=== PATIENT | male | born 1945 | race Caucasian/White ===

== ENCOUNTER 2021-10-24 11:21 | Inpatient (IN) ==
[2021-10-24] MEDS ORDERED: PROPOFOL IV EMULSION 10 MG/ML 100 ML VIAL IV ONE (11:26)
[2021-10-24] MEDS ORDERED: STAT IV Infusion **Titration per Protocol STA ×2 (11:28→12:55)
[2021-10-24] MEDS ORDERED: 0.2 MICRON FILTER SET 1 EA IV ONE ×2 (11:29→16:43)
[2021-10-24] MEDS ORDERED: AMIODARONE / D5W 360 MG/200 ML BAG IV ONE (11:29)
[2021-10-24] MEDS ORDERED: AMIODARONE 360MG / 200ML D5W IV ONE (11:29)
[2021-10-24] MEDS ORDERED: propofoL 1,000 MG/100 ML VIAL IV SCH (11:30)
[2021-10-24] MEDS: PROPOFOL BOLUS FROM BAG IV PRN ×4 (11:31→13:48)
--- NOTE | 2021-10-24 11:32 | Emergency Department Note ---
Impression & Plan Cardiac arrest ADMIT ED Provider Note HPI: The patient is a 76-year-old male who presents the emergency department status post ventricular fibrillation arrest in the field. Patient reportedly was at a local gas station and collapsed. Bystander started CPR. Per EMS report he was noted to be in ventricular fibrillation as his initial rhythm, he was defibrillated in the field, CPR was ongoing, patient ultimately was defibrillated 3 times, received 3 rounds of epinephrine, also received an amiodarone bolus. Return of spontaneous circulation was achieved, patient was intubated in the field. Arrival here to the ED the patient is intubated, he is displaying some movement of the extremities as he is currently not sedated. He has a large laceration to the mid aspect of his frontal scalp with minimal active bleeding. Blood pressures currently stable. ROS: -Cardio: Cardiac arrest *10 point review systems was conducted and is otherwise negative unless stated above *Outpatient medications and allergy history reviewed PE: General: Patient is intubated, does display some purposeful movements of the extremities at times HEENT: Normocephalic, laceration to the frontal scalp with minimal active bleeding, approximately 3 cm in length Eyes: Extraocular eye movement is intact, no scleral erythema Pulmonary: Clear to auscultation bilaterally, no wheezing Cardio: Regular rate and rhythm GI: Abdomen is soft, nontender : No suprapubic tenderness MSK: No evidence of trauma or malformation of the extremities, no edema Skin: No evidence of rash, laceration to the mid front scalp as noted above Neuro: Alert, no focal deficits Psychiatric: Cooperative monitor car operator: - An order was placed for continuous cardiac monitoring - Patient was noted to be in sinus rhythm with rate of 110 EKG: Rate: 96 Rhythm: Normal sinus rhythm Intervals: NE Within normal limits, QRS 164 ms, QTC [address] changes: No ST elevation Time: 1128 Laceration repair: Location: Frontal scalp Length: 3 cm Closure technique: 4 separate nhi were placed with good approximation of the wound edges and good hemostasis achieved Medical Decision Making: Patient presented to the emergency department status post ventricular fibri llation arrest in the field. ROSC was achieved by EMS prior to arrival, patient was given epinephrine x3 as well as 3 defibrillation shocks and a bolus of amiodarone in the field prior to arrival. Patient was intubated in the field. On arrival patient has stable blood pressure, he is noted to be in sinus tachycardia on arrival in the low 100s, he does exhibit some motion of the extremities at times and therefore was sedated with propofol shortly after arrival, patient was also started on amiodarone drip following bolus that was given in the field given his reported ventricular fibrillation. CT imaging of the head was obtained as the patient does have a laceration to the mid forehead after his fall, this does not show any evidence of intracranial bleeding. EKG was obtained here in the ED that does not show any evidence of ST elevation. Lab work shows evidence of leukocytosis greater than 19,000 which I suspect is reactive at this time, lactic acid is elevated 2.9, high-sensitivity troponin level is elevated at 110. Venous blood gas obtained initially on arrival shows acidotic pH of 7.22 with some hypercarbic retention likely associated with the patient's apnea prior to intubation. Patient was initiated on peripheral vasopressor with Levophed as he did have an episode of hypotension following sedation with propofol later during his stay into the 80s systolic. I discussed the patient's arrival with the on-call produce inspector, Dr. Molina, who is in agreement for consultation. Recommended initiation of cooling protocols following negative CT imaging of the head. This was ordered. Patient was also discussed with on-call interventional cardiology, Dr. Elmore, and morena nt was taken to the cardiac catheterization lab for further diagnostic assessment. Patient was noted to have a medical bracelet on in the field that was informative of a history of coronary artery disease status post multiple stents and CABG. Suspect his episode today may be secondary to CAD. This was discussed with the on-call midlevel provider for the [facility] service and the patient was admitted primarily to their service for further care with plan for admission to the ICU following cardiac catheterization. I did discuss all the above findings with the patient's , Louise, on the phone, she states that she will be arriving to the hospital shortly after her son comes to her home to pick her up and give her a ride to the hospital. She is aware of the critical condition of her at this time. She was able to supplement additional information about the patient's cardiac history including history of CHF, ischemic cardiomyopathy, history of CABG. States he has received care at [facility] as well as [facility]. * CRITICAL CARE TIME: 60 min -Time spent at the bedside for patient status postcardiac arrest requiring se dation following intubation, initiation of amiodarone drip for ventricular fibrillation in the field, initiation of vasopressor support for hypotension, interpretation of diagnostic studies including EKG, discussion with other healthcare providers including on-call produce inspector and on-call interventional cardiology, arrangement of admission and arrangement of transfer to the cardiac catheterization lab Diagnosis: 1. Cardiac arrest status post ROSC 2. Ventricular fibrillation 3. History of coronary artery disease status post CABG 4. Elevated high-sensitivity troponin 5. Lactic acidosis 6. Leukocytosis 7. Closed head injury 8. Forehead laceration Disposition: Admission to ICU Darius Cardenas DO Emergency Medicine Past Med/Surg History Medical History (Updated 10/24/21 @ 14:18 by Armin Juarez MD) CKD (chronic kidney disease) Coronary artery disease Ventricular fibrillation Social History Smoking Status: Unknown if ever smoked Allergies Allergies Allergy/AdvReac Type Severity Reaction Status Date / Time erythromycin base Allergy Unknown STOMACH Verified 04/12/15 07:57 PAIN LATEX 1 Allergy Unknown HIVES Uncoded 04/07/15 13:44 Home Meds Home Medications Medication Instructions Recorded Confirmed ATORVASTATIN (LIPITOR) 40 mg PO QPM #0 tab 04/07/15 CALCIUM CARBONATE-VITAMIN D 1 tab PO QAM #0 04/07/15 (CALCIUM) CHOLECALCIFEROL (Vitamin D) 1,000 inter.unit PO QAM #0 tab 04/07/15 CLOPIDOGREL BISULFATE (PLAVIX) 75 mg PO QPM #0 tab 04/07/15 Lisinopril (Prinivil) 20 mg PO BID #0 tab 04/07/15 MONTELUKAST SODIUM (SINGULAIR) 10 mg PO QAM #0 tab 04/07/15 Multivitamin 1 tab PO QAM #0 tab 04/07/15 OMEGA-3 FATTY ACIDS (OMEGA 3) 1 cap PO QAM #0 04/07/15 Ocuvite Preservision 2 tab PO BID #0 tab 04/07/15 Results & Data (ED) Vital Signs Vital Signs - 24 hr 10/24/21 11:23 10/24/21 11:28 10/24/21 11:30 Temperature Temperature Source Pulse Rate 104 H 112 H Pulse Rate [Apical] Pulse Rate from SpO2 Sensor Respiratory Rate 23 24 Respiratory Effort / Characteristics Respiratory Depth Normal Blood Pressure 201/128 H Blood Pressure [Left Arm] Blood Pressure Mean 152 Blood Pressure Mean [Left Arm] Pulse Oximetry 99 98 99 Oxygen Delivery Method Mechanical Vent Mechanical Vent Fraction of Inspired Oxygen 60 Sepsis Recent Fever Within 48 Hours No Sepsis New/Unexplained Change in Mental Status No Sepsis Action Taken by Nursing Physician Notified End-Tidal CO2 37 End Tidal CO2 (18-54mmHg) 10/24/21 11:35 10/24/21 11:45 10/24/21 12:00 Temperature 35.6 C L Temperature Source [place] Cath ( Temp Sensing) Pulse Rate Pulse Rate [Apical] 107 H 99 H 90 Pulse Rate from SpO2 Sensor Respiratory Rate 32 H 20 22 Respiratory Effort / Characteristics Mechanically Ventilated Mechanically Ventilated Mechanically Ventilated Respiratory Depth Blood Pressure Blood Pressure [Left Arm] 103/68 170/105 H 113/72 Blood Pressure Mean Blood Pressure Mean [Left Arm] 79 126 85 Pulse Oximetry 99 99 99 Oxygen Delivery Method Mechanical Vent Mechanical Vent Mechanical Vent Fraction of Inspired Oxygen Sepsis Recent Fever Within 48 Hours Sepsis New/Unexplained Change in Mental Status Sepsis Action Taken by Nursing End-Tidal CO2 End Tidal CO2 (18-54mmHg) 41 45 10/24/21 12:15 10/24/21 12:30 10/24/21 12:45 Temperature 36.8 C Temperature Source [place] Cath ( Temp Sensing) Pulse Rate Pulse Rate [Apical] 81 78 78 Pulse Rate from SpO2 Sensor Respiratory Rate 22 26 H 20 Respiratory Effort / Characteristics Mechanically Ventilated Mechanically Ventilated Mechanically Ventilated Respiratory Depth Blood Pressure Blood Pressure [Left Arm] 105/74 98/52 L 121/73 Blood Pressure Mean Blood Pressure Mean [Left Arm] 84 67 89 Pulse Oximetry 99 100 100 Oxygen Delivery Method Mechanical Vent Mechanical Vent Mechanical Vent Fraction of Inspired Oxygen Sepsis Recent Fever Within 48 Hours Sepsis New/Unexplained Change in Mental Status Sepsis Action Taken by Nursing End-Tidal CO2 End Tidal CO2 (18-54mmHg) 40 45 45 10/24/21 13:00 10/24/21 13:07 10/24/21 13:10 Temperature Temperature Source Pulse Rate 71 73 76 Pulse Rate [Apical] Pulse Rate from SpO2 Sensor 71 74 Respiratory Rate 16 16 17 Respiratory Effort / Characteristics Respiratory Depth Blood Pressure 67/43 L 107/64 Blood Pressure [Left Arm] Blood Pressure Mean 51 78 Blood Pressure Mean [Left Arm] Pulse Oximetry 100 99 Oxygen Delivery Method Mechanical Vent Mechanical Vent Mechanical Vent Fraction of Inspired Oxygen Sepsis Recent Fever Within 48 Hours Sepsis New/Unexplained Change in Mental Status Sepsis Action Taken by Nursing End-Tidal CO2 39 42 42 End Tidal CO2 (18-54mmHg) 10/24/21 13:20 10/24/21 13:24 10/24/21 13:26 Temperature Temperature Source Pulse Rate 73 79 70 Pulse Rate [Apical] Pulse Rate from SpO2 Sensor 79 78 Respiratory Rate 21 20 18 Respiratory Effort / Characteristics Respiratory Depth Blood Pressure 114/88 130/90 83/68 L Blood Pressure [Left Arm] Blood Pressure Mean 96 103 73 Blood Pressure Mean [Left Arm] Pulse Oximetry 92 100 Oxygen Delivery Method Mechanical Vent Mechanical Vent Fraction of Inspired Oxygen Sepsis Recent Fever Within 48 Hours Sepsis New/Unexplained Change in Mental Status Sepsis Action Taken by Nursing End-Tidal CO2 45 45 42 End Tidal CO2 (18-54mmHg) 10/24/21 13:30 10/24/21 13:31 10/24/21 13:38 Temperature Temperature Source Pulse Rate 66 71 75 Pulse Rate [Apical] Pulse Rate from SpO2 Sensor 66 74 75 Respiratory Rate 18 12 17 Respiratory Effort / Characteristics Respiratory Depth Blood Pressure 110/64 Blood Pressure [Left Arm] Blood Pressure Mean 43 79 Blood Pressure Mean [Left Arm] Pulse Oximetry 93 100 Oxygen Delivery Method Mechanical Vent Mechanical Vent Fraction of Inspired Oxygen Sepsis Recent Fever Within 48 Hours Sepsis New/Unexplained Change in Mental Status Sepsis Action Taken by Nursing End-Tidal CO2 39 42 53 End Tidal CO2 (18-54mmHg) 10/24/21 13:40 10/24/21 13:41 10/24/21 13:47 Temperature Temperature Source Pulse Rate 66 65 72 Pulse Rate [Apical] Pulse Rate from SpO2 Sensor 66 63 72 Respiratory Rate 21 19 23 Respiratory Effort / Characteristics Respiratory Depth Blood Pressure 101/59 L 145/56 H Blood Pressure [Left Arm] Blood Pressure Mean 73 85 Blood Pressure Mean [Left Arm] Pulse Oximetry 98 94 100 Oxygen Delivery Method Mechanical Vent Mechanical Vent Fraction of Inspired Oxygen Sepsis Recent Fever Within 48 Hours Sepsis New/Unexplained Change in Mental Status Sepsis Action Taken by Nursing End-Tidal CO2 41 41 45 End Tidal CO2 (18-54mmHg) 10/24/21 13:56 Temperature Temperature Source Pulse Rate 78 Pulse Rate [Apical] Pulse Rate from SpO2 Sensor Respiratory Rate 22 Respiratory Effort / Characteristics Respiratory Depth Blood Pressure 145/56 H Blood Pressure [Left Arm] Blood Pressure Mean Blood Pressure Mean [Left Arm] Pulse Oximetry 99 Oxygen Delivery Method Mechanical Vent Fraction of Inspired Oxygen Sepsis Recent Fever Within 48 Hours Sepsis New/Unexplained Change in Mental Status Sepsis Action Taken by Nursing End-Tidal CO2 End Tidal CO2 (18-54mmHg) Laboratory Data Result diagrams: 10/24/21 11:31 10/24/21 12:49 Lab Results 10/24/21 10/24/21 10/24/21 Range/Units 11:31 11:31 11:31 WBC 19.59 H (4.8-10.8) K/uL RBC 5.21 (4.7-6.1) M/uL Hgb 14.9 (14.0-18.0) g/dL Hct 44.7 (42-52) % MCV 85.8 (80-100) fL MCH 28.6 (25-34) pg MCHC 33.3 (32-36) g/dL RDW Std Deviation 45.5 (36.4-46.3) fL RDW Coeff of Ed 14.5 (11.5-14.5) % Plt Count 383 (130-400) K/uL MPV 10.3 (7.4-10.4) fL Immature Gran % (Auto) 2.5 % Neut % (Auto) 70.0 % Lymph % (Auto) 19.8 % [place] % (Auto) 5.9 % Eos % (Auto) 1.7 % Baso % (Auto) 0.1 % Neut # (Auto) 13.72 H (1.4-6.5) K/uL Lymph # (Auto) 3.88 H (1.2-3.4) K/uL [place] # (Auto) 1.15 H (0.11-0.59) K/uL Eos # (Auto) 0.34 (0-0.5) K/uL Baso # (Auto) 0.02 (0-0.2) K/uL Immature Gran # (Auto) 0.48 H (0.00-0.02) K/uL PT 11.2 (9.0-12.0) Seconds INR 1.1 (0.9-1.1) APTT 25.9 (21.0-31.0) Seconds PTT Ratio 0.9 VBG pH (7.36-7.41) VBG pCO2 (38-50) mmHg VBG pO2 mmHg VBG HCO3 mmol/L VBG O2 Saturation % VBG Base Excess mEq/L Sodium 136 (136-145) mmol/L Potassium TNP Chloride 100 (98-107) mmol/L Carbon Dioxide 22 (21-32) mmol/L Anion Gap 14 H (3-11) BUN 19 (6-23) mg/dl Creatinine 1.43 H (0.6-1.4) mg/dl Est Cr Clr Drug Dosing Not Reportable Est GFR ( Amer) 55.5 ml/min Est GFR (Non-Af Amer) 47.9 ml/min BUN/Creatinine Ratio 13.3 (10-20) Glucose 172 H (70-99(Fasting)) mg/dl Lactate Calcium 9.3 (8.5-10.1) mg/dl Total Bilirubin 0.8 (0.2-1.0) mg/dl AST TNP ALT 412 H (7-52) U/L Alkaline Phosphatase 206 H (34-104) U/L Troponin I High Sens 110.6 H* (0-20) pg/ml Total Protein 6.7 (6.0-8.3) gm/dl Albumin 3.7 (3.4-5.0) gm/dl Globulin 3.0 (2.5-4.0) gm/dl Albumin/Globulin Ratio 1.2 (0.9-2) Lipase 81 (11-82) U/L SARS-CoV-2, RNA, NAAT (NEGATIVE) 10/24/21 10/24/21 10/24/21 Range/Units 11:42 11:52 11:53 WBC (4.8-10.8) K/uL RBC (4.7-6.1) M/uL Hgb (14.0-18.0) g/dL Hct (42-52) % MCV (80-100) fL MCH (25-34) pg MCHC (32-36) g/dL RDW Std Deviation (36.4-46.3) fL RDW Coeff of Ed (11.5-14.5) % Plt Count (130-400) K/uL MPV (7.4-10.4) fL Immature Gran % (Auto) % Neut % (Auto) % Lymph % (Auto) % [place] % (Auto) % Eos % (Auto) % Baso % (Auto) % Neut # (Auto) (1.4-6.5) K/uL Lymph # (Auto) (1.2-3.4) K/uL [place] # (Auto) (0.11-0.59) K/uL Eos # (Auto) (0-0.5) K/uL Baso # (Auto) (0-0.2) K/uL Immature Gran # (Auto) (0.00-0.02) K/uL PT (9.0-12.0) Seconds INR (0.9-1.1) APTT (21.0-31.0) Seconds PTT Ratio VBG pH 7.22 L (7.36-7.41) VBG pCO2 62 H (38-50) mmHg VBG pO2 34 mmHg VBG HCO3 25 mmol/L VBG O2 Saturation < 60.0 % VBG Base Excess -3.5 mEq/L Sodium (136-145) mmol/L Potassium Chloride (98-107) mmol/L Carbon Dioxide (21-32) mmol/L Anion Gap (3-11) BUN (6-23) mg/dl Creatinine (0.6-1.4) mg/dl Est Cr Clr Drug Dosing Est GFR ( Amer) ml/min Est GFR (Non-Af Amer) ml/min BUN/Creatinine Ratio (10-20) Glucose (70-99(Fasting)) mg/dl Lactate Cancelled Calcium (8.5-10.1) mg/dl Total Bilirubin (0.2-1.0) mg/dl AST ALT (7-52) U/L Alkaline Phosphatase (34-104) U/L Troponin I High Sens (0-20) pg/ml Total Protein (6.0-8.3) gm/dl Albumin (3.4-5.0) gm/dl Globulin (2.5-4.0) gm/dl Albumin/Globulin Ratio (0.9-2) Lipase (11-82) U/L SARS-CoV-2, RNA, NAAT NEGATIVE (NEGATIVE) 10/24/21 10/24/21 Range/Units 12:49 12:49 WBC (4.8-10.8) K/uL RBC (4.7-6.1) M/uL Hgb (14.0-18.0) g/dL Hct (42-52) % MCV (80-100) fL MCH (25-34) pg MCHC (32-36) g/dL RDW Std Deviation (36.4-46.3) fL RDW Coeff of Ed (11.5-14.5) % Plt Count (130-400) K/uL MPV (7.4-10.4) fL Immature Gran % (Auto) % Neut % (Auto) % Lymph % (Auto) % [place] % (Auto) % Eos % (Auto) % Baso % (Auto) % Neut # (Auto) (1.4-6.5) K/uL Lymph # (Auto) (1.2-3.4) K/uL [place] # (Auto) (0.11-0.59) K/uL Eos # (Auto) (0-0.5) K/uL Baso # (Auto) (0-0.2) K/uL Immature Gran # (Auto) (0.00-0.02) K/uL PT (9.0-12.0) Seconds INR (0.9-1.1) APTT (21.0-31.0) Seconds PTT Ratio VBG pH (7.36-7.41) VBG pCO2 (38-50) mmHg VBG pO2 mmHg VBG HCO3 mmol/L VBG O2 Saturation % VBG Base Excess mEq/L Sodium (136-145) mmol/L Potassium 4.0 Chloride (98-107) mmol/L Carbon Dioxide (21-32) mmol/L Anion Gap (3-11) BUN (6-23) mg/dl Creatinine (0.6-1.4) mg/dl Est Cr Clr Drug Dosing Est GFR ( Amer) ml/min Est GFR (Non-Af Amer) ml/min BUN/Creatinine Ratio (10-20) Glucose (70-99(Fasting)) mg/dl Lactate 2.9 H* Calcium (8.5-10.1) mg/dl Total Bilirubin (0.2-1.0) mg/dl AST 384 H ALT (7-52) U/L Alkaline Phosphatase (34-104) U/L Troponin I High Sens (0-20) pg/ml Total Protein (6.0-8.3) gm/dl Albumin (3.4-5.0) gm/dl Globulin (2.5-4.0) gm/dl Albumin/Globulin Ratio (0.9-2) Lipase (11-82) U/L SARS-CoV-2, RNA, NAAT (NEGATIVE) Administered Medications Propofol (Diprivan) 1,000 mg in 100 mls @ 2.55 mls/hr IV .Q24H [facility]; Protocol Stop: 10/27/21 11:29 Last Titration: 10/24/21 13:48 Dose: 15 mcg/kg/min, 7.7 mls/hr Documented by: [id number] Titration: 10/24/21 11:52 Dose: 10 mcg/kg/min, 5.1 mls/hr Documented by: [id number] Admin: 10/24/21 11:27 Dose: 5 mcg/kg/min, 2.6 mls/hr Documented by: [id number] Cosigned by: [id number] Amiodarone HCl/Dextrose (Nexterone / D5w) 360 mg in 200 mls @ 33.333 mls/hr IV ONE ONE; Protocol Stop: 10/24/21 17:28 Last Admin: 10/24/21 11:44 Dose: 1 mg/min, 33.3 mls/hr Documented by: [id number] Cosigned by: [id number] Norepinephrine Bitartrate (Levophed/D5w) 4 mg in 250 mls @ 15.938 mls/hr IV .[id number] [facility]; Protocol Stop: 11/23/21 12:59 Last Titration: 10/24/21 13:32 Dose: 0.07 mcg/kg/min, 22.3 mls/hr Documented by: [id number] Admin: 10/24/21 13:06 Dose: 0.05 mcg/kg/min, 15.9 mls/hr Documented by: [id number] Cosigned by: [id number] Propofol (Propofol Bolus From Bag) 20 mg IV Q5M PRN PRN Reason: Sedation Stop: 10/27/21 11:27 Last Admin: 10/24/21 13:48 Dose: 20 mg Documented by: [id number] Cosigned by: [id number] Admin: 10/24/21 13:24 Dose: 20 mg Documented by: [id number] Cosigned by: [id number] Admin: 10/24/21 11:48 Dose: 20 mg Documented by: [id number] Cosigned by: [id number] Admin: 10/24/21 11:31 Dose: 20 mg Documented by: [id number] Cosigned by: [id number] Discontinued Medications Fentanyl Citrate (Fentanyl Citrate 100 Mcg/2 Ml Vial) 50 mcg IV NOW STA Stop: 10/24/21 12:41 Last Admin: 10/24/21 12:45 Dose: 50 mcg Documented by: [id number] Imaging Data Radiologist's Impression: Chest X-Ray 10/24/21 11:28 XR chest 1V portable supine CLINICAL HISTORY: Chest Pain COMPARISON STUDY: No previous studies for comparison. FINDINGS: Tip of the endotracheal tube is at or just above the bela. No pneumothorax is identified on supine exam. Median sternotomy wires are noted. There are mediastinal surgical clips. Multiple left-sided rib fractures are age- indeterminate but probably old. There is left-sided pleural thickening versus pleural effusion. Cardiomegaly is noted without evidence for pulmonary edema. IMPRESSION: 1. Tip of endotracheal tube at or just above the bela. The tube could be withdrawn 2 cm. 2. Multiple left-sided rib fractures. Although age indeterminate, these are likely old. Left pleural thickening versus pleural effusion. 3. Cardiomegaly without evidence for pulmonary edema. ACT 112: Negative or not required by law. Electronically signed by: Indio Naik M.D. 10/24/2021 12:[address] 10/24/21 11:30 CT OF THE CERVICAL SPINE WITHOUT CONTRAST CLINICAL HISTORY: fall COMPARISON STUDY: MRI of the cervical spine September 07, 2006. TECHNIQUE: Helical axial images of the cervical spine were obtained without IV contrast. Sagittal and coronal reconstructions were viewed. Automated exposure control was utilized for the study. A dose lowering technique was utilized adhering to the principles of ALARA. FINDINGS: Alignment of the cervical spine is anatomic. Vertebral body heights are maintained. No acute cervical spine fracture or subluxation is present. There is no prevertebral edema. Facet joints are intact. There is severe disc space narrowing with osteophytosis. There is moderate multilevel facet arthrosis within the cervical spine. Endotracheal tube is partially imaged. Right mastoid air cells are partially opacified. Venous gas is incidentally noted. IMPRESSION: No acute cervical spine fracture or subluxation. ACT 112: Negative or not required by law. Electronically signed by: Indio Naik M.D. 10/24/2021 12:[address] 10/24/21 11:30 CT OF THE HEAD WITHOUT CONTRAST CLINICAL HISTORY: head injury COMPARISON STUDY: No previous studies for comparison. CT DOSE: 788.63 mGycm TECHNIQUE: Helical axial images of the head were obtained without IV contrast. Automated exposure control was utilized for the study. A dose lowering technique was utilized adhering to the principles of ALARA. FINDINGS: No acute intracranial hemorrhage, midline shift or mass effect is present. The ventricular system is unremarkable. The basal cisterns are patent. No extra-axial collections are present. There are no findings to suggest acute dural sinus thrombosis or acute territorial infarct. No significant calvarial abnormalities are present. Right mastoid air cells are partially opacified. Gas within the left infratemporal fossa may be venous.Left forehead contusion and laceration with skin nhi is noted. There is no calvarial fracture. IMPRESSION: 1. No acute intracranial findings. 2. Left forehead contusion and laceration. No calvarial fracture. 3. Partially opacified right mastoid air cells. ACT 112: Negative or not required by law. Electronically signed by: Indio Naik M.D. 10/24/2021 12:22 PM Chest X-Ray 10/24/21 12:56 XR chest 1V portable CLINICAL HISTORY: eval ET tube withdrawn 2 cm TECHNIQUE: Single frontal radiograph of the chest was obtained. Comparison: Comparison is made to chest radiograph 10/24/2021 at 1146 hours FINDINGS: Median sternotomy wires are unchanged. The endotracheal tube tip is approximately 37 mm from the bela, it has been withdrawn from the prior exam. An enteric tube has been placed, the tip and side-port are not definitely visualized. Calcified aortic knob is seen. Stable cardiomegaly. The lungs are clear. There is blunting of the left costophrenic angle. IMPRESSION: 1. Satisfactory position of the endotracheal tube status post repositioning. Enteric tube side-port and tip are not well visualized, likely in satisfactory position below the diaphragm. 2. Redemonstration of cardiomegaly. 3. Redemonstration of left costophrenic angle blunting which may represent scarring or small effusion. ACT 112: Negative or not required by law. Electronically signed by: Sylvester Nicole M.D. 10/24/2021 1:12 PM Discharge Plan Visit Data Chief Complaint: Cardiac Arrest/CPR ED Provider: Bialas,Darius A. Discharge Problem: Cardiac arrest Discharge Instructions Interventions: ED Discharge Assessment Last Done: 10/24/21 13:56 Forms Stand Alone Forms: My [facility] Prescriptions Prescriptions: No Action ATORVASTATIN (LIPITOR) 40 MG tablet 40 mg PO QPM Qty: 0 RF: 0 CALCIUM CARBONATE-VITAMIN D (CALCIUM) 1 TAB tablet 1 tab PO QAM Qty: 0 RF: 0 CHOLECALCIFEROL (Vitamin D) 1,000 INTER.UNIT tablet 1,000 inter.unit PO QAM Qty: 0 RF: 0 CLOPIDOGREL BISULFATE (PLAVIX) 75 MG tablet 75 mg PO QPM Qty: 0 RF: 0 Lisinopril (Prinivil) 20 MG tablet 20 mg PO BID Qty: 0 RF: 0 MONTELUKAST SODIUM (SINGULAIR) 10 MG tablet 10 mg PO QAM Qty: 0 RF: 0 Multivitamin tablet 1 tab PO QAM Qty: 0 RF: 0 OMEGA-3 FATTY ACIDS (OMEGA 3) 1 CAP capsule 1 cap PO QAM Qty: 0 RF: 0 Ocuvite Preservision 1 TAB tablet 2 tab PO BID Qty: 0 RF: 0 Referrals Referrals: PCP,NO [Primary Care Provider] -
[2021-10-24 12:10] LABS: Basophils # (auto) 0.02 K/uL (0-0.2); Basophils % (auto) 0.1 %; Eosinophils # (auto) 0.34 K/uL (0-0.5); Eosinophils % (auto) 1.7 %; Hematocrit (blood only) 44.7 % (42-52); Hemoglobin 14.9 g/dL (14.0-18.0); Immature Granulocytes # (auto) 0.48 K/uL (0.00-0.02); Immature Granulocytes % (auto) 2.5 %; Lymphocytes # (auto) 3.88 K/uL (1.2-3.4); Lymphocytes % (auto) 19.8 %; Mean Corpuscular Hemoglobin 28.6 pg (25-34); Mean Corpuscular Hgb Conc 33.3 g/dL (32-36); Mean Corpuscular Volume 85.8 fL (80-100); Mean Platelet Volume 10.3 fL (7.4-10.4); Monocytes # (auto) 1.15 K/uL (0.11-0.59); Monocytes % (auto) 5.9 %; Neutrophils # (auto) 13.72 K/uL (1.4-6.5); Platelet Count 383 K/uL (130-400); RDW Coefficient of Variation 14.5 % (11.5-14.5); RDW Standard Deviation 45.5 fL (36.4-46.3); Red Blood Count 5.21 M/uL (4.7-6.1); White Blood Count 19.59 K/uL (4.8-10.8)
[2021-10-24 12:12] LABS: Base Excess VBG -3.5 mEq/L; HCO3 VBG 25 mmol/L; PCO2 VBG 62 mmHg (38-50); PO2 VBG 34 mmHg; pH VBG 7.22 (7.36-7.41)
[2021-10-24 12:15] LABS: Oxygen Saturation VBG < 60.0 %
[2021-10-24 12:18] LABS: INR 1.1 (0.9-1.1); Partial Thromboplastin Ratio 0.9; Partial Thromboplastin Time 25.9 Seconds (21.0-31.0); Prothrombin Time 11.2 Seconds (9.0-12.0)
--- NOTE | 2021-10-24 12:18 | XRay Report ---
XR chest 1V portable supine CLINICAL HISTORY: Chest Pain COMPARISON STUDY: No previous studies for comparison. FINDINGS: Tip of the endotracheal tube is at or just above the bela. No pneumothorax is identified on supine exam. Median sternotomy wires are noted. There are mediastinal surgical clips. Multiple lef t-sided rib fractures are age-indeterminate but probably old. There is left-sided pleural thickening versus pleural effusion. Cardiomegaly is noted without evidence for pulmonary edema. IMPRESSION: 1. Tip of endotracheal tube at or just above the bela. The tube could be withdrawn 2 cm. 2. Multiple left-sided rib fractures. Although age indeterminate, these are likely old. Left pleural thickening versus pleural effusion. 3. Cardiomegaly without evidence for pulmonary edema. ACT 112: Negative or not required by law. Electronically signed by: Indio Naik M.D. 10/24/2021 12:17 PM
--- NOTE | 2021-10-24 12:24 | CT Scan Report ---
CT OF THE HEAD WITHOUT CONTRAST CLINICAL HISTORY: head injury COMPARISON STUDY: No previous studies for comparison. CT DOSE: 788.63 mGycm TECHNIQUE: Helical axial images of the head were obtained without IV contrast. Automated exposure con trol was utilized for the study. A dose lowering technique was utilized adhering to the principles o f ALARA. FINDINGS: No acute intracranial hemorrhage, midline shift or mass effect is present. The ventricular system is unremarkable. The basal cisterns are patent. No extra-axial collections are present. There are no findings to suggest acute dural sinus thrombosis or acute territorial infarct. No significant calvarial abnormalities are present. Right mastoid air cells are partially opacified. Gas within the left infratemporal fossa may be venous.Left forehead contusion and laceration with skin nhi is no kvng. There is no calvarial fracture. IMPRESSION: 1. No acute intracranial findings. 2. Left forehead contusion and laceration. No calvarial fracture. 3. Partially opacified right mastoid air cells. ACT 112: Negative or not required by law. Electronically signed by: Indio Naik M.D. 10/24/2021 12:22 PM
--- NOTE | 2021-10-24 12:27 | CT Scan Report ---
CT OF THE CERVICAL SPINE WITHOUT CONTRAST CLINICAL HISTORY: fall COMPARISON STUDY: MRI of the cervical spine September 07, 2006. TECHNIQUE: Helical axial images of the cervical spine were obtained without IV contrast. Sagittal a nd coronal reconstructions were viewed. Automated exposure control was utilized for the study. A do se lowering technique was utilized adhering to the principles of ALARA. FINDINGS: Alignment of the cervical spine is anatomic. Vertebral body heights are maintained. No acut e cervical spine fracture or subluxation is present. There is no prevertebral edema. Facet joints are intact. There is severe disc space narrowing with osteophytosis. There is moderate multilevel facet arthrosis within the cervical spine. Endotracheal tube is partially imaged. Right mastoid air cells a re partially opacified. Venous gas is incidentally noted. IMPRESSION: No acute cervical spine fracture or subluxation. ACT 112: Negative or not required by law. Electronically signed by: Indio Naik M.D. 10/24/2021 12:26 PM
[2021-10-24 12:39] LABS: Alanine Aminotransferase 412 U/L (7-52); Albumin Globulin Ratio 1.2 (0.9-2); Albumin Level 3.7 gm/dl (3.4-5.0); Alkaline Phosphatase 206 U/L (34-104); Anion Gap 14 (3-11); BUN Creatinine Ratio 13.3 (10-20); Bilirubin,Total 0.8 mg/dl (0.2-1.0); Blood Urea Nitrogen 19 mg/dl (6-23); Calcium 9.3 mg/dl (8.5-10.1); Carbon Dioxide 22 mmol/L (21-32); Chloride 100 mmol/L (98-107); Est GFR (African American) 55.5 ml/min; Est GFR (Non-African American) 47.9 ml/min; Glucose 172 mg/dl (70-99(Fasting)); Lipase 81 U/L (11-82); Sodium 136 mmol/L (136-145); Total Protein 6.7 gm/dl (6.0-8.3); Troponin I High Sensitivity 110.6 pg/ml (0-20)
[2021-10-24] MEDS ORDERED: fentaNYL citrate 100 MCG/2 ML VIAL IV STA (12:40)
[2021-10-24] MEDS: NOREPINEPHRINE/D5W 4 MG/250 ML PLCT IV SCH (13:06)
--- NOTE | 2021-10-24 13:13 | XRay Report ---
XR chest 1V portable CLINICAL HISTORY: eval ET tube withdrawn 2 cm TECHNIQUE: Single frontal radiograph of the chest was obtained. Comparison: Comparison is made to chest radiograph 10/24/2021 at 1146 hours FINDINGS: Median sternotomy wires are unchanged. The endotracheal tube tip is approximately 37 mm from the angelito na, it has been withdrawn from the prior exam. An enteric tube has been placed, the tip and side-port are not definitely visualized. Calcified aortic knob is seen. Stable cardiomegaly. The lungs are chidi ar. There is blunting of the left costophrenic angle. IMPRESSION: 1. Satisfactory position of the endotracheal tube status post repositioning. Enteric tube side-port and tip are not well visualized, likely in satisfactory position below the diaphragm. 2. Redemonstration of cardiomegaly. 3. Redemonstration of left costophrenic angle blunting which may represent scarring or small effusio n. ACT 112: Negative or not required by law. Electronically signed by: Sylvester Nicole M.D. 10/24/2021 1:12 PM
[2021-10-24] MEDS ORDERED: niCARdipine HCL INJ 2.5 MG/ML 10 ML AMP ONE (13:41)
[2021-10-24] MEDS ORDERED: MIDAZOLAM HCL 1 MG/ML 2ML VIAL ONE (13:41)
[2021-10-24] MEDS ORDERED: HEPARIN (PORCINE) 1000 UNIT/ML 10 ML (CATH LAB USE ONLY) ONE (13:41)
[2021-10-24] MEDS ORDERED: fentaNYL citrate 100 MCG/2 ML VIAL ONE (13:41)
[2021-10-24] MEDS ORDERED: NITROGLYCERIN/D5W 100MCG/ML 20ML SYR ONE (13:42)
--- NOTE | 2021-10-24 14:21 | History & Physical Report ---
Date of Service October 24, 2021 Assessment & Plan (1) Cardiac arrest: Plan: ROSC achieved post-arrest with 3 rounds of epinephrine and 3 defibrillations per report - Admit to ICU after cardiac cath - ICU protocol orders placed. Hypothermic protocol was initiated in the ED. - Consult critical care for assistance with management in the ICU - Interventional cardiology has seen pt and will be taking to cath this afternoon - Follow labs (2) Ventricular fibrillation: (3) Coronary artery disease: (4) PVD (peripheral vascular disease): (5) Mild intermittent asthma: (6) Dyslipidemia: (7) HTN (hypertension): (8) CKD (chronic kidney disease): Plan: Appreciate critical care assistance with management while pt is in the ICU. Pt discussed with attending physician, Dr. Zuñiga. Please see her note for additional information on the plan of care. Yuriy Reynolds PA-C History of Present Illness Chief Complaint: Cardiac Arrest Primary Care Provider: Dr. Doreen Casillas This is a 76 y/o male with a PMH of CAD s/p CABG x3, cardiac stent x 4 (cardiac cath x 6), AAA s/p endovascular repair, PVD, CKD3, HTN, dyslipidemia, asthma, and macular degeneration who was brought to the ED today via EMS after a cardiac arrest in the field. History from the pt is unobtainable as he is currently intubated and sedated. His prior records from [facility], and [facility] were reviewed and additional history was obtained from his daughter, Rafia. Pt has an extensive cardiac history including inferior WA in 1993, CABG x 3 in 2007 ([place]) and subsequent caths/stents with most recent in 2014 when a ARTURO was placed to the proximal LAD. Pt follows with Dr. Kayode Pickens at [facility] in [place] for cardiology and was apparently seen for routine follow-up within the last two weeks when potential placement of a Watchman device was discussed. Pt's daughter denies any prior PPM or ICD placements. Of note, pt was admitted to [facility] in mid-September due to a TIA. ECHO done during that admission revealed an LVEF of 45%. Pt was also seen in the ED late on 10/20 and into 10/21 with shortness of breath that was diagnosed as an asthma exacerbation, and pt was prescribed a Z-pack and Tessalon Perles. Per his daughter, his breathing has been rough over the weekend. Pt was also admitted to [facility] in Dec 2020 with GIB. Today, he was apparently at the [facility] this morning when he collapsed, hitting his head on the floor. A bystander imm ediately started CPR and EMS was called. Pt was given Epi x 3 doses in the field and shocked 3 times before return of ROSC. It is unclear how long between when pt collapsed and when ROSC occurred. Pt was intubated in the field. In the ED, he has been sedated with propofol. BP did drop after a BM so levophed was started. Pt started to become more agitated and awake (?) so propofol was titrated up with associated initial drop in BP so levophed also titrated with improvement of BP. Allergies Allergy/AdvReac Type Severity Reaction Status Date / Time erythromycin base Allergy Unknown STOMACH Verified 04/12/15 07:57 PAIN LATEX 1 Allergy Unknown HIVES Uncoded 04/07/15 13:44 Home Medications Medication Instructions Recorded Confirmed Type ATORVASTATIN (LIPITOR) 40 mg PO QPM #0 tab 04/07/15 History CALCIUM CARBONATE-VITAMIN D 1 tab PO QAM #0 04/07/15 History (CALCIUM) CHOLECALCIFEROL (Vitamin D) 1,000 inter.unit PO QAM #0 tab 04/07/15 History CLOPIDOGREL BISULFATE (PLAVIX) 75 mg PO QPM #0 tab 04/07/15 History Lisinopril (Prinivil) 20 mg PO BID #0 tab 04/07/15 History MONTELUKAST SODIUM (SINGULAIR) 10 mg PO QAM #0 tab 04/07/15 History Multivitamin 1 tab PO QAM #0 tab 04/07/15 History OMEGA-3 FATTY ACIDS (OMEGA 3) 1 cap PO QAM #0 04/07/15 History Ocuvite Preservision 2 tab PO BID #0 tab 04/07/15 History Past Med/Surg History Medical History CKD (chronic kidney disease) Coronary artery disease Dyslipidemia History of inferior wall myocardial infarction 1993 History of pleural empyema HTN (hypertension) Macular degeneration Mild intermittent asthma PVD (peripheral vascular disease) Ventricular fibrillation Surgical History History of arthroscopy of shoulder History of cardiac catheterization x6 History of cataract surgery History of coronary artery bypass graft x 3 2008 - [place] History of heart artery stent x 4 S/P AAA (abdominal aortic aneurysm) repair Family History (Updated 10/24/21 @ 14:37 by Emma Reynolds PA-C) Father Heart disease AAA (abdominal aortic aneurysm) Mother Breast cancer Other Hypertension Social History (Updated 10/24/21 @ 14:38 by Emma Reynolds PA-C) Smoking Status: Never smoker Hx Alcohol Use: No Hx Substance Use: No Preferred Language: Kinyarwanda Communication Ability: Effective [employer] Required: No Beliefs That Will Affect Care: Tenriism Tenriism Beliefs: Yazdanism. Current Living Situation: Spouse Current Living Situation Comment: Only with . Feels Safe at Home: Yes Assistive Devices: Glasses and Hearing Aid - Left Review of Systems Review of Systems: Unobtainable due to endotracheal tube Physical Exam Constitutional: + mechanically ventilated Eyes: + anicteric sclerae ENMT: ETT in place, dried blood in oral area, +lip laceration Neck: trachea midline Respiratory: no respiratory distress Auscultation: lungs clear to auscultation bilaterally and + diminished lung sounds Cardiovascular: Rate/Rhythm: regular rate and regular rhythm Extremities: no pedal edema Gastrointestinal (Abdomen): Inspection/Auscultation: normal bowel sounds; a bdomen not distended Percussion/Palpation: abdomen soft Skin: frontal scalp laceration with dressing clean and intact Neurologic: currently sedated Results & Data Results & Data ([facility]) Vital Signs (Past 12 Hours) Vital Signs Temp Pulse Pulse Resp BP BP Pulse Ox 10/24/21 13:56 78 22 145/56 H 99 10/24/21 13:47 72 23 145/56 H 100 10/24/21 13:41 65 19 101/59 L 94 10/24/21 13:40 66 21 98 10/24/21 13:38 75 17 110/64 100 10/24/21 13:31 71 12 10/24/21 13:30 66 18 93 10/24/21 13:26 70 18 83/68 L 10/24/21 13:24 79 20 130/90 100 10/24/21 13:20 73 21 114/88 92 10/24/21 13:10 76 17 99 10/24/21 13:07 73 16 107/64 10/24/21 13:00 71 16 67/43 L 100 10/24/21 12:45 36.8 C 78 20 121/73 100 10/24/21 12:30 78 26 H 98/52 L 100 10/24/21 12:15 81 22 105/74 99 10/24/21 12:00 90 22 113/72 99 10/24/21 11:45 35.6 C L 99 H 20 170/105 H 99 10/24/21 11:35 107 H 32 H 103/68 99 10/24/21 11:30 112 H 24 99 10/24/21 11:28 98 10/24/21 11:23 104 H 23 201/128 H 99 Laboratory Results Laboratory Results - last 24 hr 10/24/21 10/24/21 10/24/21 11:31 11:31 11:31 WBC 19.59 H RBC 5.21 Hgb 14.9 POC Hgb Hct 44.7 POC Hct MCV 85.8 MCH 28.6 MCHC 33.3 RDW Std Deviation 45.5 RDW Coeff of Ed 14.5 Plt Count 383 MPV 10.3 Immature Gran % (Auto) 2.5 Neut % (Auto) 70.0 Lymph % (Auto) 19.8 Pope % (Auto) 5.9 Eos % (Auto) 1.7 Baso % (Auto) 0.1 Neut # (Auto) 13.72 H Lymph # (Auto) 3.88 H Pope # (Auto) 1.15 H Eos # (Auto) 0.34 Baso # (Auto) 0.02 Immature Gran # (Auto) 0.48 H PT 11.2 INR 1.1 APTT 25.9 PTT Ratio 0.9 POC pH POC pCO2 POC pO2 POC HCO3 POC Total CO2 POC Base Excess POC ABG O2 Sat VBG pH VBG pCO2 VBG pO2 VBG HCO3 VBG O2 Saturation VBG Base Excess POC Sodium Sodium 136 POC Potassium Potassium TNP Chloride 100 Carbon Dioxide 22 Anion Gap 14 H BUN 19 Creatinine 1.43 H Est Cr Clr Drug Dosing Not Reportable Est GFR ( Amer) 55.5 Est GFR (Non-Af Amer) 47.9 BUN/Creatinine Ratio 13.3 Glucose 172 H Lactate Calcium 9.3 Total Bilirubin 0.8 AST TNP ALT 412 H Alkaline Phosphatase 206 H Troponin I High Sens 110.6 H* Total Protein 6.7 Albumin 3.7 Globulin 3.0 Albumin/Globulin Ratio 1.2 Lipase 81 TSH Free T4 Nasal Screen MRSA (PCR) SARS-CoV-2, RNA, NAAT 10/24/21 10/24/21 10/24/21 11:42 11:52 11:53 WBC RBC Hgb POC Hgb Hct POC Hct MCV MCH MCHC RDW Std Deviation RDW Coeff of Ed Plt Count MPV Immature Gran % (Auto) Neut % (Auto) Lymph % (Auto) Pope % (Auto) Eos % (Auto) Baso % (Auto) Neut # (Auto) Lymph # (Auto) Pope # (Auto) Eos # (Auto) Baso # (Auto) Immature Gran # (Auto) PT INR APTT PTT Ratio POC pH POC pCO2 POC pO2 POC HCO3 POC Total CO2 POC Base Excess POC ABG O2 Sat VBG pH 7.22 L VBG pCO2 62 H VBG pO2 34 VBG HCO3 25 VBG O2 Saturation < 60.0 VBG Base Excess -3.5 POC Sodium Sodium POC Potassium Potassium Chloride Carbon Dioxide Anion Gap BUN Creatinine Est Cr Clr Drug Dosing Est GFR ( Amer) Est GFR (Non-Af Amer) BUN/Creatinine Ratio Glucose Lactate Cancelled Calcium Total Bilirubin AST ALT Alkaline Phosphatase Troponin I High Sens Total Protein Albumin Globulin Albumin/Globulin Ratio Lipase TSH Free T4 Nasal Screen MRSA (PCR) SARS-CoV-2, RNA, NAAT NEGATIVE 10/24/21 10/24/21 10/24/21 12:49 12:49 14:28 WBC RBC Hgb POC Hgb 13.6 L Hct POC Hct 40 L MCV MCH MCHC RDW Std Deviation RDW Coeff of Ed Plt Count MPV Immature Gran % (Auto) Neut % (Auto) Lymph % (Auto) Pope % (Auto) Eos % (Auto) Baso % (Auto) Neut # (Auto) Lymph # (Auto) Pope # (Auto) Eos # (Auto) Baso # (Auto) Immature Gran # (Auto) PT INR APTT PTT Ratio POC pH 7.34 L POC pCO2 50 H POC pO2 > 420 H POC HCO3 27 H POC Total CO2 28 POC Base Excess 1.0 POC ABG O2 Sat 100.0 H VBG pH VBG pCO2 VBG pO2 VBG HCO3 VBG O2 Saturation VBG Base Excess POC Sodium 135 Sodium POC Potassium 4.1 Potassium 4.0 Chloride Carbon Dioxide Anion Gap BUN Creatinine Est Cr Clr Drug Dosing Est GFR ( Amer) Est GFR (Non-Af Amer) BUN/Creatinine Ratio Glucose Lactate 2.9 H* Calcium Total Bilirubin AST 384 H ALT Alkaline Phosphatase Troponin I High Sens Total Protein Albumin Globulin Albumin/Globulin Ratio Lipase TSH Free T4 Nasal Screen MRSA (PCR) SARS-CoV-2, RNA, NAAT 10/24/21 10/24/21 16:30 Unknown WBC RBC Hgb POC Hgb Hct POC Hct MCV MCH MCHC RDW Std Deviation RDW Coeff of Ed Plt Count MPV Immature Gran % (Auto) Neut % (Auto) Lymph % (Auto) Pope % (Auto) Eos % (Auto) Baso % (Auto) Neut # (Auto) Lymph # (Auto) Pope # (Auto) Eos # (Auto) Baso # (Auto) Immature Gran # (Auto) PT INR APTT PTT Ratio POC pH POC pCO2 POC pO2 POC HCO3 POC Total CO2 POC Base Excess POC ABG O2 Sat VBG pH VBG pCO2 VBG pO2 VBG HCO3 VBG O2 Saturation VBG Base Excess POC Sodium Sodium POC Potassium Potassium Chloride Carbon Dioxide Anion Gap BUN Creatinine Est Cr Clr Drug Dosing Est GFR ( Amer) Est GFR (Non-Af Amer) BUN/Creatinine Ratio Glucose Lactate Calcium Total Bilirubin AST ALT Alkaline Phosphatase Troponin I High Sens Total Protein Albumin Globulin Albumin/Globulin Ratio Lipase TSH 6.681 H Free T4 1.09 Nasal Screen MRSA (PCR) Pending SARS-CoV-2, RNA, NAAT Diagnostic Findings Chest X-ray 10/24/21 - IMPRESSION:1. Tip of endotracheal tube at or just above the bela. The tube could be withdrawn 2 cm. 2. Multiple left-sided rib fractures. Although age indeterminate, these are likely old. Left pleural thickening versus pleural effusion. 3. Cardiomegaly without evidence for pulmonary edema. Cervical Spine CT 10/24/21 - IMPRESSION: No acute cervical spine fracture or subluxation. Head CT 10/24/21 - IMPRESSION: 1. No acute intracranial findings. 2. Left forehead contusion and laceration. No calvarial fracture. 3. Partially opacified right mastoid air cells. Chest X-ray 10/24/21 - IMPRESSION: 1. Satisfactory position of the endotracheal tube status post repositioning. Enteric tube side-port and tip are not well visualized, likely in satisfactory position below the diaphragm. 2. Redemonstration of cardiomegaly. 3. Redemonstration of left costophrenic angle blunting which may represent scarring or small effusion. Code Status & VTE Plan VTE Prophylaxis Plan VTE Prophylaxis will be ordered: Yes Supervising Physician Co-Signing Physician Notes I have seen and examined the patient and have discussed the case with the provider above. I agree with the assessment and plan as stated with the following exceptions. 76-year-old man with known history of CAD status post CABG in the past presented intubated and sedation resuscitated in the field after V. fib arrest at a gas station. He was placed on pressors and taken to the [facility]. Prior to [facility] arrival he was started on hypothermic protocol which was aborted because he defecated on the cooling blanket. Cardiac catheterization revealed diffuse disease with widely patent grafts and elevated intracardiac filling pressures. There was no acute CAD to explain patient's out of hospital cardiac arrest and medical management was recommended to be continued. Gentle diuresis as blood pressure allows was recommended. He was transferred back to the ICU and was able to be extubated shortly after arrival. He remains in critical condition. My physical exam was performed precatheterization with the patient was intubated and sedated and agree with physical exam as noted above. Troponin was elevated with no evidence for ST elevation n EKG (1) Cardiac arrest (2) Ventribular fibrillation (3) NSTEMI in setting of diffuse CAD s/p CABG in the past. (4) Asthma-chronic (5) Left forehead contusion and laceration Cont ICU care, wean off pressors. As patient woke up and was oriented, hypothermic protocol was aborted. Avoid IVF and start oral hydration as tolerated with elevated intracardiac pressures. Cont broad spectrum abx. Cont telemetry monitoring. Karen Zuñiga DO [facility] Hospitalist
--- NOTE | 2021-10-24 14:24 | Critical Care Consultation ---
Date of Consultation October 24, 2021 Assessment & Plan (1) Cardiac arrest: (2) CKD (chronic kidney disease): (3) Coronary artery disease: (4) Ventricular fibrillation: (5) Mild intermittent asthma: 76-year-old male with a past medical history of extensive coronary artery disease who collapsed in the field and was found to be in ventricular fibrillation. ROSC was ultimately obtained after 3 rounds of epinephrine and 3 defibrillations. Patient is currently in the ER intubated, sedated and on a low-dose infusion of Levophed. Neurologic: Patient following all commands and was successfully extubated. Minimize sedatives. CT head negative. Maintain euglycemia. Keep head of the bed e levated 30 degrees. Pulmonary: Patient extubated. He relates a history of asthma and uses an Advair inhaler. Will prescribe an ICS/LABA while an inpatient. Cardiovascular: Patient with extensive coronary artery disease. He was taken to the [facility]. No stenting required. We will obtain an echo. Monitor QTC. Maintain K above 4 and magnesium above 2. Continue amiodarone. Gastrointestinal: NPO. Renal: Monitor urine output closely. De Leon in place. Patient with a history of CKD. Unclear whether his current creatinine represents an ANIBAL. Elevated LVEDP on left heart cath. We will avoid fluids at this time. Infectious disease: We will start empiric ceftriaxone. Hematologic: No signs of acute bleeding or coagulopathy. Endocrine: Check TSH. Maintain euglycemia. Lines and tubes: Upper extremity peripheral IVs in place. De Leon catheter in place. VTE prophylaxis: SCDs CODE STATUS: Full Family at bedside: updated at bedside Disposition: ICU I have personally spent 36 minutes of critical care time in the direct management of this patient. This is a life/limb threatening event. This includes time spent evaluating patient, direct bedside care, chart review, placing or ders, interpretation of diagnostic studies, discussion with consultants, patient, and family members, as well as other required patient management activities. This time is exclusive of all separately billable procedures, and teaching time and separate from and in addition to any other critical care service time. Thank you for allowing us to participate in the care of this patient. History of Present Illness Reason for Consultation: Status post cardiac arrest now intubated and on vasopressors Requesting Physician: ER physician History of Present Illness 76-year-old male who presented to the ER status post ventricular cardiac arrest in the field at a gas station. Bystanders initiated CPR. He was defibrillated 3 times and underwent 3 rounds of epinephrine. He also received an amiodarone bolus. ROSC was obtained after 8 to 10 minutes. Patient has an apparent history of coronary artery disease. He has a history of CABG repair x3, AAA repair and previous cardiac stenting. Patient is unable to give any history given that he is currently intubated and sedated. Collateral history is obtained from the chart review, nurse and hospitalist service. Laboratory data suggestive of a leukocytosis. No coagulopathy seen. VBG suggests an acute hypercapnic respiratory failure with a pH of 7.22 and a PCO2 of 62. Chemistries are notable for mild anion gap acidosis of 14. Creatinine mildly elevated at 1.43. Glucose 172. Lactate 2.9. AST elevated 384, ALT 412 alkaline phosphatase 206. Troponin I 110.6. Lipase 81. CT spine negative for acute cervical fracture. CT head negative for acute intracranial findings. Left forehead contusion and laceration. Partially opacified right mastoid air cells. Chest x-ray revealed multiple left-sided rib fractures which are likely old. Left pleural thickening. Cardiomegaly. Patient reportedly had an echo at an outside hospital last month with an EF of 45%. He was reportedly going to a follow-up primary care visit today in regards to follow-up to an ER visit at an outside hospital last week for "asthma". Admitting EKG noted right bundle branch block. Normal sinus rhythm. Patient was requiring low-dose Levophed infusion and was on continuous propofol. ER physician notes that patient had some nonpurposeful movements in his upper extremities. Upon reevaluation in the ICU postcardiac catheterization, the patient was following all commands and requiring minimal Levophed support. I placed the patient on a spontaneous breathing trial and the patient was able to be successfully extubated to an oxy mask. His is present at bedside and he is able to recognize her. He does note a mild headache. He denies any chest pain. He denies any shortness of breath at present. He has some mild cough that is mostly nonproductive. He does not recall the events from earlier today related to CPR. Allergies Allergy/AdvReac Type Severity Reaction Status Date / Time erythromycin base Allergy Unknown STOMACH Verified 04/12/15 07:57 PAIN LATEX 1 Allergy Unknown HIVES Uncoded 04/07/15 13:44 Home Medications Medication Instructions Recorded Confirmed Type ATORVASTATIN (LIPITOR) 40 mg PO QPM #0 tab 04/07/15 History CALCIUM CARBONATE-VITAMIN D 1 tab PO QAM #0 04/07/15 History (CALCIUM) CHOLECALCIFEROL (Vitamin D) 1,000 inter.unit PO QAM #0 tab 04/07/15 History CLOPIDOGREL BISULFATE (PLAVIX) 75 mg PO QPM #0 tab 04/07/15 History Lisinopril (Prinivil) 20 mg PO BID #0 tab 04/07/15 History MONTELUKAST SODIUM (SINGULAIR) 10 mg PO QAM #0 tab 04/07/15 History Multivitamin 1 tab PO QAM #0 tab 04/07/15 History OMEGA-3 FATTY ACIDS (OMEGA 3) 1 cap PO QAM #0 04/07/15 History Ocuvite Preservision 2 tab PO BID #0 tab 04/07/15 History Patient History Medical History CKD (chronic kidney disease) Coronary artery disease Dyslipidemia History of inferior wall myocardial infarction 1994 History of pleural empyema HTN (hypertension) Macular degeneration Mild intermittent asthma PVD (peripheral vascular disease) Ventricular fibrillation Surgical History History of arthroscopy of shoulder History of cardiac catheterization x6 History of cataract surgery History of coronary artery bypass graft x 3 2008 - [place] History of heart artery stent x 4 S/P AAA (abdominal aortic aneurysm) repair Family History (Updated 10/24/21 @ 14:37 by Emma Reynolds PA-C) Father Heart disease AAA (abdominal aortic aneurysm) Mother Breast cancer Other Hypertension Social History (Updated 10/24/21 @ 14:38 by Emma Reynolds PA-C) Smoking Status: Never smoker Do You Dip or Chew Tobacco: No (but former use (snuff) - quit in 2016); Hx Alcohol Use: Yes (occassional ) Review of Systems Review of Systems: All systems reviewed & are unremarkable except as noted in HPI & below Physical Exam Physical Exam: Constitutional: Patient is following commands and in minimal distress. Eyes: Pupils are equal round and reactive to light. Conjunctivae are normal. Anicteric sclera. Ears nose, mouth and throat: Small laceration noted on the lip due to endotracheal intubation. Small laceration noted on the anterior portion of the scalp. Neck: Trachea is midline. Visual inspection is normal. Respiratory: Coarse lung sounds bilaterally. Cardiovascular: Regular rate and rhythm. No murmurs. Trace edema in the lower extremities bilaterally. Gastrointestinal: Normal bowel sounds, soft, nontender and nondistended. No hepatosplenomegaly noted. Musculoskeletal: No cyanosis. Patient is able to move all extremities. Skin: No rashes, warm dry and intact. Neurologic: Nonfocal. Psychiatric: Alert and oriented x3. Results & Data Results & Data ([facility]) Vital Signs (Past 12 Hours) Vital Signs Temp Pulse Pulse Resp BP BP Pulse Ox 10/24/21 13:56 78 22 145/56 H 99 10/24/21 13:47 72 23 145/56 H 100 10/24/21 13:41 65 19 101/59 L 94 10/24/21 13:40 66 21 98 10/24/21 13:38 75 17 110/64 100 10/24/21 13:31 71 12 10/24/21 13:30 66 18 93 10/24/21 13:26 70 18 83/68 L 10/24/21 13:24 79 20 130/90 100 10/24/21 13:20 73 21 114/88 92 10/24/21 13:10 76 17 99 10/24/21 13:07 73 16 107/64 10/24/21 13:00 71 16 67/43 L 100 10/24/21 12:45 36.8 C 78 20 121/73 100 10/24/21 12:30 78 26 H 98/52 L 100 10/24/21 12:15 81 22 105/74 99 10/24/21 12:00 90 22 113/72 99 10/24/21 11:45 35.6 C L 99 H 20 170/105 H 99 10/24/21 11:35 107 H 32 H 103/68 99 10/24/21 11:30 112 H 24 99 10/24/21 11:28 98 10/24/21 11:23 104 H 23 201/128 H 99 Coding Level of Care Code Critical Care 1st 30-74 mins Diagnoses Cardiac arrest I46.9 CKD (chronic kidney disease) N18.9 Coronary artery disease I25.10 Ventricular fibrillation I49.01 Mild intermittent asthma J45.20 Time Spent (min) 36
--- NOTE | 2021-10-24 14:26 | Electrocardiogram Report ---
Test Reason : Blood Pressure : / mmHG Vent. Rate : 096 BPM Atrial Rate : 096 BPM P-R Int : 156 ms QRS Dur : 164 ms QT Int : 426 ms P-R-T Axes : 054 -86 033 degrees QTc Int : 538 ms Normal sinus rhythm Left axis deviation Right bundle branch block Abnormal ECG No previous ECGs available Confirmed by Paulino Gonzalez ([id number]) on 10/24/2021 2:25:41 PM Referred By: REFERRED SELF Confirmed By:Paulino Gonzalez
[2021-10-24 14:55] LABS: iSTAT Arterial Blood Gas HCO3 27 meg/L (19-24); iSTAT Arterial Blood Gas pCO2 50 mmHg (35-46); iSTAT Arterial Blood Gas pH 7.34 (7.35-7.45); iSTAT Arterial Blood Gas pO2 > 420 mmHg (80-95); iSTAT Carbon Dioxide 28 mmol/L (24-31); iSTAT Hematocrit 40 % (42-52); iSTAT Hemoglobin 13.6 g/dl (14.0-18.0); iSTAT Potassium 4.1 mmol/L (3.3-5.0); iSTAT Sodium 135 mmol/L (135-144)
[2021-10-24 15:12] LABS: Thyroid Stimulating Hormone 6.681 uIu/ml (0.300-4.500)
[2021-10-24] MEDS ORDERED: ICU PROTOCOL FOR HYPERGLYCEMIA PRN (15:13)
--- NOTE | 2021-10-24 15:23 | Cardiology Consultation ---
Date of Consultation October 24, 2021 Assessment & Plan (1) Cardiac arrest: Patient with extensive CAD history. Plan to proceed with cardiac catheterization to rule out acute ischemic etiology for patient's cardiac arrest. Procedure discussed with patient's family and in agreement with proceeding. ICU plans for hypothermic protocol and will place cooling catheter. Further recommendations pending findings of coronary angiography. History of Present Illness Attending Physician: Jorge Alberto Elmore MD History of Present Illness 76-year-old man here after out of hospital cardiac arrest. Seen in the ED after ROSC, and intubated/sedated. Past history obtained from ED, daughter Rafia. Patient with a history of complex coronary artery disease post remote three-vessel CABG in 2007 and multiple PCI. Last cardiac catheterization at [facility] 10/2014 showed patent SVG to LAD, ramus and distal circumflex. Had ARTURO (2.5 x 15 resolute) placed from distal left main into proximal LAD. Other medical history includes PAD with [facility] in 2017, asthma, hypertension, CKD and prior GI bleed 12/2020. also ports questionable atrial fibrillation and watchman with Dr. Pickens being considered. Per family patient has been more short of breath for weeks. Seen at [facility] and treated for asthma exacerbation. Also admitted last month with questionable TIA, LVEF at that time reportedly 45%. Daughter states patient winded yesterday carry on conversation. Today reportedly was at [employer] when he collapsed, Striking his head and received immediate bystander CPR. Received 3 doses of epi, 3 shocks for VF in the field before ROSC. In ED requiring low-dose norepinephrine while on propofol. ECG showed right bundle branch block with subtle lateral ST depression. Lactate 2.9, hstrop 110. Chest x-ray without significant edema. Head CT negative for bleed. Allergies Allergy/AdvReac Type Severity Reaction Status Date / Time erythromycin base Allergy Unknown STOMACH Verified 04/12/15 07:57 PAIN LATEX 1 Allergy Unknown HIVES Uncoded 04/07/15 13:44 Home Medications Medication Instructions Recorded Confirmed Type ATORVASTATIN (LIPITOR) 40 mg PO QPM #0 tab 04/07/15 History CALCIUM CARBONATE-VITAMIN D 1 tab PO QAM #0 04/07/15 History (CALCIUM) CHOLECALCIFEROL (Vitamin D) 1,000 inter.unit PO QAM #0 tab 04/07/15 History CLOPIDOGREL BISULFATE (PLAVIX) 75 mg PO QPM #0 tab 04/07/15 History Lisinopril (Prinivil) 20 mg PO BID #0 tab 04/07/15 History MONTELUKAST SODIUM (SINGULAIR) 10 mg PO QAM #0 tab 04/07/15 History Multivitamin 1 tab PO QAM #0 tab 04/07/15 History OMEGA-3 FATTY ACIDS (OMEGA 3) 1 cap PO QAM #0 04/07/15 History Ocuvite Preservision 2 tab PO BID #0 tab 04/07/15 History Patient History Medical History CKD (chronic kidney disease) Coronary artery disease Dyslipidemia History of inferior wall myocardial infarction 1993 History of pleural empyema HTN (hypertension) Macular degeneration Mild intermittent asthma PVD (peripheral vascular disease) Ventricular fibrillation Surgical History History of arthroscopy of shoulder History of cardiac catheterization x6 History of cataract surgery History of coronary artery bypass graft x 3 2008 - [place] History of heart artery stent x 4 S/P AAA (abdominal aortic aneurysm) repair Family History (Updated 10/24/21 @ 14:37 by Emma Reynolds PA-C) Father Heart disease AAA (abdominal aortic aneurysm) Mother Breast cancer Other Hypertension Social History (Updated 10/24/21 @ 14:38 by Emma Reynolds PA-C) Smoking Status: Never smoker Do You Dip or Chew Tobacco: No (but former use (snuff) - quit in 2016); Hx Alcohol Use: Yes (occassional ) Review of Systems Review of Systems: Unobtainable due to endotracheal tube Physical Exam Physical Exam: General: Intubated, sedated HEENT: Sclerae anicteric Lungs: Clear anteriorly Cardiac: Regular rate and rhythm Vascular: Nonpalpable radial pulses. 1+ femoral pulses Abdomen: Soft Extremities: Well perfused, no peripheral edema Results & Data ([facility]) Vital Signs (Past 12 Hours) Vital Signs Temp Pulse Pulse Resp BP BP Pulse Ox 10/24/21 13:56 78 22 145/56 H 99 10/24/21 13:47 72 23 145/56 H 100 10/24/21 13:41 65 19 101/59 L 94 10/24/21 13:40 66 21 98 10/24/21 13:38 75 17 110/64 100 10/24/21 13:31 71 12 10/24/21 13:30 66 18 93 10/24/21 13:26 70 18 83/68 L 10/24/21 13:24 79 20 130/90 100 10/24/21 13:20 73 21 114/88 92 10/24/21 13:10 76 17 99 10/24/21 13:07 73 16 107/64 10/24/21 13:00 71 16 67/43 L 100 10/24/21 12:45 98.2 F 78 20 121/73 100 10/24/21 12:30 78 26 H 98/52 L 100 10/24/21 12:15 81 22 105/74 99 10/24/21 12:00 90 22 113/72 99 10/24/21 11:45 96.1 F L 99 H 20 170/105 H 99 10/24/21 11:35 107 H 32 H 103/68 99 10/24/21 11:30 112 H 24 99 10/24/21 11:28 98 10/24/21 11:23 104 H 23 201/128 H 99 PG Care Time/CCT Total # of Minutes Spent Total Time Spent with Patient: Total time spent is greater than 50% in coordination of care (as documented) at patient's floor/unit and/or counseling patient: Coding Level of Care Code 88075 Initial Inpt Care Lvl 3 Diagnoses Cardiac arrest I46.9
[2021-10-24 15:44] LABS: T4 Free Thyroxine 1.09 ng/dl (0.61-1.60)
--- NOTE | 2021-10-24 15:45 | Cardiac Catheterization ---
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 Cardiac Status Clinical evaluation leading to the procedure CAD Presenation: Non STEMI Diagnostic Physicians Name: Jorge Alberto Elmore MD Closure Device Recommendations: Medical Therapy and/or Counseling Cardiac Cath Procedure Full Procedure Date October 24, 2021 Pre-Procedure Diagnosis Pre-Procedure Diagnosis: Non STEMI AUC Score AUC Score: 8 Post-Procedure Diagnosis Post-Procedure Diagnosis: Severe CAD and Elevated Intracardiac Pressures Procedure(s) Performed Procedure(s) Performed: Coronary Angiography, Left Heart Cath, Ultrasound Guided Vascular Access, Bypass Graft Angiography, Femoral Artery Angiography and Procedure (Cooling catheter placement) Telecommunications Engineer Jorge Alberto Elmore MD [place] Code Enforcement Officer(s) [place] Estimated Blood Loss Estimated Blood Loss: 10 Medication(s) Medication(s): Lidocaine 1% Summary of Findings Indication: Out of hospital cardiac arrest. 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 Medium D1 without significant disease. Ramusmedium caliber, diffuse disease in proximal mid stents. 100% chronic occlusion at distal aspect of stents. Circumflex -large caliber, diffuse 30% proximal to mid disease. Gives off 2 small OM's. Left PLB without significant. RCA -medium caliber, diffusely diseased prior to 100% mid segment chronic total occlusion SVG to distal circumflexwidely patent, competitive flow in distal circumflex SVG Y graft to LAD, ramuswidely patent, distal LAD after anastomosis with 40% stenosis as wraps around apex. LVEDP -23 Cooling catheter placed via left CFV to IVC under ultrasound/fluoroscopic guidance. Sutured in place. Arterial Closure: TR band Summary: 1. Severe chronic multivessel [place] coronary artery disease -30 to 40% ostial left main prior to widely patent left main to LAD stent 100% mid LAD chronic total occlusion Ramus with diffuse in-stent restenosis and 100% chronic mid occlusion 100% mid RCA chronic total occlusion 2. Widely patent SVG Y graft to LAD, ramus and SVG to distal circumflex. 3. Elevated intracardiac filling pressure (LVEDP 23). Recommendations: No acute CAD disease to explain patient's out of hospital cardiac arrest. Medically manage chronic CAD Repeat echocardiogram. Gentle diuresis as BP allows. Hemodynamics Rest Ao:: 115/41/60 Final Ao: 128/46/73 LV: 129/23 Recommendations Recommendations: Medical Therapy and/or Counseling Specimens Specimens: None Radiation Exposure (mGy) 920 Contrast (mls) 30 Procedural Complication(s) None Disposition ICU I attest to the content of the Intraoperative Record and any orders documented therein. Any exceptions are noted below. [facility] Card Cath Procedure Codes Cardiac Catheterization Procedure 1: Cardiovascular Cath Procedures: 54102 Coronaries & LHC (+/-LV) & Grafts/IM (arterial & venous) Therapeutic Services & Ancillary Proc Procedure 1: Cardiovascular Tx and Anc Procedures: 48792 Ultrasonic Guidance Vascular Access Procedure 2: Cardiovascular Tx and Anc Procedures: 63209 Ultrasonic Guidance Vascular Access Procedure 3: Cardiovascular Tx and Anc Procedures: 13701 Insertion Central Venous Catheter PG Care Time/CCT Total # of Minutes Spent Total Time Spent with Patient: Total time spent is greater than 50% in coordination of care (as documented) at patient's floor/unit and/or counseling patient:
[2021-10-24] MEDS ORDERED: HYDROmorphone INJ 0.5 MG/0.5 ML SYR IV PRN (16:20)
[2021-10-24] MEDS ORDERED: HYDROmorphone INJ 0.5 MG/0.5 ML SYR IV STA ×2 (16:20→17:47)
[2021-10-24] MEDS ORDERED: Nursing to Pharmacy Communication SCH (16:30)
[2021-10-24] MEDS: AMIODARONE / D5W 360 MG/200 ML BAG IV SCH (17:05)
[2021-10-24] MEDS: cefTRIAXone SODIUM 2,000 MG in DEXTROSE 5% 50 ML IV SCH (17:35)
[2021-10-24] MEDS: HYDROmorphone INJ 0.5 MG/0.5 ML SYR IV PRN (21:05)
[2021-10-25] MEDS: HYDROmorphone INJ 0.5 MG/0.5 ML SYR IV PRN ×4 (00:06→20:42)
[2021-10-25] MEDS: AMIODARONE / D5W 360 MG/200 ML BAG IV SCH ×2 (05:27→16:30)
[2021-10-25 06:36] LABS: Basophils # (auto) 0.01 K/uL (0-0.2); Basophils % (auto) 0.1 %; Eosinophils # (auto) 0.04 K/uL (0-0.5); Eosinophils % (auto) 0.3 %; Hematocrit (blood only) 36.5 % (42-52); Hemoglobin 12.4 g/dL (14.0-18.0); Immature Granulocytes # (auto) 0.06 K/uL (0.00-0.02); Immature Granulocytes % (auto) 0.4 %; Lymphocytes # (auto) 1.74 K/uL (1.2-3.4); Lymphocytes % (auto) 12.6 %; Mean Corpuscular Hemoglobin 28.5 pg (25-34); Mean Corpuscular Volume 83.9 fL (80-100); Mean Platelet Volume 9.9 fL (7.4-10.4); Monocytes # (auto) 1.48 K/uL (0.11-0.59); Monocytes % (auto) 10.7 %; Neutrophils # (auto) 10.45 K/uL (1.4-6.5); Neutrophils % (auto) 75.9 %; Nucleated RBC # (auto) 0.02 K/uL (0-0); Nucleated RBC % (auto) 0.1 %; Platelet Count 315 K/uL (130-400); RDW Coefficient of Variation 14.7 % (11.5-14.5); RDW Standard Deviation 45.5 fL (36.4-46.3); Red Blood Count 4.35 M/uL (4.7-6.1); White Blood Count 13.78 K/uL (4.8-10.8)
[2021-10-25 06:47] LABS: Albumin Globulin Ratio 1.3 (0.9-2); Albumin Level 3.1 gm/dl (3.4-5.0); BUN Creatinine Ratio 20.4 (10-20); Bilirubin,Total 0.5 mg/dl (0.2-1.0); Calcium 8.4 mg/dl (8.5-10.1); Creatinine Clr Calc Pharmacy 45.2 ml/min; Est GFR (African American) 53.7 ml/min; Est GFR (Non-African American) 46.3 ml/min; Globulin 2.4 gm/dl (2.5-4.0); Potassium 4.3 mmol/L (3.5-5.1); Total Protein 5.5 gm/dl (6.0-8.3)
[2021-10-25 07:01] LABS: Troponin I High Sensitivity 331.5 pg/ml (0-20)
[2021-10-25 07:18] LABS: Magnesium 1.8 mg/dl (1.7-2.4); Phosphorus 5.4 mg/dl (2.5-4.9)
[2021-10-25] MEDS ORDERED: MAGNESIUM SULFATE / D5W 1 GM/100 ML BAG IV ONE (08:01)
--- NOTE | 2021-10-25 08:06 | Critical Care Progress Note ---
Date of Service October 25, 2021 Assessment & Plan (1) Cardiac arrest: (2) CKD (chronic kidney disease): (3) Coronary artery disease: (4) Ventricular fibrillation: (5) Mild intermittent asthma: Plan: 76-year-old male with a past medical history of extensive coronary artery disease who collapsed in the field and was found to be in ventricular fibrillation. ROSC was ultimately obtained after 3 rounds of epinephrine and 3 defibrillations. Patient is currently in the ER intubated, sedated and on a low-dose infusion of Levophed. Neurologic: Patient following all commands. Occasional short-term memory issues. Minimize sedatives. CT head negative. Maintain euglycemia. Keep head of the bed elevated 30 degrees. Pain control per primary team. Currently on as needed Dilaudid. Pulmonary: Patient extubated. He relates a history of asthma and uses an Advair inhaler. Will prescribe an ICS/LABA while an inpatient. Cardiovascular: Patient with extensive coronary artery disease. He was taken to the [facility]. No stenting required. Echo pending. Monitor QTC. Maintain K above 4 and magnesium above 2. Continue amiodarone. Troponin peaked at 548 and now trending down. Cardiology to continue following the patient. Hold lisinopril given ANIBAL. We will start the patient's Plavix. Gastrointestinal: Okay to start cardiac diet. Mild transaminitis improving. We will hold on statin at this time until LFTs continue to show downward trend. Suspect kraus saminitis likely due to shock liver. Renal: Monitor urine output closely. De Leon in place. Patient with a history of CKD. Unclear whether his current creatinine represents an ANIBAL. Elevated LVEDP on left heart cath. We will avoid fluids at this time. Infectious disease: We will obtain procalcitonin, if negative, will discontinue ceftriaxone. Hematologic: Mild anemia likely due to hemodilution. Endocrine: TSH slightly elevated. Probable euthyroid sick syndrome. Recheck in 6 weeks. Lines and tubes: Upper extremity peripheral IVs in place. De Leon catheter in place. VTE prophylaxis: SCDs, heparin 5000 units 3 times daily CODE STATUS: Full Family at bedside: Not available at bedside today. Disposition: Patient stable for downgrade out of the ICU. ICU team will sign off. Thank you for allowing us to participate in the care of this patient. Admission and Anticipated Discharge Date Admission Date: October 24, 2021 Subjective Patient continues to have intermittent chest pain. Today he is hemodynamically stable and not on any vasopressors. Remains on amiodarone infusion. His urine output has been adequate. He denies any shortness of breath. He is currently on room air saturating 96%. Review of Systems Review of Systems: All systems reviewed & are unremarkable except as noted in HPI & below Physical Exam Physical Exam: Constitutional: Patient is following commands and in minimal distress. Eyes: Pupils are equal round and reactive to light. Conjunctivae are normal. Anicteric sclera. Ears nose, mouth and throat: Small laceration noted on the lip due to endotracheal intubation. Small laceration noted on the anterior portion of the scalp. Neck: Trachea is midline. Visual inspection is normal. Respiratory: Coarse lung sounds bilaterally. Cardiovascular: Regular rate and rhythm. No murmurs. Trace edema in the lower extremities bilaterally. Gastrointestinal: Normal bowel sounds, soft, nontender and nondistended. No hepatosplenomegaly noted. Musculoskeletal: No cyanosis. Patient is able to move all extremities. Skin: No rashes, warm dry and intact. Neurologic: Nonfocal. Psychiatric: Alert and oriented x3. Results & Data Results & Data ([facility]) Vital Signs (Past 12 Hours) Vital Signs Temp Pulse Resp BP Pulse Ox 10/25/21 06:15 37.0 C 70 15 129/63 96 10/25/21 06:00 37.1 C 66 19 124/63 94 10/25/21 05:45 37.1 C 68 15 116/64 93 10/25/21 05:30 37.2 C 64 15 115/55 L 94 10/25/21 05:15 37.2 C 66 15 115/53 L 95 10/25/21 05:00 37.3 C 68 15 122/53 L 92 10/25/21 04:45 37.3 C 70 17 109/54 L 92 10/25/21 04:30 37.3 C 68 14 117/57 L 94 10/25/21 04:15 37.4 C 72 15 121/61 95 10/25/21 04:00 37.5 C 67 16 107/55 L 93 10/25/21 03:45 37.5 C 71 20 118/59 L 97 10/25/21 03:30 37.5 C 71 18 105/57 L 96 10/25/21 03:15 37.5 C 65 12 105/46 L 96 10/25/21 03:00 37.5 C 66 12 105/50 L 94 10/25/21 02:45 37.5 C 69 12 103/53 L 97 10/25/21 02:30 37.5 C 68 18 111/53 L 95 10/25/21 02:15 37.5 C 69 16 106/56 L 94 10/25/21 02:00 37.5 C 66 13 99/47 L 96 10/25/21 01:45 37.4 C 68 14 105/52 L 94 10/25/21 01:30 37.4 C 70 16 107/55 L 96 10/25/21 01:15 37.5 C 66 15 108/49 L 93 10/25/21 01:00 37.5 C 67 11 L 103/50 L 97 10/25/21 00:45 37.6 C H 70 15 101/48 L 90 10/25/21 00:30 37.6 C H 68 14 105/52 L 90 10/25/21 00:15 37.6 C H 71 15 95/48 L 92 10/25/21 00:00 37.6 C H 70 13 100/53 L 96 10/24/21 23:45 37.6 C H 69 22 104/53 L 96 10/24/21 23:30 37.5 C 68 15 108/57 L 97 10/24/21 23:15 37.6 C H 71 16 106/61 98 10/24/21 23:00 37.6 C H 70 14 106/55 L 95 10/24/21 22:45 37.7 C H 72 21 115/52 L 95 10/24/21 22:30 37.7 C H 68 7 L 116/56 L 93 10/24/21 22:15 37.8 C H 72 17 105/53 L 96 10/24/21 22:00 37.8 C H 68 17 104/49 L 96 10/24/21 21:45 37.7 C H 70 22 103/55 L 96 10/24/21 21:30 37.6 C H 65 16 113/58 L 99 10/24/21 21:00 37.6 C H 69 21 112/49 L 99 10/24/21 20:45 37.6 C H 70 20 119/55 L 97 10/24/21 20:30 37.6 C H 71 18 100/55 L 96 10/24/21 20:15 37.5 C 69 14 100/50 L 98 10/24/21 20:00 37.5 C 72 25 H 100/52 L 97 Coding Level of Care Code 19812 Subseq Hosp Care Lvl 3 Diagnoses Cardiac arrest I46.9 CKD (chronic kidney disease) N18.9 Coronary artery disease I25.10 Ventricular fibrillation I49.01 Mild intermittent asthma J45.20
[2021-10-25] MEDS: NOREPINEPHRINE/D5W 4 MG/250 ML PLCT IV SCH (08:39)
[2021-10-25] MEDS: CLOPIDOGREL BISULFATE 75 MG TAB PO SCH (09:18)
[2021-10-25] MEDS: FLUTICASONE/VILANTEROL 100/25MCG 14 PUFFS/INHALER INH SCH (09:18)
--- NOTE | 2021-10-25 13:18 | Electrocardiogram Report ---
Test Reason : Blood Pressure : / mmHG Vent. Rate : 065 BPM Atrial Rate : 065 BPM P-R Int : 112 ms QRS Dur : 160 ms QT Int : 516 ms P-R-T Axes : 039 -74 046 degrees QTc Int : 536 ms Sinus rhythm with occasional Premature ventricular complexes Left axis deviation Right bundle branch block Abnormal ECG When compared with ECG of 24-OCT-2021 11:28, Premature ventricular complexes are now Present Confirmed by Paulino Gonzalez ([id number]) on 10/25/2021 1:18:43 PM Referred By: REFERRED SELF Confirmed By:Paulino Gonzalez
--- NOTE | 2021-10-25 13:57 | Hospitalist Progress Note ---
Date of Service October 25, 2021 Assessment & Plan (1) Cardiac arrest: Plan: ROSC achieved post-arrest with 3 rounds of epinephrine and 3 defibrillations per report Hypothermic protocol was started but aborted because of logistics Patient was sent to critical care after cardiac catheterization revealing diffuse disease, no intervention, patent grafts. Shortly after arrival in the ICU patient was extubated Currently hemodynamically stable with expected sequela I of events yesterday Consulting general cardiology for additional recommendations. Continue telemetry Troponin peaked in mid 500s and now trending down. Plavix restarted, uncertain why patient is not on aspirin. Empiric antibiotics started and procalcitonin elevated, continue Rocephin pending culture results and clinical improvement. (2) Ventricular fibrillation: Plan: Started on amiodarone. Continue per cardiology. (3) Coronary artery disease: Plan: Severe disease status post CABG with patent grafts. Continue medical management. (4) PVD (peripheral vascular disease): Plan: Status post AAA repair, chronic, stable, continue medical management. (5) Transaminitis: Plan: Mild, improving. Holding on statin until LFTs continue to show downward trend. Transaminitis suspected due to shock liver. (6) Mild intermittent asthma: Plan: Wheezing on exam today with coughing and nebulizers were started. No indication for systemic steroids at this time. Continue Breo Ellipta. Will attempt to acquire recent notes from [facility] system. Continue singular daily per home regimen. (7) HTN (hypertension): Plan: Controlled, home lisinopril was held in setting of initial hypotension on pressors. Now off pressors. Will consider restarting tomorrow. (8) CKD (chronic kidney disease), stage III: Plan: Creatinine currently 1.4, will request records to obtain baseline creatinine. (9) DVT prophylaxis: Plan: Heparin Full code Disposition-to home when cleared by cardiology and medically stable [facility] and Anticipated Discharge Date Admission Date: October 24, 2021 Subjective 76-year-old man presented with V. fib arrest intubated resuscitated with return of spontaneous circulation, placed on pressor support and taken to [facility] Operator on 10/24. No intervention but diffuse disease noted, patent grafts. Patient woke up and was extubated approximately 10 minutes after arriving to ICU. Hypothermi a protocol was aborted and he continues to do well overnight. Today he is hemodynamically stable and reports some chest pain with coughing. He feels like he is wheezing and was having issues with asthma exacerbation prior to this event. He had been seen recently in an outside ER. 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 Records of this recording are not available. Patient sees Dr. Mayfield at [facility] cardiology. He is tolerating p.o. and otherwise doing well. He has not gotten out of bed yet as cooling catheter is still in his left femoral site. Family is at bedside and all questions answered. He is mentating normally and oxygenating well on room air no other issues. Review of Systems Review of Systems: All systems reviewed negative except as indicated above. Physical Exam Physical Exam: CONSTITUTIONAL: WNWD, vitals as above, generally well- appearing, NAD EYES: normal conjunctivae, no scleral icterus ENT: external ear and nose normal, MMM NECK: trachea midline, RESPIRATORY: clear to auscultation bilaterally, no crackles, rales or wheezes, normal respiratory effort CARDIOVASCULAR: regular rate and rhythm, S1 and 2 heard without murmurs, gallops or rubs, no JVD, no peripheral edema, CHEST: inspection of chest was normal GASTROINTESTINAL: soft, nontender, ND, no guarding MUSCULOSKELETAL: strength 5/5 throughout, head is normocephalic and atraumatic SKIN: warm and dry NEUROLOGIC: CN 2-12 grossly intact, no sensory deficit, normal cognition, normal speech, no tremor PSYCHIATRIC: alert cooperative and oriented to person, place and time. Euthymic mood, makes good eye contact, language grossly intact, recent and remote memory grossly intact. Results & Data Results & Data ([facility]) Vital Signs (Past 12 Hours) Vital Signs Temp Pulse Resp BP Pulse Ox 10/25/21 09:30 37.3 C 71 15 139/70 93 10/25/21 09:15 37.3 C 75 17 143/59 H 95 10/25/21 09:00 37.3 C 72 18 143/65 H 93 10/25/21 08:30 37.2 C 74 17 151/80 H 86 L 10/25/21 08:15 37.1 C 72 18 133/73 92 10/25/21 08:00 36.8 C 73 20 150/88 H 93 10/25/21 07:45 37.0 C 69 15 128/63 92 10/25/21 07:30 37.0 C 69 10 L 130/59 L 96 10/25/21 07:15 36.9 C 72 17 120/66 97 10/25/21 07:00 37.0 C 71 14 116/62 96 10/25/21 06:45 37.0 C 68 114/58 L 94 10/25/21 06:30 37.0 C 67 13 128/65 92 10/25/21 06:15 37.0 C 70 15 129/63 96 10/25/21 06:00 37.1 C 66 19 124/63 94 10/25/21 05:45 37.1 C 68 15 116/64 93 10/25/21 05:30 37.2 C 64 15 115/55 L 94 10/25/21 05:15 37.2 C 66 15 115/53 L 95 10/25/21 05:00 37.3 C 68 15 122/53 L 92 10/25/21 04:45 37.3 C 70 17 109/54 L 92 10/25/21 04:30 37.3 C 68 14 117/57 L 94 10/25/21 04:15 37.4 C 72 15 121/61 95 10/25/21 04:00 37.5 C 67 16 107/55 L 93 10/25/21 03:45 37.5 C 71 20 118/59 L 97 10/25/21 03:30 37.5 C 71 18 105/57 L 96 10/25/21 03:15 37.5 C 65 12 105/46 L 96 10/25/21 03:00 37.5 C 66 12 105/50 L 94 10/25/21 02:45 37.5 C 69 12 103/53 L 97 10/25/21 02:30 37.5 C 68 18 111/53 L 95 10/25/21 02:15 37.5 C 69 16 106/56 L 94 10/25/21 02:00 37.5 C 66 13 99/47 L 96 Laboratory Results Short CBC 10/25/21 Range/Units 05:42 WBC 13.78 H (4.8-10.8) K/uL Hgb 12.4 L (14.0-18.0) g/dL Hct 36.5 L (42-52) % Plt Count 315 (130-400) K/uL BMP 10/25/21 05:42 Sodium 133 L Potassium 4.3 Chloride 100 Carbon Dioxide 26 BUN 30 H Creatinine 1.47 H Glucose 99 Calcium 8.4 L Liver Function 10/25/21 Range/Units 05:42 Total Bilirubin 0.5 (0.2-1.0) mg/dl AST 134 H (13-39) U/L ALT 252 H (7-52) U/L Alkaline Phosphatase 126 H (34-104) U/L Albumin 3.1 L (3.4-5.0) gm/dl Medications Administered Current Inpatient Medications Albuterol (Albut/Ipratrop 3mg/0.5mg Neb 3 Ml Vial) 3 ml NEB Q6H PRN; Protocol PRN Reason: Shortness Of Breath Or Wheezing Stop: 11/24/21 13:38 Clopidogrel Bisulfate (Clopidogrel Bisulfate 75 Mg Tab) 75 mg PO QAM CELESTE Stop: 11/24/21 08:59 Last Admin: 10/25/21 09:18 Dose: 75 mg Documented by: Fluticasone/Vilanterol (Fluticasone/Vilanterol 100/25mcg 14 Puffs/Inhaler) 1 puffs INH DAILY CELESTE Stop: 11/24/21 08:59 Last Admin: 10/25/21 09:18 Dose: 1 puffs Documented by: Heparin Sodium (Porcine) (Heparin Sod 5,000 Unit/0.5 Ml Vial) 5,000 units SQ Q8 CELESTE Stop: 11/24/21 13:59 Hydromorphone HCl (Hydromorphone Inj 0.5 Mg/0.5 Ml Syr) 0.5 mg IV Q3H PRN PRN Reason: Pain Stop: 11/07/21 20:31 Last Admin: 10/25/21 03:07 Dose: 0.5 mg Documented by: Ceftriaxone Sodium 2,000 mg/ (Dextrose) 70 mls @ 100 mls/hr IV Q24H CELESTE; Protocol Stop: 10/26/21 14:59 Last Infusion: 10/24/21 18:13 Dose: Infused Documented by: Amiodarone HCl/Dextrose (Nexterone / D5w) 360 mg in 200 mls @ 16.667 mls/hr IV .Q12H CELESTE Stop: 11/23/21 16:44 Last Admin: 10/25/21 05:27 Dose: 0.5 mg/min, 16.7 mls/hr Documented by: Miscellaneous (Icu Protocol For Hyperglycemia) 1 ea N/A PRN PRN; Protocol PRN Reason: Hyperglycemia Protocol Stop: 10/26/21 15:12
[2021-10-25] MEDS: ALBUT/IPRATROP 3MG/0.5MG NEB 3 ML VIAL NEB PRN ×2 (14:23→18:57)
[2021-10-25] MEDS: cefTRIAXone SODIUM 2,000 MG in DEXTROSE 5% 50 ML IV SCH (14:29)
[2021-10-25] MEDS: HEPARIN SOD 5,000 UNIT/0.5 ML VIAL SQ SCH ×2 (14:30→20:40)
[2021-10-25 17:25] LABS: Appearance Urine Clear (Clear); Bacteria Urine Automated Negative (Negative); Bilirubin Urine Negative (Negative); Blood Urine 3+ (Negative); Color Urine Yellow; Epithelial Cell Urine Auto >30 /lpf (0-5); Glucose Urine UA Negative (Negative); Ketones Urine Negative (Negative); Leukocyte Esterase Urine 1+ (Negative); Nitrite Urine Negative (Negative); Protein Urine Trace (Negative); Specific Gravity Urine 1.026 (1.000-1.030); Urobilinogen Urine Negative (Negative)
[2021-10-25 17:42] LABS: Mucus Urine Present (None Prsent)
[2021-10-25] MEDS: METOPROLOL TARTRATE 25 MG TAB PO SCH (20:40)
--- NOTE | 2021-10-25 22:02 | Cardiology Progress Note ---
Date of Service October 25, 2021 Assessment & Plan (1) Cardiac arrest: Plan: 2. CAD post 3vCABG, LM-LAD stent 3. Ischemic cardiomyopathy-EF 35-40% 4. CKD 5. Hypertension 6. PAD post EVAR 7. Palpitation Looks remarkably well this afternoon. No apparent residual cognitive deficits. Troponin peaked. No significant ectopy on telemetry No signs of heart failure on exam. No access site complications. Reports prior symptomatic palpitations with recent event monitor showing reported ectopy and per patient EP referral and "pacemaker" discussed. LV function reduced from prior report. Suspect secondary to stunned myocardium post arrest. Overall suspect arrest most likely secondary to scar-mediated ventricular arrhythmia. Recommend secondary SCD prevention. -- Agree with starting metoprolol and titrate up as BP allows. -- Can stop amiodarone tomorrow -- Resume home lisinopril tomorrow. Will consider adding MRA -- Continue current clopidogrel -- Will discuss with EP ICD placement while admitted -- likely . Admission and Anticipated Discharge Date Admission Date: October 24, 2021 Subjective Seen this afternoon. Patient looks well, conversant. Reports some chest wall pain, worse with coughing. Mild intermittent shortness of breath which he states is his baseline. Tele - no significant ectopy. Review of Systems Review of Systems: All systems reviewed & are unremarkable except as noted in HPI & below Physical Exam Physical Exam: General: awake, alert HEENT: Sclerae anicteric Lungs: few scattered wheezes, prolonged expiratory Cardiac: Regular rate and rhythm Vascular: Nonpalpable radial pulses. 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) Vital Signs (Past 12 Hours) Vital Signs Temp Pulse Pulse Resp BP BP Pulse Ox 10/25/21 18:57 76 18 93 10/25/21 17:34 76 20 143/79 H 10/25/21 16:11 100.0 F H 78 25 H 137/63 92 10/25/21 16:00 100.0 F H 76 18 137/63 92 10/25/21 15:00 99.5 F 76 12 146/69 H 94 10/25/21 14:24 84 19 98 10/25/21 14:00 79 18 154/70 H 97 10/25/21 13:00 99 H 15 158/98 H 91 10/25/21 12:00 98.6 F 75 26 H 187/85 H 94 10/25/21 11:00 99.1 F 80 16 158/74 H 95 10/25/21 10:45 99.1 F 76 20 149/76 H 86 L 10/25/21 10:30 99.1 F 74 14 96 10/25/21 10:01 99.1 F 129/72 93 PG Care Time/CCT Total # of Minutes Spent Total Time Spent with Patient: Total time spent is greater than 50% in coordination of care (as documented) at patient's floor/unit and/or counseling patient: Coding Level of Care Code 23405 Subseq Hosp Care Lvl 3 Diagnoses Cardiac arrest I46.9
--- NOTE | 2021-10-25 22:21 | XCELERA ---
[id number]
[2021-10-26] MEDS: HYDROmorphone INJ 0.5 MG/0.5 ML SYR IV PRN ×2 (03:14→11:37)
[2021-10-26] MEDS: HEPARIN SOD 5,000 UNIT/0.5 ML VIAL SQ SCH (06:24)
[2021-10-26] MEDS: ALBUT/IPRATROP 3MG/0.5MG NEB 3 ML VIAL NEB PRN ×2 (07:08→18:46)
[2021-10-26] MEDS: FLUTICASONE/VILANTEROL 100/25MCG 14 PUFFS/INHALER INH SCH (08:27)
[2021-10-26] MEDS: CLOPIDOGREL BISULFATE 75 MG TAB PO SCH (08:28)
[2021-10-26] MEDS: METOPROLOL TARTRATE 25 MG TAB PO SCH ×2 (08:29→19:29)
[2021-10-26 09:27] LABS: Hematocrit (blood only) 37.2 % (42-52); Hemoglobin 12.7 g/dL (14.0-18.0); Mean Corpuscular Hemoglobin 29.1 pg (25-34); Mean Corpuscular Hgb Conc 34.1 g/dL (32-36); Mean Corpuscular Volume 85.1 fL (80-100); Mean Platelet Volume 9.9 fL (7.4-10.4); Platelet Count 320 K/uL (130-400); RDW Coefficient of Variation 14.4 % (11.5-14.5); Red Blood Count 4.37 M/uL (4.7-6.1); White Blood Count 12.46 K/uL (4.8-10.8)
--- NOTE | 2021-10-26 09:40 | Cardiology Consultation ---
Date of Consultation October 26, 2021 Assessment & Plan (1) Ischemic cardiomyopathy: (2) Coronary artery disease: (3) Cardiac arrest: 1. Ischemic cardiomyopathy: He has a moderate ischemic cardiomyopathy based on his echocardiogram here, several months ago his left ventricular ejection fraction was decreased but only mildly so. Some of this may be stunning as he does not seem to have had a significant ischemic event on presentation here. He tells me that he just recently started a beta-bernice and may have been on an NICOLE inhibitor although it is not reflected in his medication list. This should be started/continued. 2. Coronary disease: He does have coronary artery disease however there is no culprit vessel to suggest that he presented with an acute myocardial infarction. Ongoing risk factor modification and platelet inhibitors would be in order as well as statin therapy. 3. Cardiac arrest: He had a documented out of hospital cardiac arrest for which she required defibrillation. He fortunately recovered neurologically from it and it appears that it was a primary arrhythmia. This is presumably due to his prior myocardial infarction's and left ventricular dysfunction. In the past his ejection fraction was not well enough to meet criteria for primary prevention, h owever now he meets criteria for secondary prevention of sudden cardiac and will need an ICD. Although a single-chamber ICD would protect him from ventricular fibrillation, there may be more utility to a dual-chamber device, especially if he has a history of atrial fibrillation. My recommendation would be to use a dual- chamber device. I discussed the indications, procedure, risks and alternatives of ICD implantation with him and he understands and agrees to proceed. His daughter was present during the conversation. Consent obtained. I also discussed sedation with him, he agrees and consent was signed. History of Present Illness Reason for Consultation: Resuscitated sudden cardiac Requesting Physician: Dr. Elmore Attending Physician: Karen Zuñiga, History of Present Illness This is a 76-year-old male who has a history of coronary artery disease including bypass in 2007 and multiple interventions. He is typically followed in [place], however he suffered an out of hospital cardiac arrest on October 24, 2021 but was successfully resuscitated receiving bystander CPR and ICD shocks. He was intubated, sedated and was on pressors for a short time. He was neurologically intact and he was quickly extubated. Cardiac catheterization was done urgently on October 24, 2021 and severe chronic multivessel coronary artery disease was identified however no acute culprit vessel was seen. No intervention was performed. He does have a possible history of atrial fibrillation and a watchman device had been considered. He is not maintained on anticoagulation. An echocardiogram done on presentation showed normal left ventricular size with concentric left ventricular hypertrophy with wall motion abnormalities. The ejection fraction was 35 to 40%. His presenting electrocardiogram shows sinus rhythm with a right bundle branch block pattern. Electrocardiogram done 6 hours after presentation was similar other than rate. His troponin measurements were elevated however not terribly high with a peak of 548 shortly after presentation and decreasing subsequently suggesting that this was demand ischemia and not an occluded vessel. Allergies Allergy/AdvReac Type Severity Reaction Status Date / Time erythromycin base Allergy Unknown STOMACH Verified 04/12/15 07:57 PAIN LATEX 1 Allergy Unknown HIVES Uncoded 04/07/15 13:44 Home Medications Medication Instructions Recorded Confirmed Type ATORVASTATIN (LIPITOR) 40 mg PO QPM #0 tab 04/07/15 History CALCIUM CARBONATE-VITAMIN D 1 tab PO QAM #0 04/07/15 History (CALCIUM) CHOLECALCIFEROL (Vitamin D) 1,000 inter.unit PO QAM #0 tab 04/07/15 History CLOPIDOGREL BISULFATE (PLAVIX) 75 mg PO QPM #0 tab 04/07/15 History Lisinopril (Prinivil) 20 mg PO BID #0 tab 04/07/15 History MONTELUKAST SODIUM (SINGULAIR) 10 mg PO QAM #0 tab 04/07/15 History Multivitamin 1 tab PO QAM #0 tab 04/07/15 History OMEGA-3 FATTY ACIDS (OMEGA 3) 1 cap PO QAM #0 04/07/15 History Ocuvite Preservision 2 tab PO BID #0 tab 04/07/15 History Patient History Medical History (Updated 10/26/21 @ 14:59 by Micheal Ring MD) Acute kidney injury CKD (chronic kidney disease) Coronary artery disease Dyslipidemia History of inferior wall myocardial infarction 1993 History of pleural empyema HTN (hypertension) Macular degeneration Mild intermittent asthma PVD (peripheral vascular disease) Ventricular fibrillation Surgical History History of arthroscopy of shoulder History of cardiac catheterization x6 History of cataract surgery History of coronary artery bypass graft x 3 2007 - [place] History of heart artery stent x 4 S/P AAA (abdominal aortic aneurysm) repair Family History (Updated 10/24/21 @ 14:37 by Emma Reynolds PA-C) Father Heart disease AAA (abdominal aortic aneurysm) Mother Breast cancer Other Hypertension Social History (Updated 10/24/21 @ 14:38 by Emma Reynolds PA-C) Smoking Status: Never smoker Hx Alcohol Use: No Hx Substance Use: No Preferred Language: [place]i Communication Ability: Effective Acid Patroller Required: No Beliefs That Will Affect Care: Jehovah'S Witness Jehovah'S Witness Beliefs: Jew. Current Living Situation: Spouse Current Living Situation Comment: Only with . Feels Safe at Home: Yes Assistive Devices: None Review of Systems Review of Systems: All systems reviewed & are unremarkable except as noted in HPI & below He has significant chest wall discomfort due to CPR Physical Exam Physical Exam: Constitutional: Alert, cooperative and in no distress. HEENT: Unremarkable Neck: No jugular venous distention, carotid pulses are normal and equal bilaterally without bruits. Pulmonary: Clear to auscultation bilaterally. Cardiac: Regular rhythm with no murmur, gallop or rub. Abdomen: Soft, nontender with normal bowel sounds. Extremities: No edema. Distal pulses intact. Neurologic: No focal findings. Gait is steady. Skin: No rash, ecchymoses or petechiae. Results & Data ([facility]) Vital Signs (Past 12 Hours) Vital Signs Temp Pulse Pulse Resp BP Pulse Ox 10/26/21 08:35 36.7 C 92 10/26/21 08:00 66 14 151/73 H 10/26/21 07:08 63 18 96 10/26/21 07:00 63 19 168/74 H 10/26/21 05:00 64 17 130/59 L 90 10/26/21 04:01 81 16 127/60 91 10/26/21 04:00 81 15 93 10/26/21 03:00 70 13 118/65 95 10/26/21 02:00 62 16 116/60 92 10/26/21 01:00 62 17 128/63 93 10/26/21 00:00 64 16 118/62 92 10/25/21 23:00 63 21 114/71 91 10/25/21 22:00 81 20 132/73 94 Laboratory Results Cardiac Enzymes 10/26/21 Range/Units 08:32 AST 71 H (13-39) U/L CBC 10/26/21 Range/Units 08:32 WBC 12.46 H (4.8-10.8) K/uL RBC 4.37 L (4.7-6.1) M/uL Hgb 12.7 L (14.0-18.0) g/dL Hct 37.2 L (42-52) % Plt Count 320 (130-400) K/uL Comprehensive Metabolic Panel 10/26/21 Range/Units 08:32 Sodium 135 L (136-145) mmol/L Potassium 3.8 (3.5-5.1) mmol/L Chloride 99 (98-107) mmol/L Carbon Dioxide 29 (21-32) mmol/L BUN 24 H (6-23) mg/dl Creatinine 1.26 (0.6-1.4) mg/dl Glucose 110 H (70-99(Fasting)) mg/dl Calcium 8.8 (8.5-10.1) mg/dl AST 71 H (13-39) U/L ALT 188 H (7-52) U/L Alkaline Phosphatase 126 H (34-104) U/L Total Protein 6.2 (6.0-8.3) gm/dl Albumin 3.4 (3.4-5.0) gm/dl Intake and Output 10/25/21 10/26/21 10/26/21 22:59 06:59 14:59 Intake Total 731.202 / 1211.202 380 / 1211.202 0 / 0 Output Total 200 / 775 300 / 775 225 / 225 Balance 531.202 / 436.202 80 / 436.202 -225 / -225 Intake: IV 241.202 / 541.202 200 / 541.202 0 / 0 Amiodarone / D5w 360 mg In 200 184.535 / 384.535 200 / 384.535 0 / 0 ml @ 0.5 MG/MIN 16.667 mls/hr IV .Q12H CELESTE Rx#:[id number] cefTRIAXone SODIUM 2,000 mg In 56.667 / 56.667 Dextrose 5% 50 ml @ 100 mls/hr IV Q24H CELESTE Rx#:[id number] Oral 490 / 670 180 / 670 0 / 0 Output: Urine 150 / 450 300 / 450 225 / 225 Urine Amount (Catheter) 50 / 325 [place]/Indwelling 50 / 325 Diagnostic Findings Telemetry: Sinus rhythm, IVCD, no significant arrhythmia PG Care Time/CCT Total # of Minutes Spent Total Time Spent with Patient: Total time spent is greater than 50% in coordination of care (as documented) at patient's floor/unit and/or counseling patient: Coding Level of Care Code 11082 Initial Inpt Care Lvl 3 Diagnoses Ischemic cardiomyopathy I25.5 Coronary artery disease I25.810 Associated angina: without angina Coronary Disease-Associated Artery/Lesion type: bypass graft [place] vs. transplanted heart: tel[place] heart Cardiac arrest I46.9 (1) Coronary artery disease Associated angina: without angina Coronary Disease-Associated Artery/Lesion type: bypass graft [place] vs. transplanted heart: [place] heart Qualified Code(s): I25.810 - Atherosclerosis of coronary artery bypass graft(s) without angina pectoris
[2021-10-26 09:57] LABS: Albumin Globulin Ratio 1.2 (0.9-2); Albumin Level 3.4 gm/dl (3.4-5.0); Bilirubin,Total 0.6 mg/dl (0.2-1.0); Calcium 8.8 mg/dl (8.5-10.1); Creatinine Clr Calc Pharmacy 52.7 ml/min; Est GFR (African American) 64.7 ml/min; Est GFR (Non-African American) 55.8 ml/min; Globulin 2.8 gm/dl (2.5-4.0); Potassium 3.8 mmol/L (3.5-5.1); Total Protein 6.2 gm/dl (6.0-8.3)
[2021-10-26] MEDS ORDERED: ASPIRIN 81 MG ECTAB PO SCH (12:15)
--- NOTE | 2021-10-26 12:20 | Hospitalist Progress Note ---
Date of Service October 26, 2021 Assessment & Plan (1) Cardiac arrest: Plan: ROSC achieved post-arrest with 3 rounds of epinephrine and 3 defibrillations per report Hypothermic protocol was started but aborted because of logistics Patient was sent to critical care after cardiac catheterization revealing diffuse disease, no intervention, patent grafts. Shortly after arrival in the ICU patient was extubated Currently hemodynamically stable with expected sequela I of events yesterday Consulting general cardiology for additional recommendations. Continue telemetry Troponin peaked in mid 500s and now trending down. Plavix restarted, OK for monotherapy given time away from last stent. Empiric antibiotics started and procalcitonin elevated, continue Rocephin pending culture results and clinical improvement. 10/26-worsening coughing and sternal pain, post CPR. h/o asthma. Neb treatments are helping, but also trying some cough syrup now. Concerned for rib fracture/poss sternal fracture causing pain and would like better view of lungs to rule out pneumonia. CT chest without contrast now. (minimizing contrast with recent cath and upcoming pacemaker procedure.) Start venessa tylenol with tramadol for breakthrough pain as dilaudid too potent per patient. EP doc to discuss ICD placement this admission (2) Ventricular fibrillation: Plan: Started on amiodarone which has been dc'd. Plan for ICD prior to discharge. (3) Ischemic cardiomyopathy: Plan: restarting lisinopril now and cardiology considering addition of spironolactone prior to discharge. (4) Coronary artery disease: Plan: Severe disease status post CABG with patent grafts. Continue current medical management. (5) PVD (peripheral vascular disease): Plan: Status post AAA repair, chronic, stable, continue medical management. (6) Transaminitis: Plan: Mild, improving. Holding on statin until LFTs continue to show downward trend. Transaminitis suspected due to shock liver. (7) Mild intermittent asthma: Plan: No wheezing but now with rhonchi at left base and more significant coughing. No indication for systemic steroids at this time. Continue Breo Ellipta and singular daily per home regimen. Robitussin. (8) ANIBAL (acute kidney injury): Plan: Creat 1.5 to 1.26 today. Uncertain baseline. Cont to trend. (9) HTN (hypertension): Plan: Controlled, home lisinopril was held in setting of initial hypotension on pressors. Now off pressors. Will consider restarting tomorrow. (10) DVT prophylaxis: Plan: Heparin Full code Disposition-to home when cleared by cardiology and medically stable, will likely need ICD first prior to discharge. Karen Zuñiga DO [facility] hospitalist Admission and Anticipated Discharge Date Admission Date: October 24, 2021 Subjective 76-year-old man presented with V. fib arrest How are you? "Im not doing so well today"--significant chest pain with coughing. Amio stopped Patient having more significant chest wall pain especially in the midsternal region, worse with coughing which has also increased in frequency. Nonproductive Coughing is noisy and there is rhonchi at left base of the lung Borderline hypoxia present with patient oxygenating 92% on room air Refusing Dilaudid as this makes him too drowsy, discussed pain regimen including scheduled Tylenol and as needed tramadol. May also consider Robitussin with codeine but for now we will use Robitussin without. Review of Systems Review of Systems: All systems reviewed negative except as indicated above. Physical Exam Physical Exam: CONSTITUTIONAL: WNWD, vitals as above, generally well- appearing, NAD EYES: normal conjunctivae, no scleral icterus ENT: external ear and nose normal, left lip laceration with swelling and bruising, MMM NECK: trachea midline, RESPIRATORY: clear to auscultation bilaterally, no crackles, rales or wheezes, normal respiratory effort CARDIOVASCULAR: regular rate and rhythm, S1 and 2 heard without murmurs, gallops or rubs, no JVD, no peripheral edema, CHEST: inspection of chest was normal GASTROINTESTINAL: soft, nontender, ND, no guarding MUSCULOSKELETAL: strength 5/5 throughout SKIN: warm and dry, left forehead scalp laceration NEUROLOGIC: CN 2-12 grossly intact, no sensory deficit, normal cognition, normal speech, no tremor PSYCHIATRIC: alert cooperative and oriented to person, place and time. Euthymic mood, makes good eye contact, language grossly intact, recent and remote memory grossly intact. Results & Data Results & Data ([facility]) Vital Signs (Past 12 Hours) Vital Signs Temp Pulse Pulse Resp BP Pulse Ox 10/26/21 08:35 36.7 C 92 10/26/21 08:00 66 14 151/73 H 10/26/21 07:08 63 18 96 10/26/21 07:00 63 19 168/74 H 10/26/21 05:00 64 17 130/59 L 90 10/26/21 04:01 81 16 127/60 91 10/26/21 04:00 81 15 93 10/26/21 03:00 70 13 118/65 95 10/26/21 02:00 62 16 116/60 92 10/26/21 01:00 62 17 128/63 93 Laboratory Results Short CBC 10/26/21 Range/Units 08:32 WBC 12.46 H (4.8-10.8) K/uL Hgb 12.7 L (14.0-18.0) g/dL Hct 37.2 L (42-52) % Plt Count 320 (130-400) K/uL BMP 10/26/21 08:32 Sodium 135 L Potassium 3.8 Chloride 99 Carbon Dioxide 29 BUN 24 H Creatinine 1.26 Glucose 110 H Calcium 8.8 Liver Function 10/26/21 Range/Units 08:32 Total Bilirubin 0.6 (0.2-1.0) mg/dl AST 71 H (13-39) U/L ALT 188 H (7-52) U/L Alkaline Phosphatase 126 H (34-104) U/L Albumin 3.4 (3.4-5.0) gm/dl Urine 10/25/21 Range/Units 17:13 Urine Color Yellow Urine Appearance Clear (Clear) Urine pH 5.0 (4.5-7.5) Ur Specific [place] 1.026 (1.000-1.030) Urine Protein Trace H (Negative) Urine Glucose (UA) Negative (Negative) Medications Administered Current Inpatient Medications Acetaminophen (Acetaminophen 500 Mg Tab) 1,000 mg PO Q8H ON LICENSE OF [facility] Stop: 11/25/21 12:29 Albuterol (Albut/Ipratrop 3mg/0.5mg Neb 3 Ml Vial) 3 ml NEB Q6H PRN; Protocol PRN Reason: Shortness Of Breath Or Wheezing Stop: 11/24/21 13:38 Last Admin: 10/26/21 07:08 Dose: 3 ml Documented by: Clopidogrel Bisulfate (Clopidogrel Bisulfate 75 Mg Tab) 75 mg PO QAM VENESSA Stop: 11/24/21 08:59 Last Admin: 10/26/21 08:28 Dose: 75 mg Documented by: Enoxaparin Sodium (Enoxaparin Inj 40 Mg/0.4 Ml Syr) 40 mg SQ QAM VENESSA Stop: 11/26/21 08:59 Fluticasone/Vilanterol (Fluticasone/Vilanterol 100/25mcg 14 Puffs/Inhaler) 1 puffs INH DAILY VENESSA Stop: 11/24/21 08:59 Last Admin: 10/26/21 08:27 Dose: 1 puffs Documented by: Guaifenesin/Dextromethorphan (Guaifenesin/Dextrom Syrup 200mg/20mg 10ml Udc) 10 ml PO Q6H VENESSA Stop: 11/25/21 12:29 Ceftriaxone Sodium 2,000 mg/ (Dextrose) 70 mls @ 100 mls/hr IV Q24H ON LICENSE OF [facility]; Protocol Stop: 10/26/21 14:59 Last Infusion: 10/25/21 15:03 Dose: Infused Documented by: Metoprolol Tartrate (Metoprolol Tartrate 25 Mg Tab) 12.5 mg PO BID VENESSA Stop: 11/24/21 20:59 Last Admin: 10/26/21 08:29 Dose: 12.5 mg Documented by: Miscellaneous (Icu Protocol For Hyperglycemia) 1 ea N/A PRN PRN; Protocol PRN Reason: Hyperglycemia Protocol Stop: 10/26/21 15:12 Tramadol HCl (Tramadol Hcl 50 Mg Tablet) 50 mg PO Q4H PRN PRN Reason: Pain Stop: 11/25/21 12:14
[2021-10-26] MEDS ORDERED: lisinopril 40 MG TAB PO ONE (12:49)
[2021-10-26] MEDS: ACETAMINOPHEN 500 MG TAB PO SCH ×2 (13:11→19:31)
[2021-10-26] MEDS: guaiFENesin/DEXTROM SYRUP 200MG/20MG 10ML UDC PO SCH ×3 (13:11→23:41)
--- NOTE | 2021-10-26 13:22 | CT Scan Report ---
CT chest diagnostic wo con CLINICAL HISTORY: increased coughing post CPR, rhonchi, sternal pain COMPARISON STUDY: Portable chest from 10/24/2021 CT DOSE: 825.71 mGycm TECHNIQUE: Standard CT of the Chest was performed without IV contrast. A dose lowering technique was utilized adhering to the principles of ALARA. FINDINGS: Airway: The airway is clear. No endobronchial lesion is identified. Patient's endotracheal tube has b een removed. Lungs: There is atelectasis present involving the right lung base posteriorly, involving the lateral lingular segment and at the left lung base posteriorly. The lungs are otherwise clear of acute alveol ar opacities, air bronchograms or pulmonary nodules. Pleura: There is no evidence for pleural effusion. There is no evidence for pneumothorax. Mediastinum: There is no evidence for pathologic adenopathy on these limited noncontrast images. Hear t size is mildly enlarged status post previous cardiothoracic surgery. Postsurgical changes with elev ation of left hemidiaphragm are again seen with blunting of left costophrenic angle. Extensive blake ry artery calcification is present. There is no definite anterior mediastinal hematoma. The thoracic aorta is within normal limits. Atherosclerotic calcification is present. There is no evidence for per icardial effusion. Upper abdomen: The adrenal glands are normal bilaterally. Osseous structures: There are bilateral rib fractures involving the third through seventh ribs eric laterally on the right and the third through eighth ribs anterolaterally on the left. Minimal cortica l offset is seen at the fracture sites. No acute sternal fractures identified. IMPRESSION: 1. Minimally displaced bilateral rib fractures with no evidence for pneumothorax. 2. There is atelectasis involving the right lower lobe, lateral lingular segment and left lower lobe. 3. Mild cardiomegaly status post previous cardiothoracic surgery with postsurgical changes of the lef t lung base and elevation of the left hemidiaphragm. Extensive coronary artery calcifications present . 4. No evidence for acute sternal fracture. ACT 112: Negative or not required by law. Electronically signed by: Tony Ramon M.D. 10/26/2021 1:19 PM
[2021-10-26] MEDS ORDERED: LACTATED RINGER'S 1,000 ML IV SCH (15:15)
[2021-10-26] MEDS: traMADol HCL 50 MG TABLET PO PRN ×3 (15:31→23:41)
[2021-10-26] MEDS ORDERED: COUGH DROP (SUGAR FREE) LOZ 24 LOZ/1 BOX BUCCAL ONE (17:13)
[2021-10-26] MEDS: LACTATED RINGER'S 1,000 ML IV SCH (17:16)
[2021-10-27] MEDS: ACETAMINOPHEN 500 MG TAB PO SCH ×3 (04:09→20:33)
[2021-10-27] MEDS: traMADol HCL 50 MG TABLET PO PRN ×3 (04:09→22:51)
[2021-10-27] MEDS: guaiFENesin/DEXTROM SYRUP 200MG/20MG 10ML UDC PO SCH ×4 (05:36→22:52)
[2021-10-27 05:47] LABS: Hematocrit (blood only) 34.3 % (42-52); Hemoglobin 11.8 g/dL (14.0-18.0); Mean Corpuscular Hemoglobin 28.2 pg (25-34); Mean Corpuscular Hgb Conc 34.4 g/dL (32-36); Mean Corpuscular Volume 82.1 fL (80-100); Mean Platelet Volume 9.1 fL (7.4-10.4); Platelet Count 263 K/uL (130-400); RDW Coefficient of Variation 14.2 % (11.5-14.5); RDW Standard Deviation 42.7 fL (36.4-46.3); Red Blood Count 4.18 M/uL (4.7-6.1); White Blood Count 10.19 K/uL (4.8-10.8)
[2021-10-27] MEDS ORDERED: ceFAZolin 2000MG 2,000 MG/15 ML SYR IV SCH (06:00)
[2021-10-27] MEDS ORDERED: ceFAZolin 330 MG/ML 1 GM VIAL IV SCH (06:00)
[2021-10-27 06:09] LABS: BUN Creatinine Ratio 20.8 (10-20); Calcium 8.4 mg/dl (8.5-10.1); Creatinine Clr Calc Pharmacy 62.6 ml/min; Est GFR (African American) 79.7 ml/min; Est GFR (Non-African American) 68.8 ml/min; Potassium 3.9 mmol/L (3.5-5.1)
[2021-10-27] MEDS: AMIODARONE / D5W 360 MG/200 ML BAG IV SCH (07:23)
[2021-10-27] MEDS: FLUTICASONE/VILANTEROL 100/25MCG 14 PUFFS/INHALER INH SCH (08:02)
[2021-10-27] MEDS: METOPROLOL TARTRATE 25 MG TAB PO SCH ×2 (08:03→20:34)
--- NOTE | 2021-10-27 08:24 | Pre Anesthesia Assessment ---
Date of Service October 27, 2021 Pre Sedation Assessment Vital Signs Temp Pulse Pulse Resp BP BP Pulse Ox 10/27/21 04:00 36.7 C 70 18 171/83 H 96 10/27/21 00:00 36.9 C 69 17 159/79 H 97 10/26/21 20:00 37.1 C 82 19 159/75 H 97 10/26/21 18:46 75 18 96 10/26/21 17:24 37 C 10/26/21 17:01 83 21 186/81 H 92 10/26/21 17:00 90 19 10/26/21 16:00 65 21 10/26/21 15:00 75 10/26/21 14:01 72 105/60 10/26/21 14:00 68 10/26/21 13:27 36.7 C 10/26/21 13:12 69 133/61 92 10/26/21 12:00 67 10/26/21 10:00 59 L 18 134/67 10/26/21 09:00 67 23 145/65 H 10/26/21 08:35 36.7 C 92 Cardiovascular RRR, no murmur, no edema Respiratory normal respiratory effort, lungs clear to auscultation Pre-Sedation Airway Assessment Smoking Status: Never smoker Mallampati Class: II ASA: ASA3 NPO Status Date of Last Intake of Fluids: 10/26/21 Date of Last Intake of Solid Food: 10/26/21 Procedure Planning Contraindications for Sedation: none Current Medications Reviewed: Yes Notes The planned sedation has been discussed with the patient. Informed Consent was obtained. I have identified the patient, determined the appropriateness of sedation and have assessed the patient immediately prior to the procedure. All medicine(s) and interventions are by my order.
[2021-10-27] MEDS ORDERED: LIDOCAINE 1% LOCAL 20 ML VIAL ONE ×2 (08:35→09:20)
[2021-10-27] MEDS ORDERED: fentaNYL citrate 100 MCG/2 ML VIAL ONE ×2 (08:36→09:23)
[2021-10-27] MEDS ORDERED: ceFAZolin 330 MG/ML 1 GM VIAL ONE ×2 (08:36→10:15)
[2021-10-27] MEDS ORDERED: MIDAZOLAM HCL 5 MG/ML 1 ML VIAL ONE (08:36)
[2021-10-27] MEDS ORDERED: MIDAZOLAM HCL 1 MG/ML 2ML VIAL ONE (09:23)
[2021-10-27] MEDS ORDERED: BACITRACIN OINT 0.9 GM PKT ONE (10:20)
--- NOTE | 2021-10-27 10:53 | Electrophysiology Report ---
Date of Service October 27, 2021 Electrophysiology Procedure Electrophysiology Procedure Report Preoperative diagnosis: Resuscitated sudden cardiac Postoperative diagnosis: Same Procedure: Left and right subclavian venography Right sided dual-chamber ICD implantation Surgeon: Micheal Ring MD Estimated blood loss: 20 cc Complications: None Disposition: Cardiology recovery Procedure details: After obtaining informed consent for the procedure, the patient was brought to the laboratory and prepped and draped in the standard sterile manner. Left subclavian venography was performed using dye injected via the left IV site, the vessel was patent up to the region of the left sternum and then abruptly terminated with large collateral network around it. There is no past to the right atrium. Right subclavian venography was then performed and the right subclavian vein was patent to the right atrium and free of obstruction. The right prepectoral region was anesthetized with 1% lidocaine local anesthetic and right venipuncture was performed by percutaneous technique and a guidewire placed through the right subclavian vein into the superior vena cava. The area was further infiltrated with 1% lidocaine local anesthetic and a 7 cm incision was made parallel to the right clavicle and 2 cm below it and carried down to the anterior pectoralis fascia. An ICD pocket was formed by blunt dissection anterior to the pectoralis fascia and a vancomycin soaked sponge was placed in the pocket. A 10.5 Swazi Medtronic lead introducer was placed over the guidewire into the right subclavian vein, the dilator and guidewire were removed and a bipolar dual coil active fixation steroid tipped ventricular ICD lead was advanced through the introducer into the superior vena cava. A guidewire was placed through the introducer and the introducer was stripped from the lead and guidewire. An 7 Swazi Medtronic lead introducer was placed over the guidewire into the right subclavian vein, the dilator and guidewire were removed and a bipolar active fixation steroid tipped atrial lead was advanced through the introducer into the superior vena cava. The introducer was stripped from the lead and guidewire. Using a curved stylette the ventricular lead was advanced through the right ventricular outflow tract into the pulmonary artery and then using a straight stylette was positioned in the right ventricular apex. The screw was extended fixing the lead in position. Pacing and sensing thresholds were evaluated in bipolar configuration and are recorded on the implant data sheet. Using a curved stylette the atrial lead was positioned in the region of the atrial appendage an d the screw extended fixing the lead in position. Pacing and sensing thresholds were evaluated in bipolar configuration and are recorded on the implant data sheet. Once the leads were in position they were attached to the anterior pectoralis fascia using 2 sutures of 2-0 silk around each lead collar. The vancomycin soaked sponge was removed from the pocket, hemostasis was obtained, the ICD was attached to the leads and placed in the pocket with the leads coiled beneath it. The incision was closed with a running double subcutaneous closure of 3-0 Vicryl absorbable suture, followed by running subcuticular skin closure of 4-0 Vicryl absorbable suture. Bacitracin ointment was placed on the incision and a dressing applied. [facility] [place] codes Indication for Procedure (1) Ventricular fibrillation: ICD Procedure 1: ICD: 28654 Insert single or dual ICD system Miscellaneous Procedures Procedure 1: EP Miscellaneous: 59940 Contrast injection for venography Procedure 2: EP Miscellaneous: 63477-81 Vengraphy, extremity (Left side) Procedure 3: EP Miscellaneous: 61834-64 Vengraphy, extremity (Right side) PG Moderate Sedation Codes Moderate Sedation Codes Procedure 1: Sedation/Anesthesia: 77384 Mod Sedation by the same physician;Init15 Min Child Age 5 & Up Procedure 2: Sedation/Anesthesia: 11461 Mod Sedation by the same physician; Ea [id number] Minutes
[2021-10-27] MEDS ORDERED: ACETAMINOPHEN W/CODEINE #3 1 TAB PO PRN (11:04)
[2021-10-27] MEDS ORDERED: ACETAMINOPHEN 325 MG TAB PO PRN (11:04)
--- NOTE | 2021-10-27 11:09 | Post Anesthesia Assessment ---
Date of Service October 27, 2021 Post Sedation Assessment Vital Signs Temp Pulse Pulse Resp BP BP Pulse Ox 10/27/21 10:35 67 16 136/68 96 10/27/21 07:30 36.9 C 65 18 166/69 H 99 10/27/21 04:00 36.7 C 70 18 171/83 H 96 10/27/21 00:00 36.9 C 69 17 159/79 H 97 10/26/21 20:00 37.1 C 82 19 159/75 H 97 10/26/21 18:46 75 18 96 10/26/21 17:24 37 C 10/26/21 17:01 83 21 186/81 H 92 10/26/21 17:00 90 19 10/26/21 16:00 65 21 10/26/21 15:00 75 10/26/21 14:01 72 105/60 10/26/21 14:00 68 10/26/21 13:27 36.7 C 10/26/21 13:12 69 133/61 92 10/26/21 12:00 67 Recovery Score Activity: Moves 4 extremities Respiration: Deep Breath/Cough Circulation: +/-20% PreAnes Value Consciousness: Fully Awake Oxygen Saturation: > 92% On Room Air Post Anesthesia Score: 10 Discharge Sedation Level of Care: Fast Track Phase II Post Sedation Plan On clinical assessment, the patient appears to have tolerated the sedation without complications. Patient is recovering as anticipated. Patient will continue to be monitored by nursing and may be discharged when sedation discharge criteria are met per below protocol. Upon Completions of procedure up to 15 minutes continue every 5 minute vital signs and the P.A.R. score; then discharge to a Phase I or Fast Track to Phase II per the following guidelines: * Discharge Patient to appropriate Phase II area if PAR is 8 or greater or return to pre- procedure baseline. The post - procedure orders will be as directed. * If PAR score is less than 8 or not return to pre-procedure baseline then patient will follow Phase I monitoring till PAR is reached for Phase II. The Phase I may be done in procedure room or may call to secure a Phase I area. * If naloxone or flumazenil are used for reversal, hold in Phase I for continued monitoring from when last reversal dose was given for a minimum of 60 minutes or longer pending the nurse and/or physician discretion of patient condition before discharge to Phase II. Please call the Sedation Physician to re-evaluate and complete post-note for discharge to Phase II area. Do NOT discharge from procedure sedation or Phase 1 until post- sedation evaluation note is complete by procedure /sedation MD Sedation Discharge Instructions to be given to the patient at discharge to home.
[2021-10-27] MEDS: lisinopril 20 MG TAB PO SCH ×2 (11:35→20:34)
[2021-10-27] MEDS: CLOPIDOGREL BISULFATE 75 MG TAB PO SCH (11:35)
[2021-10-27] MEDS: ENOXAPARIN INJ 40 MG/0.4 ML SYR SQ SCH (11:36)
[2021-10-27] MEDS: ALBUT/IPRATROP 3MG/0.5MG NEB 3 ML VIAL NEB PRN ×2 (16:33→22:17)
[2021-10-27] MEDS: LACTATED RINGER'S 1,000 ML IV SCH (17:01)
--- NOTE | 2021-10-27 18:01 | Hospitalist Progress Note ---
Date of Service October 27, 2021 Assessment & Plan (1) Cardiac arrest: Plan: ROSC achieved post-arrest with 3 rounds of epinephrine and 3 defibrillations per report Hypothermic protocol was started but aborted because of logistics Patient was sent to critical care after cardiac catheterization revealing diffuse disease, no intervention, patent grafts. Shortly after arrival in the ICU patient was extubated Currently hemodynamically stable with expected sequela I of events yesterday Consulting general cardiology for additional recommendations. Continue telemetry Troponin peaked in mid 500s and now trending down. Plavix restarted, OK for monotherapy given time away from last stent. Empiric antibiotics started and procalcitonin elevated, continue Rocephin pending culture results and clinical improvement. 10/26-worsening coughing and sternal pain, post CPR. h/o asthma. Neb treatments are helping, but also trying some cough syrup now. Concerned for rib fracture/poss sternal fracture causing pain and would like better view of lungs to rule out pneumonia. CT chest without contrast now. (minimizing contrast with recent cath and upcoming pacemaker procedure.) Start venessa tylenol with tramadol for breakthrough pain as dilaudid too potent per patient. ICD placement this am Pain is controlled wtih tramadol PT/OT to assess for safety to home. (2) Ventricular fibrillation: Plan: Started on amiodarone which has been dc'd. Plan for ICD prior to discharge. (3) Ischemic cardiomyopathy: Plan: restarting lisinopril now and cardiology considering addition of spironolactone prior to discharge. (4) Coronary artery disease: Plan: Severe disease status post CABG with patent grafts. Continue current medical management. (5) PVD (peripheral vascular disease): Plan: Status post AAA repair, chronic, stable, continue medical management. (6) Transaminitis: Plan: Mild, improving. Holding on statin until LFTs continue to show downward trend. Transaminitis suspected due to shock liver. (7) Mild intermittent asthma: Plan: No wheezing but now with rhonchi at left base and more significant coughing. No indication for systemic steroids at this time. Continue Breo Ellipta and singular daily per home regimen. Robitussin cough syrup for support with coughing. (8) AINBAL (acute kidney injury): Plan: Creat 1.5 to 1.26 today. Uncertain baseline. Cont to trend. (9) HTN (hypertension): Plan: Controlled, home lisinopril was held in setting of initial hypotension on pressors. Now off pressors. Will consider restarting tomorrow. (10) DVT prophylaxis: Plan: Heparin Full code Disposition-to home pending therapy evaluations and cardiology clearance post- ICD Karen Zuñiga DO [facility]ist Admission and Anticipated Discharge Date Admission Date: October 24, 2021 Subjective 76-year-old man presented with V. fib arrest chest pain still present multiple broken ribs confirmed on chest CT no evidence of pneumonia s/p ICD placement today and doing well post op tolerating PO walking to and from bathroom slowly PT/OT ordered is at bedside. Review of Systems Review of Systems: All systems reviewed negative except as indicated above. Physical Exam Physical Exam: CONSTITUTIONAL: WNWD, vitals as above, generally well- appearing, NAD EYES: normal conjunctivae, no scleral icterus ENT: external ear and nose normal, left lip laceration with swelling and bruising, MMM NECK: trachea midline, RESPIRATORY: clear to auscultation bilaterally, no crackles, rales or wheezes, normal respiratory effort CARDIOVASCULAR: regular rate and rhythm, S1 and 2 heard without murmurs, gallops or rubs, no JVD, no peripheral edema, CHEST: inspection of chest revealed ICD in right upper anterior chest. wound closed and healing well GASTROINTESTINAL: soft, nontender, ND, no guarding MUSCULOSKELETAL: strength 5/5 throughout, SKIN: warm and dry, left forehead scalp laceration-nhi in place NEUROLOGIC: CN 2-12 grossly intact, no sensory deficit, normal cognition, normal speech, no tremor PSYCHIATRIC: alert cooperative and oriented to person, place and time. Euthymic mood, makes good eye contact, language grossly intact, recent and remote memory grossly intact. Results & Data Results & Data ([facility]) Vital Signs (Past 12 Hours) Vital Signs Temp Pulse Resp BP Pulse Ox 10/27/21 16:33 69 18 96 10/27/21 13:30 67 15 137/68 97 10/27/21 13:00 67 21 124/71 94 10/27/21 12:30 70 21 133/72 96 10/27/21 12:20 70 24 120/74 94 10/27/21 11:50 70 18 142/75 H 95 10/27/21 11:35 75 18 137/84 98 10/27/21 11:20 71 20 148/67 H 100 10/27/21 11:05 36.7 C 70 19 129/95 94 10/27/21 10:35 67 16 136/68 96 10/27/21 07:30 36.9 C 65 18 166/69 H 99 Laboratory Results Short CBC 10/27/21 Range/Units 05:37 WBC 10.19 (4.8-10.8) K/uL Hgb 11.8 L (14.0-18.0) g/dL Hct 34.3 L (42-52) % Plt Count 263 (130-400) K/uL BMP 10/27/21 05:37 Sodium 134 L Potassium 3.9 Chloride 101 Carbon Dioxide 26 BUN 22 Creatinine 1.06 Glucose 93 Calcium 8.4 L Medications Administered Current Inpatient Medications Acetaminophen (Acetaminophen 500 Mg Tab) 1,000 mg PO Q8H [facility] Stop: 11/25/21 12:29 Last Admin: 10/27/21 11:36 Dose: 1,000 mg Documented by: Acetaminophen (Acetaminophen 325 Mg Tab) 650 mg PO Q4H PRN PRN Reason: Mild pain (rating 1,2,3) Stop: 11/26/21 11:03 Acetaminophen/Codeine Phosphate (Acetaminophen W/Codeine #3 1 Tab) 1 - 2 tab PO Q4H PRN PRN Reason: Moderate-Severe Pain Stop: 11/26/21 11:03 Last Admin: 10/27/21 16:29 Dose: 2 tab Documented by: Albuterol (Albut/Ipratrop 3mg/0.5mg Neb 3 Ml Vial) 3 ml NEB Q6H PRN; Protocol PRN Reason: Shortness Of Breath Or Wheezing Stop: 11/24/21 13:38 Last Admin: 10/27/21 16:33 Dose: 3 ml Documented by: Clopidogrel Bisulfate (Clopidogrel Bisulfate 75 Mg Tab) 75 mg PO QAM [facility] Stop: 11/24/21 08:59 Last Admin: 10/27/21 11:35 Dose: 75 mg Documented by: Enoxaparin Sodium (Enoxaparin Inj 40 Mg/0.4 Ml Syr) 40 mg SQ QAM [facility] Stop: 11/26/21 08:59 Last Admin: 10/27/21 11:36 Dose: Not Given Documented by: Fluticasone/Vilanterol (Fluticasone/Vilanterol 100/25mcg 14 Puffs/Inhaler) 1 puffs INH DAILY [facility] Stop: 11/24/21 08:59 Last Admin: 10/27/21 08:02 Dose: 1 puffs Documented by: Guaifenesin/Dextromethorphan (Guaifenesin/Dextrom Syrup 200mg/20mg 10ml Udc) 10 ml PO Q6H [facility] Stop: 11/25/21 12:29 Last Admin: 10/27/21 17:32 Dose: 10 ml Documented by: Lactated Ringer's (Lr) 1,000 mls @ 15 mls/hr IV .Q24H [facility] Stop: 10/29/21 10:09 Last Admin: 10/27/21 17:01 Dose: Not Given Documented by: Cefazolin Sodium (Ancef 2000mg) 2,000 mg in 15 mls @ 3.75 mls/min IV PREOP [facility] Stop: 10/28/21 05:59 Last Admin: 10/27/21 10:12 Dose: Not Given Documented by: Lisinopril (Lisinopril 20 Mg Tab) 20 mg PO BID [facility] Stop: 11/26/21 08:59 Last Admin: 10/27/21 11:35 Dose: 20 mg Documented by: Metoprolol Tartrate (Metoprolol Tartrate 25 Mg Tab) 12.5 mg PO BID [facility] Stop: 11/24/21 20:59 Last Admin: 10/27/21 08:03 Dose: 12.5 mg Documented by: Tramadol HCl (Tramadol Hcl 50 Mg Tablet) 50 mg PO Q4H PRN PRN Reason: Pain Stop: 11/25/21 12:14 Last Admin: 10/27/21 16:02 Dose: 50 mg Documented by: (1) Coronary artery disease Coronary Disease-Associated Artery/Lesion type: bypass graft [place] vs. transplanted heart: [place] heart Associated angina: without angina Qualified Code(s): I25.810 - Atherosclerosis of coronary artery bypass graft(s) without angina pectoris
[2021-10-27] MEDS ORDERED: KETOROLAC TROMETHAMINE 15 MG/ML VIAL IV ONE (18:19)
[2021-10-27] MEDS ORDERED: ALBUT/IPRATROP 3MG/0.5MG NEB 3 ML VIAL NEB PRN (22:35)
--- NOTE | 2021-10-27 22:58 | Electrocardiogram Report ---
Test Reason : Blood Pressure : / mmHG Vent. Rate : 077 BPM Atrial Rate : 077 BPM P-R Int : 160 ms QRS Dur : 160 ms QT Int : 488 ms P-R-T Axes : 014 -76 002 degrees QTc Int : 552 ms Sinus rhythm with occasional , and consecutive Premature ventricular complexes Left axis deviation Right bundle branch block Cannot rule out Inferior infarct , age undetermined Abnormal ECG Confirmed by Gumaro Linton ([id number]) on 10/27/2021 10:57:51 PM Referred By: REFERRED SELF Confirmed By:Gumaro Linton
[2021-10-28] MEDS: ACETAMINOPHEN 500 MG TAB PO SCH ×2 (04:14→14:34)
[2021-10-28] MEDS: guaiFENesin/DEXTROM SYRUP 200MG/20MG 10ML UDC PO SCH ×2 (06:09→14:35)
--- NOTE | 2021-10-28 08:04 | XRay Report ---
XR chest 2V PA/lateral CLINICAL HISTORY: Pacemaker insertion. COMPARISON STUDY: Chest radiograph October 24, 2021. Chest CT October 26, 2021. FINDINGS: There is no pneumothorax following placement of a right subclavian pacer/AICD. No evidence for pulmonary edema. Median sternotomy wires are noted. Elevation of the left hemidiaphragm with left lung volume loss is unchanged. Numerous old left-sided rib fractures are noted with pleural thickeni ng, likely chronic. Cardiomegaly is noted. Left lung interstitial thickening is again noted. IMPRESSION: No pneumothorax placement of a right subclavian pacer/AICD. ACT 112: Negative or not required by law. Electronically signed by: Indio Naik M.D. 10/28/2021 8:02 AM
--- NOTE | 2021-10-28 09:28 | Cardiology Progress Note ---
Date of Service October 28, 2021 Assessment & Plan (1) Status post implantation of automatic cardioverter/defibrillator (AICD): Plan: 1. Postop day #1: He is doing well post ICD implantation, the device is working well, the x-ray looks good. The site looks good. He is stable for discharge. I am going to schedule him for an incision follow-up on Sunday, he is going to think about subsequent follow-up and we can make those arrangements Sunday. Admission and Anticipated Discharge Date Admission Date: October 24, 2021 Subjective He is feeling well today, no significant incisional discomfort. No chest pain or shortness of breath. Physical Exam Physical Exam: The incision is clean and dry, minimal dried blood on the dressing. No active bleeding. No swelling or tenderness. Cardiac rhythm is regular with no rub Lungs are clear Results & Data ([facility]) Vital Signs (Past 12 Hours) Vital Signs Temp Pulse Resp BP Pulse Ox 10/28/21 04:00 36.8 C 68 14 152/76 H 95 10/28/21 00:00 36.7 C 62 15 135/62 96 10/27/21 22:19 63 18 95 Laboratory Results Intake and Output 10/27/21 10/28/21 10/28/21 22:59 06:59 14:59 Intake Total 240 / 830 240 / 830 Output Total 200 / 450 0 / 450 Balance 40 / 380 240 / 380 Intake: Oral 240 / 830 240 / 830 Output: Urine 200 / 450 # Bowel Movements 0 / 0 0 / 0 Other: # Unmeasured Voids 1 Weight 82.7 kg Weight Measurement Method Built in [facility] Diagnostic Findings Postop ECG: Sinus rhythm with intact AV conduction, appropriate ICD inhibition Chest x-ray: Good lead position, no pneumothorax Telemetry: Sinus rhythm, no significant arrhythmia ICD evaluation: Excellent pacing and sensing characteristics. PG Care Time/CCT Total # of Minutes Spent Total Time Spent with Patient: Total time spent is greater than 50% in coordination of care (as documented) at patient's floor/unit and/or counseling patient: Coding Level of Care Code 95423 Post Operative Follow-Up Diagnoses Status post implantation of automatic cardioverter/defibrillator (AICD) Z95.810 CPT Codes Implantable Defib dual lead programming - [id number] ([id number])
[2021-10-28] MEDS: FLUTICASONE/VILANTEROL 100/25MCG 14 PUFFS/INHALER INH SCH (09:30)
[2021-10-28] MEDS: lisinopril 20 MG TAB PO SCH (09:30)
[2021-10-28] MEDS: CLOPIDOGREL BISULFATE 75 MG TAB PO SCH (09:30)
[2021-10-28] MEDS: METOPROLOL TARTRATE 25 MG TAB PO SCH (09:30)
[2021-10-28] MEDS: ENOXAPARIN INJ 40 MG/0.4 ML SYR SQ SCH (09:31)
--- NOTE | 2021-10-28 10:39 | Discharge Summary ---
Date of Service October 28, 2021 Admission HPI Per Admitting Provider This is a 76 y/o male with a PMH of CAD s/p CABG x3, cardiac stent x 4 (cardiac cath x 6), AAA s/p endovascular repair, PVD, CKD3, HTN, dyslipidemia, asthma, and macular degeneration who was brought to the ED today via EMS after a cardiac arrest in the field. History from the pt is unobtainable as he is currently intubated and sedated. His prior records from [facility], [facility], and [facility] were reviewed and additional history was obtained from his daughter, Rafia. Pt has an extensive cardiac history including inferior OK in 1993, CABG x 3 in 2007 ([place]) and subsequent caths/stents with most recent in 2014 when a ARTURO was placed to the proximal LAD. Pt follows with Dr. Kayode Pickens at [facility] in [place] for cardiology and was apparently seen for routine follow-up within the last two weeks when potential placement of a Watchman device was discussed. Pt's daughter denies any prior PPM or ICD placements. Of note, pt was admitted to [facility] in mid-September due to a TIA. ECHO done livia that admission revealed an LVEF of 45%. Pt was also seen in the ED late on 10/20 and into 10/21 with shortness of breath that was diagnosed as an asthma exacerbation, and pt was prescribed a Z-pack and Tessalon Perles. Per his daughter, his breathing has been rough over the weekend. Pt was also admitted to [facility] in Dec 2020 with GIB. Today, he was apparently at the [facility] this morning when he collapsed, hitting his head on the floor. A bystander immediately started CPR and EMS was called. Pt was given Epi x 3 doses in the field and shocked 3 times before return of ROSC. It is unclear how long between when pt collapsed and when ROSC occurred. Pt was intubated in the field. In the ED, he has been sedated with propofol. BP did drop after a BM so levophed was started. Pt started to become more agitated and awake (?) so propofol was titrated up with associated initial drop in BP so levophed also titrated with improvement of BP. Principal Diagnosis cardiac arrest ventricular fibrillation ischemic cardiomyopathy transaminitis ANIBAL multiple rib fractures forehead laceration s/p closure Discharge Data Allergies Allergy/AdvReac Type Severity Reaction Status Date / Time erythromycin base Allergy Unknown STOMACH Verified 04/12/15 07:57 PAIN LATEX 1 Allergy Unknown HIVES Uncoded 04/07/15 13:44 Consultations 10/24/21 13:02 ED Decision to Admit Stat 10/24/21 13:03 Consult Police Guard Stat 10/24/21 13:04 Consult Cardiology Stat 10/24/21 15:13 Consult Police Guard Routine Procedures Performed Operation Date: 10/24/21 14:00 Actual Procedures s Cineradiography w/Routine Exam - Fab Elmore MD p Cath, Left w/Cors Vent Grafts - Fab Elmore MD s Ultrasound Vascular Access - Fab Elmore MD Operation Date: 10/27/21 08:30 Actual Procedures p ICD Insertion Single or Dual - Micheal Ring MD s Venogram, Unilateral - Micheal Ring MD Ordered Studies 10/24/21 11:30 CT cervical spine wo con Stat CT head/brain wo con Stat 10/24/21 13:31 CL Cath Imgs for PACS use only Stat 10/26/21 12:12 CT chest diagnostic wo con Urgent 10/27/21 08:30 EP Lab Images for PACS ONCE Hospital Course (1) Cardiac arrest: ROSC achieved post-arrest with 3 rounds of epinephrine and 3 defibrillations per report Hypothermic protocol was started but aborted because of logistics Patient was sent to critical care after cardiac catheterization revealing diffuse disease, no intervention, patent grafts. Shortly after arrival in the ICU patient was extubated Currently hemodynamically stable with expected sequela I of events yesterday Consulting general cardiology for additional recommendations. Continue telemetry Troponin peaked in mid 500s and now trending down. Plavix restarted, OK for monotherapy given time away from last stent. Empiric antibiotics started and procalcitonin elevated, continue Rocephin pending culture results and clinical improvement. 10/26-worsening coughing and sternal pain, post CPR. h/o asthma. Neb treatments are helping, but also trying some cough syrup now. Concerned for rib fracture/poss sternal fracture causing pain and would like better view of lungs to rule out pneumonia. CT chest without contrast now. (minimizing contrast with recent cath and upcoming pacemaker procedure.) Start venessa tylenol with tramadol for breakthrough pain as dilaudid too potent per patient. ICD placement this am Pain is controlled wtih tramadol PT/OT to assess for safety to home. (2) Ventricular fibrillation: Started on amiodarone which has been dc'd. Plan for ICD prior to discharge. (3) Ischemic cardiomyopathy: restarting lisinopril now and cardiology considering addition of spironolactone prior to discharge. (4) Coronary artery disease: Severe disease status post CABG with patent grafts. Continue current [facility] management. (5) PVD (peripheral vascular disease): Status post AAA repair, chronic, stable, continue medical management. (6) Transaminitis: Mild, improving. Holding on statin until LFTs continue to show downward trend. Transaminitis suspected due to shock liver. (7) Mild intermittent asthma: No wheezing but now with rhonchi at left base and more significant coughing. No indication for systemic steroids at this time. Continue Breo Ellipta and singular daily per home regimen. Robitussin cough syrup for support with coughing. (8) ANIBAL (acute kidney injury): Creat 1.5 to 1.26 today. Uncertain baseline. Cont to trend. (9) HTN (hypertension): Controlled, home lisinopril was held in setting of initial hypotension on pressors. Now off pressors. Will consider restarting tomorrow. (10) DVT prophylaxis: Heparin Full code Disposition-to home pending therapy evaluations and cardiology clearance post- ICD DO Parminder Gutiér[facility]chan [facility] (11) Laceration of head: (12) Multiple rib fractures: Total Time Total Time Spent Total Time Spent (In Minutes): 60 Discharge Plan Discharge Items Patient Disposition: Home - Self-Care Reason For Visit: S/P CARDIAC ARREST Discharge Diagnosis: cardiac arrest ventricular fibrillation ischemic cardiomyopathy transaminitis ANIBAL multiple rib fractures forehead laceration s/p closure Condition on Discharge: Good Activity: Resume your previous activity Non-emergency contact: Primary Care Provider Call non-emergency contact if: you have any medication questions, your symptoms worsen, your pain is not controlled, your pain is worsening, your pain is unusual for you, your pain is concerning for you, you have a fever, your wound has increased redness, your wound has increased drainage and your wound pain has increased Follow-up/Referrals: Micheal Ring MD [Physician] - 10/31/21 10:00 am Doreen Casillas DO [Outside Practitioners] - (Date & Time 11/01/2021 11:50 AM Provider Doreen Casillas DO Department Family Medicine [facility] ) Diet: Heart Healthy [facility] Attending Provider Instructions: ACTIVITY RECOMMENDATIONS: * Do not raise affected arm over head for 2 weeks. SPECIAL CARE INSTRUCTIONS: * If bleeding occurs, apply direct pressure to area for 5 minutes. * Call your doctor if you have severe pain, fever, drainage or bleeding at site. * Keep dressing on and dry for 48 hours then remove. * Keep any scheduled doctor's appointment. * Implant Card - hand held device with website information given. SKIN IRRITATION: * You may experience some redness and/or swelling in the area where radiation was administered. If any skin irritation occurs, please contact your family physician. FOLLOW UP VISIT: Keep any scheduled doctor appointments. Addtl Lace Roller Operator Provider Instructions: Please take all medications as instructed on discharge list below. Please follow-up with your primary care provider at the date and time scheduled above in order to review events, check on your pain from your rib fractures, re- evaluate your breathing and ensure you have good follow-up with cardiology for your ICD. An xray of your right hip was performed prior to discharge which revealed no evidence of fracture or dislocation. Your head nhi should be removed in 7-10 days. Please check [facility] Dr. Casillas on follow-up to see if they are appropriate for removal. This may also be evaluated during your cardiology follow-up. It was a pleasure taking care of you! Please call if you have any questions or problems. You can reach a [facility] hospitalist on duty at [facility] 24 hours a day by calling [phone]. Take care of yourself. Karen Zuñiga DO [facility] Hospitalist Pending Studies at Discharge: No Stand-Alone Forms: My [facility] Medications and DC Order Prescriptions: New metoprolol tartrate 25 mg Tablet 12.5 mg PO BID Qty: 30 RF: 0 acetaminophen-codeine 300-30 mg Tablet 1 tab PO Q4H PRN (Reason: severe pain (scale score 7-10)) Qty: 10 RF: 0 Continued ATORVASTATIN (LIPITOR) 40 MG tablet 40 mg PO QPM Qty: 0 RF: 0 CALCIUM CARBONATE-VITAMIN D (CALCIUM) 1 TAB tablet 1 tab PO QAM Qty: 0 RF: 0 CHOLECALCIFEROL (Vitamin D) 1,000 INTER.UNIT tablet 1,000 inter.unit PO QAM Qty: 0 RF: 0 CLOPIDOGREL BISULFATE (PLAVIX) 75 MG tablet 75 mg PO QPM Qty: 0 RF: 0 Lisinopril (Prinivil) 20 MG tablet 20 mg PO BID Qty: 0 RF: 0 MONTELUKAST SODIUM (SINGULAIR) 10 MG tablet 10 mg PO QAM Qty: 0 RF: 0 Multivitamin tablet 1 tab PO QAM Qty: 0 RF: 0 OMEGA-3 FATTY ACIDS (OMEGA 3) 1 CAP capsule 1 cap PO QAM Qty: 0 RF: 0 Ocuvite Preservision 1 TAB tablet 2 tab PO BID Qty: 0 RF: 0 Discharge Orders: Discharge Order (Routine); Ordered 10/28/21 Ordered By: Karen Zuñiga Admission Data Admit Date/Time: 10/24/21 13:39 Attending Provider: Karen Zuñiga Admit Provider: Fab Elmore Primary Care Provider: PCP,NO Other Providers: Armin Juarez ; Karen Zuñiga ; Fab Elmore
--- NOTE | 2021-10-28 11:39 | XRay Report ---
XR hip RT 2V w pelvis HISTORY: 76 years-old Male syncope with fall, pain, r/o fracture acute right hip pain status post fa ll COMPARISON: None TECHNIQUE: AP view of the pelvis with 2 views of the right hip FINDINGS: Surgical clips project over the left inguinal tissues. Aortobiiliac stent graft with vascular calcifi cations. Unremarkable soft tissues. There is mild osteoarthritis of the hips. No acute fracture, dislocation or avascular necrosis. IMPRESSION: No acute fracture or dislocation. ACT 112: Negative or not required by law. The above report was generated using voice recognition software. It may contain grammatical, syntax o r spelling errors. Electronically signed by: Teodoro Joshua M.D. 10/28/2021 11:38 AM
--- NOTE | 2021-10-28 12:55 | Electrocardiogram Report ---
Test Reason : Blood Pressure : / mmHG Vent. Rate : 064 BPM Atrial Rate : 064 BPM P-R Int : 118 ms QRS Dur : 154 ms QT Int : 492 ms P-R-T Axes : 016 -87 028 degrees QTc Int : 507 ms Sinus rhythm with occasional Premature ventricular complexes Left axis deviation Right bundle branch block Abnormal ECG When compared with ECG of 28-OCT-2021 09:21, (unconfirmed) Significant changes have occurred Confirmed by Paulino Gonzalez ([id number]) on 10/28/2021 12:54:50 PM Referred By: REFERRED SELF Confirmed By:Paulino Gonzalez
== END 2021-10-28 14:44 | disposition home or self-care (01) | DRG 224 ==
LOC: ED 11:21 → SUATTDRO 13:39 → 1E 13:56 → CC 13:57 → 1E 15:12
PROC: EPB.ICD (2021-10-27 08:30)

== ENCOUNTER 2022-12-31 21:07 | Observation (INO) ==
[2022-12-31] MEDS ORDERED: SODIUM CHLORIDE 0.9% 500 ML IV STA (21:33)
[2022-12-31] MEDS ORDERED: FAMOTIDINE 20MG IV PUSH 20 MG/5 ML SYR IV STA (21:33)
[2022-12-31] MEDS ORDERED: PANTOprazole 40 MG in SYRINGE 0 ML IV ONE (21:33)
[2022-12-31] MEDS ORDERED: ONDANSETRON INJ 2 MG/ML 2 ML VIAL IV STA (21:34)
--- NOTE | 2022-12-31 21:38 | Emergency Department Note ---
Impression & Plan Acute upper GI bleed, Elevated troponin I level, Abdominal pain, acute, epigastric ED Provider Note NAME: AILIN SORIANO AGE: 77 SEX: M : 1945 ARRIVES VIA: Walk-In INFORMANT: Patient, ED PROVIDER(S): Paulino Phelps DO CHIEF COMPLAINT: Hematemesis HPI: The patient is a 77-year-old male who has a history of cardiac issues and takes multiple blood thinners who presented to the emergency department for an evaluation of hematemesis. He is also noticed dark stools. This began over the course of the last week. The patient denies having any chest pain or difficulty breathing. He does note some epigastric pain. He is scheduled for an upper endoscopy later this week. He went to see his family doctor and was told if it happened again he should go to the emergency department. He had a large episode of hematemesis this evening. He noticed clots. He notices dark stool as well. ROS: See above HPI for pertinent positives & negatives. A total of 10 systems reviewed and were otherwise negative. PAST MEDICAL HISTORY: See Below PAST SURGICAL HISTORY: See Below FAMILY HISTORY: See Below SOCIAL HISTORY: See Below HOME MEDICATIONS: See Below ALLERGIES: See Below VITALS: See Below PHYSICAL EXAMINATION: GENERAL: The patient is awake and alert. He is very anxious. EYES: The conjunctivae are clear. The pupils are round and reactive. EARS, NOSE, MOUTH AND THROAT: The nose is without any evidence of any deformity. NECK: The neck is nontender and supple. RESPIRATORY: Normal respiratory effort is noted there is no evidence of wheezing rhonchi or rales CARDIOVASCULAR: Regular rate and rhythm noted there no murmurs rubs or gallops normal S1 normal S2. GASTROINTESTINAL: The abdomen is soft and mildly distended. There is epigastric tenderness to palpation but no guarding or rigidity. Rectal exam revealed dark stool which was weakly heme positive MUSCULOSKELETAL/EXTREMITIES: There is no evidence of gross deformity full range of motion is noted in the hips and shoulders. SKIN: Skin is warm and dry. Trace pedal edema was noted bilaterally. Skin is pale. NEUROLOGIC: Patient is awake alert and oriented x3 MEDICAL DECISION MAKING: the patient is a 77-year-old male who presented to the emergency department for an evaluation of hematemesis. The patient does take oral anticoagulation. He was set up for an endoscopy but was told to go to the emergency department if symptoms worsen. He had multiple episodes of hematemesis and had heme positive stool on my evaluation. The patient was treated with proton pump inhibitor. I discussed the patient's laboratory and radiographic studies with him. Because of his comorbidities I did discuss this case with the on-call [facility] hospitalist. They have agreed to evaluate the patient in the emergency department for further management and disposition. Triage Nursing notes reviewed. Prior medical records reviewed Vital Signs: reviewed and remarkable for no significant abnormalities Differential diagnosis: Diverticulosis, AVM, coagulopathy, colitis, inflammatory bowel disease, malignancy, Anjali-Ballesteros tear, esophagitis, peptic ulcer disease, variceal bleed, gastritis, epistaxis, fissure, hemorrhoids, as well as other pathologies. ER treatment provided: See below Diagnostics interpreted by me: ECG: EKG was obtained in the emergency department. My interpretation is sinus rhythm at 61 bpm. Right bundle branch block pattern was noted. No PVCs were noted. This was compared to a tracing from July 18, 2022. The previous tracing was a paced rhythm. Cardiac Monitoring: An order was placed for continuous cardiac monitoring. The monitor shows a rate of 62 bpm with sinus rhythm. Laboratory studies: As stated above and show below. Imaging studies: See below. Radiographic imaging was reviewed by myself Consultation(s): I discussed this case with Dr Khan Past Med/Surg History Medical History Cardiac arrest 10/24/2021 -> defibrillator placed --> follows with Dr Bernal Chronic back pain CKD (chronic kidney disease), stage III Coronary artery disease Degenerative disc disease Dyslipidemia Empyema lung as a teenager, treated at [facility] History of inferior wall myocardial infarction 1993 HTN (hypertension) Ischemic cardiomyopathy Kidney stones no surgery Macular degeneration Mild intermittent asthma well controlled On anticoagulant therapy Ventricular fibrillation cardiac arrest & defibrillator 10/24/21 Surgical History History of arthroscopy of shoulder right shoulder History of bronchoscopy as a teenager r/t empyema History of cardiac catheterization x6 History of cardiac radiofrequency ablation a.fib ~2016/2017 at [facility] History of cataract surgery bilateral History of coronary artery bypass graft x 3 2007 - [place] History of heart artery stent x 4 (last stent placed by Dr Cabrera in [facility] ~2014 or earlier) S/P AAA (abdominal aortic aneurysm) repair [facility] ~2012. Status post implantation of automatic cardioverter/defibrillator (AICD) placed at [facility] 10/2021 d/t cardiac arrest Family History Father AAA (abdominal aortic aneurysm) Heart disease Mother Breast cancer Other Hypertension No family history of adverse response to anesthesia Social History Smoking Status: Never smoker Tobacco Type: Smokeless Tobacco (Dip or Chew) Second Hand Exposure: No; Do You Dip or Chew Tobacco: No (but former use (snuff) - quit in 2016); Hx Alcohol Use: No Hx Substance Use: No Preferred Language: Vietnamese Communication Ability: Effective Worm Grower Required: No Beliefs That Will Affect Care: Jain Jain Beliefs: Congregational. Current Living Situation: Spouse Feels Safe at Home: Yes Assistive Devices: None Allergies Allergies Allergy/AdvReac Type Severity Reaction Status Date / Time erythromycin base Allergy Severe STOMACH Verified 12/27/22 15:00 PAIN latex Allergy Intermediate Hives Verified 12/27/22 15:01 pollen extracts Allergy Intermediate itchy Verified 12/27/22 15:00 eyes, sneeze Home Meds Home Medications Medication Instructions Recorded Confirmed calcium carbonate 600 mg-vitamin 1 cap PO QAM 11/21/21 12/31/22 D3 10 mcg (400 unit) capsule clopidogrel 75 mg tablet (Plavix) 75 mg PO QAM 11/21/21 12/31/22 lisinopril 20 mg tablet 20 mg PO QAM 11/21/21 12/31/22 montelukast 10 mg tablet 10 mg PO QAM 11/21/21 12/31/22 (Singulair) multivitamin 1 tab PO QAM 11/21/21 12/31/22 acetaminophen 500 mg tablet 1,000 mg PO Q6H PRN Pain 12/08/21 12/31/22 (Tylenol Extra Strength) albuterol sulfate 90 mcg/actuation 2 inh inhalation QID PRN sob 12/27/22 12/31/22 aerosol inhaler amiodarone 200 mg tablet 200 mg PO QAM 12/27/22 12/31/22 apixaban 5 mg tablet (Eliquis) 5 mg PO BID 12/27/22 12/31/22 metoprolol succinate 50 mg 50 mg PO QAM 12/27/22 12/31/22 tablet,extended release 24 hr albuterol sulfate 0.63 mg/3 mL 0.63 mg continuous nebulization Q4 12/31/22 12/31/22 solution for nebulization PRN Wheezing atorvastatin 80 mg tablet 80 mg PO DAILY 12/31/22 12/31/22 gabapentin 100 mg capsule 100 mg PO HS 12/31/22 12/31/22 gabapentin 300 mg capsule 300 mg PO HS 12/31/22 12/31/22 nitroglycerin 0.4 mg sublingual 0.4 mg sublingual UD PRN Chest Pain 12/31/22 12/31/22 tablet omeprazole 20 mg capsule,delayed 20 mg PO BID PRN Heartburn 12/31/22 12/31/22 release sertraline 50 mg tablet 50 mg PO QAM 12/31/22 12/31/22 spironolactone 25 mg tablet 12.5 mg PO QAM 12/31/22 12/31/22 vit C 250 mg-vit E 90 mg-zinc 40 1 tab PO AMPM 12/31/22 12/31/22 mg-copper 1 [id number] capsule (PreserVision AREDS-2) Results & Data (ED) Vital Signs Vital Signs - 24 hr 12/31/22 21:23 12/31/22 21:38 12/31/22 21:40 Temperature 36.5 C Temperature Source Temporal Artery Scan Pulse Rate 68 60 Pulse Rate from SpO2 Sensor 60 Respiratory Rate 16 19 Respiratory Effort / Characteristics Non-Labored Spontaneous Respiratory Depth Normal Blood Pressure 143/85 H Blood Pressure Mean 104 Pulse Oximetry 97 97 97 Oxygen Delivery Method Room Air Room Air Sepsis Recent Fever Within 48 Hours No Sepsis New/Unexplained Change in Mental Status N/A Sepsis Action Taken by Nursing No Action Required 12/31/22 21:39 12/31/22 23:01 12/31/22 23:10 Temperature Temperature Source Pulse Rate 60 71 61 Pulse Rate from SpO2 Sensor Respiratory Rate 17 18 Respiratory Effort / Characteristics Respiratory Depth Blood Pressure 143/74 H Blood Pressure Mean 97 Pulse Oximetry Oxygen Delivery Method Sepsis Recent Fever Within 48 Hours Sepsis New/Unexplained Change in Mental Status Sepsis Action Taken by Nursing 12/31/22 23:30 01/01/23 00:00 Temperature Temperature Source Pulse Rate 60 62 Pulse Rate from SpO2 Sensor Respiratory Rate 12 13 Respiratory Effort / Characteristics Respiratory Depth Blood Pressure 129/80 144/74 H Blood Pressure Mean 96 97 Pulse Oximetry Oxygen Delivery Method Sepsis Recent Fever Within 48 Hours Sepsis New/Unexplained Change in Mental Status Sepsis Action Taken by Skilled Nursing Medications Current Medication List: was personally reviewed by me Laboratory Data Attestation: I reviewed the patient's lab results. 12/31/22 21:39 12/31/22 21:39 Lab Results 12/31/22 12/31/22 12/31/22 Range/Units 21:39 21:39 21:39 WBC 8.71 (4.8-10.8) K/ul RBC 4.91 (4.70-6.10) M/uL Hgb 14.4 (14.0-18.0) g/dl Hct 43.1 (42.0-52.0) % MCV 87.8 (80.0-100.0) fL MCH 29.3 (25.0-34.0) pg MCHC 33.4 (32.0-36.0) g/dL RDW Std Deviation 45.1 (36.4-46.3) fL RDW Coeff of Ed 14.0 (11.5-14.5) % Plt Count 250 (130-400) K/uL MPV 10.1 (9.4-12.4) fL Immature Gran % (Auto) 0.5 % Neut % (Auto) 65.9 % Lymph % (Auto) 21.0 % [place] % (Auto) 10.1 % Eos % (Auto) 2.0 % Baso % (Auto) 0.5 % Neut # (Auto) 5.75 (1.40-6.50) K/uL Lymph # (Auto) 1.83 (1.20-3.40) K/uL [place] # (Auto) 0.88 H (0.11-0.59) K/uL Eos # (Auto) 0.17 (0.00-0.50) K/uL Baso # (Auto) 0.04 (0.00-0.20) K/uL Immature Gran # (Auto) 0.04 (0.01-0.20) K/uL PT 11.0 (9.0-12.0) Seconds INR 1.0 (0.9-1.1) APTT 26.2 (21.0-31.0) Seconds PTT Ratio 0.9 Sodium (136-145) mmol/L Potassium (3.5-5.1) mmol/L Chloride (98-107) mmol/L Carbon Dioxide (21-32) mmol/L Anion Gap (3-11) BUN (6-23) mg/dl Creatinine (0.6-1.4) mg/dl Est Cr Clr Drug Dosing ml/min Est GFR ( Amer) ml/min Est GFR (Non-Af Amer) ml/min BUN/Creatinine Ratio (10-20) Glucose (70-99(Fasting)) mg/dl Calcium (8.6-10.3) mg/dl Magnesium (1.7-2.4) mg/dl Total Bilirubin (0.2-1.0) mg/dl AST (13-39) U/L ALT (7-52) U/L Alkaline Phosphatase (34-104) U/L Troponin I High Sens (0-20) pg/ml Total Protein (6.0-8.3) gm/dl Albumin (3.4-5.0) gm/dl Globulin (2.5-4.0) gm/dl Albumin/Globulin Ratio (0.9-2) Lipase (11-82) U/L Urine Color Urine Appearance (Clear) Urine pH (4.5-7.5) Ur Specific Kress (1.000-1.030) Urine Protein (Negative) Urine Glucose (UA) (Negative) Urine Ketones (Negative) Urine Blood (Negative) Urine Nitrite (Negative) Urine Bilirubin (Negative) Urine Urobilinogen (Negative) Ur Leukocyte Esterase (Negative) Blood Type O Positive Antibody Screen NEGATIVE 12/31/22 12/31/22 Range/Units 21:39 22:10 WBC (4.8-10.8) K/ul RBC (4.70-6.10) M/uL Hgb (14.0-18.0) g/dl Hct (42.0-52.0) % MCV (80.0-100.0) fL MCH (25.0-34.0) pg MCHC (32.0-36.0) g/dL RDW Std Deviation (36.4-46.3) fL RDW Coeff of Ed (11.5-14.5) % Plt Count (130-400) K/uL MPV (9.4-12.4) fL Immature Gran % (Auto) % Neut % (Auto) % Lymph % (Auto) % [place] % (Auto) % Eos % (Auto) % Baso % (Auto) % Neut # (Auto) (1.40-6.50) K/uL Lymph # (Auto) (1.20-3.40) K/uL [place] # (Auto) (0.11-0.59) K/uL Eos # (Auto) (0.00-0.50) K/uL Baso # (Auto) (0.00-0.20) K/uL Immature Gran # (Auto) (0.01-0.20) K/uL PT (9.0-12.0) Seconds INR (0.9-1.1) APTT (21.0-31.0) Seconds PTT Ratio Sodium 137 (136-145) mmol/L Potassium 4.2 (3.5-5.1) mmol/L Chloride 102 (98-107) mmol/L Carbon Dioxide 28 (21-32) mmol/L Anion Gap 7 (3-11) BUN 25 H (6-23) mg/dl Creatinine 1.52 H (0.6-1.4) mg/dl Est Cr Clr Drug Dosing 42.6 ml/min Est GFR ( Amer) 51.2 ml/min Est GFR (Non-Af Amer) 44.2 ml/min BUN/Creatinine Ratio 16.4 (10-20) Glucose 92 (70-99(Fasting)) mg/dl Calcium 9.1 (8.6-10.3) mg/dl Magnesium 2.1 (1.7-2.4) mg/dl Total Bilirubin 0.4 (0.2-1.0) mg/dl AST 49 H (13-39) U/L ALT 42 (7-52) U/L Alkaline Phosphatase 79 (34-104) U/L Troponin I High Sens 21.6 H (0-20) pg/ml Total Protein 7.0 (6.0-8.3) gm/dl Albumin 4.0 (3.4-5.0) gm/dl Globulin 3.0 (2.5-4.0) gm/dl Albumin/Globulin Ratio 1.3 (0.9-2) Lipase 50 (11-82) U/L Urine Color Yellow Urine Appearance Clear (Clear) Urine pH 6.0 (4.5-7.5) Ur Specific Kress 1.005 (1.000-1.030) Urine Protein Negative (Negative) Urine Glucose (UA) Negative (Negative) Urine Ketones Negative (Negative) Urine Blood Negative (Negative) Urine Nitrite Negative (Negative) Urine Bilirubin Negative (Negative) Urine Urobilinogen Negative (Negative) Ur Leukocyte Esterase Negative (Negative) Blood Type Antibody Screen Administered Medications Discontinued Medications Sodium Chloride (Nss) 500 mls @ 999 mls/hr IV .Q31M STA Stop: 12/31/22 22:03 Last Infusion: 12/31/22 22:42 Dose: 0 mls/hr Documented By: Admin: 12/31/22 21:40 Dose: 999 mls/hr Documented By: ARIANNE Pantoprazole Sodium 40 mg/ (Syringe) 10 mls @ 5 mls/min IV NOW ONE Stop: 12/31/22 21:34 Last Admin: 12/31/22 23:53 Dose: 5 mls/min Documented By: OSIEL Famotidine (Pepcid 20mg Iv Push) 20 mg in 5 mls @ 2.5 mls/min IV NOW STA Stop: 12/31/22 21:34 Last Admin: 12/31/22 21:41 Dose: 2.5 mls/min Documented By: ARIANNE Ondansetron HCl (Ondansetron Inj 2 Mg/Ml 2 Ml Vial) 4 mg IV NOW STA Stop: 12/31/22 21:35 Last Admin: 12/31/22 21:41 Dose: 4 mg Documented By: ARIANNE Imaging Data Attestation: I personally reviewed and interpreted this imaging study as follows: My Impression: 1 view chest x-ray was obtained in the emergency department. My interpretation is cardiomegaly, pacemaker noted, elevation of the left hemidiaphragm was noted. This was compared to a chest x-ray from July 18, 2022. No changes were noted. KUB was obtained in the emergency department. My interpretation is nonspecific bowel gas pattern noted. No free air or definite obstruction was appreciated. Discharge Plan Visit Data Chief Complaint: Vomiting Stated Complaint: THROWING UP BLOOD ED Provider: Paulino Phelps Discharge Problem: Acute upper GI bleed, Elevated troponin I level, Abdominal pain, acute, epigastric Patient Disposition: Being Evaluated by Hospitalist Forms Stand Alone Forms: My [facility] Prescriptions Prescriptions: No Action calcium carbonate-vitamin D3 600 mg-10 mcg (400 unit) capsule 1 cap PO QAM clopidogrel [Plavix] 75 mg tablet 75 mg PO QAM lisinopril 20 mg tablet 20 mg PO QAM montelukast [Singulair] 10 mg tablet 10 mg PO QAM multivitamin Tablet 1 tab PO QAM metoprolol succinate 50 mg tablet extended release 24 hr 50 mg PO QAM amiodarone 200 mg Tablet 200 mg PO QAM Eliquis 5 mg Tablet 5 mg PO BID albuterol sulfate 90 mcg/actuation Hfa Aerosol Inhaler 2 inh INHALATION QID PRN (Reason: sob) spironolactone 25 mg tablet 12.5 mg PO QAM atorvastatin 80 mg tablet 80 mg PO DAILY gabapentin 300 mg capsule 300 mg PO HS gabapentin 100 mg capsule 100 mg PO HS PreserVision AREDS-2 250-90-40-1 mg Capsule 1 tab PO AMPM albuterol sulfate 0.63 mg/3 mL solution for nebulization 0.63 mg continuous nebulization Q4 PRN (Reason: Wheezing) omeprazole 20 mg capsule,delayed release(DR/EC) 20 mg PO BID PRN (Reason: Heartburn) sertraline 50 mg tablet 50 mg PO QAM nitroglycerin 0.4 mg tablet, sublingual 0.4 mg sublingual UD PRN (Reason: Chest Pain) acetaminophen [Tylenol Extra Strength] 500 mg Tablet 1,000 mg PO Q6H PRN (Reason: Pain) Referrals Referrals: Doreen Casillas DO [Primary Care Provider] -
[2022-12-31 22:10] LABS: Basophils # (auto) 0.04 K/uL (0.00-0.20); Basophils % (auto) 0.5 %; Eosinophils # (auto) 0.17 K/uL (0.00-0.50); Hematocrit (blood only) 43.1 % (42.0-52.0); Hemoglobin 14.4 g/dl (14.0-18.0); Immature Granulocytes # (auto) 0.04 K/uL (0.01-0.20); Immature Granulocytes % (auto) 0.5 %; Lymphocytes # (auto) 1.83 K/uL (1.20-3.40); Mean Corpuscular Hemoglobin 29.3 pg (25.0-34.0); Mean Corpuscular Hgb Conc 33.4 g/dL (32.0-36.0); Mean Corpuscular Volume 87.8 fL (80.0-100.0); Mean Platelet Volume 10.1 fL (9.4-12.4); Monocytes # (auto) 0.88 K/uL (0.11-0.59); Monocytes % (auto) 10.1 %; Neutrophils # (auto) 5.75 K/uL (1.40-6.50); Neutrophils % (auto) 65.9 %; Platelet Count 250 K/uL (130-400); RDW Standard Deviation 45.1 fL (36.4-46.3); Red Blood Count 4.91 M/uL (4.70-6.10); White Blood Count 8.71 K/ul (4.8-10.8)
[2022-12-31 22:28] LABS: Albumin Globulin Ratio 1.3 (0.9-2); BUN Creatinine Ratio 16.4 (10-20); Bilirubin,Total 0.4 mg/dl (0.2-1.0); Calcium 9.1 mg/dl (8.6-10.3); Creatinine Clr Calc Pharmacy 42.6 ml/min; Est GFR (African American) 51.2 ml/min; Est GFR (Non-African American) 44.2 ml/min; Potassium 4.2 mmol/L (3.5-5.1)
[2022-12-31 22:34] LABS: Troponin I High Sensitivity 21.6 pg/ml (0-20)
[2022-12-31 22:50] LABS: Partial Thromboplastin Ratio 0.9; Partial Thromboplastin Time 26.2 Seconds (21.0-31.0)
[2022-12-31 23:17] LABS: Appearance Urine Clear (Clear); Bilirubin Urine Negative (Negative); Blood Urine Negative (Negative); Color Urine Yellow; Glucose Urine UA Negative (Negative); Ketones Urine Negative (Negative); Leukocyte Esterase Urine Negative (Negative); Nitrite Urine Negative (Negative); Protein Urine Negative (Negative); Specific Gravity Urine 1.005 (1.000-1.030); Urobilinogen Urine Negative (Negative)
[2023-01-01 00:01] LABS: Magnesium 2.1 mg/dl (1.7-2.4)
--- NOTE | 2023-01-01 00:15 | History & Physical Report ---
Date of Service January 01, 2023 Assessment & Plan (1) Acute upper GI bleed: Plan: hx hiatal hernia, reflux esophagitis, gastritis, duodenitis from 2020 EGD hx antiplatelet Rx and anticoagulation for cerebrovascular disease and A-fib. Patient currently hemodynamically stable. Troponin elevation in the setting of chronic kidney dysfunction, patient asymptomatic chronic systolic heart failure (EF 20 to 25%, TTE April 2022) secondary to ischemic cardiomyopathy status post ICD,, patient euvolemic to dry hx CAD status post CABG/stent history of VF/VT PAF on Eliquis valvular heart disease (mild MR//AR) PVD status post surgery history TIA bronchial asthma, stable hypertension, slightly elevated hyperlipidemia on statin Rx OBS Medical telemetry Appropriate to hold antiplatelet Rx and Eliquis for now given UGIB IV PPI GI consult re: UGIB N.p.o. until patient seen by GI in anticipation of endoscopy Follow H&H, transfuse PRBC if hemoglobin less than 8 and or for symptomatic anemia DVT prophylaxis. SCDs Re: GI bleed Full code Text document was generated using XTWIP voice recognition software. It may contain grammatical or spelling errors. Kindly contact undersigned for clarification of any documentation item in question. History of Present Illness Chief Complaint: Hematemesis, melena Primary Care Provider: Doreen Casillas, History obtained from patient, family, and records. Medical history significant for chronic systolic heart failure (EF 20 to 25%, TTE April 2022) secondary to ischemic cardiomyopathy status post ICD, CAD status post CABG/stent, history of VF/VT, PAF on Eliquis, valvular heart disease (mild MR//AR), PVD status post surgery, history TIA, bronchial asthma, hypertension, hyperlipidemia, CRI (baseline creatinine 1.7), mood disorder. Last confinement October 2021 for cardiac arrest status post ROSC status post ICD implantation. Last week, patient noted hematemesis without abdominal pain complaints. No chest pain, no SOB, no melena symptoms. Some lightheadedness without headache. BP noted to be low at home. Patient denies OTC NSAID intake. Patient seen at PCPs office last week. ER evaluation recommended but patient declined. Outpatient hemoglobin last week noted to be 14. Outpatient EGD scheduled at [facility] 01/03. Persistent hematemesis with melanotic stools noted at home last few days. Achy abdominal pain. Patient denies headache, chest pain, SOB. IV Protonix administered at the ER for UGIB. 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 Allergies Allergy/AdvReac Type Severity Reaction Status Date / Time erythromycin base Allergy Severe STOMACH Verified 12/27/22 15:00 PAIN latex Allergy Intermediate Hives Verified 12/27/22 15:01 pollen extracts Allergy Intermediate itchy Verified 12/27/22 15:00 eyes, sneeze Home Medications Medication Instructions Recorded Confirmed Type calcium carbonate 600 mg-vitamin 1 cap PO QAM 11/21/21 12/31/22 History D3 10 mcg (400 unit) capsule clopidogrel 75 mg tablet (Plavix) 75 mg PO QA 11/21/21 12/31/22 History lisinopril 20 mg tablet 20 mg PO QA 11/21/21 12/31/22 History montelukast 10 mg tablet 10 mg PO QAM 11/21/21 12/31/22 History (Singulair) multivitamin 1 tab PO QAM 11/21/21 12/31/22 History acetaminophen 500 mg tablet 1,000 mg PO Q6H PRN Pain 12/08/21 12/31/22 History (Tylenol Extra Strength) albuterol sulfate 90 mcg/actuation 2 inh inhalation QID PRN sob 12/27/22 12/31/22 History aerosol inhaler amiodarone 200 mg tablet 200 mg PO QAM 12/27/22 12/31/22 History apixaban 5 mg tablet (Eliquis) 5 mg PO BID 12/27/22 12/31/22 History metoprolol succinate 50 mg 50 mg PO QA 12/27/22 12/31/22 History tablet,extended release 24 hr albuterol sulfate 0.63 mg/3 mL 0.63 mg continuous nebulization Q4 12/31/22 12/31/22 History solution for nebulization PRN Wheezing atorvastatin 80 mg tablet 80 mg PO DAILY 12/31/22 12/31/22 History gabapentin 100 mg capsule 100 mg PO HS 12/31/22 12/31/22 History gabapentin 300 mg capsule 300 mg PO HS 12/31/22 12/31/22 History nitroglycerin 0.4 mg sublingual 0.4 mg sublingual UD PRN Chest Pain 12/31/22 History tablet omeprazole 20 mg capsule,delayed 20 mg PO BID PRN Heartburn 12/31/22 12/31/22 History release sertraline 50 mg tablet 50 mg PO QAM 12/31/22 12/31/22 History spironolactone 25 mg tablet 12.5 mg PO QAM 12/31/22 12/31/22 History vit C 250 mg-vit E 90 mg-zinc 40 1 tab PO AMPM 12/31/22 12/31/22 History mg-copper 1 [id number] capsule (PreserVision AREDS-2) Past Med/Surg History Medical History Cardiac arrest 10/24/2021 -> defibrillator placed --> follows with Dr Bernal Chronic back pain CKD (chronic kidney disease), stage III Coronary artery disease Degenerative disc disease Dyslipidemia Empyema lung as a teenager, treated at [facility] History of inferior wall myocardial infarction 1993 HTN (hypertension) Ischemic cardiomyopathy Kidney stones no surgery Macular degeneration Mild intermittent asthma well controlled On anticoagulant therapy Ventricular fibrillation cardiac arrest & defibrillator 10/24/21 Surgical History History of arthroscopy of shoulder right shoulder History of bronchoscopy as a teenager r/t empyema History of cardiac catheterization x6 History of cardiac radiofrequency ablation a.fib ~2016/2017 at [facility] History of cataract surgery bilateral History of coronary artery bypass graft x 3 2007 - [facility] History of heart artery stent x 4 (last stent placed by Dr Cabrera in [facility] ~2014 or earlier) S/P AAA (abdominal aortic aneurysm) repair [facility] ~2012. Status post implantation of automatic cardioverter/defibrillator (AICD) placed at [facility] 10/2021 d/t cardiac arrest Family History Father AAA (abdominal aortic aneurysm) Heart disease Mother Breast cancer Other Hypertension No family history of adverse response to anesthesia Social History Smoking Status: Unknown if ever smoked Tobacco Type: Smokeless Tobacco (Dip or Chew) Second Hand Exposure: No; Do You Dip or Chew Tobacco: No (but former use (snuff) - quit in 2016); Hx Alcohol Use: Yes Alcohol type: beer Hx Substance Use: No Preferred Language: Bulgarian Communication Ability: Effective Sandblaster Supervisor Required: No Beliefs That Will Affect Care: None Current Living Situation: Spouse Feels Safe at Home: Yes Safety Concerns: Feels Safe At This Time Assistive Devices: Glasses and Hearing Aid - Bilateral Assistive Devices Comment: partial denture Review of Systems Review of Systems: As per HPI, all other systems reviewed and negative Physical Exam Physical Exam: GENERAL: Comfortable, pleasant, no respiratory distress SKIN: Normal color, warm HEENT: Alopecia, bespectacled, [place] palpebral conjunctivae, no ptosis, dry buccal mucosa NECK : Supple, no tenderness CHEST : CTA, no tenderness HEART : Diminished S1-S2, no obvious murmurs ABDOMEN: Some distention, minimal central abdominal tenderness EXTREMITIES : No LE swelling/tenderness, no other conspicuous deformities noted NEUROLOGIC : Coherent, no facial asymmetry, no other gross focality Results & Data Results & Data Vital Signs (Past 12 Hours) Vital Signs Temp Pulse Resp BP Pulse Ox O2 Del Method 01/01/23 00:00 62 13 144/74 H 12/31/22 23:30 60 12 129/80 12/31/22 23:10 61 18 12/31/22 23:01 71 17 143/74 H 12/31/22 21:39 60 12/31/22 21:40 60 19 97 12/31/22 21:38 97 Room Air 12/31/22 21:23 36.5 C 68 16 143/85 H 97 Room Air Laboratory Results Laboratory Results WBC 8.71 K/ul (4.8-10.8) 12/31/22 21:39 RBC 4.91 M/uL (4.70-6.10) 12/31/22 21:39 Hgb 14.4 g/dl (14.0-18.0) 12/31/22 21:39 Hct 43.1 % (42.0-52.0) 12/31/22 21:39 MCV 87.8 fL (80.0-100.0) 12/31/22 21:39 MCH 29.3 pg (25.0-34.0) 12/31/22 21: MCHC 33.4 g/dL (32.0-36.0) 12/31/22 21:39 RDW Std Deviation 45.1 fL (36.4-46.3) 12/31/22 21: RDW Coeff of Ed 14.0 % (11.5-14.5) 12/31/22 21: Plt Count 250 K/uL (130-400) 12/31/22 21:39 MPV 10.1 fL (9.4-12.4) 12/31/22:39 Immature Gran % (Auto) 0.5 % 12/31/22 21: Neut % (Auto) 65.9 % 12/31/22 21:39 Lymph % (Auto) 21.0 % 12/31/22 21:39 Sherman % (Auto) 10.1 % 12/31/22 21:39 Eos % (Auto) 2.0 % 12/31/22 21:39 Baso % (Auto) 0.5 % 12/31/22 21:39 Neut # (Auto) 5.75 K/uL (1.40-6.50) 12/31/22 21: Lymph # (Auto) 1.83 K/uL (1.20-3.40) 12/31/22 21:39 Sherman # (Auto) 0.88 K/uL (0.11-0.59) H 12/31/22 21:39 Eos # (Auto) 0.17 K/uL (0.00-0.50) 12/31/22 21:39 Baso # (Auto) 0.04 K/uL (0.00-0.20) 12/31/22: Immature Gran # (Auto) 0.04 K/uL (0.01-0.20) 12/31/22 21:39 PT 11.0 Seconds (9.0-12.0) 12/31/22 21:39 INR 1.0 (0.9-1.1) 12/31/22: APTT 26.2 Seconds (21.0-31.0) 12/31/22 21:39 PTT Ratio 0.9 12/31/22 21:39 Sodium 137 mmol/L (136-145) 12/31/22 21:39 Potassium 4.2 mmol/L (3.5-5.1) 12/31/22 21:39 Chloride 102 mmol/L (98-107) 12/31/22 21:39 Carbon Dioxide 28 mmol/L (21-32) 12/31/22 21:39 Anion Gap 7 (3-11) 12/31/22 21:39 BUN 25 mg/dl (6-23) H 12/31/22 21:39 Creatinine 1.52 mg/dl (0.6-1.4) H 12/31/22 21:39 Est Cr Clr Drug Dosing 42.6 ml/min 12/31/22 21:39 Est GFR ( Amer) 51.2 ml/min 12/31/22 21:39 Est GFR (Non-Af Amer) 44.2 ml/min 12/31/22 21:39 BUN/Creatinine Ratio 16.4 (10-20) 12/31/22 21:39 Glucose 92 mg/dl (70-99(Fasting)) 12/31/22 21:39 Calcium 9.1 mg/dl (8.6-10.3) 12/31/22 21:39 Magnesium 2.1 mg/dl (1.7-2.4) 12/31/22 21:39 Total Bilirubin 0.4 mg/dl (0.2-1.0) 12/31/22 21:39 AST 49 U/L (13-39) H 12/31/22 21:39 ALT 42 U/L (7-52) 12/31/22 21:39 Alkaline Phosphatase 79 U/L (34-104) 12/31/22 21:39 Troponin I High Sens 21.6 pg/ml (0-20) H 12/31/22 21:39 Total Protein 7.0 gm/dl (6.0-8.3) 12/31/22 21:39 Albumin 4.0 gm/dl (3.4-5.0) 12/31/22 21:39 Globulin 3.0 gm/dl (2.5-4.0) 12/31/22 21:39 Albumin/Globulin Ratio 1.3 (0.9-2) 12/31/22 21:39 Lipase 50 U/L (11-82) 12/31/22 21:39 Urine Color Yellow 12/31/22 22:10 Urine Appearance Clear (Clear) 12/31/22 22:10 Urine pH 6.0 (4.5-7.5) 12/31/22 22:10 Ur Specific [place] 1.005 (1.000-1.030) 12/31/22 22:10 Urine Protein Negative (Negative) 12/31/22 22:10 Urine Glucose (UA) Negative (Negative) 12/31/22 22:10 Urine Ketones Negative (Negative) 12/31/22 22:10 Urine Blood Negative (Negative) 12/31/22 22:10 Urine Nitrite Negative (Negative) 12/31/22 22:10 Urine Bilirubin Negative (Negative) 12/31/22 22:10 Urine Urobilinogen Negative (Negative) 12/31/22 22:10 Ur Leukocyte Esterase Negative (Negative) 12/31/22 22:10 Blood Type O Positive 12/31/22 21:39 Antibody Screen NEGATIVE 12/31/22 21:39 CT abdomen pelvis: 1. Trace amount of right lung base subsegmental atelectasis or infiltrate. 2. Previous graft of an infrarenal abdominal aortic aneurysm with the residual aneurysm sac measuring 4.8 cm in diameter. No evidence of rupture. This is a noncontrast study. 3. The appendix is normal. Bowel loops are nondilated. There is diverticulosis of the left and sigmoid colon without evidence of acute diverticulitis. No acute inflammatory changes are seen involving the bowel. 4. The kidneys are unremarkable. No hydronephrosis or ureterolithiasis is seen. Diagnostic Findings Chest x-ray as per my interpretation cardiomegaly, minimal congestion EKG as per my interpretation : Rate 60, NSR, RAD, RBBB, no ischemia
[2023-01-01] MEDS ORDERED: PROMETHAZINE HCL 12.5 MG in SODIUM CHLORIDE 0.9% 50 ML IV PRN (00:21)
[2023-01-01] MEDS ORDERED: HYDROmorphone INJ 0.5 MG/0.5 ML SYR IV PRN (00:21)
[2023-01-01] MEDS ORDERED: traMADol HCL 50 MG TABLET PO PRN (00:21)
[2023-01-01 00:47] LABS: Hematocrit (blood only) 37.9 % (42.0-52.0); Hemoglobin 12.6 g/dl (14.0-18.0)
[2023-01-01] MEDS ORDERED: NITROGLYCERIN SL 0.4 MG/TAB TAB SL PRN (02:18)
[2023-01-01] MEDS ORDERED: ACETAMINOPHEN 325 MG TAB PO PRN (02:18)
--- NOTE | 2023-01-01 02:38 | CT Scan Report ---
Exam(s): CT ABDOMEN + PELVIS Without Contrast EXAM: CT Abdomen and Pelvis Without Intravenous Contrast CLINICAL HISTORY: Reason for exam: abd pain, gi bleed. TECHNIQUE: Axial computed tomography images of the abdomen and pelvis without intravenous contrast. CTDI is 26.96 mGy and DLP is 1274.87 mGy-cm. Automated exposure control was utilized for the study. A dose lowering technique was utilized adhering to the principles of ALARA. COMPARISON: Plane films from December 31, 2022 FINDINGS: Lung bases: Trace amount of right lung base subsegmental atelectasis or infiltrate. ABDOMEN: Liver: Unremarkable. Gallbladder and bile ducts: Unremarkable. No calcified stones. No ductal dilation. Pancreas: Unremarkable. No ductal dilation. Spleen: Unremarkable. No splenomegaly. Adrenals: Unremarkable. No mass. Kidneys and ureters: The kidneys are unremarkable. No hydronephrosis or ureterolithiasis is seen. Stomach and bowel: See below. PELVIS: Appendix: The appendix is normal. Bowel loops are nondilated. There is diverticulosis of the left and sigmoid colon without evidence of acute diverticulitis. No acute inflammatory changes are seen involving the bowel. Bladder: Unremarkable. No stones. Reproductive: Unremarkable as visualized. ABDOMEN and PELVIS: Intraperitoneal space: Unremarkable. No free air. No significant fluid collection. Bones/joints: Mild to moderate multilevel degenerative changes throughout the spine. No acute fracture or traumatic subluxation is seen. Soft tissues: Unremarkable. Vasculature: Previous graft of an infrarenal abdominal aortic aneurysm with the residual aneurysm sac measuring 4.8 cm in diameter. No evidence of rupture. This is a noncontrast study. Lymph nodes: Unremarkable. No enlarged lymph nodes. IMPRESSION: 1. Trace amount of right lung base subsegmental atelectasis or infiltrate. 2. Previous graft of an infrarenal abdominal aortic aneurysm with the residual aneurysm sac measuring 4.8 cm in diameter. No evidence of rupture. This is a noncontrast study. 3. The appendix is normal. Bowel loops are nondilated. There is diverticulosis of the left and sigmoid colon without evidence of acute diverticulitis. No acute inflammatory changes are seen involving the bowel. 4. The kidneys are unremarkable. No hydronephrosis or ureterolithiasis is seen. Electronically signed by: Tyler Lauren MD 01/01/23 02:37 AM
[2023-01-01] MEDS: PANTOprazole 40 MG in DEXTROSE 5% 100 ML IV SCH ×2 (03:23→08:43)
[2023-01-01 03:26] LABS: Basophils # (auto) 0.03 K/uL (0.00-0.20); Basophils % (auto) 0.4 %; Eosinophils # (auto) 0.19 K/uL (0.00-0.50); Eosinophils % (auto) 2.8 %; Hematocrit (blood only) 39.2 % (42.0-52.0); Hemoglobin 13.3 g/dl (14.0-18.0); Immature Granulocytes # (auto) 0.01 K/uL (0.01-0.20); Immature Granulocytes % (auto) 0.1 %; Lymphocytes # (auto) 1.63 K/uL (1.20-3.40); Lymphocytes % (auto) 23.7 %; Mean Corpuscular Hemoglobin 29.5 pg (25.0-34.0); Mean Corpuscular Hgb Conc 33.9 g/dL (32.0-36.0); Mean Corpuscular Volume 86.9 fL (80.0-100.0); Mean Platelet Volume 10.1 fL (9.4-12.4); Monocytes # (auto) 0.77 K/uL (0.11-0.59); Monocytes % (auto) 11.2 %; Neutrophils # (auto) 4.24 K/uL (1.40-6.50); Neutrophils % (auto) 61.8 %; Platelet Count 207 K/uL (130-400); RDW Coefficient of Variation 13.9 % (11.5-14.5); RDW Standard Deviation 44.1 fL (36.4-46.3); Red Blood Count 4.51 M/uL (4.70-6.10); White Blood Count 6.87 K/ul (4.8-10.8)
[2023-01-01] MEDS ORDERED: lisinopril 20 MG TAB PO SCH ×2 (03:40→09:00)
[2023-01-01 03:43] LABS: BUN Creatinine Ratio 15.1 (10-20); Calcium 8.8 mg/dl (8.6-10.3); Creatinine Clr Calc Pharmacy 42.6 ml/min; Est GFR (African American) 51.2 ml/min; Est GFR (Non-African American) 44.2 ml/min
[2023-01-01 04:06] LABS: Troponin I High Sensitivity 26.5 pg/ml (0-20)
--- NOTE | 2023-01-01 07:07 | XRay Report ---
KUB CLINICAL HISTORY: GI bleeding. FINDINGS: 2 AP, portable, supine abdominal radiographs are obtained. No prior studies are available f or comparison at the time of dictation. There is a nonobstructed abdominal bowel gas pattern. No evid ence of intraperitoneal free air is seen on these supine images. An aortobiiliac stent graft is in pl norberto. The patient is status post midline sternotomy and the heart is enlarged. Pacemaker leads are in place. Phleboliths are noted in the pelvis. The skeletal structures are osteopenic and appear intact. There is moderate lumbosacral spondylosis. IMPRESSION: No acute abnormality is identified. Electronically signed by: Stephen Moran M.D. 01/01/2023 7:06 AM
--- NOTE | 2023-01-01 07:11 | XRay Report ---
SINGLE VIEW CHEST CLINICAL HISTORY: Upper GI bleeding. FINDINGS: An AP, portable, upright chest radiograph is compared to study dated 07/18/2022. A 2-lead ca rdiac AICD is unchanged in position. The patient is status post midline sternotomy. The heart is enla rged noting atherosclerotic calcification of the thoracic aorta. There is prominence of the pulmonary vasculature. There is chronic elevation of the left hemidiaphragm with left basilar scarring/atelect asis. No airspace consolidation is seen typical for pneumonia and there is no large pleural effusion. No pneumothorax is seen. The skeletal structures are osteopenic. There is chronic deformity of the l eft-sided ribs. IMPRESSION: 1. Cardiomegaly and AICD with prominence of the pulmonary vasculature. Correlate clinically for evide nce of mild fluid overload/congestive change. 2. No airspace consolidation or large pleural effusion is identified. ACT 112: Negative or not required by law. Electronically signed by: Stephen Moran M.D. 01/01/2023 7:10 AM
[2023-01-01] MEDS ORDERED: MULTIVITAMIN TAB PO SCH (09:00)
[2023-01-01] MEDS ORDERED: MONTELUKAST SODIUM 10 MG TABLET PO SCH (09:00)
[2023-01-01] MEDS ORDERED: SERTRALINE HCL 50 MG TABLET PO SCH (09:00)
[2023-01-01] MEDS ORDERED: METOPROLOL SUCC 50MG EXT REL TAB PO SCH (09:00)
[2023-01-01] MEDS ORDERED: AMIODARONE 200 MG TAB PO SCH (09:00)
[2023-01-01] MEDS ORDERED: ATORVASTATIN 40 MG TAB PO SCH (09:00)
--- NOTE | 2023-01-01 09:01 | Gastrointestinal Consultation ---
Date of Consultation January 01, 2023 Assessment & Plan (1) Acute upper GI bleed: Plan 77-year-old male with multiple comorbidities include history of ischemic cardiomyopathy status post ICD after cardiac arrest October 2021, PVD, PAF on Eliquis, and others, who was complaining of bringing up blood from his mouth, question hematemesis. HD stable in the ER. Hemoglobin had a very slight drop from 14.4-> 13.3 with normal BUN from yesterday. Abd soft, nontender. - Keep n.p.o. Continue IV PPI - IVF - Please hold AM meds Trend H&H, transfuse as needed Hold Eliquis - Monitor and document GI output We will plan EGD today to evaluate for source of suspected upper GI bleed Prior to endoscopic evaluation, we appreciate assistance in the management and correction of hart laboratory elements including the following: Please optimize pt's hemoglobin >7, INR <2, platelets >50,000, potassium levels >3.5 but <5.3, and sodium levels within 5 points of the reference range. Supervising Physician Co-Signing Physician Notes I have seen and examined the patient with Yuriy Eng PA-C whose note reflects our findings and plan. Spitting up and retching with some blood prior ot admission. Has history of obscure Gi bleed s/p endoscopy in [place]. On ASA and Plavix. EGD today. History of Present Illness Reason for Consultation: Dr. Lomax Requesting Physician: UGIB Attending Physician: Abena Rivas MD History of Present Illness This is a 77-year-old male with history of ischemic cardiomyopathy status post ICD October 2021 after cardiac arrest, CHF, PVD, status post CABG, on Eliquis, HTN, HLD, CKD, and others, who presented with report of bringing up blood in his mouth. Hemoglobin yesterday was 14.4. Upon arrival to the ER, hemoglobin was 12.6, then 13.3, with a normal BUN, NA, K, INR. Creatinine is 1.52, PLT 207, WBC 6.87. He is hemodynamically stable, satting well on room air. PCP notes suggest he was bringing up blood-tinged sputum, but patient states he has been having hematemesis. He says this started last week and had 2 episodes. He said he was bringing up phlegm (which he does in the AMs) with dark blood mixed in. Last blood in his mouth was late afternoon yesterday. Denies melena at home; states his stools have been normal; regular, brown, formed. Last BM was earlier today but he flushed it without it being seen. He is also been complaining of some nausea that stated yesterday and also had periumbilical abdominal discomfort that is gone today. History of hiatal hernia, reflux esophagitis, gastritis, duodenitis on EGD in 2020 with [facility]. He is scheduled for repeat EGD this week here with our group for these recent complaints. States his last colonoscopy was a few years ago and had polyps. CTAP notable for no acute changes. CXR 12/31 nonacute. He has otherwise felt fine lately. Eating normally. No weight loss. NO dysphagia, heartburn, odynophagia, diarrhea, hematochezia, dysuria, hematuria, fever, chills, CP, SOB. No ETOH, tobacco, NSAIDs Allergies Allergy/AdvReac Type Severity Reaction Status Date / Time erythromycin base Allergy Severe STOMACH Verified 12/27/22 15:00 PAIN latex Allergy Intermediate Hives Verified 12/27/22 15:01 pollen extracts Allergy Intermediate itchy Verified 12/27/22 15:00 eyes, sneeze Home Medications Medication Instructions Recorded Confirmed Type calcium carbonate 600 mg-vitamin 1 cap PO QAM 11/21/21 12/31/22 History D3 10 mcg (400 unit) capsule clopidogrel 75 mg tablet (Plavix) 75 mg PO QAM 11/21/21 12/31/22 History lisinopril 20 mg tablet 20 mg PO QAM 11/21/21 12/31/22 History montelukast 10 mg tablet 10 mg PO QAM 11/21/21 12/31/22 History (Singulair) multivitamin 1 tab PO QAM 11/21/21 12/31/22 History acetaminophen 500 mg tablet 1,000 mg PO Q6H PRN Pain 12/08/21 12/31/22 History (Tylenol Extra Strength) albuterol sulfate 90 mcg/actuation 2 inh inhalation QID PRN sob 12/27/22 12/31/22 History aerosol inhaler amiodarone 200 mg tablet 200 mg PO QAM 12/27/22 12/31/22 History apixaban 5 mg tablet (Eliquis) 5 mg PO BID 12/27/22 12/31/22 History metoprolol succinate 50 mg 50 mg PO QAM 12/27/22 12/31/22 History tablet,extended release 24 hr albuterol sulfate 0.63 mg/3 mL 0.63 mg continuous nebulization Q4 12/31/22 12/31/22 History solution for nebulization PRN Wheezing atorvastatin 80 mg tablet 80 mg PO DAILY 12/31/22 12/31/22 History gabapentin 100 mg capsule 100 mg PO HS 12/31/22 12/31/22 History gabapentin 300 mg capsule 300 mg PO HS 12/31/22 12/31/22 History nitroglycerin 0.4 mg sublingual 0.4 mg sublingual UD PRN Chest Pain 12/31/22 0 12/31/22 History tablet omeprazole 20 mg capsule,delayed 20 mg PO BID PRN Heartburn 12/31/22 12/31/22 History release sertraline 50 mg tablet 50 mg PO QAM 12/31/22 12/31/22 History spironolactone 25 mg tablet 12.5 mg PO QAM 12/31/22 12/31/22 History vit C 250 mg-vit E 90 mg-zinc 40 1 tab PO AMPM 12/31/22 12/31/22 History mg-copper 1 [id number] capsule (PreserVision AREDS-2) Patient History Medical History Cardiac arrest 10/24/2021 -> defibrillator placed --> follows with Dr Bernal Chronic back pain CKD (chronic kidney disease), stage III Coronary artery disease Degenerative disc disease Dyslipidemia Empyema lung as a teenager, treated at [facility] History of inferior wall myocardial infarction 1993 HTN (hypertension) Ischemic cardiomyopathy Kidney stones no surgery Macular degeneration Mild intermittent asthma well controlled On anticoagulant therapy Ventricular fibrillation cardiac arrest & defibrillator 10/24/21 Surgical History History of arthroscopy of shoulder right shoulder History of bronchoscopy as a teenager r/t empyema History of cardiac catheterization x6 History of cardiac radiofrequency ablation a.fib ~2016/2017 at [facility] History of cataract surgery bilateral History of coronary artery bypass graft x 3 2007 - [place] History of heart artery stent x 4 (last stent placed by Dr Cabrera in [facility] ~2014 or earlier) S/P AAA (abdominal aortic aneurysm) repair [facility] ~2012. Status post implantation of automatic cardioverter/defibrillator (AICD) placed at [facility] 10/2021 d/t cardiac arrest Family History Father AAA (abdominal aortic aneurysm) Heart disease Mother Breast cancer Other Hypertension No family history of adverse response to anesthesia Social History Smoking Status: Unknown if ever smoked Tobacco Type: Smokeless Tobacco (Dip or Chew) Second Hand Exposure: No; Do You Dip or Chew Tobacco: No (but former use (snuff) - quit in 2015); Hx Alcohol Use: Yes Alcohol type: beer Hx Substance Use: No Preferred Language: Montserratian Communication Ability: Effective Re Examiner Required: No Beliefs That Will Affect Care: None Current Living Situation: Spouse Feels Safe at Home: Yes Safety Concerns: Feels Safe At This Time Assistive Devices: Glasses and Hearing Aid - Bilateral Assistive Devices Comment: partial denture Review of Systems Review of Systems: All systems reviewed & are unremarkable except as noted in HPI & below Physical Exam Constitutional: well developed, well nourished and comfortable; no acute distress Eyes: Sclera anicteric, no conjunctival injection ENMT: moist mucous membranes, no pallor Neck: trachea midline supple Respiratory: normal resp effort, slight crackles left base Cardiovascular: RRR, no murmur, no edema Gastrointestinal (Abdomen): normal bowel sounds, soft, nontender, no hepatosplenomegaly Inspection/Auscultation: abdomen not distended Skin: no rashes, warm and dry Neurologic: alert and oriented x 3, no obvious focal neuro deficit Psychiatric: normal mood and affect Results & Data Vital Signs (Past 12 Hours) Vital Signs Temp Pulse Pulse Resp BP BP Pulse Ox 01/01/23 07:10 64 18 142/74 H 97 01/01/23 06:00 60 16 133/65 01/01/23 05:30 60 16 136/68 01/01/23 05:00 60 15 141/69 H 01/01/23 04:30 60 13 133/69 01/01/23 04:00 60 19 148/76 H 01/01/23 03:30 61 14 144/78 H 01/01/23 03:00 64 14 153/84 H 96 01/01/23 02:30 60 22 162/94 H 01/01/23 02:00 62 13 168/83 H 01/01/23 02:38 60 19 162/94 H 96 01/01/23 02:18 01/01/23 01:30 65 19 166/96 H 01/01/23 01:26 64 01/01/23 01:01 63 14 173/120 H 98 01/01/23 00:30 60 13 142/77 H 01/01/23 00:00 62 13 144/74 H 12/31/22 23:30 60 12 129/80 12/31/22 23:10 61 18 12/31/22 23:01 71 17 143/74 H 12/31/22 21:39 60 12/31/22 21:40 60 19 97 12/31/22 21:38 97 12/31/22 21:23 36.5 C 68 16 143/85 H 97 Pulse Ox O2 Del Method O2 Del Method 01/01/23 07:10 Room Air 01/01/23 06:00 01/01/23 05:30 01/01/23 05:00 01/01/23 04:30 01/01/23 04:00 01/01/23 03:30 01/01/23 03:00 Room Air 01/01/23 02:30 01/01/23 02:00 01/01/23 02:38 Room Air 01/01/23 02:18 96 Room Air 01/01/23 01:30 01/01/23 01:26 01/01/23 01:01 Room Air 01/01/23 00:30 01/01/23 00:00 12/31/22 23:30 12/31/22 23:10 12/31/22 23:01 12/31/22 21:39 12/31/22 21:40 12/31/22 21:38 Room Air 12/31/22 21:23 Room Air Laboratory Results 01/01/23 01/01/23 01/01/23 Range/Units 03:09 03:09 00:22 WBC 6.87 (4.8-10.8) K/ul RBC 4.51 L (4.70-6.10) M/uL Hgb 13.3 L (14.0-18.0) g/dl Hct 39.2 L (42.0-52.0) % MCV 86.9 (80.0-100.0) fL MCH 29.5 (25.0-34.0) pg MCHC 33.9 (32.0-36.0) g/dL RDW Std Deviation 44.1 (36.4-46.3) fL RDW Coeff of Ed 13.9 (11.5-14.5) % Plt Count 207 (130-400) K/uL MPV 10.1 (9.4-12.4) fL Immature Gran % (Auto) 0.1 % Neut % (Auto) 61.8 % Lymph % (Auto) 23.7 % Pender % (Auto) 11.2 % Eos % (Auto) 2.8 % Baso % (Auto) 0.4 % Neut # (Auto) 4.24 (1.40-6.50) K/uL Lymph # (Auto) 1.63 (1.20-3.40) K/uL Pender # (Auto) 0.77 H (0.11-0.59) K/uL Eos # (Auto) 0.19 (0.00-0.50) K/uL Baso # (Auto) 0.03 (0.00-0.20) K/uL Immature Gran # (Auto) 0.01 (0.01-0.20) K/uL PT (9.0-12.0) Seconds INR (0.9-1.1) APTT (21.0-31.0) Seconds PTT Ratio Sodium 140 (136-145) mmol/L Potassium 4.0 (3.5-5.1) mmol/L Chloride 104 (98-107) mmol/L Carbon Dioxide 31 (21-32) mmol/L Anion Gap 5 (3-11) BUN 23 (6-23) mg/dl Creatinine 1.52 H (0.6-1.4) mg/dl Est Cr Clr Drug Dosing 42.6 ml/min Est GFR ( Amer) 51.2 ml/min Est GFR (Non-Af Amer) 44.2 ml/min BUN/Creatinine Ratio 15.1 (10-20) Glucose 87 (70-99(Fasting)) mg/dl Calcium 8.8 (8.6-10.3) mg/dl Magnesium (1.7-2.4) mg/dl Total Bilirubin (0.2-1.0) mg/dl AST (13-39) U/L ALT (7-52) U/L Alkaline Phosphatase (34-104) U/L Troponin I High Sens 26.5 H 24.0 H (0-20) pg/ml Total Protein (6.0-8.3) gm/dl Albumin (3.4-5.0) gm/dl Globulin (2.5-4.0) gm/dl Albumin/Globulin Ratio (0.9-2) Lipase (11-82) U/L Urine Color Urine Appearance (Clear) Urine pH (4.5-7.5) Ur Specific [place] (1.000-1.030) Urine Protein (Negative) Urine Glucose (UA) (Negative) Urine Ketones (Negative) Urine Blood (Negative) Urine Nitrite (Negative) Urine Bilirubin (Negative) Urine Urobilinogen (Negative) Ur Leukocyte Esterase (Negative) Blood Type Antibody Screen 01/01/23 12/31/22 12/31/22 Range/Units 00:22 22:10 21:39 WBC (4.8-10.8) K/ul RBC (4.70-6.10) M/uL Hgb 12.6 L (14.0-18.0) g/dl Hct 37.9 L (42.0-52.0) % MCV (80.0-100.0) fL MCH (25.0-34.0) pg MCHC (32.0-36.0) g/dL RDW Std Deviation (36.4-46.3) fL RDW Coeff of Ed (11.5-14.5) % Plt Count (130-400) K/uL MPV (9.4-12.4) fL Immature Gran % (Auto) % Neut % (Auto) % Lymph % (Auto) % Pender % (Auto) % Eos % (Auto) % Baso % (Auto) % Neut # (Auto) (1.40-6.50) K/uL Lymph # (Auto) (1.20-3.40) K/uL Pender # (Auto) (0.11-0.59) K/uL Eos # (Auto) (0.00-0.50) K/uL Baso # (Auto) (0.00-0.20) K/uL Immature Gran # (Auto) (0.01-0.20) K/uL PT (9.0-12.0) Seconds INR (0.9-1.1) APTT (21.0-31.0) Seconds PTT Ratio Sodium 137 (136-145) mmol/L Potassium 4.2 (3.5-5.1) mmol/L Chloride 102 (98-107) mmol/L Carbon Dioxide 28 (21-32) mmol/L Anion Gap 7 (3-11) BUN 25 H (6-23) mg/dl Creatinine 1.52 H (0.6-1.4) mg/dl Est Cr Clr Drug Dosing 42.6 ml/min Est GFR ( Amer) 51.2 ml/min Est GFR (Non-Af Amer) 44.2 ml/min BUN/Creatinine Ratio 16.4 (10-20) Glucose 92 (70-99(Fasting)) mg/dl Calcium 9.1 (8.6-10.3) mg/dl Magnesium 2.1 (1.7-2.4) mg/dl Total Bilirubin 0.4 (0.2-1.0) mg/dl AST 49 H (13-39) U/L ALT 42 (7-52) U/L Alkaline Phosphatase 79 (34-104) U/L Troponin I High Sens 21.6 H (0-20) pg/ml Total Protein 7.0 (6.0-8.3) gm/dl Albumin 4.0 (3.4-5.0) gm/dl Globulin 3.0 (2.5-4.0) gm/dl Albumin/Globulin Ratio 1.3 (0.9-2) Lipase 50 (11-82) U/L Urine Color Yellow Urine Appearance Clear (Clear) Urine pH 6.0 (4.5-7.5) Ur Specific [place] 1.005 (1.000-1.030) Urine Protein Negative (Negative) Urine Glucose (UA) Negative (Negative) Urine Ketones Negative (Negative) Urine Blood Negative (Negative) Urine Nitrite Negative (Negative) Urine Bilirubin Negative (Negative) Urine Urobilinogen Negative (Negative) Ur Leukocyte Esterase Negative (Negative) Blood Type Antibody Screen 12/31/22 12/31/22 12/31/22 Range/Units 21:39 21:39 21:39 WBC 8.71 (4.8-10.8) K/ul RBC 4.91 (4.70-6.10) M/uL Hgb 14.4 (14.0-18.0) g/dl Hct 43.1 (42.0-52.0) % MCV 87.8 (80.0-100.0) fL MCH 29.3 (25.0-34.0) pg MCHC 33.4 (32.0-36.0) g/dL RDW Std Deviation 45.1 (36.4-46.3) fL RDW Coeff of Ed 14.0 (11.5-14.5) % Plt Count 250 (130-400) K/uL MPV 10.1 (9.4-12.4) fL Immature Gran % (Auto) 0.5 % Neut % (Auto) 65.9 % Lymph % (Auto) 21.0 % Pender % (Auto) 10.1 % Eos % (Auto) 2.0 % Baso % (Auto) 0.5 % Neut # (Auto) 5.75 (1.40-6.50) K/uL Lymph # (Auto) 1.83 (1.20-3.40) K/uL Pender # (Auto) 0.88 H (0.11-0.59) K/uL Eos # (Auto) 0.17 (0.00-0.50) K/uL Baso # (Auto) 0.04 (0.00-0.20) K/uL Immature Gran # (Auto) 0.04 (0.01-0.20) K/uL PT 11.0 (9.0-12.0) Seconds INR 1.0 (0.9-1.1) APTT 26.2 (21.0-31.0) Seconds PTT Ratio 0.9 Sodium (136-145) mmol/L Potassium (3.5-5.1) mmol/L Chloride (98-107) mmol/L Carbon Dioxide (21-32) mmol/L Anion Gap (3-11) BUN (6-23) mg/dl Creatinine (0.6-1.4) mg/dl Est Cr Clr Drug Dosing ml/min Est GFR ( Amer) ml/min Est GFR (Non-Af Amer) ml/min BUN/Creatinine Ratio (10-20) Glucose (70-99(Fasting)) mg/dl Calcium (8.6-10.3) mg/dl Magnesium (1.7-2.4) mg/dl Total Bilirubin (0.2-1.0) mg/dl AST (13-39) U/L ALT (7-52) U/L Alkaline Phosphatase (34-104) U/L Troponin I High Sens (0-20) pg/ml Total Protein (6.0-8.3) gm/dl Albumin (3.4-5.0) gm/dl Globulin (2.5-4.0) gm/dl Albumin/Globulin Ratio (0.9-2) Lipase (11-82) U/L Urine Color Urine Appearance (Clear) Urine pH (4.5-7.5) Ur Specific [place] (1.000-1.030) Urine Protein (Negative) Urine Glucose (UA) (Negative) Urine Ketones (Negative) Urine Blood (Negative) Urine Nitrite (Negative) Urine Bilirubin (Negative) Urine Urobilinogen (Negative) Ur Leukocyte Esterase (Negative) Blood Type O Positive Antibody Screen NEGATIVE Diagnostic Findings CTAP: EXAM: CT Abdomen and Pelvis Without Intravenous Contrast CLINICAL HISTORY: Reason for exam: abd pain, gi bleed. TECHNIQUE: Axial computed tomography images of the abdomen and pelvis without intravenous contrast. CTDI is 26.96 mGy and DLP is 1274.87 mGy-cm. Automated exposure control was utilized for the study. A dose lowering technique was utilized adhering to the principles of ALARA. COMPARISON: Plane films from December 31, 2022 FINDINGS: Lung bases: Trace amount of right lung base subsegmental atelectasis or infiltrate. ABDOMEN: Liver: Unremarkable. Gallbladder and bile ducts: Unremarkable. No calcified stones. No ductal dilation. Pancreas: Unremarkable. No ductal dilation. Spleen: Unremarkable. No splenomegaly. Adrenals: Unremarkable. No mass. Kidneys and ureters: The kidneys are unremarkable. No hydronephrosis or ureterolithiasis is seen. Stomach and bowel: See below. PELVIS: Appendix: The appendix is normal. Bowel loops are nondilated. There is diverticulosis of the left and sigmoid colon without evidence of acute diverticulitis. No acute inflammatory changes are seen involving the bowel. Bladder: Unremarkable. No stones. Reproductive: Unremarkable as visualized. ABDOMEN and PELVIS: Intraperitoneal space: Unremarkable. No free air. No significant fluid collection. Bones/joints: Mild to moderate multilevel degenerative changes throughout the spine. No acute fracture or traumatic subluxation is seen. Soft tissues: Unremarkable. Vasculature: Previous graft of an infrarenal abdominal aortic aneurysm with the residual aneurysm sac measuring 4.8 cm in diameter. No evidence of rupture. This is a noncontrast study. Lymph nodes: Unremarkable. No enlarged lymph nodes. IMPRESSION: 1. Trace amount of right lung base subsegmental atelectasis or infiltrate. 2. Previous graft of an infrarenal abdominal aortic aneurysm with the residual aneurysm sac measuring 4.8 cm in diameter. No evidence of rupture. This is a noncontrast study. 3. The appendix is normal. Bowel loops are nondilated. There is diverticulosis of the left and sigmoid colon without evidence of acute diverticulitis. No acute inflammatory changes are seen involving the bowel. 4. The kidneys are unremarkable. No hydronephrosis or ureterolithiasis is seen.
--- NOTE | 2023-01-01 09:23 | Anesthesiology Consultation ---
Date of Service January 01, 2023 Assessment & Plan (1) Encounter for pre-operative examination: Chart Review Chart Review: Acceptable Risk for Surgery and Patient NOT seen in Pre Admission Testing Consults Requested none History Height/Weight Height: 5 ft 5 in Weight: 87 kg Allergies Allergy/AdvReac Type Severity Reaction Status Date / Time erythromycin base Allergy Severe STOMACH Verified 12/27/22 15:00 PAIN latex Allergy Intermediate Hives Verified 12/27/22 15:01 pollen extracts Allergy Intermediate itchy Verified 12/27/22 15:00 eyes, sneeze Medications Home Medications Medication Instructions Recorded Confirmed Last Taken calcium carbonate 600 mg-vitamin 1 cap PO QAM 11/21/21 12/31/22 12/31/22 D3 10 mcg (400 unit) capsule clopidogrel 75 mg tablet (Plavix) 75 mg PO QAM 11/21/21 12/31/22 12/31/22 lisinopril 20 mg tablet 20 mg PO QAM 11/21/21 12/31/22 12/31/22 montelukast 10 mg tablet 10 mg PO QAM 11/21/21 12/31/22 12/31/22 (Singulair) multivitamin 1 tab PO QAM 11/21/21 12/31/22 12/31/22 acetaminophen 500 mg tablet 1,000 mg PO Q6H PRN Pain 12/08/21 12/31/22 Unknown (Tylenol Extra Strength) albuterol sulfate 90 mcg/actuation 2 inh inhalation QID PRN sob 12/27/22 Unknown aerosol inhaler amiodarone 200 mg tablet 200 mg PO QAM 12/27/22 12/31/22 12/31/22 apixaban 5 mg tablet (Eliquis) 5 mg PO BID 12/27/22 12/31/22 12/31/22 am metoprolol succinate 50 mg 50 mg PO QAM 12/27/22 12/31/22 12/31/22 tablet,extended release 24 hr albuterol sulfate 0.63 mg/3 mL 0.63 mg continuous nebulization Q4 12/31/22 12/31/22 Unknown solution for nebulization PRN Wheezing atorvastatin 80 mg tablet 80 mg PO DAILY 12/31/22 12/31/22 12/31/22 gabapentin 100 mg capsule 100 mg PO HS 12/31/22 12/31/22 12/30/22 gabapentin 300 mg capsule 300 mg PO HS 12/31/22 12/31/22 12/30/22 nitroglycerin 0.4 mg sublingual 0.4 mg sublingual UD PRN Chest Pain 12/31/22 12/31/22 Unknown tablet omeprazole 20 mg capsule,delayed 20 mg PO BID PRN Heartburn 12/31/22 12/31/22 Unknown release sertraline 50 mg tablet 50 mg PO QAM 12/31/22 12/31/22 12/31/22 spironolactone 25 mg tablet 12.5 mg PO QAM 12/31/22 12/31/22 12/31/22 vit C 250 mg-vit E 90 mg-zinc 40 1 tab PO AMPM 12/31/22 12/31/22 12/31/22 17:00 mg-copper 1 [id number] 2nd dose for capsule (PreserVision AREDS-2) day Active Medications Generic Name Dose Route Start Last Admin Trade Name Marcosq PRN Reason Stop Dose Admin Amiodarone HCl 200 mg 01/01/23 09:00 01/01/23 09:07 Amiodarone 200 Mg Tab PO 01/31/23 08:59 Not Given QAM CELESTE Atorvastatin Calcium 80 mg 01/01/23 09:00 01/01/23 09:07 Atorvastatin 40 Mg Tab PO 01/31/23 08:59 Not Given DAILY CELESTE Pantoprazole Sodium 40 mg/ 100 mls @ 20 mls/hr 01/01/23 03:00 01/01/23 08:43 Dextrose IV 01/31/23 02:59 8 mg/hr Q5H CELESTE 20 mls/hr Administration 8 MG/HR Lisinopril 20 mg 01/01/23 03:40 01/01/23 04:14 Lisinopril 20 Mg Tab PO 01/31/23 03:39 20 mg QAM CELESTE Administration Metoprolol Succinate 50 mg 01/01/23 09:00 01/01/23 09:07 Metoprolol Succ 50mg Ext Rel Tab PO 01/31/23 08:59 Not Given QAM CELESTE Montelukast Sodium 10 mg 01/01/23 09:00 01/01/23 09:08 Montelukast Sodium 10 Mg Tablet PO 01/31/23 08:59 Not Given QAM CELESTE Multivitamins 1 tab 01/01/23 09:00 01/01/23 09:08 Multivitamin Tab PO 01/31/23 08:59 Not Given QAM CELESTE Sertraline HCl 50 mg 01/01/23 09:00 01/01/23 09:08 Sertraline Hcl 50 Mg Tablet PO 01/31/23 08:59 Not Given QAM CELESTE Past Medical History Medical History Cardiac arrest 10/24/2021 -> defibrillator placed --> follows with Dr Bernal Chronic back pain CKD (chronic kidney disease), stage III Coronary artery disease Degenerative disc disease Dyslipidemia Empyema lung as a teenager, treated at [facility] History of inferior wall myocardial infarction 1993 HTN (hypertension) Ischemic cardiomyopathy Kidney stones no surgery Macular degeneration Mild intermittent asthma well controlled On anticoagulant therapy Ventricular fibrillation cardiac arrest & defibrillator 10/24/21 Past Family History Family History Father AAA (abdominal aortic aneurysm) Heart disease Mother Breast cancer Other Hypertension No family history of adverse response to anesthesia Past Surgical History Surgical History History of arthroscopy of shoulder right shoulder History of bronchoscopy as a teenager r/t empyema History of cardiac catheterization x6 History of cardiac radiofrequency ablation a.fib ~2016/2017 at [facility] History of cataract surgery bilateral History of coronary artery bypass graft x 3 2007 - [place] History of heart artery stent x 4 (last stent placed by Dr Cabrera in [facility] ~2014 or earlier) S/P AAA (abdominal aortic aneurysm) repair [facility] ~2012. Status post implantation of automatic cardioverter/defibrillator (AICD) placed at [facility] 10/2021 d/t cardiac arrest Social History Smoking Status: Unknown if ever smoked Do You Dip or Chew Tobacco: No (but former use (snuff) - quit in 2016) Hx Alcohol Use: Yes Alcohol type: beer alcohol intake frequency: a few times a month Hx Substance Use: No substance use type: does not use Physical Exam Vital Signs Last Vital Signs Temp 97.7 F 12/31/22 21:23 Pulse 64 01/01/23 07:10 Resp 18 01/01/23 07:10 BP 142/74 H 01/01/23 07:10 Pulse Ox 97 01/01/23 07:10 O2 Del Method Room Air 01/01/23 07:10 Testing Laboratory Results 01/01/23 03:09 01/01/23 03:09 PT 11.0 Seconds (9.0-12.0) 12/31/22 21:39 INR 1.0 (0.9-1.1) 12/31/22 21:39 APTT 26.2 Seconds (21.0-31.0) 12/31/22 21:39 Urine Color Yellow 12/31/22 22:10 Urine Appearance Clear (Clear) 12/31/22 22:10 Urine pH 6.0 (4.5-7.5) 12/31/22 22:10 Ur Specific [place] 1.005 (1.000-1.030) 12/31/22 22:10 Urine Protein Negative (Negative) 12/31/22 22:10 Urine Glucose (UA) Negative (Negative) 12/31/22 22:10 Urine Ketones Negative (Negative) 12/31/22 22:10 Urine Nitrite Negative (Negative) 12/31/22 22:10 Ur Leukocyte Esterase Negative (Negative) 12/31/22 22:10 Blood Type O Positive 12/31/22 21:39 Antibody Screen NEGATIVE 12/31/22 21:39 Electrocardiogram Date: 12/31/22 Findings: + NSR @ and + RBBB
--- NOTE | 2023-01-01 10:36 | GI REPORT ---
Patient Name: Mark Batista Procedure Date: 01/01/2023 10:23 AM Date of : 1945 Admit Type: Inpatient Age: 77 Gender: Male Attending MD: Diana Darden DO, Procedure: Upper GI endoscopy Providers: Diana Darden DO Referring MD: Abena Rivas Md Indications: Hematemesis Medicines: Propofol per Anesthesia Complications: No immediate complications. Estimated blood loss: None. Estimated Blood Loss: Estimated blood loss: none. Procedure: Pre-Anesthesia Assessment: - Prior to the procedure, a History and Physical was performed, and patient medications, allergies and sensitivities were reviewed. The patient's tolerance of previous anesthesia was reviewed. - The risks and benefits of the procedure and the sedation options and risks were discussed with the patient. All questions were answered and informed consent was obtained. - Patient identification and proposed procedure were verified prior to the procedure by the physician and the nurse. The procedure was verified in the pre-procedure area in the procedure room. - Mental Status Examination: alert and oriented. Airway Examination: normal oropharyngeal airway and neck mobility. Respiratory Examination: clear to auscultation. CV Examination: normal. Abdominal Examination: bowel sounds present, abdomen soft and non-tender, no masses or organomegaly noted. - ASA Grade Assessment: III - A patient with severe systemic disease. After obtaining informed consent, the endoscope was passed under direct vision. Throughout the procedure, the patient's blood pressure, pulse, and oxygen saturations were monitored continuously. The Endoscope was introduced through the mouth, and advanced to the second part of duodenum. The upper GI endoscopy was accomplished without difficulty. The patient tolerated the procedure well. Findings: The esophagus was normal. Localized mild inflammation characterized by linear erosions was found in the stomach. A hiatal hernia was present. The examined duodenum was normal. Impression: - Normal esophagus. - Gastritis. - Hiatal hernia. - Normal examined duodenum. - No specimens collected. Recommendation: - Follow an antireflux regimen. - Use a proton pump inhibitor PO daily. - [facility] possible discharge same day. Jenni Naranjo DO 01/01/2023 10:36:38 AM This report has been signed electronically. Note Initiated On: 01/01/2023 10:23 AM Number of Addenda: 0 I attest to the content of the Intraoperative Record and orders documented therein, exceptions below {[id number]}
[2023-01-01] MEDS ORDERED: LIDOCAINE 2% 2 ML VIAL/AMP(20MG/ML) INFIL ONE (10:39)
[2023-01-01] MEDS ORDERED: ePHEDrine sulfate 50 MG/ML SYR ONE (10:39)
[2023-01-01] MEDS ORDERED: PROPOFOL IV EMULSION 10 MG/ML 20 ML VIAL IV ONE (10:39)
--- NOTE | 2023-01-01 11:25 | Anesthesiology Progress Note ---
Date of Service January 01, 2023 Anesthesia Post Procedure Vital Signs Vital Signs: Temp Pulse Pulse Resp BP BP Pulse Ox 01/01/23 11:07 61 20 150/71 H 96 01/01/23 10:51 60 20 149/74 H 96 01/01/23 10:36 71 18 124/66 96 01/01/23 09:42 97.2 F L 65 18 159/87 H 95 01/01/23 07:10 64 18 142/74 H 97 01/01/23 06:00 60 16 133/65 01/01/23 05:30 60 16 136/68 01/01/23 05:00 60 15 141/69 H 01/01/23 04:30 60 13 133/69 01/01/23 04:00 60 19 148/76 H 01/01/23 03:30 61 14 144/78 H 01/01/23 03:00 64 14 153/84 H 96 01/01/23 02:30 60 22 162/94 H 01/01/23 02:00 62 13 168/83 H 01/01/23 02:38 60 19 162/94 H 96 01/01/23 02:18 01/01/23 01:30 65 19 166/96 H 01/01/23 01:26 64 01/01/23 01:01 63 14 173/120 H 98 01/01/23 00:30 60 13 142/77 H 01/01/23 00:00 62 13 144/74 H 12/31/22 23:30 60 12 129/80 12/31/22 23:10 61 18 12/31/22 23:01 71 17 143/74 H 12/31/22 21:39 60 12/31/22 21:40 60 19 97 12/31/22 21:38 97 12/31/22 21:23 97.7 F 68 16 143/85 H 97 Pulse Ox O2 Del Method O2 Del Method 01/01/23 11:07 Room Air 01/01/23 10:51 Room Air 01/01/23 10:36 Room Air 01/01/23 09:42 Room Air 01/01/23 07:10 Room Air 01/01/23 06:00 01/01/23 05:30 01/01/23 05:00 01/01/23 04:30 01/01/23 04:00 01/01/23 03:30 01/01/23 03:00 Room Air 01/01/23 02:30 01/01/23 02:00 01/01/23 02:38 Room Air 01/01/23 02:18 96 Room Air 01/01/23 01:30 01/01/23 01:26 01/01/23 01:01 Room Air 01/01/23 00:30 01/01/23 00:00 12/31/22 23:30 12/31/22 23:10 12/31/22 23:01 12/31/22 21:39 12/31/22 21:40 12/31/22 21:38 Room Air 12/31/22 21:23 Room Air Transfer of Care Handoff Completed per policy Notes Mental Status: alert / awake / arousable and participated in evaluation Patient Amnestic to Procedure: Yes Nausea / Vomiting: adequately controlled Pain: adequately controlled Airway Patency, RR, SpO2: stable & adequate BP & HR: stable & adequate Hydration State: stable & adequate Anesthetic Complications: no major complications apparent and Pt Satisfied with anesthetic care
--- NOTE | 2023-01-01 12:55 | Discharge Summary ---
Date of Service January 01, 2023 Admission HPI Per Admitting Provider History obtained from patient, family, and records. Medical history significant for chronic systolic heart failure (EF 20 to 25%, TTE April 2022) secondary to ischemic cardiomyopathy status post ICD, CAD status post CABG/stent, history of VF/VT, PAF on Eliquis, valvular heart disease (mild MR//AR), PVD status post surgery, history TIA, bronchial asthma, hypertension, hyperlipidemia, CRI (baseline creatinine 1.7), mood disorder. Last confinement October 2021 for cardiac arrest status post ROSC status post ICD implantation. Last week, patient noted hematemesis without abdominal pain complaints. No chest pain, no SOB, no melena symptoms. Some lightheadedness without headache. BP noted to be low at home. Patient denies OTC NSAID intake. Patient seen at PCPs office last week. ER evaluation recommended but patient declined. Outpatient hemoglobin last week noted to be 14. Outpatient EGD scheduled at [facility] 01/03. Persistent hematemesis with melanotic stools noted at home last few days. Achy abdominal pain. Patient denies headache, chest pain, SOB. IV Protonix administered at the ER for UGIB. 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 Admission Exam Per Admitting Provider GENERAL: Comfortable, pleasant, no respiratory distress SKIN: Normal color, warm HEENT: Alopecia, bespectacled, [place] palpebral conjunctivae, no ptosis, dry buccal mucosa NECK : Supple, no tenderness CHEST : CTA, no tenderness HEART : Diminished S1-S2, no obvious murmurs ABDOMEN: Some distention, minimal central abdominal tenderness EXTREMITIES : No LE swelling/tenderness, no other conspicuous deformities noted NEUROLOGIC : Coherent, no facial asymmetry, no other gross focality Principal Diagnosis Likely upper GI bleed Discharge Exam GENERAL: Alert and oriented x3. NAD, on RA. HEENT: No pallor, no icterus. Pupils equal, round and reactive to light. Oral mucosa moist. NECK: No JVD, no neck masses. HEART: S1 and S2 heard. Regular rate and rhythm. No murmur, no gallop. RESPIRATORY SYSTEM: Normal AP diameter. No accessory muscle use. No wheezing, no crackles. ABDOMEN: Soft, bowel sounds present, nontender, no distention. CENTRAL NERVOUS SYSTEM: No facial droop. Speech is clear. Obeys simple comman ds. Moves extremities. EXTREMITIES: No edema, no erythema seen. Discharge Data Allergies Allergy/AdvReac Type Severity Reaction Status Date / Time erythromycin base Allergy Severe STOMACH Verified 12/27/22 15:00 PAIN latex Allergy Intermediate Hives Verified 12/27/22 15:01 pollen extracts Allergy Intermediate itchy Verified 12/27/22 15:00 eyes, sneeze Consultations 12/31/22 23:20 ED Decision to Admit Stat 01/01/23 02:18 Consult Gastroenterology Routine Procedures Performed Operation Date: 01/01/23 17:00 Actual Procedures p Esophagogastroduodenoscopy - Diana Darden DO Ordered Studies 01/01/23 00:14 CT abd pelvis wo con Stat Hospital Course (1) Acute upper GI bleed: Patient presented with hematemesis x 2 by a week, 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 Patient does have history of gastritis, on chronic omeprazole, which he has stopped taking for 2 weeks prior to arrival. Patient states that he does eat a lot of spicy foods/dark chocolate/a lot of caffeine. Patient advised to cut down on those foods that exacerbate gastritis and advised to stay compliant with omeprazole. Patient denies tobacco use, reports very occasional alcohol use, denies [id number] NSAID use. Patient denies any fever/flulike illness/cough/chest pain/muscle pain in the last several weeks prior to arrival. Patient underwent EGD scope, suggestive of gastritis. Patient will be discharged on PPI/pantoprazole twice a day for a month and then once daily. If symptoms does not resolve, patient might benefit from outpatient GI evaluation, coordinate with PCP office at that point. Otherwise patient's hemoglobin has been stable, reports feeling better, patient can have diet and if no symptoms can be discharged later in the day. Chronic troponin elevation noted. Patient with no chest pain. Patient being discharged home with following instruction at the point of discharge: Follow-up with your primary care physician within a week time and likely you will need labs CBC/CMP/magnesium/phosphorus. You presented with complaint of hematemesis and melanotic stool, you underwent EGD scope which was suggestive of gastritis. You will be discharged on pantoprazole twice a day for 4-week then daily. Follow-up with the GI doctor as prior. Take your pantoprazole in your empty stomach about half hour prior to your meals. Since you are on Plavix, you are to avoid omeprazole. Use pantoprazole instead. Take your medications as prescribed. Please make sure that you are able to get your medications today by calling your pharmacy before you leave the hospital so that your treatment continuity is not broken. Home Health Attestation I certify that this patient is under my care and that I, or a physicians visitor information assistant working with me, had a face to-face encounter that meets the home health [id number] encounter requirements with this patient. The encounter with the patient was in whole, or in part, for the following medical condition, which is the primary reason for home health care (list medical condition): I certify that, based on my findings, the following services are medically necessary home health services: My clinical findings support the need for the above services because: Further, I certify that my clinical findings support that this patient is homebound (i.e. absences from home require considerable and taxing effort and are for medical reasons or tenriism services or infrequently or of short duration when for other reasons) because: Certification for Home Health Services: Based on the above findings, I certify that this patient is confined to the home and needs intermittent jail care, physical therapy and/or speech therapy or continues to need occupational therapy. The patient is under my care, and I have initiated the establishment of the plan of care. This patient will be followed by a physician who will periodically review the plan of care. Total Time Total Time Spent Total Time Spent (In Minutes): 45 Discharge Plan Discharge Items Patient Disposition: Home - Self-Care Reason For Visit: UGIB Discharge Diagnosis: Likely upper GI bleed Activity: Resume your previous activity Non-emergency contact: Primary Care Provider Call non-emergency contact if: you have any medication questions, your symptoms worsen and your temperature is above 101 Follow-up/Referrals: Doreen Casillas DO [Primary Care Provider] - Diet: Heart Healthy Diet Texture: Dental soft (bite-sized) Addtl Attending Provider Instructions: Follow-up with your primary care physician within a week time and likely you will need labs CBC/CMP/magnesium/phosphorus. You presented with complaint of hematemesis and melanotic stool, you underwent EGD scope which was suggestive of gastritis. You will be discharged on pantoprazole twice a day for 4-week then daily. Follow-up with the GI doctor as prior. Take your pantoprazole in your empty stomach about half hour prior to your meals. Since you are on Plavix, you are to avoid omeprazole. Use pantoprazole instead. Take your medications as prescribed. Please make sure that you are able to get your medications today by calling your pharmacy before you leave the hospital so that your treatment continuity is not broken. Pending Studies at Discharge: No Stand-Alone Forms: My [facility] [employer], Smoking Cessation Medications and DC Order Prescriptions: New pantoprazole 40 mg tablet,delayed release (DR/EC) 40 mg PO BID Qty: 60 0RF Continued calcium carbonate-vitamin D3 600 mg-10 mcg (400 unit) capsule 1 cap PO QAM clopidogrel [Plavix] 75 mg tablet 75 mg PO QAM lisinopril 20 mg tablet 20 mg PO QAM montelukast [Singulair] 10 mg tablet 10 mg PO QAM multivitamin Tablet 1 tab PO QAM metoprolol succinate 50 mg tablet extended release 24 hr 50 mg PO QAM amiodarone 200 mg Tablet 200 mg PO QAM Eliquis 5 mg Tablet 5 mg PO BID albuterol sulfate 90 mcg/actuation Hfa Aerosol Inhaler 2 inh INHALATION QID PRN (Reason: sob) spironolactone 25 mg tablet 12.5 mg PO QAM atorvastatin 80 mg tablet 80 mg PO DAILY gabapentin 300 mg capsule 300 mg PO HS gabapentin 100 mg capsule 100 mg PO HS PreserVision AREDS-2 250-90-40-1 mg Capsule 1 tab PO AMPM albuterol sulfate 0.63 mg/3 mL solution for nebulization 0.63 mg continuous nebulization Q4 PRN (Reason: Wheezing) sertraline 50 mg tablet 50 mg PO QAM nitroglycerin 0.4 mg tablet, sublingual 0.4 mg sublingual UD PRN (Reason: Chest Pain) acetaminophen [Tylenol Extra Strength] 500 mg Tablet 1,000 mg PO Q6H PRN (Reason: Pain) Discontinued omeprazole 20 mg capsule,delayed release(DR/EC) 20 mg PO BID PRN (Reason: Heartburn) Discharge Orders: Discharge Order (Routine); Ordered 01/01/23 Ordered By: Abena Rivas Admission Data Admit Date/Time: 01/01/23 00:18 Attending Provider: Abena Rivas Admit Provider: Jason Lomax Primary Care Provider: Doreen Casillas Other Providers: Jason Lomax ; Jasvir Bhatt ; Erasmo Montemayor ; Sabine Vera ; Emma Eng ; Elaine Chester ; Louise Martínez ; Aidan Mcdaniels ; Hernesto Sosa ; Radha Smith ; Radha Motley ; Juan Zepeda ; Dana Lebron ; Diana Darden ; Franchesca Bundy ; Krystin Neal ; Lissette Wood ; Abiodun López ; Adan Oneal ; Carlita Zarate ; Jesus Park Jr
[2023-01-01] MEDS ORDERED: GABAPENTIN 300 MG CAP PO SCH (21:00)
[2023-01-01] MEDS ORDERED: GABAPENTIN 100 MG CAP PO SCH (21:00)
--- NOTE | 2023-01-02 05:45 | Electrocardiogram Report ---
Test Reason : Blood Pressure : / mmHG Vent. Rate : 061 BPM Atrial Rate : 061 BPM P-R Int : 192 ms QRS Dur : 182 ms QT Int : 522 ms P-R-T Axes : 061 235 040 degrees QTc Int : 525 ms Normal sinus rhythm Right bundle branch block Abnormal ECG When compared with ECG of 18-JUL-2022 12:55, Sinus rhythm has replaced Electronic atrial pacemaker Confirmed by Gumaro Linton ([id number]) on 01/02/2023 5:44:34 AM Referred By: REFERRED SELF Confirmed By:Gumaro Linton
== END 2023-01-01 15:28 | disposition home or self-care (01) ==
LOC: EDINP 21:07 → ED 21:07 → EDINP 01-01 02:17

== ENCOUNTER 2024-07-03 19:03 | Observation (INO) ==
[2024-07-03 19:24] LABS: Basophils # (auto) 0.03 K/uL (0.00-0.20); Basophils % (auto) 0.3 %; Eosinophils # (auto) 0.11 K/uL (0.00-0.50); Eosinophils % (auto) 1.2 %; Hematocrit (blood only) 37.9 % (42.0-52.0); Hemoglobin 13.1 g/dl (14.0-18.0); Immature Granulocytes # (auto) 0.03 K/uL (0.01-0.20); Immature Granulocytes % (auto) 0.3 %; Lymphocytes # (auto) 1.79 K/uL (1.20-3.40); Lymphocytes % (auto) 19.6 %; Mean Corpuscular Hgb Conc 34.6 g/dL (32.0-36.0); Mean Corpuscular Volume 83.8 fL (80.0-100.0); Mean Platelet Volume 10.6 fL (9.4-12.4); Monocytes # (auto) 0.86 K/uL (0.11-0.59); Monocytes % (auto) 9.4 %; Neutrophils # (auto) 6.33 K/uL (1.40-6.50); Neutrophils % (auto) 69.2 %; Platelet Count 263 K/uL (130-400); RDW Coefficient of Variation 14.6 % (11.5-14.5); RDW Standard Deviation 44.7 fL (36.4-46.3); Red Blood Count 4.52 M/uL (4.70-6.10); White Blood Count 9.15 K/ul (4.8-10.8)
[2024-07-03] MEDS: OPTIRAY 320 100ml IV ONE (19:27)
[2024-07-03 19:29] LABS: iSTAT Creatinine 1.6 mg/dl (0.6-1.3); iSTAT Hemoglobin 12.9 g/dl (14.0-18.0); iSTAT Ionized Calcium 1.09 mmol/l (1.12-1.32); iSTAT Potassium 3.7 mmol/L (3.3-5.0)
[2024-07-03 19:37] VITALS: TEMP 97.7
[2024-07-03 19:42] LABS: Albumin Globulin Ratio 1.8 (0.9-2); Albumin Level 3.7 gm/dl (3.4-5.0); BUN Creatinine Ratio 12.7 (10-20); Bilirubin,Total 0.7 mg/dl (0.2-1.0); Creatinine Clr Calc Pharmacy 40.2 ml/min; Globulin 2.1 gm/dl (2.5-4.0); Potassium 3.7 mmol/L (3.5-5.1); Total Protein 5.8 gm/dl (6.0-8.3)
[2024-07-03 19:53] LABS: INR 1.1 (0.9-1.1); Partial Thromboplastin Time 27 Seconds (21-31); Prothrombin Time 11.9 Seconds (9.0-12.0)
--- NOTE | 2024-07-03 19:53 | XRay Report ---
Clinical History: Trauma One view of the pelvis is submitted for review. Findings: No fracture or dislocation is seen. No significant arthritic changes are noted. No other osseous abnormality is identified. There is an aortoiliac stent graft Impression: No definite pelvic fracture Electronically signed by Jewel Jaime 07-03-2024 7:53 PM
--- NOTE | 2024-07-03 19:53 | CT Scan Report ---
Clinical History: Fall. Technique: Axial computed tomography images were obtained of the brain from the vertex to the skull base without intravenous contrast. Findings: There is no sign of intracranial hemorrhage. There is normal hernandez-white matter differentiation with no sign of acute or old infarction. No midline shift or other form of herniation is identified. There is no hydrocephalus. No obvious mass lesion is seen on this noncontrast examination. The visualized portions of the orbits and paranasal sinuses appear unremarkable. The mastoid air cells appear clear Impression: Unremarkable noncontrast CT of the brain Electronically signed by Jewel Jaime 07-03-2024 7:52 PM
--- NOTE | 2024-07-03 19:54 | XRay Report ---
Clinical History: Trauma 4 views of the left femur are submitted for review. Findings: No fracture or dislocation is seen. No significant arthritic changes are noted. No other osseous abnormality is identified. There are no radiopaque foreign bodies. Vascular calcifications are present Impression: Unremarkable radiographs of the left femur Electronically signed by Jewel Jaime 07-03-2024 7:54 PM
--- NOTE | 2024-07-03 19:56 | XRay Report ---
Clinical History: Trauma Technique: 2 frontal views of the chest were obtained Comparison is made to the prior examination dated 06/21/2023 Findings: There is unchanged opacity along the lateral aspect of the left upper lobe and in the left lung base that could be due to chronic pleural thickening or a chronic loculated pleural effusion. The heart is mildly enlarged. No right pleural effusion or pneumothorax is seen. The right lung appears clear There are unchanged old left rib fractures. There is a right chest wall pacemaker device Impression: 1. No definite acute pathology 2. Unchanged loculated left pleural effusion versus chronic pleural thickening 3. Unchanged mild cardiomegaly Electronically signed by Jewel Jaime 07-03-2024 7:55 PM
--- NOTE | 2024-07-03 20:16 | CT Scan Report ---
Exam(s): CT C SPINE EXAM: CT Cervical Spine Without Intravenous Contrast CLINICAL HISTORY: Reason for exam: Trauma. TECHNIQUE: Axial computed tomography images of the cervical spine without intravenous contrast. CTDI is 25 mGy and DLP is 1294 mGy-cm. Automated exposure control was utilized for the study. A dose lowering technique was utilized adhering to the principles of ALARA. COMPARISON: No relevant prior studies available. FINDINGS: Vertebrae: Unremarkable. No acute fracture. No traumatic subluxation. Discs/spinal canal/neural foramina: Moderate-severe disc degeneration from C3-C7. Associated multilevel uncovertebral joint degeneration. No significant central spinal canal stenosis. Varying degrees of foraminal narrowing, severe on the right at C3-C4. Soft tissues: Unremarkable. Vasculature: Carotid calcifications. Mastoid air cells: Mild right mastoid effusion. Tubes, lines and devices: Partially imaged cardiac pacer leads in the right subclavian vein. IMPRESSION: No acute findings in the cervical spine. Electronically signed by: Fred Taylor M.D. 07/03/24 20:15 PM
--- NOTE | 2024-07-03 20:18 | CT Scan Report ---
Exam(s): CT CHEST With Contrast IV Amt: 93 cc opti 320 EXAM: CT Chest With Intravenous Contrast CLINICAL HISTORY: Reason for exam: Trauma. TECHNIQUE: Axial computed tomography images of the chest with intravenous contrast. CTDI is 25 mGy and DLP is 1294 mGy-cm. Automated exposure control was utilized for the study. A dose lowering technique was utilized adhering to the principles of ALARA. CONTRAST: Patient received 93 cc opti 320 of IV contrast COMPARISON: No relevant prior studies available. FINDINGS: Lungs: Calcified granuloma right lower lobe. Near scarring or atelectasis in the left midlung. No pulmonary contusion. No airspace consolidation or mass. Pleural space: Unremarkable. No pleural effusion or pneumothorax. Chronic pleural thickening lateral left lung related to overlying chronic rib fractures. Heart: Previous sternotomy and CABG. Cardiomegaly and coronary artery atherosclerosis. No pericardial effusion. Mediastinum: Unremarkable. No mediastinal hematoma. Bones/joints: Multiple chronic left rib fractures. No acute fracture. No dislocation. Degenerative change in the visualized upper lumbar spine. Soft tissues: Unremarkable. Vasculature: Thoracic aortic atherosclerosis without traumatic aortic injury, aneurysm, or dissection. Normal caliber main pulmonary artery. Partially imaged stent graft in the abdominal aorta. Lymph nodes: Unremarkable. No enlarged lymph nodes. Upper abdomen: Left hemidiaphragm elevation. Tubes, lines and devices: Right chest wall dual-lead AICD-pacemaker. IMPRESSION: No acute findings in the chest. Electronically signed by: Fred Taylor M.D. 07/03/24 20:17 PM
--- NOTE | 2024-07-03 20:19 | CT Scan Report ---
Exam(s): CT ABDOMEN + PELVIS With Contrast IV Amt: 93 cc opti 320 EXAM: CT Abdomen and Pelvis With Intravenous Contrast CLINICAL HISTORY: Reason for exam: Trauma. TECHNIQUE: Axial computed tomography images of the abdomen and pelvis with intravenous contrast. CTDI is 25 mGy and DLP is 1294 mGy-cm. Automated exposure control was utilized for the study. A dose lowering technique was utilized adhering to the principles of ALARA. CONTRAST: Patient received 93 cc opti 320 of IV contrast COMPARISON: No relevant prior studies available. FINDINGS: Lung bases: Reported separately. ABDOMEN: Liver: No evidence of hepatic injury. Subcentimeter right hepatic lobe hypodensity, too small to characterize. Gallbladder and bile ducts: Unremarkable. No calcified stones. No ductal dilation. Pancreas: Unremarkable. No ductal dilation. No evidence of pancreatic injury. Spleen: No evidence of splenic injury. Calcified splenic granuloma. Adrenals: Unremarkable. No evidence of adrenal injury. Kidneys and ureters: Unremarkable. No hydronephrosis. No evidence of renal injury. Stomach and bowel: No evidence of bowel injury. Sigmoid diverticulosis without diverticulitis. No obstruction. PELVIS: Appendix: Normal appendix. Bladder: Unremarkable. No evidence of bladder injury. Reproductive: Unremarkable as visualized. ABDOMEN and PELVIS: Intraperitoneal space: Unremarkable. No free air, significant free fluid, or fluid collection. Bones/joints: Lumbar spondylosis. No acute fracture. No dislocation. Soft tissues: Small fat-containing inguinal hernias. Vasculature: No evidence of vascular injury. Atherosclerosis. Previous endovascular repair of infrarenal aortic aneurysm with placement of bifurcated stent graft. Excluded aortic aneurysm sac measures 4.8 cm. No convincing evidence of endoleak on this single contrast phase exam. Lymph nodes: Unremarkable. No enlarged lymph nodes. IMPRESSION: No acute traumatic findings. Electronically signed by: Fred Taylor M.D. 07/03/24 20:18 PM
[2024-07-03] MEDS: DIPHTHER/TETAN/PERTUS Vaccine (Tdap, Adol/Adult) 0.5mL IM ONE (20:53)
[2024-07-03 21:07] LABS: Appearance Urine Clear (Clear); Bacteria Urine Automated None Seen (None Seen); Bilirubin Urine Negative (Negative); Blood Urine Negative (Negative); Cast Urine Automated 0-2 /lpf (0-2); Color Urine Yellow; Epithelial Cell Urine Auto 0-2 /hpf (0-2); Glucose Urine UA 3+ (Negative); Ketones Urine Trace (Negative); Leukocyte Esterase Urine Negative (Negative); Nitrite Urine Negative (Negative); Protein Urine Trace (Negative); RBC Urine Automated 0-2 /hpf (0-2); Specific Gravity Urine > 1.045 (1.000-1.030); Urobilinogen Urine Negative (Negative); WBC Urine Automated 0-5 /hpf (0-5)
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
[2024-07-03] MEDS ORDERED: oxyCODONE HCL IR 5 MG TAB (IMMEDIATE RELEASE) PO PRN (21:41)
[2024-07-03] MEDS: MoRPHine SULFATE 4 MG/ML 1 ML CARP\\VIAL IV STA (22:06)
[2024-07-03] MEDS: ONDANSETRON INJ 2 MG/ML 2 ML VIAL IV STA (22:06)
[2024-07-03] MEDS ORDERED: NITROGLYCERIN SL 0.4 MG/TAB TAB SL PRN (22:10)
[2024-07-03] MEDS: ACETAMINOPHEN 500 MG TAB PO SCH (22:14)
[2024-07-03] MEDS: LIDOCAINE 5% 1 PATCH TD STA (22:16)
[2024-07-03] MEDS ORDERED: BACLOFEN 10 MG TAB PO PRN (22:41)
[2024-07-04] MEDS: VALSARTAN/SACUBITRIL 26/24MG TAB PO SCH (00:02)
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
[2024-07-04] MEDS: MoRPHine SULFATE 2 MG/ML CARP IV PRN (02:53)
--- OUTSIDE RECORDS SUMMARY | 2024-07-04 03:13 | External Medical Summary | Summary of Care ---
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 Name Role Phone Doreen Dillon MD Primary Care Pr ovider Reason for Referral * Precert (Diagnostic Medical) (Within 10 days (routine)) - Authorized Specialty Diagnoses / Procedures Referred By Lb rogers Referred To Contact Sleep Disorders Diagnoses At risk for central sleep apnea Sleep related choking sensation Insomnia, unspecified type Non-restorative sleep Fatigue, unspecified type Sleep apnea, unspecified type Procedures SLEEP TEST W/ TYPE 3 PORTABLE MONITOR, 4 CHANNEL; AT HOME Elinor Zuleta CRNP [address] [place] [address] Phone: tel: fax: Referral ID Status Reason Start Date Expiration Date V isits Requested Visits Authorized [id number] Authorized 06/27/2024 12/24/2024 999 [id number] Reason for Visit * Reason Comments NEW PATIENT New sleep. Anxiety k eeping him awake/wakes up feels like he cannot breath. Sleeps with head elevated -bed is electric. * Evaluate & Treat - Unlimited Visits (Within 10 days (routine)) - Authorized Specialty Diagnoses / Procedures Referred By Lb rogers Referred To Contact Sleep Medicine / Sleep Disorders Diagnoses Malaise and fatigue Jayshree Rodríguez PA-C [address] [place] [address] [place] [id number] Phone: tel: fax: Referral ID Status Reason Start Date Expiration Date Visits Requested Visits Authorized [id number] Authorized Specialty Services Required 01/16/2024 2 2 Encounter Details Date Type Department Care Team (Late st Contact Info) Description 06/27/2024 10:30 AM EST Office Visit Sleep Disorders [facility] [address] [place] [id number] Elinor Zuleta CRNP [address] [place] [address] Sleep apnea, unspecified type*; At risk for central sleep apnea; Sleep related choking sensation; Insomnia, unspecified type; Non-restorative sleep; Fatigue, unspecified type Allergies Active Allergy Reactions Criticality Noted Date Comments Erythromycin 02/24/2001 stomach pain Latex Hives 02/15/2009 Pollen 04/25/2017 documented as of this encounter (statuses as of 07/03/2024) Medications CALCIUM 1000 + D 1000-800 MG-UNIT PO TABS one pill each day Active FREDY-C PO TABS one pill each day Active Multiple Vitamins-Minerals (PRESERVISION AREDS 2+MULTI VIT) CAPS Take 1 Cap by mouth 2 times a day. Active [place]-3 Fatty Acids 1000 MG Oral Capsule (OMEGA-3) Take 1 Capsule by mouth in the morning. 11/22/19 22 Active Acetaminophen 500 MG Oral Tablet (Tylenol) Take 2 Tablets by mouth as needed. 12/09/19 22 Active Nitroglycerin 0.4 MG Sublingual Tablet Sublingual (Nitrostat) Place 1 Tablet (0.4 mg) under the tongue as needed for Pain, Chest. May repeat 3 times. If chest pain continues, call 911. 25 Tablet 11 04/14/20 22 Active Triamcinolone Acetonide 0.1 % External Cream (Aristocort)Indicati ons:Dry skin Apply topically to affected area 2 times a day. To affected area. For up to 2 weeks in a row or as needed. 45 g 2 01/06/20 23 Active Spironolactone 25 MG Oral Tablet (Aldactone)Indicatio ns:HFrEF (heart failure with reduced ejection fraction) ([facility]),HTN, goal below 140/90 One tablet by mouth daily 90 Tablet 3 05/03/20 23 Active Apixaban 5 MG Oral Tablet (Eliquis)Indications :Paroxysmal A-fib ([facility]) Take 1 Tablet by mouth in the morning and 1 Tablet before bedtime. 60 Tablet 11 07/24/19 24 Active Gabapentin 300 MG Oral Capsule (Neurontin)Indicatio ns:only takes at bedtime Take 1 Capsule by mouth at bedtime. 90 Capsule 1 08/16/19 24 Active Sertraline HCl 100 MG Oral Tablet (Zoloft) Take 1 Tablet by mouth in the morning. 10/01/19 24 Active Torsemide 20 MG Oral Tablet (Demadex)Indications :HFrEF (heart failure with reduced ejection fraction) ([facility]) TAKE 1 TABLET BY MOUTH EVERY DAY IN THE MORNING 90 Tablet 3 10/08/19 24 Active Montelukast Sodium 10 MG Oral Tablet (Singulair)Indicatio ns:Mild persistent asthma without complication Take 1 Tablet by mouth in the morning. 90 Tablet 3 10/29/19 24 Active LORazepam 0.5 MG Oral Tablet (Ativan)Indications: Current moderate episode of major depressive disorder without prior episode ([facility]) Take 1 Tablet by mouth at bedtime as needed for Anxiety or Sleep. 30 Tablet 11/06/19 24 Active Gabapentin 100 MG Oral Capsule (Neurontin)Indicatio ns:Degenerative disc disease, cervical,Chronic left-sided low back pain without sciatica Take 1 Capsule by mouth at bedtime. 90 Capsule 1 11/06/19 24 Active Albuterol Sulfate HFA 108 (90 Base) MCG/ACT Inhalation Aerosol SolutionIndications: Mild persistent asthma, unspecified whether complicated Inhale 2 Puffs by mouth every 4 hours as needed for Cough, Shortness of Breath or Wheezing. 18 g 5 11/06/19 24 Active Baclofen 10 MG Oral Tablet (Lioresal) TAKE 1 OR 2 TABS BY MOUTH A HALF HOUR BEFORE BED NEEDED FOR LOWER BACK PAIN/MUSCLE SPASMS 11/12/19 24 Active Sertraline HCl 50 MG Oral Tablet (Zoloft)Indications: Malaise and fatigue Take 1 Tablet by mouth in the morning. 90 Tablet 1 01/16/20 24 Active Entresto 24-26 MG Oral Tablet (sacubitril-valsarta n 24-26 mg per tab) TAKE 1 TABLET BY MOUTH IN THE MORNING AND BEFORE BEDTIME 180 Tablet 3 01/22/20 24 Active Amiodarone HCl 200 MG Oral Tablet (Cordarone)Indicatio ns:Paroxysmal A-fib (HCC),Ventricular tachycardia (HCC) TAKE 1 TABLET BY MOUTH EVERY DAY IN THE MORNING 90 Tablet 3 02/26/20 24 Active Metoprolol Succinate ER 50 MG Oral Tablet Extended Release 24 Hour (toPROL XL) Take 1 Tablet by mouth in the morning. 90 Tablet 1 03/19/20 24 Active Atorvastatin Calcium 80 MG Oral Tablet (Lipitor) TAKE 1 TABLET BY MOUTH EVERY DAY IN THE MORNING 90 Tablet 04/06/20 24 Active Jardiance 10 MG Oral Tablet (Empagliflozin)Indic ations:HFrEF (heart failure with reduced ejection fraction) (HCC) TAKE 1 TABLET BY MOUTH EVERY DAY IN THE MORNING 90 Tablet 04/06/20 24 Active Pantoprazole Sodium 40 MG Oral Tablet Delayed Release (Protonix)Indication s:Other acute gastritis with hemorrhage,UGIB (upper gastrointestinal bleed) Take 1 Tablet by mouth in the morning. 90 Tablet 1 04/04/20 24 Active Clopidogrel Bisulfate 75 MG Oral Tablet (pLAVix) Take 1 Tablet by mouth in the morning. 90 Tablet 2 04/04/20 24 Active Albuterol Sulfate 0.63 MG/3ML Inhalation Nebulization Solution (Accuneb)Indications :Mild persistent asthma with exacerbation Inhale 1 Vial via nebulizer every 4 hours as needed for Wheezing. 90 mL 5 04/15/20 24 Active Tadalafil 10 MG Oral Tablet (Cialis) Take 1 Tablet by mouth daily as needed for Erectile Dysfunction. prior to intercourse, no more than 1 dose in 24 hours 10 Tablet 11 04/28/20 24 Active Doxycycline Hyclate 100 MG Oral Capsule TAKE 1 CAPSULE BY MOUTH TWICE A DAY FOR 10 DAYS 05/11/19 25 Active busPIRone HCl 5 MG Oral Tablet (Buspar) Take 1 Tablet by mouth 2 times a day as needed (anxiety). 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 (HCC) 1.5 mg IJ PRN 06/03/2024 06/03/2025 Active Aflibercept (Eylea) intraviteal prefilled syringe 2 mgIndications: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 (HCC) 2 mg IZ PRN 06/03/2024 06/03/2025 Active documented as of this encounter (statuses as of 07/03/2024) Active Problems Problem Noted Date Diagnosed Date Macular degeneration 03/19/2024 Peripheral edema 03/19/2024 Diverticulosis 03/19/2024 Depression 03/19/2024 Cervical myelopathy 11/06/2023 Chronic kidney disease, stage 3b 01/15/2023 Overview: Per CKD protocol Ischemic cardiomyopathy 12/15/2022 Left leg weakness 09/19/2022 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 06/21/2022 Current moderate episode of major depressive disorder without prior episode 06/21/2022 History of cardiac arrest 06/21/2022 Paroxysmal A-fib 06/21/2022 Ventricular tachycardia 06/21/2022 HFrEF (heart failure with reduced ejection fract ion) 06/21/2022 Hx of actinic keratosis 06/01/2022 Carotid stenosis, non-symptomatic, bilateral 06/2021 Status post endovascular aneurysm repair (EVAR) 03/08/2022 History of TIA (transient ischemic attack) 03/08 PND (paroxysmal nocturnal dyspnea) 02/20/2022 Chronic left shoulder pain 02/20/2022 Presence of implantable cardioverter-defibrillat or (ICD) 02/16/2022 Exudative age-related macula r degeneration of left eye with active choroidal neovascularization 03/22/2021 Iron deficiency anemia 02/13/2021 Chronic diastolic CHF (congestive heart failure) 11/05/2020 Mild intermittent asthma without complication S/P CABG x 3 09/15/2020 Overview (09/15/2020): 1990s, also has 5 stents. Most recent stent was 3-4 years ago. S/P AAA repair 09/15/2020 Early dry stage nonexudative age-related macular degeneration of both eyes 09/15/2020 RBBB 04/18/2018 PVC (premature ventricular contraction) 08/28/19 18 Occlusion and stenosis of left vertebral artery 06/09/2017 Overview (03/19/2024): Last Assessment & Plan: Unclear if significant or related to symptomatology, to have dynamic angiogram by Dr. Teixeira as scheduled. Persistent insomnia 06/02/2015 Dyslipidemia 11/12/2014 Overview (03/19/2024): Last Assessment & Plan: Stable, on Lipitor. Degenerative disc disease, cervical 10/21/2014 HTN, goal below 140/90 08/13/2014 PVD (peripheral vascular disease) 04/02/2012 Dyslipidemia, goal LDL below 70 03/29/2012 S/P angioplasty 09/18/2006 Overview (09/18/2006): Stenting of the PDA from the left circumflex coronary artery 1. CAD 2. Angina 3. LV dysfuntion 4. Hypertension 5. Hyperlipidemia Dr Portillo [facility] 02/2005 Coronary artery disease invo lving kaw coronary artery of kaw heart without angina pectoris Infrarenal abdominal aortic aneurysm (AAA) witho ut rupture Overview (10/20/2014): 4 cm as of 08/25/12 4.3 cm as of 10/16/14 Hyperplastic colon polyp documented as of this encounter (statuses as of 07/03/2024) Resolved Problems Problem Noted Date Diagnosed Date Resolved Date Ventricular fibrillation 03/19/2024 Stage 3 chronic kidney disease 06/21/2022 06/21/2022 Chronic kidney disease, stage 3a 05/15/2022 01/18/2023 Overview: Per CKD protocol Mild persistent asthma without complication 11/05/2015 12/08/2015 Dyslipidemia, goal LDL below 100 06/02/2015 09/15/2020 Hypertension goal BP (blood pressure) < 140/80 04/15/2014 08/13/2014 Diverticulitis of colon 08/23/201203/08 Asthma, mild persistent 04/02/201209/04 HTN, goal below 130/80 03/29/201204/15 KIDNEY DZ,CHRONIC (GFR 30-59) STAGE III 11/25/2009 05/18/2022 Overview (11/25/2009): Per CKD Protocol, #1 Dyslipidemia, goal LDL below 100 04/21/2009 03/29/2012 Overview (04/21/2009): Per Lipid Taxonomy. Benign neoplasm of colon 02/04/200904/2021 Overview (02/17/2009): polyp x1, diverticulosis, hyperplastic polyp recommend f/u colonoscopy in 10 yrs ACTIVE CASE MANAGEMENT 11/18/200702/21 Benign neoplasm of colon 10/09/2006 Overview (10/13/2006): repeat colonoscopy in 10 years ADVANCE DIRECTIVE INFORMATION 08/30/2006 09/15/2020 Overview (10/04/2007): No, Advance Directive brochure offered , patient declined. No, Advance Directive brochure given to patient. 10/04/2007 kmb CLASSICAL MIGRAINE WITHOU ME NTION OF INTRACTABLE MIGRAINE 11/12/2002 09/15/2020 ASCVD 09/15/2020 OLD MYOCARDIAL INFARCT 12/04 PURE HYPERCHOLESTEROLEM 04/06 Overview (04/21/2009): Per Lipid Taxonomy. HTN, goal below 140/90 03/29 EMPYEMA W-O FISTULA 03/29/20 12 Asthma with severity to be determined 04/02/2012 Overview (08/16/2015): ICD-10 update of inactive term Other allergic rhinitis 05/1 06/2020 Overview (02/27/2017): ICD-10 update of inactive term documented as of this encounter (statuses as of 07/03/2024) Immunizations Name Administration Dates Next Due COVID-19 mRNA, LNP-s, No Pre serve, 2-Dose Series (Moderna) 03/09/2021,08/26/2020,07/23/2020 Covid-19, Mrna, Lnp-s, Pf, B ivalent, 30 Mcg, IM, 12 yrs and above (Pfizer) 01/11/2023 PPD 01/22/2019 Pneumococcal Conjugate Vacc, 13 Valent (Prevnar) 12/08/2015 Pneumococcal Conjugate Vacci ne, 7 Valent 01/31/2005 Pneumococcal Polysaccharide PPV23 (Pneumovax) 10/13/2013 Seasonal Influenza Vac., MDV , IM, 0.5 mL (Fluzone) 02/11/2014,01/31/2013,02/05/2012,02/21,03/03/2010,03/03/2009,02/19/2008 ,03/05/2007 Seasonal Influenza, High Dos e, Trivalent, PF, IM (Fluzone HD) 01/10/2024,02/01/2018,02/09/2017 Seasonal Influenza, Quadriva lent Hd (Fluzone Hd) 01/05/2023 Seasonal Influenza, Quadriva lent Hd, 65+ Yrs 01/19/2021 Seasonal Influenza, Quadriva lent, No Preserve, IM 02/23/2016,02/11/2015 Seasonal Influenza, Recombin ant, RIV4, PF, (Flublock) 02/18/2020,02/04/2019 Seasonal Influenza, Trivalen t, Adjuvanted, 65+ YRS, PF, (Fluad) 03/04/2022 TD - Tetanus/Diptheria (ADULT) 09/05/2007 TDAP (age 10 and older)(Boostrix) 03/24/2023 Zoster Vaccine Recombinant (Shingrix) 07/26/2018 ,04/02/2018 documented as of this encounter Social History Tobacco Use Types Packs/Day Years Used Date Smoking Tobacco: Never Cigarettes Smokeless Tobacco: Former Snuff Quit: 10/21/2015 Alcohol Use Standard Drinks/Week Comments Yes 0 (1 standard drink = 0.6 oz pur e alcohol) ocassional AUDIT-C Answer Date Recorded Q1: How often do you have a drink containing alc ohol? 2-4 times a month 09/15/2020 Q2: How many drinks containi ng alcohol do you have on a typical day when you are drinking? 1 or 2 09/15/2020 Q3: How often do you have si x or more drinks on one occasion? 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 file Not on file Not on file [employer] Not on file Not on file Not on file documented as of this encounter Last Filed Vital Signs Vital Sign Reading Time Taken Comments Blood Pressure 110/70 06/27/2024 10:27 AM EST Pulse 64 06/27/2024 10:27 AM EST Temperature 35.2 C (95.4 F) 06/27/2024 10:[address] Respiratory Rate 16 06/27/2024 10:27 AM EST Oxygen Saturation 99% 06/27/2024 10:27 AM EST Inhaled Oxygen Concentration - - Weight 76.2 kg (168 lb) 06/27/2024 10:27 AM EST Height 165.1 cm (5' 5") 06/27/2024 10:27 AM EST Body Mass Index 27.96 06/27/2024 10:27 AM EST documented in this encounter Progress Notes * Elinor Zuleta CRNP - 06/27/2024 10:37 AM EST [facility] Mark Batista is a 79 year old male seen today for follow-up. History of HFrEF, RBBB, s/p ICD, pacemaker dependent. Was seen for initial consultation March 2022 due to witnessed apnea, gasping arousals an abnormal overnight oximetry. Home sleep testing was ordered but not completed in the interim. Notes having high anxiety since having cardiac arrest. About 2-3 nights a week, he struggles to fall asleep notes mind racing. This has worsened. He has some fear about falling asleep and not waking up. Notes gasping arousals. In bed watching tv with HOB elevated at 8 pm. TV off around 9 pm. HOB 35 degrees when sleeping. SOLminutes, on bad nights 1-2 hours. Wakes once a night, may be awake for 1 hour. Final wake up time is 6 am. Total sleep time 6 hours. Tired on waking. No morning headaches. Usually not napping, feels worse. Weight down without effort. [place] Sleepiness Scale Question 06/27/2024 10:26 AM EST - Filed by Shaunna Vincent LPN What is the chance you will doze off in the following situation? Sitting and reading Slight chance of dozing Watching TV No chance of dozing Sitting inactive in a public place, such as a theater or meeting Moderate chance of dozing As a passenger in a car for an hour without a break No chance of dozing Lying down to rest in the afternoon when circumstances permit No chance of dozing When sitting and talking to someone No chance of dozing When sitting quietly after lunch without alcohol No chance of dozing In a car, while stopped for a few minutes in traffic No chance of dozing Score (range: 0 - 24) 3 Problem List: Patient Active Problem List Diagnosis Coronary artery disease involving kaw coronary artery of kaw heart without angina pectoris S/P angioplasty Dyslipidemia, goal LDL below 70 Infrarenal abdominal aortic aneurysm (AAA) without rupture (HCC) PVD (peripheral vascular disease) (HCC) HTN, goal below 140/90 Degenerative disc disease, cervical Hyperplastic colon polyp Persistent insomnia Mild intermittent asthma without complication S/P CABG x 3 S/P AAA repair 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 (HCC) Presence of implantable cardioverter-defibrillator (ICD) PND (paroxysmal nocturnal dyspnea) Chronic left shoulder pain Carotid stenosis, non-symptomatic, bilateral Status post endovascular aneurysm repair (EVAR) History of TIA (transient ischemic attack) Hx of actinic keratosis 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 (HCC) Current moderate episode of major depressive disorder without prior episode (HCC) History of cardiac arrest Paroxysmal A-fib (HCC) Ventricular tachycardia (HCC) HFrEF (heart failure with reduced ejection fraction) (HCC) Left leg weakness Ischemic cardiomyopathy Chronic kidney disease, stage 3b (HCC) Cervical myelopathy (HCC) Iron deficiency anemia Macular degeneration RBBB PVC (premature ventricular contraction) Peripheral edema Occlusion and stenosis of left vertebral artery Dyslipidemia Diverticulosis Depression Chronic diastolic CHF (congestive heart failure) ([facility]) Current Medications: Current Outpatient Medications Medication Sig Dispense Refill busPIRone HCl 5 MG Oral Tablet (Buspar) Take 1 Tablet by mouth 2 times a day as needed (anxiety). 60 Tablet 1 Doxycycline Hyclate 100 MG Oral Capsule TAKE 1 CAPSULE BY MOUTH TWICE A DAY FOR 10 DAYS Tadalafil 10 MG Oral Tablet (Cialis) Take 1 Tablet by mouth daily as needed for Erectile Dysfunction. prior to intercourse, no more than 1 dose in 24 hours 10 Tablet 11 Albuterol Sulfate 0.63 MG/3ML Inhalation Nebulization Solution (Accuneb) Inhale 1 Vial via nebulizer every 4 hours as needed for Wheezing. 90 mL 5 Atorvastatin Calcium 80 MG Oral Tablet (Lipitor) TAKE 1 TABLET BY MOUTH EVERY DAY IN THE MORNING 90Tablet 0 Jardiance 10 MG Oral Tablet (Empagliflozin) TAKE 1 TABLET BY MOUTH EVERY DAY IN THE MORNING 90 Tablet 0 Clopidogrel Bisulfate 75 MG Oral Tablet (pLAVix) Take 1 Tablet by mouth in the morning. 90 Tablet 2 Pantoprazole Sodium 40 MG Oral Tablet Delayed Release (Protonix) Take 1 Tablet by mouth in the morning. 90 Tablet 1 Metoprolol Succinate ER 50 MG Oral Tablet Extended Release 24 Hour (toPROL XL) Take 1 Tablet by mouth in the morning. 90 Tablet 1 Amiodarone HCl 200 MG Oral Tablet (Cordarone) TAKE 1 TABLET BY MOUTH EVERY DAY IN THE MORNING 90 Tablet 3 Entresto 24-26 MG Oral Tablet (sacubitril-valsartan 24-26 mg per tab) TAKE 1 TABLET BY MOUTH IN THEMORNING AND BEFORE BEDTIME 180 Tablet 3 Sertraline HCl 50 MG Oral Tablet (Zoloft) Take 1 Tablet by mouth in the morning. 90 Tablet 1 Baclofen 10 MG Oral Tablet (Lioresal) TAKE 1 OR 2 TABS BY MOUTH A HALF HOUR BEFORE BED NEEDED FOR LOWER BACK PAIN/MUSCLE SPASMS Albuterol Sulfate HFA 108 (90 Base) MCG/ACT Inhalation Aerosol Solution Inhale 2 Puffs by mouth every 4 hours as needed for Cough, Shortness of Breath or Wheezing. 18 g 5 Gabapentin 100 MG Oral Capsule (Neurontin) Take 1 Capsule by mouth at bedtime. 90 Capsule 1 LORazepam 0.5 MG Oral Tablet (Ativan) Take 1 Tablet by mouth at bedtime as needed for Anxiety or Sleep. 30 Tablet 0 Montelukast Sodium 10 MG Oral Tablet (Singulair) Take 1 Tablet by mouth in the morning. 90 Tablet 3 Torsemide 20 MG Oral Tablet (Demadex) TAKE 1 TABLET BY MOUTH EVERY DAY IN THE MORNING 90 Tablet 3 Sertraline HCl 100 MG Oral Tablet (Zoloft) Take 1 Tablet by mouth in the morning. Gabapentin 300 MG Oral Capsule (Neurontin) Take 1 Capsule by mouth at bedtime. 90 Capsule 1 Apixaban 5 MG Oral Tablet (Eliquis) Take 1 Tablet by mouth in the morning and 1 Tablet before bedtime. 60 Tablet 11 Spironolactone 25 MG Oral Tablet (Aldactone) One tablet by mouth daily 90 Tablet 3 Triamcinolone Acetonide 0.1 % External Cream (Aristocort) Apply topically to affected area 2 times a day. To affected area. For up to 2 weeks in a row or as needed. 45 g 2 Acetaminophen 500 MG Oral Tablet (Tylenol) Take 2 Tablets by mouth as needed. [place]-3 Fatty Acids 1000 MG Oral Capsule (OMEGA-3) Take 1 Capsule by mouth in the morning. Multiple Vitamins-Minerals (PRESERVISION AREDS 2+MULTI VIT) CAPS Take 1 Cap by mouth 2 times a day. CALCIUM 1000 + D 1000-800 MG-UNIT PO TABS one pill each day FREDY-C PO TABS one pill each day Nitroglycerin 0.4 MG Sublingual Tablet Sublingual (Nitrostat) Place 1 Tablet (0.4 mg) under the tongue as needed for Pain, Chest. May repeat 3 times. If chest pain continues, call 911. 25 Tablet 11 Current Facility-Administered Medications Medication Dose Route Frequency Provider Last Rate Last Admin Aflibercept (Eylea) intraviteal prefilled syringe 2 mg 2 mg Intravitreal PRN 2 mg at 06/03/24 0956 ROPivacaine (Naropin) inj 1.5 mg 1.5 mg Injection PRN 1.5 mg at 06/03/24 0956 bevaCIZumab (Avastin) inj 1.25 mg 1.25 mg Intravitreal PRN 1.25 mg at 03/05/24 1221 ROPivacaine (Naropin) inj 1.5 mg 1.5 mg Injection PRN 1.5 mg at 03/05/24 1149 Physical Exam: BP 110/70 | Pulse 64 | Temp 35.2 C (95.4 F) (Tympanic) | Resp 16 | Ht 1.651 m (5' 5") | Wt 76.2kg (168 lb) | SpO2 99% | BMI 27.96 kg/m | BSA 1.87 m Constitutional: Alert, oriented and in no acute distress Skin: No abnormal mask markings on face Cardio: Regular rate and rhythm Chest: Normal respiratory effort at rest Neuro: Fluent speech Psych: Appropriate mood and affect. Assessment & Plan: Encounter Diagnoses Name Primary? Sleep apnea, unspecified type Yes At risk for central sleep apnea Sleep related choking sensation Insomnia, unspecified type Non-restorative sleep Fatigue, unspecified type -in lab PSG advised given risk for CSA in the setting of HFrEF and limitation of HSAT to assess CSA, patient declined but would consider if HSAT is inconclusive -continue to avoid engaging in activities that require full alertness when feeling sleepy or tired Follow-up with Sleep Medicine pending sleep study results YENY [facility] I spent a total of 30-39 minutes (exact time 30 mins) on the date of service in preparation, delivery, and documentation of the care provided to Mark Batista excluding any time spent in the performance of separately billed services. documented in this encounter Nursing Notes * Shaunna Vincent LPN - 06/27/2024 10:29 AM EST Chief Complaint Patient presents with NEW PATIENT New sleep. Anxiety keeping him awake/wakes up feels like he cannot breath. Sleeps with head elevated -bed is electric. Travel Screening Question 06/27/2024 10:15 AM EST - Filed by Patient Do you have any of the following new or worsening symptoms? None of these Have you recently been in contact with someone who was sick? No / Unsure [place] Sleepiness Scale Question 06/27/2024 10:26 AM EST - Filed by Shaunna Vincent LPN What is the chance you will doze off in the following situation? Sitting and reading Slight chance of dozing Watching TV No chance of dozing Sitting inactive in a public place, such as a theater or meeting Moderate chance of dozing As a passenger in a car for an hour without a break No chance of dozing Lying down to rest in the afternoon when circumstances permit No chance of dozing When sitting and talking to someone No chance of dozing When sitting quietly after lunch without alcohol No chance of dozing In a car, while stopped for a few minutes in traffic No chance of dozing Score (range: 0 - 24) 3 Neck: 13". documented in this encounter Plan of Treatment Upcoming Encounters Date Type Department Care Team (Late st Contact Info) Description 07/07/2024 1:00 PM EST [facility] Tatyana Mcghee [address] [place] [id number] [facility] Tatyana [address] [place] [id number] 07/28/2024 11:20 AM EDT Office [address] [phone] Doreen Dillon MD [address] [place] [address] [place] [phone] 08/26/2024 11:15 AM EDT Office Visit Ophthalmology, [facility] [address] [place] [id number] Jorge Alberto Ann DO [address] [place] [address] Scheduled Orders Name Type Priority Associated Diagnoses Orde r Schedule SLEEP TEST W/ TYPE 3 PORTABLE MONITOR, 4 CHANNEL; AT HOME Procedures Routine At risk for central sleep apnea Sleep related choking sensation Insomnia, unspecified type Non-restorative sleep Fatigue, unspecified type Sleep apnea, unspecified type Ordered: 06/27/2024 Health Maintenance Due Date Last Done Comments Adult Wellness Visit 2013 Depression Monitoring 09/20/2023 09/19/2022 CKD PHOS USE SMARTSET 29653 01/06/2024 09/0 05/2022, 09/19/2022, 09/21/2021, Additional history exists COVID-19 Vaccine ( season) 2024 01/11/2023, 09/13/2021, 03/09/2021, Additional history exists Albumin/Creatinine Ratio 11/05/2024 024, 09/19/2022, 09/21/2021, Additional history exists GFR 11/08/2024 05/11/2024, 06/07, 05/10/2023, Additional history exists CKD HGB USE SMARTSET 30771 05/11/202505/11, 06/21/2023, 01/19/2023, Additional history exists Colonoscopy 12/25/2025 12/25/2020, 11/2014, 02/20/2013, Additional history exists DTap/Tdap Vaccines (2 - Td or Tdap) 03/24/2033 03/24/2023, 09/05/2007 Pneumococcal Vaccine: 50+ Years Completed 12/08/2015, 10/13/2013, 08/04/1996 Zoster Vaccines Completed 07/26/2018, 04/02/2018 RETIRED - COLONOSCOPY-EVERY 5 YRS AGES 18-100 Discontinued 12/25/2020, 04/12/2015, 02/20/2013, Additional history exists Influenza Vaccine (FLU shot) Completed 01/10/2024, 01/05/2023, 03/04/2022, Additional history exists HPV (Gardasil) Vaccine Aged Out No lo nger eligible based on patient's age to complete this topic Hepatitis B Vaccine Aged Out No longe r eligible based on patient's age to complete this topic MENINGOCOCCAL (MENACTRA/MENVEO) Aged Out No longer eligible based on patient's age to complete this topic Meningitis B Vaccine (Bexsero/Trumemba) Aged Out No longer eligible based on patient's age to complete this topic documented as of this encounter Medical Devices Implanted Type Area Anesthesiology Faculty Device Identifier Shelf Expiration Date Model / Serial / Lot Lens Intraoc 18.0 - [id number] - [id number] Implanted:Qty: 1 on 07/04/2018 by Conner Davenport MD at [facility] Right: Eye [employer] 12/04/2022 [id number] / [id number] / [id number] Lens Intraoc 19.0 - [id number] - [id number] Implanted:Qty: 1 on 07/16/2018 by Conner Davenport MD at OR [facility] Left: Eye [employer] 10/04/2022 [id number] / [id number] / Suture Papillion, Biocomposite Corkscrew Ft Implanted:Qty: 1 on 11/17/2020 by Mark Reilly DO at [facility] Right: Shoulder [employer] 07/05/2023 [id number] / / [id number] Description:Double Loaded wi th two 1.3 mm Suture tape Biocomposite Swivelock Suture Papillion Implanted:Qty: 1 on 11/17/2020 by Mark Reilly DO at [facility] Right: Shoulder [employer] 01/04/2022 [id number] -2 / / [id number] Description:Double Loaded wi th PEEK Eyelet and two #2 TigerTail Sutures Biocomposite Knotless Swivelock Papillion Implanted:Qty: 1 on 11/17/2020 by Mark Reilly DO at [facility] Right: Shoulder [employer] 07/04/2024 [id number] CTT / / [id number] Description:With White/Black TigerTape Loop and Blue #2 Suture Biocompostie Swivelock Suture Papillion Implanted:Qty: 1 on 11/17/2020 by Mark Reilly DO at [facility] Right: Shoulder [employer] 05/06/2022 [id number] -[id number] / / [id number] Description:Double Loaded wi th PEEK Eyelet and two #2 TigerTail Sutures documented as of this encounter Visit Diagnoses Diagnosis Sleep apnea, unspecified type- Primary At risk for central sleep apnea Sleep related choking sensation Other symptoms involving head and neck Insomnia, unspecified type Non-restorative sleep Other sleep disturbances Fatigue, unspecified type documented in this encounter Care Teams Vehicle Fuel Systems Converter Relationship Specialty Start Date End Date Doreen Dillon MD [address] [place] [address] [place] [phone] PCP - General Family Medicine 04/28/24 documented as of this encounter
[2024-07-04 05:10] LABS: Basophils # (auto) 0.04 K/uL (0.00-0.20); Basophils % (auto) 0.4 %; Eosinophils # (auto) 0.24 K/uL (0.00-0.50); Eosinophils % (auto) 2.7 %; Hematocrit (blood only) 34.6 % (42.0-52.0); Hemoglobin 11.8 g/dl (14.0-18.0); Immature Granulocytes # (auto) 0.03 K/uL (0.01-0.20); Immature Granulocytes % (auto) 0.3 %; Lymphocytes # (auto) 1.44 K/uL (1.20-3.40); Lymphocytes % (auto) 15.9 %; Mean Corpuscular Hemoglobin 29.1 pg (25.0-34.0); Mean Corpuscular Hgb Conc 34.1 g/dL (32.0-36.0); Mean Corpuscular Volume 85.2 fL (80.0-100.0); Mean Platelet Volume 10.6 fL (9.4-12.4); Monocytes # (auto) 0.97 K/uL (0.11-0.59); Monocytes % (auto) 10.7 %; Neutrophils # (auto) 6.31 K/uL (1.40-6.50); Platelet Count 225 K/uL (130-400); RDW Coefficient of Variation 14.8 % (11.5-14.5); RDW Standard Deviation 45.7 fL (36.4-46.3); Red Blood Count 4.06 M/uL (4.70-6.10); White Blood Count 9.03 K/ul (4.8-10.8)
[2024-07-04 05:27] LABS: BUN Creatinine Ratio 15.5 (10-20); Calcium 8.1 mg/dl (8.6-10.3); Creatinine Clr Calc Pharmacy 45.4 ml/min; Potassium 3.7 mmol/L (3.5-5.1)
[2024-07-04] MEDS: ATORVASTATIN 40 MG TAB PO SCH (08:50)
[2024-07-04] MEDS: CLOPIDOGREL BISULFATE 75 MG TAB PO SCH (08:50)
[2024-07-04] MEDS: SERTRALINE HCL 100 MG TABLET PO SCH (08:50)
[2024-07-04] MEDS: METOPROLOL SUCC 50MG EXT REL TAB PO SCH (08:50)
[2024-07-04] MEDS: TORSEMIDE 20 MG TAB PO SCH (08:50)
[2024-07-04] MEDS: SERTRALINE HCL 50 MG TABLET PO SCH (08:51)
[2024-07-04] MEDS: CALCIUM 600MG + VIT D 400 IU TAB PO SCH (08:51)
[2024-07-04] MEDS: CEROVITE ADV FORMULA TAB PO SCH (08:51)
[2024-07-04] MEDS: PANTOprazole 40 MG TAB PO SCH (08:51)
[2024-07-04] MEDS: AMIODARONE 200 MG TAB PO SCH (08:51)
[2024-07-04] MEDS: MONTELUKAST SODIUM 10 MG TABLET PO SCH (08:51)
[2024-07-04] MEDS: SPIRONOLACTONE 12.5 MG TAB PO SCH (08:52)
[2024-07-04] MEDS: EMPAGLIFLOZIN 10 MG TAB PO SCH (08:52)
[2024-07-04] MEDS: busPIRone 5 MG TAB PO PRN (08:52)
[2024-07-04 11:52] VITALS: BP 146/75; RESP 16; O2SAT 93
[2024-07-04 13:09] VITALS: PULSE 76
--- NOTE | 2024-07-04 16:34 | Discharge Summary ---
Discharge Summary Date of Service July 04, 2024 Principal Dx & Hospital Course #1 = Principal Diagnosis (1) Fall: (2) Head injury, closed, with brief LOC: (3) Ischemic cardiomyopathy with implantable cardioverter-defibrillator (ICD): (4) CKD (chronic kidney disease), stage III: (5) Mild intermittent asthma: (6) HTN (hypertension): (7) Dyslipidemia: (8) Coronary artery disease: (9) On anticoagulant therapy: Plan This is a 79 y/o male with PMH of CAD s/p CABG x3, multiple cardiac stents, cardiac arrest with ROSC after receiving bystander CPR and ACLS protocol, PPM placement October 2021, paroxysmal atrial fib/flutter, ischemic CMP, chronic systolic CHF, AAA s/p endovascular repair, PVD, CKD3, HTN, dyslipidemia, and other history as outlined below who presented to the ED today after a fall at home. Pt was a trauma alert upon arrival to the ED - [place] scan CT without acute fractures or evidence of intracranial bleeding. In the ED, pt's daughter spoke to the ED nurse and family independence case manager with concerns about pt's safety at home due to pt's with dementia and episodes of anger and paranoia. However, pt denies that any safety concerns other than the reportedly icy parking lot at their apartment. He was referred for admission due to possible syncopal event, recurrent falls, and for pain control related to soft tissue injuries from the fall (hip pain, back pain). Of note, pt did hit his head with today's fall and is on chronic anticoagulation. #Fall #Head injury with questionable LOC #Left hip pain - imaging negative for fracture - Admit to med telemetry - Neuro checks overnight - if any neurologic changes, consider repeat imaging of head to r/o bleed -patient feels back to baseline -PT/OT recommending home #CAD s/p CABG, multiple stents - last nitro use >1 month ago, no acute ischemic changes on initial EKG #Chronic systolic HF - Continue outpatient GDMT #Paroxysmal atrial fib/flutter #On chronic AC - restart 1 day after discharge - Continue outpatient amiodarone, beta-bernice #CKD3 - creatinine appears around baseline - BMP in the AM #Hypertension - Chronic, stable - continue home meds #Mild intermittent asthma - Chronic, stable - continue monteleukast #Dyslipidemia - Chronic, stable - continue statin Of note, asked patient if he felt safe at home and he states he does. I asked if he had a plan if he did not feel safe at home, and he states that he does feel safe and denies any other concerns. Did not want to discuss further. Notes For Next Care Provider This is a 79 y/o male with PMH of CAD s/p CABG x3, multiple cardiac stents, cardiac arrest with ROSC after receiving bystander CPR and ACLS protocol, PPM placement October 2021, paroxysmal atrial fib/flutter, ischemic CMP, chronic systolic CHF, AAA s/p endovascular repair, PVD, CKD3, HTN, dyslipidemia, and other history as outlined below who presented to the ED today after a fall at home. States he is uncomfortable in ED, admitted to medicine for pain control. On medicine, PT/OT consulted, recommended homegoing. Extensive imaging unrevealing, patient feels better today. On 07/04/2024 patient medically stable for discharge home. Medication Changes From Visit -none Admission HPI Per Admitting Provider This is a 79 y/o male with PMH of CAD s/p CABG x3, multiple cardiac stents, cardiac arrest with ROSC after receiving bystander CPR and ACLS protocol, PPM placement October 2021, paroxysmal atrial fib/flutter, ischemic CMP, chronic systolic CHF, AAA s/p endovascular repair, PVD, CKD3, HTN, dyslipidemia, and other history as outlined below who presented to the ED today after a fall at home. Of note, pt was seen in the ED on 07/01/24 for a fall due to a slip on ice with resultant right knee pain but negative imaging. Pt reports that he was going to get in his car this evening when he again slipped on a patch of ice, tried to stop his fall unsuccessfully by grabbing at the car door, and landed on his left hip and hit the left side of his head. 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 He estimates 2-3 minutes of time he doesn't remember. He remembers driving to the restaurant to get the food, coming home, and then his reportedly found him in pain on the bathroom floor so EMS was called. His most severe pain at present is in his head and left hip but is also sore in his lower back and his left shoulder. His knee pain from the fall earlier this week is mostly resolved. He had some nausea and dry heaves initially but these have improved since he was given Zofran. He is feeling dizzy intermittently this evening since the fall but denies chest pain, palpitations, wheezing, vision changes. He last used nitro for chest pain 1-2 months ago - pain was exertional and resolved with nitro use. None recently. His ICD has not fired to his knowledge since shortly after it was placed in 2021. ECHO 01/19/23 - LVEF 30-35%, normal wall motion and wall thickness, no regional wall motion abnormalities; mild MR, mild AoS, mild TR; 3.8 cm aortic aneurysm; RVSP 30 mm Hg, normal cavity size, normal systolic function. Discharge Exam Gen: A&O 3 NAD HEENT: NCAT, EOMI, not icteric. External ears normal. No rhinorrhea. Moist mucous membranes., head abrasion noted Neck: Supple, full range of motion, no observable masses, No meningeal sign. Lungs: No Respiratory distress. CV: RRR, no edema. Abdomen: Soft, nondistended, No rebound tenderness. MSK: No joint swelling, no redness. Skin: No rashes, petechiae, lesions. Normal color per patient. Neuro: Normal Gait, Grossly intact. Psych: Appropriate for situation. Updated Medication List Medication Instructions Recorded Confirmed Type calcium 600 mg (as 1 cap PO QAM 11/21/21 07/03/24 History carbonate)-vitamin D3 10 mcg (400 unit) capsule clopidogrel 75 mg tablet (Plavix) 75 mg PO QAM 11/21/21 07/03/24 History montelukast 10 mg tablet 10 mg PO QAM 11/21/21 07/03/24 History (Singulair) acetaminophen 500 mg tablet 1,000 mg PO Q6H PRN Pain 12/08/21 07/03/24 History (Tylenol Extra Strength) albuterol sulfate 90 mcg/actuation 2 inh inhalation QID PRN sob 12/27/22 07/03/24 History aerosol inhaler amiodarone 200 mg tablet 200 mg PO QAM 12/27/22 07/03/24 History apixaban 5 mg tablet (Eliquis) 5 mg PO BID 12/27/22 07/03/24 History albuterol sulfate 0.63 mg/3 mL 0.63 mg continuous nebulization Q4 12/31/22 07/03/24 History solution for nebulization PRN Wheezing atorvastatin 80 mg tablet 80 mg PO DAILY 12/31/22 07/03/24 History nitroglycerin 0.4 mg sublingual 0.4 mg sublingual UD PRN Chest Pain 12/31/22 07/03/24 History tablet sertraline 50 mg tablet 50 mg PO QAM 12/31/22 07/03/24 History spironolactone 25 mg tablet 12.5 mg PO QAM 12/31/22 07/03/24 History vit C 250 mg-vit E 90 mg-zinc 40 1 tab PO AMPM 12/31/22 07/03/24 History mg-copper 1 [id number] capsule (PreserVision AREDS-2) metoprolol succinate 50 mg 50 mg PO QAM #90 tabs 12/13/23 07/03/24 Rx tablet,extended release 24 hr baclofen 10 mg tablet 10 - 20 mg PO HS PRN Muscle Spasm 07/03/24 07/03/24 History buspirone 5 mg tablet 5 mg PO DIRECTED PRN anxiety 07/03/24 07/03/24 History empagliflozin 10 mg tablet 10 mg PO DAILY 07/03/24 07/03/24 History (Jardiance) pantoprazole 40 mg tablet,delayed 40 mg PO DAILY 07/03/24 07/03/24 History release sacubitril 24 mg-valsartan 26 mg 1 tab PO BID 07/03/24 07/03/24 History tablet (Entresto) sertraline 100 mg tablet 100 mg PO DAILY 07/03/24 07/03/24 History tadalafil 10 mg tablet 10 mg PO DIRECTED 07/03/24 07/03/24 History torsemide 20 mg tablet 20 mg PO DAILY 07/03/24 07/03/24 History Hospital Stay Data Consultations 07/03/24 20:47 ED Decision to Admit Stat Diagnostic Imagining Performed 07/03/24 19:08 CT abd pelvis IV con only Stat CT cervical spine wo con Stat CT chest diagnostic w con Stat CT head/brain wo con Stat Pending Results Patient Have Any Pending Studies at Discharge: No Discharge Instructions Given to Patient (Per Discharging Provider) 1. Please follow up with PCP and cardiology. 2. Restart blood thinner on 07/05. Total Time Total Time Spent Total Time Spent (In Minutes): I spent a total of 35 minutes in direct patient care, including [id number] time with the patient and/or family, reviewing medical records, ordering and reviewing diagnostic tests, and coordinating care with other healthcare providers. This time includes: history taking, physical examination, medical decision making, counseling, ECG interpretation, imaging interpretation, lab interpretation, orders, and education, excluding time spent in the performance of separately billed services.
--- NOTE | 2024-07-04 22:28 | Electrocardiogram Report ---
Test Reason : Blood Pressure : */* mmHG Vent. Rate : 61 BPM Atrial Rate : * BPM P-R Int : * ms QRS Dur : 152 ms QT Int : 520 ms P-R-T Axes : * 249 31 degrees QTcB Int : 523 ms Atrial-paced rhythm Right bundle branch block Abnormal ECG When compared with ECG of 21-Jun-2023 14:21, Premature ventricular complexes are no longer Present Confirmed by Gumaro Linton ([id number]) on 07/04/2024 10:28:06 PM Referred By: REFERRED SELF Confirmed By: Guamro Linton
--- NOTE | 2024-07-04 22:29 | Electrocardiogram Report ---
Test Reason : Blood Pressure : */* mmHG Vent. Rate : 61 BPM Atrial Rate : 61 BPM P-R Int : 234 ms QRS Dur : 168 ms QT Int : 524 ms P-R-T Axes : 83 267 17 degrees QTcB Int : 527 ms Atrial-paced rhythm with prolonged AV conduction with occasional Premature ventricular complexes Right bundle branch block Abnormal ECG When compared with ECG of 03-Jul-2024 19:21, Premature ventricular complexes are now Present Confirmed by Gumaro Linton ([id number]) on 07/04/2024 10:28:55 PM Referred By: REFERRED SELF Confirmed By: Gumaro Linton
== END 2024-07-04 13:48 | disposition home or self-care (01) | DRG 86 ==
LOC: ED 19:03 → SUATTDRO 21:39 → EDINP 21:39 → INTOOBSV 21:39 → 2N 22:10

== ENCOUNTER 2024-09-23 16:41 | Inpatient (IN) ==
[2024-09-23] MEDS: OPTIRAY 320 125ml IV ONE (17:07)
[2024-09-23 17:12] LABS: Basophils # (auto) 0.04 K/uL (0.00-0.20); Basophils % (auto) 0.4 %; Eosinophils # (auto) 0.13 K/uL (0.00-0.50); Eosinophils % (auto) 1.2 %; Hematocrit (blood only) 47.4 % (42.0-52.0); Hemoglobin 16.1 g/dl (14.0-18.0); Immature Granulocytes # (auto) 0.03 K/uL (0.01-0.20); Immature Granulocytes % (auto) 0.3 %; Lymphocytes # (auto) 2.26 K/uL (1.20-3.40); Lymphocytes % (auto) 20.8 %; Mean Corpuscular Hemoglobin 29.5 pg (25.0-34.0); Mean Platelet Volume 10.7 fL (9.4-12.4); Monocytes # (auto) 1.01 K/uL (0.11-0.59); Monocytes % (auto) 9.3 %; Neutrophils # (auto) 7.41 K/uL (1.40-6.50); Platelet Count 188 K/uL (130-400); RDW Coefficient of Variation 14.4 % (11.5-14.5); RDW Standard Deviation 45.9 fL (36.4-46.3); Red Blood Count 5.45 M/uL (4.70-6.10); White Blood Count 10.88 K/ul (4.8-10.8)
--- NOTE | 2024-09-23 17:17 | Emergency Department Note ---
Impression & Plan Stroke-like symptoms, Chest wall contusion ED Provider Note NAME: AILIN SORIANO AGE: 79 SEX: M : 1945 ARRIVES VIA: Walk-In INFORMANT: Patient, the patient's ED PROVIDER(S): Paulino Phelps DO CHIEF COMPLAINT: Strokelike symptoms HPI: The patient is a 79-year-old male who presented to the emergency department for strokelike symptoms. The patient was at a store shopping when he had an acute onset of a left-sided headache. He also noticed he was having difficulty standing. He states he felt generalized weakness. He has a history of stroke and atrial fibrillation. The patient does take Eliquis. He states has been compliant with his outpatient medication. His significant other brought him to the emergency department immediately. The patient denies having any nausea or vomiting the patient denies having any shortness of breath. He does state that he had a fall recently where he struck his chest. He has had pain in that area ever since the fall but no new pain. ROS: See above HPI for pertinent positives & negatives. A total of 10 systems reviewed and were otherwise negative. PAST MEDICAL HISTORY: See Below PAST SURGICAL HISTORY: See Below FAMILY HISTORY: See Below SOCIAL HISTORY: See Below HOME MEDICATIONS: See Below ALLERGIES: See Below VITALS: See Below PHYSICAL EXAMINATION: GENERAL: Patient is awake alert in no acute distress patient is resting comfortably and showing no signs of anxiety EYES: The conjunctivae are clear. The pupils are round and reactive. EARS, NOSE, MOUTH AND THROAT: The nose is without any evidence of any deformity. Mucous membranes are moist. Tongue is midline. NECK: The neck is nontender and supple. RESPIRATORY: Normal respiratory effort is noted there is no evidence of wheezing rhonchi or rales CARDIOVASCULAR: Irregular heart sounds are noted to auscultation. There is no systolic murmur noted. GASTROINTESTINAL: The abdomen is soft. Left lower quadrant tenderness was noted to palpation. There is no guarding rigidity. MUSCULOSKELETAL/EXTREMITIES: There is no evidence of gross deformity full range of motion is noted in the hips and shoulders. SKIN: There is no obvious evidence of any rash. There are no petechiae, pallor or cyanosis noted. There is ecchymosis noted over the anterior chest wall. This was age-indeterminate and tender to palpation. NEUROLOGIC: Patient is awake alert and oriented x3. Strength was clear. There was a right sided facial droop with forehead sparing. 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 He is able to hold each leg off of the bed but the left leg falls to the bed and under 5 seconds. MEDICAL DECISION MAKING: The patient is a 79-year-old male who presented to the emergency department through triage for strokelike symptoms. He was made a stroke alert in triage. The patient was not a candidate for TNK as he takes Eliquis and has been up-to-date with his medications. He took his most recent dose this morning. The patient presented with weakness in his left arm as well as a right facial droop. He had some left-sided leg weakness as well but he states this is not new. The patient was discussed with telestroke neurology at [facility]. I also discussed the patient's condition with the on-call [facility] hospitalist. I discussed the patient's laboratory and radiographic studies with him. No signs of large vessel occlusion or obvious. At this time the patient does appear to have strokelike symptoms. He is likely a good candidate for inpatient management and further workup. I discussed this with the patient and he was agreeable. His headache was improved in the emergency department. He was reevaluated multiple times. Triage Nursing notes reviewed. Prior medical records reviewed Vital Signs: reviewed and remarkable for no significant abnormalities Differential diagnosis: Infection, dehydration, metabolic abnormality, hypo/hyperglycemia, electrolyte disturbance, anemia, hypoxia, cardiac sources, intracerebral event, toxicologic, neurologic, as well as other pathologies. ER treatment provided: See below Diagnostics interpreted by me: ECG: EKG was obtained in the emergency department. My interpretation is atrial paced rhythm at 68 bpm. No [place] beats were noted. Right bundle-branch block pattern was favored. This was compared to a tracing from July 04, 2024. No changes were noted. Cardiac Monitoring: An order was placed for continuous cardiac monitoring. The monitor shows a rate of 65 bpm with sinus rhythm. Laboratory studies: As stated above and show below. Imaging studies: See below. Radiographic imaging was reviewed by myself Consultation(s): I discussed this case with Dr. Moreno who is on-call for telestroke neurology at [facility] I discussed this case with Dr. Brown who is on-call for the [place] hospitalist group. ED COURSE: Procedures: none Critical Care: I have personally spent greater than 35 minutes of critical care time in the direct management of this patient. This includes bedside care, interpretation of diagnostic studies, and testing, discussion with consultants, patient, and family members, and other required patient management activities. This 35 minutes is in excess of all separately billable procedures. Past Med/Surg History Problem List (Updated 09/23/24 @ 20:07 by Paulino Phelps DO) Chest wall contusion (Acute) Stroke-like symptoms (Acute) Head injury, closed, with brief LOC (Acute) Fall Ischemic cardiomyopathy with implantable cardioverter-defibrillator (ICD) Heart failure, systolic, with acute decompensation Medical History Empyema lung as a teenager, treated at [facility] Degenerative disc disease Chronic back pain Kidney stones no surgery On anticoagulant therapy Ischemic cardiomyopathy Macular degeneration History of inferior wall myocardial infarction 1993 Ventricular fibrillation cardiac arrest & defibrillator 10/24/21 Cardiac arrest 10/24/2021 -> defibrillator placed --> follows with Dr Bernal Surgical History History of bronchoscopy as a teenager r/t empyema History of cardiac radiofrequency ablation a.fib ~2016/2017 at [facility] Status post implantation of automatic cardioverter/defibrillator (AICD) placed at [facility] 10/2021 d/t cardiac arrest History of cardiac catheterization x6 History of arthroscopy of shoulder right shoulder History of cataract surgery bilateral S/P AAA (abdominal aortic aneurysm) repair [facility] ~2012. History of heart artery stent x 4 (last stent placed by Dr Cabrera in [facility] ~2014 or earlier) History of coronary artery bypass graft x 3 2007 - [place] Family History Father AAA (abdominal aortic aneurysm) Heart disease Mother Breast cancer Other Hypertension No family history of adverse response to anesthesia Social History Smoking Status: Never smoker Tobacco Type: Smokeless Tobacco (Dip or Chew) Second Hand Exposure: No; Do You Dip or Chew Tobacco: No (but former use (snuff) - quit in 2016); Hx Alcohol Use: Yes Alcohol type: beer Hx Substance Use: No Preferred Language: Luxembourger Communication Ability: Effective Chief Digital Media Officer Required: No Beliefs That Will Affect Care: None Current Living Situation: Spouse Current Living Situation Comment: apartment, accessible elevators Feels Safe at Home: Yes Assistive Devices: Cane Allergies Allergies Allergy/AdvReac Type Severity Reaction Status Date / Time latex Allergy Intermediate Hives Verified 09/23/24 17:33 pollen extracts Allergy Intermediate itchy Verified 09/23/24 17:33 eyes, sneeze erythromycin base AdvReac Severe STOMACH Verified 09/23/24 17:33 PAIN Home Meds Home Medications Medication Instructions Recorded Confirmed clopidogrel 75 mg tablet (Plavix) 75 mg PO QAM 11/21/21 09/23/24 montelukast 10 mg tablet 10 mg PO QAM 11/21/21 09/23/24 (Singulair) acetaminophen 500 mg tablet 1,000 mg PO DIRECTED PRN Pain 12/08/21 09/23/24 (Tylenol Extra Strength) albuterol sulfate 90 mcg/actuation 2 inh inhalation Q4H PRN SHORT OF 12/27/22 09/23/24 aerosol inhaler BREATH/COUGH/WHEEZE amiodarone 200 mg tablet 200 mg PO QAM 12/27/22 09/23/24 apixaban 5 mg tablet (Eliquis) 5 mg PO BID 12/27/22 09/23/24 albuterol sulfate 0.63 mg/3 mL 0.63 mg continuous nebulization Q4 12/31/22 09/23/24 solution for nebulization PRN Wheezing atorvastatin 80 mg tablet 80 mg PO DAILY 12/31/22 09/23/24 sertraline 50 mg tablet 50 mg PO QAM 12/31/22 09/23/24 spironolactone 25 mg tablet 25 mg PO QAM 12/31/22 09/23/24 vit C 250 mg-vit E 90 mg-zinc 40 1 tab PO AMPM 12/31/22 09/23/24 mg-copper 1 [id number] capsule (PreserVision AREDS-2) baclofen 10 mg tablet 10 - 20 mg PO HS PRN Muscle Spasm 07/03/24 09/23/24 buspirone 5 mg tablet 5 mg PO BID PRN anxiety 07/03/24 09/23/24 empagliflozin 10 mg tablet 10 mg PO DAILY 07/03/24 09/23/24 (Jardiance) pantoprazole 40 mg tablet,delayed 40 mg PO DAILY 07/03/24 09/23/24 release sacubitril 24 mg-valsartan 26 mg 1 tab PO BID 07/03/24 09/23/24 tablet (Entresto) sertraline 100 mg tablet 100 mg PO DAILY 07/03/24 09/23/24 tadalafil 10 mg tablet 10 mg PO DIRECTED PRN Erectile 07/03/24 09/23/24 Dysfunction torsemide 20 mg tablet 20 mg PO DAILY 07/03/24 09/23/24 ascorbate calcium (vitamin C) 500 500 mg PO DAILY 09/23/24 09/23/24 mg tablet calcium 500 mg (as 2 tab PO DAILY 09/23/24 09/23/24 carbonate)-vitamin D3 10 mcg (400 unit) tablet (Calcium 500 With D) ferrous sulfate 325 mg (65 mg 325 mg PO Q OTHER DAY 09/23/24 09/23/24 iron) tablet hydrocodone 5 mg-acetaminophen 325 1 tab PO Q6H PRN Pain, Severe 09/23/24 09/23/24 mg tablet triamcinolone acetonide 0.1 % 1 applic topical BID PRN SKIN 09/23/24 09/23/24 topical cream IRRITATIONS Previous Rx's Medication Instructions Recorded metoprolol succinate 50 mg 50 mg PO QAM #90 tabs 12/13/23 tablet,extended release 24 hr Results & Data (ED) Vital Signs Vital Signs - 24 hr 09/23/24 16:42 09/23/24 16:44 09/23/24 16:49 Temperature 36.6 C Temperature Source Temporal Artery Scan Pulse Rate 66 Pulse Rate [Apical] 72 62 Pulse Rate from SpO2 Sensor Respiratory Rate 18 18 18 Respiratory Effort / Characteristics Non-Labored Spontaneous Respiratory Depth Normal Blood Pressure 135/84 Blood Pressure [Left Arm] 150/77 H Blood Pressure Mean 101 Blood Pressure Mean [Left Arm] 101 Blood Pressure Position Sitting Pulse Oximetry 99 100 Oxygen Delivery Method Room Air Sepsis Recent Fever Within 48 Hours No Sepsis New/Unexplained Change in Mental Status No Sepsis Action Taken by Nursing No Action Required 09/23/24 17:18 09/23/24 18:03 09/23/24 18:15 Temperature Temperature Source Pulse Rate 64 77 Pulse Rate [Apical] 69 Pulse Rate from SpO2 Sensor 77 Respiratory Rate 18 19 Respiratory Effort / Characteristics Respiratory Depth Blood Pressure 150/86 H Blood Pressure [Left Arm] 140/77 Blood Pressure Mean 107 Blood Pressure Mean [Left Arm] 98 Blood Pressure Position Pulse Oximetry 95 98 Oxygen Delivery Method Sepsis Recent Fever Within 48 Hours Sepsis New/Unexplained Change in Mental Status Sepsis Action Taken by Nursing 09/23/24 19:12 09/23/24 19:30 Temperature Temperature Source Pulse Rate 60 65 Pulse Rate [Apical] Pulse Rate from SpO2 Sensor 60 62 Respiratory Rate 16 16 Respiratory Effort / Characteristics Respiratory Depth Blood Pressure 117/59 L 130/62 Blood Pressure [Left Arm] Blood Pressure Mean 78 90 Blood Pressure Mean [Left Arm] Blood Pressure Position Pulse Oximetry 98 97 Oxygen Delivery Method Room Air Room Air Sepsis Recent Fever Within 48 Hours Sepsis New/Unexplained Change in Mental Status Sepsis Action Taken by Intermediate Medications Current Medication List: was personally reviewed by me Laboratory Data Attestation: I reviewed the patient's lab results. 09/23/24 17:01 09/23/24 17:17 Lab Results 09/23/24 09/23/24 09/23/24 Range/Units 16:53 17:01 17:17 WBC 10.88 H (4.8-10.8) K/ul RBC 5.45 (4.70-6.10) M/uL Hgb 16.1 (14.0-18.0) g/dl POC Hgb (14.0-18.0) g/dl Hct 47.4 (42.0-52.0) % POC Hct (42-52) % MCV 87.0 (80.0-100.0) fL MCH 29.5 (25.0-34.0) pg MCHC 34.0 (32.0-36.0) g/dL RDW Std Deviation 45.9 (36.4-46.3) fL RDW Coeff of Ed 14.4 (11.5-14.5) % Plt Count 188 (130-400) K/uL MPV 10.7 (9.4-12.4) fL Immature Gran % (Auto) 0.3 % Neut % (Auto) 68.0 % Lymph % (Auto) 20.8 % [place] % (Auto) 9.3 % Eos % (Auto) 1.2 % Baso % (Auto) 0.4 % Neut # (Auto) 7.41 H (1.40-6.50) K/uL Lymph # (Auto) 2.26 (1.20-3.40) K/uL [place] # (Auto) 1.01 H (0.11-0.59) K/uL Eos # (Auto) 0.13 (0.00-0.50) K/uL Baso # (Auto) 0.04 (0.00-0.20) K/uL Immature Gran # (Auto) 0.03 (0.01-0.20) K/uL PT 11.6 (9.0-12.0) Seconds INR 1.1 (0.9-1.1) APTT 28 (21-31) Seconds PTT Ratio 1.0 POC Sodium (135-144) mmol/L Sodium 136 (136-145) mmol/L POC Potassium (3.3-5.0) mmol/L Potassium 4.3 (3.5-5.1) mmol/L POC Chloride (101-112) mmol/L Chloride 101 (98-107) mmol/L Carbon Dioxide 28 (21-32) mmol/L POC Total CO2 (24-31) mmol/L Anion Gap 7 (3-11) POC Anion Gap (16-25) mmol/L POC BUN (7-18) mg/dl BUN 16 (6-23) mg/dl Creatinine 1.57 H (0.6-1.4) mg/dl POC Creatinine (0.6-1.3) mg/dl Est Cr Clr Drug Dosing 35.6 ml/min eGFR 45.11 BUN/Creatinine Ratio 10.2 (10-20) Glucose 87 (70-99(Fasting)) mg/dl POC Glucose 78 (70-99) mg/dl POC Glucose (other) (70-99) mg/dl Calcium 8.8 (8.6-10.3) mg/dl POC Ioniz Calcium Clement (1.12-1.32) mmol/l Magnesium 2.0 (1.7-2.4) mg/dl Total Bilirubin 0.4 (0.2-1.0) mg/dl AST 20 (13-39) U/L ALT 15 (7-52) U/L Alkaline Phosphatase 64 (34-104) U/L Troponin I High Sens 16.4 (0-20) pg/ml Total Protein 6.5 (6.0-8.3) gm/dl Albumin 3.9 (3.4-5.0) gm/dl Globulin 2.6 (2.5-4.0) gm/dl Albumin/Globulin Ratio 1.5 (0.9-2) Urine Color Urine Appearance (Clear) Urine pH (4.5-7.5) Ur Specific [place] (1.000-1.030) Urine Protein (Negative) Urine Glucose (UA) (Negative) Urine Ketones (Negative) Urine Blood (Negative) Urine Nitrite (Negative) Urine Bilirubin (Negative) Urine Urobilinogen (Negative) Ur Leukocyte Esterase (Negative) Urine Comment 09/23/24 09/23/24 Range/Units 17:20 18:15 WBC (4.8-10.8) K/ul RBC (4.70-6.10) M/uL Hgb (14.0-18.0) g/dl POC Hgb 15.3 (14.0-18.0) g/dl Hct (42.0-52.0) % POC Hct 45 (42-52) % MCV (80.0-100.0) fL MCH (25.0-34.0) pg MCHC (32.0-36.0) g/dL RDW Std Deviation (36.4-46.3) fL RDW Coeff of Ed (11.5-14.5) % Plt Count (130-400) K/uL MPV (9.4-12.4) fL Immature Gran % (Auto) % Neut % (Auto) % Lymph % (Auto) % [place] % (Auto) % Eos % (Auto) % Baso % (Auto) % Neut # (Auto) (1.40-6.50) K/uL Lymph # (Auto) (1.20-3.40) K/uL [place] # (Auto) (0.11-0.59) K/uL Eos # (Auto) (0.00-0.50) K/uL Baso # (Auto) (0.00-0.20) K/uL Immature Gran # (Auto) (0.01-0.20) K/uL PT (9.0-12.0) Seconds INR (0.9-1.1) APTT (21-31) Seconds PTT Ratio POC Sodium 137 (135-144) mmol/L Sodium (136-145) mmol/L POC Potassium 4.2 (3.3-5.0) mmol/L Potassium (3.5-5.1) mmol/L POC Chloride 98 L (101-112) mmol/L Chloride (98-107) mmol/L Carbon Dioxide (21-32) mmol/L POC Total CO2 24 (24-31) mmol/L Anion Gap (3-11) POC Anion Gap 20.0 (16-25) mmol/L POC BUN 18 (7-18) mg/dl BUN (6-23) mg/dl Creatinine (0.6-1.4) mg/dl POC Creatinine 1.9 H (0.6-1.3) mg/dl Est Cr Clr Drug Dosing ml/min eGFR BUN/Creatinine Ratio (10-20) Glucose (70-99(Fasting)) mg/dl POC Glucose (70-99) mg/dl POC Glucose (other) 83 (70-99) mg/dl Calcium (8.6-10.3) mg/dl POC Ioniz Calcium [place] 1.14 (1.12-1.32) mmol/l Magnesium (1.7-2.4) mg/dl Total Bilirubin (0.2-1.0) mg/dl AST (13-39) U/L ALT (7-52) U/L Alkaline Phosphatase (34-104) U/L Troponin I High Sens (0-20) pg/ml Total Protein (6.0-8.3) gm/dl Albumin (3.4-5.0) gm/dl Globulin (2.5-4.0) gm/dl Albumin/Globulin Ratio (0.9-2) Urine Color Yellow Urine Appearance Clear (Clear) Urine pH 6.0 (4.5-7.5) Ur Specific [place] 1.042 H (1.000-1.030) Urine Protein Negative (Negative) Urine Glucose (UA) 3+ H (Negative) Urine Ketones Trace H (Negative) Urine Blood Negative (Negative) Urine Nitrite Negative (Negative) Urine Bilirubin Negative (Negative) Urine Urobilinogen Negative (Negative) Ur Leukocyte Esterase Negative (Negative) Urine Comment Administered Medications Discontinued Medications Acetaminophen (Ofirmev) 1,000 mg in 100 mls @ 400 mls/hr IV NOW STA Stop: 09/23/24 18:25 Last Infusion: 09/23/24 19:10 Dose: Infused Documented By: Admin: 09/23/24 18:18 Dose: 400 mls/hr Documented By: FRANCIS Ioversol (Optiray 320 125ml) 119 ml IV ONCE ONE Stop: 09/23/24 17:07 Last Admin: 09/23/24 17:07 Dose: 119 ml Documented By: JENNIFER Ioversol (Optiray 320 100ml) 90 ml IV ONCE ONE Stop: 09/23/24 17:57 Last Admin: 09/23/24 17:56 Dose: 90 ml Documented By: JENNIFER Ondansetron HCl (Ondansetron Inj 2 Mg/Ml 2 Ml Vial) 4 mg IV NOW STA Stop: 09/23/24 18:12 Last Admin: 09/23/24 18:18 Dose: 4 mg Documented By: FRANCIS Imaging Data Attestation: I personally reviewed and interpreted this imaging study as follows: My Impression: 1 view chest x-ray was obtained in the emergency department. My interpretation is no free air or definite infiltrate, final report below. CT of the brain was obtained in the emergency department. My interpretation is no intracranial hemorrhage or mass effect, final report below. Radiologist's Impression: Chest X-Ray 09/23/24 16:49 INDICATION: Chest pain. TECHNIQUE: Frontal radiograph of the chest. COMPARISON: Radiograph from 07/03/2024. FINDINGS: Mild cardiomegaly. Right-sided pacemaker again noted. Left-sided pleural parenchymal opacities and pleural effusion/pleural thickening similar to prior. No acute osseous abnormality evident. IMPRESSION: Chronic appearing left-sided findings similar to prior. No acute cardiopulmonary process. Electronically signed by Mahad Manzano 09-23-2024 5:[address] 09/23/24 16:49 EXAMINATION: Head CT without CLINICAL HISTORY: Neurodeficit PRIORS: 07/03/2024 TECHNIQUE: Contiguous axial images were obtained through the head without the use of intravenous contrast. Sagittal and coronal reformations are supplied. FINDINGS: Dental amalgam creates significant beam hardening artifact. Mild parenchymal volume loss noted. Castillo-white differentiation is preserved. No edema or midline shift. No intra-axial or extra-axial hemorrhage. Ventricles are normal in size and configuration. Brainstem and cerebellum have a normal appearance. Calvarium unremarkable. Paranasal sinuses and mastoid air cells are well-pneumatized. Globes are intact. No retrobulbar abnormality. IMPRESSION: No CT evidence of an acute intracranial abnormality. MRI could be considered if appropriate. Findings discussed with Dr. Paulino Phelps in the emergency department at 5:35 PM EST on 09/23/2024. Electronically signed by Barbi Fischer 09-23-2024 5:51 PM Head CTA 09/23/24 16:49 EXAM: CTA head with CLINICAL HISTORY: Neurodeficit TECHNIQUE: Contiguous CTA axial images were obtained through the head after the administration of intravenous contrast. Sagittal and coronal reformations are supplied. PRIORS: None FINDINGS: Excessive beam hardening artifact diminishes image quality. The vertebral arteries form the basilar artery at the skull base. [place] is patent. No thrombus or hemodynamically significant stenosis. No aneurysmal dilatation or sloan aneurysm. Mild atherosclerotic disease of the internal carotid arteries, cavernous portion with no hemodynamically significant stenosis. No enhancing mass in the brain. IMPRESSION: No CTA evidence of an acute vascular abnormality. Findings discussed with Dr. Paulino Phelps at 5:35 PM EST on 09/23/2024 Electronically signed by Barbi Fischer 09-23-2024 5:42 PM Neck CTA 09/23/24 16:49 EXAM: CT angio neck with con CLINICAL HISTORY: Neurodeficit TECHNIQUE: Contiguous CTA axial images were obtained through the neck with the administration of intravenous contrast. Sagittal and coronal reformations are supplied. MIPS are supplied. COMPARISON: None FINDINGS: Significant beam hardening artifact diminishes image quality. A left-sided aortic arch is present. Moderate to advanced atherosclerotic disease of the aortic arch present and takeoff of the great vessels with no hemodynamically significant stenosis at the origin. Venous contamination noted. Right: Moderate atherosclerotic plaque present in the proximal internal carotid artery, involving the short segment with mild stenosis. The right internal carotid artery enters the skull base normally at the petrous portion, allowing for significant beam hardening artifact. LEFT: Mild atherosclerotic plaque of the proximal internal carotid artery with no significant stenosis. Allowing for beam hardening artifact, the internal carotid artery enters the petrous portion of the skull base normally. Short segment of atherosclerotic disease present involving the distal left internal carotid artery with moderate stenosis involving a short segment of approximately 1.2 cm. Vertebral artery visualization is diminished. The right vertebral artery is dominant with no hemodynamically significant stenosis. The left vertebral artery is extremely diminutive throughout its entire course. The distal left vertebral artery is noted joining the right vertebral artery to form the basilar artery. IMPRESSION: 1. No hemodynamically significant stenosis in the internal carotid arteries. 2. Extremely diminutive left vertebral artery which joins to form a right vertebral artery and form the basilar artery. Findings discussed with Dr. Paulino Phelps at 5:35 PM EST on 09/23/2024 Electronically signed by Barbi Fischer 09-23-2024 5:42 PM Abdomen/Pelvis CT 09/23/24 17:13 EXAMINATION: Abdomen and pelvis CT with CLINICAL HISTORY: Trauma PRIORS: 07/03/2024 TECHNIQUE: Contiguous axial images were obtained through the abdomen and pelvis with the use of intravenous contrast. Sagittal and coronal reformations are supplied. FINDINGS: Elevation of the left hemithorax. Advanced atherosclerotic disease of the abdominal aorta. Motion artifact significantly degrades image quality. The liver, portal vein, pancreas, spleen, stomach, adrenals, and kidneys are morphologically unremarkable. No laceration or subcapsular hematoma. Kidneys in early excretory phase. No hemoperitoneum or retroperitoneum. Extremely large amount of formed stool present in the colon. Urinary bladder distends normally. Advanced diverticulosis of the descending and sigmoid colon. Distal aorta and iliac artery vascular stent noted. A large amount of formed stool and gas present throughout the colon. No extraluminal gas or ascites. Small bilateral inguinal hernias. Moderate osseous demineralization with advanced degenerative change throughout the lumbar spine no acute osseous abnormality is identified. No chest wall edema or hematoma. IMPRESSION: 1. No CT evidence of an acute or traumatic abnormality in the abdomen or pelvis. 2. Advanced atherosclerotic disease. 3. Severe diverticulosis of the descending and sigmoid colon with no pericolonic inflammatory change. Electronically signed by Barbi Fischer 09-23-2024 6:[address] 09/23/24 17:13 EXAMINATION: Chest CT with CLINICAL HISTORY: Trauma PRIORS: None TECHNIQUE: Contiguous axial images were obtained through the chest with the use of intravenous contrast. Sagittal and coronal reformations are supplied. FINDINGS: Median sternotomy wires present. Cardiac device noted within the subcutaneous tissues of the right chest wall with leads terminating in the heart creating significant beam hardening artifact. No sternal, clavicular, scapula or acute displaced rib fracture. Chronic appearing deformities of the left lateral ribs noted. Moderate osseous demineralization is noted. No compression fracture of the thoracic spine. Volume loss and postsurgical change in the left hemithorax with mild pleural thickening and elevation of the left hemidiaphragm. No pulmonary contusion or pneumothorax. No pleural effusion. Heart size is moderately enlarged. Advanced atherosclerotic disease of the aortic arch and coronary arteries noted. No pericardial effusion. No soft tissue focal edema or hematoma in the chest wall. IMPRESSION: 1. No CT evidence of an acute or traumatic abnormality in the chest. Electronically signed by Barbi Fischer 09-23-2024 6:37 PM Discharge Plan Visit Data Chief Complaint: TIA Symptoms Stated Complaint: VISION, WEAK, LEG, NUMBNESS IN LEGS AND HAND ED Provider: Paulino Phelps Discharge Problem: Stroke-like symptoms, Chest wall contusion Patient Disposition: Being Evaluated by Hospitalist Condition: Fair Forms Stand Alone Forms: My [facility] [place] Prescriptions Prescriptions: No Action metoprolol succinate 50 mg tablet extended release 24 hr 50 mg PO QAM Qty: 90 3RF clopidogrel [Plavix] 75 mg tablet 75 mg PO QAM montelukast [Singulair] 10 mg tablet 10 mg PO QAM amiodarone 200 mg Tablet 200 mg PO QAM Eliquis 5 mg Tablet 5 mg PO BID albuterol sulfate 90 mcg/actuation Hfa Aerosol Inhaler 2 inh INHALATION Q4H PRN (Reason: SHORT OF BREATH/COUGH/WHEEZE) spironolactone 25 mg tablet 25 mg PO QAM atorvastatin 80 mg tablet 80 mg PO DAILY PreserVision AREDS-2 250-90-40-1 mg Capsule 1 tab PO AMPM albuterol sulfate 0.63 mg/3 mL solution for nebulization 0.63 mg continuous nebulization Q4 PRN (Reason: Wheezing) sertraline 50 mg tablet 50 mg PO QAM Rx Instructions: TOTAL DOSE 150 MG--TAKES WITH 100 MG TAB. acetaminophen [Tylenol Extra Strength] 500 mg Tablet 1,000 mg PO DIRECTED PRN (Reason: Pain) hydrocodone-acetaminophen 5-325 mg tablet 1 tab PO Q6H PRN (Reason: Pain, Severe) triamcinolone acetonide 0.1 % Cream 1 applic TOPICAL BID PRN (Reason: SKIN IRRITATIONS) ferrous sulfate 325 mg (65 mg iron) Tablet 325 mg PO Q OTHER DAY ascorbate calcium (vitamin C) [Aline-C] 500 mg Tablet 500 mg PO DAILY calcium carbonate-vitamin D3 [Calcium 500 With D] 500 mg-10 mcg (400 unit) Tablet 2 tab PO DAILY buspirone 5 mg tablet 5 mg PO BID PRN (Reason: anxiety ) tadalafil 10 mg tablet 10 mg PO DIRECTED PRN (Reason: Erectile Dysfunction) torsemide 20 mg tablet 20 mg PO DAILY sertraline 100 mg tablet 100 mg PO DAILY Rx Instructions: TOTAL DOSE 150 MG--TAKES WITH 50 MG TAB. baclofen 10 mg tablet 10 - 20 mg PO HS PRN (Reason: Muscle Spasm) Jardiance 10 mg tablet 10 mg PO DAILY Entresto 24-26 mg tablet 1 tab PO BID pantoprazole 40 mg tablet,delayed release (DR/EC) 40 mg PO DAILY Referrals Referrals: PCP,NO [Primary Care Provider] -
[2024-09-23 17:31] LABS: iSTAT Creatinine 1.9 mg/dl (0.6-1.3); iSTAT Hemoglobin 15.3 g/dl (14.0-18.0); iSTAT Ionized Calcium 1.14 mmol/l (1.12-1.32); iSTAT Potassium 4.2 mmol/L (3.3-5.0)
--- NOTE | 2024-09-23 17:38 | XRay Report ---
INDICATION: Chest pain. TECHNIQUE: Frontal radiograph of the chest. COMPARISON: Radiograph from 07/03/2024. FINDINGS: Mild cardiomegaly. Right-sided pacemaker again noted. Left-sided pleural parenchymal opacities and pleural effusion/pleural thickening similar to prior. No acute osseous abnormality evident. IMPRESSION: Chronic appearing left-sided findings similar to prior. No acute cardiopulmonary process. Electronically signed by Mahad Manzano 09-23-2024 5:37 PM
--- NOTE | 2024-09-23 17:42 | CT Scan Report ---
EXAM: CT angio neck with con CLINICAL HISTORY: Neurodeficit TECHNIQUE: Contiguous CTA axial images were obtained through the neck with the administration of intravenous contrast. Sagittal and coronal reformations are supplied. MIPS are supplied. COMPARISON: None FINDINGS: Significant beam hardening artifact diminishes image quality. A left-sided aortic arch is present. Moderate to advanced atherosclerotic disease of the aortic arch present and takeoff of the great vessels with no hemodynamically significant stenosis at the origin. Venous contamination noted. Right: Moderate atherosclerotic plaque present in the proximal internal carotid artery, involving the short segment with mild stenosis. The right internal carotid artery enters the skull base normally at the petrous portion, allowing for significant beam hardening artifact. LEFT: Mild atherosclerotic plaque of the proximal internal carotid artery with no significant stenosis. Allowing for beam hardening artifact, the internal carotid artery enters the petrous portion of the skull base normally. Short segment of atherosclerotic disease present involving the distal left internal carotid artery with moderate stenosis involving a short segment of approximately 1.2 cm. Vertebral artery visualization is diminished. The right vertebral artery is dominant with no hemodynamically significant stenosis. The left vertebral artery is extremely diminutive throughout its entire course. The distal left vertebral artery is noted joining the right vertebral artery to form the basilar artery. IMPRESSION: 1. No hemodynamically significant stenosis in the internal carotid arteries. 2. Extremely diminutive left vertebral artery which joins to form a right vertebral artery and form the basilar artery. Findings discussed with Dr. Paulino Phelps at 5:35 PM EST on 09/23/2024 Electronically signed by Barbi Fischer 09-23-2024 5:42 PM
--- NOTE | 2024-09-23 17:42 | CT Scan Report ---
EXAM: CTA head with CLINICAL HISTORY: Neurodeficit TECHNIQUE: Contiguous CTA axial images were obtained through the head after the administration of intravenous contrast. Sagittal and coronal reformations are supplied. PRIORS: None FINDINGS: Excessive beam hardening artifact diminishes image quality. The vertebral arteries form the basilar artery at the skull base. [place] is patent. No thrombus or hemodynamically significant stenosis. No aneurysmal dilatation or sloan aneurysm. Mild atherosclerotic disease of the internal carotid arteries, cavernous portion with no hemodynamically significant stenosis. No enhancing mass in the brain. IMPRESSION: No CTA evidence of an acute vascular abnormality. Findings discussed with Dr. Paulino Phelps at 5:35 PM EST on 09/23/2024 Electronically signed by Barbi Fischer 09-23-2024 5:42 PM
[2024-09-23 17:51] LABS: Alanine Aminotransferase 15 U/L (7-52); Albumin Globulin Ratio 1.5 (0.9-2); Albumin Level 3.9 gm/dl (3.4-5.0); Alkaline Phosphatase 64 U/L (34-104); Anion Gap 7 (3-11); Aspartate Aminotransferase 20 U/L (13-39); BUN Creatinine Ratio 10.2 (10-20); Bilirubin,Total 0.4 mg/dl (0.2-1.0); Blood Urea Nitrogen 16 mg/dl (6-23); Calcium 8.8 mg/dl (8.6-10.3); Carbon Dioxide 28 mmol/L (21-32); Chloride 101 mmol/L (98-107); Creatinine Clr Calc Pharmacy 35.6 ml/min; Globulin 2.6 gm/dl (2.5-4.0); Glucose 87 mg/dl (70-99(Fasting)); Potassium 4.3 mmol/L (3.5-5.1); Sodium 136 mmol/L (136-145); Total Protein 6.5 gm/dl (6.0-8.3)
--- NOTE | 2024-09-23 17:51 | CT Scan Report ---
EXAMINATION: Head CT without CLINICAL HISTORY: Neurodeficit PRIORS: 07/03/2024 TECHNIQUE: Contiguous axial images were obtained through the head without the use of intravenous contrast. Sagittal and coronal reformations are supplied. FINDINGS: Dental amalgam creates significant beam hardening artifact. Mild parenchymal volume loss noted. Castillo-white differentiation is preserved. No edema or midline shift. No intra-axial or extra-axial hemorrhage. Ventricles are normal in size and configuration. Brainstem and cerebellum have a normal appearance. Calvarium unremarkable. Paranasal sinuses and mastoid air cells are well-pneumatized. Globes are intact. No retrobulbar abnormality. IMPRESSION: No CT evidence of an acute intracranial abnormality. MRI could be considered if appropriate. Findings discussed with Dr. Paulino Phelps in the emergency department at 5:35 PM EST on 09/23/2024. Electronically signed by Barbi Fischer 09-23-2024 5:51 PM
[2024-09-23] MEDS: OPTIRAY 320 100ml IV ONE (17:56)
[2024-09-23 17:57] LABS: Troponin I High Sensitivity 16.4 pg/ml (0-20)
[2024-09-23 18:12] LABS: INR 1.1 (0.9-1.1); Partial Thromboplastin Time 28 Seconds (21-31); Prothrombin Time 11.6 Seconds (9.0-12.0)
[2024-09-23] MEDS: ONDANSETRON INJ 2 MG/ML 2 ML VIAL IV STA (18:18)
[2024-09-23] MEDS: ACETAMINOPHEN 1,000 MG/100 ML VIAL IV STA (18:18)
[2024-09-23 18:25] LABS: Appearance Urine Clear (Clear); Bilirubin Urine Negative (Negative); Blood Urine Negative (Negative); Color Urine Yellow; Glucose Urine UA 3+ (Negative); Ketones Urine Trace (Negative); Leukocyte Esterase Urine Negative (Negative); Nitrite Urine Negative (Negative); Protein Urine Negative (Negative); Specific Gravity Urine 1.042 (1.000-1.030); Urobilinogen Urine Negative (Negative)
--- NOTE | 2024-09-23 18:34 | CT Scan Report ---
EXAMINATION: Abdomen and pelvis CT with CLINICAL HISTORY: Trauma PRIORS: 07/03/2024 TECHNIQUE: Contiguous axial images were obtained through the abdomen and pelvis with the use of intravenous contrast. Sagittal and coronal reformations are supplied. FINDINGS: Elevation of the left hemithorax. Advanced atherosclerotic disease of the abdominal aorta. Motion artifact significantly degrades image quality. The liver, portal vein, pancreas, spleen, stomach, adrenals, and kidneys are morphologically unremarkable. No laceration or subcapsular hematoma. Kidneys in early excretory phase. No hemoperitoneum or retroperitoneum. Extremely large amount of formed stool present in the colon. Urinary bladder distends normally. Advanced diverticulosis of the descending and sigmoid colon. Distal aorta and iliac artery vascular stent noted. A large amount of formed stool and gas present throughout the colon. No extraluminal gas or ascites. Small bilateral inguinal hernias. Moderate osseous demineralization with advanced degenerative change throughout the lumbar spine no acute osseous abnormality is identified. No chest wall edema or hematoma. IMPRESSION: 1. No CT evidence of an acute or traumatic abnormality in the abdomen or pelvis. 2. Advanced atherosclerotic disease. 3. Severe diverticulosis of the descending and sigmoid colon with no pericolonic inflammatory change. Electronically signed by Barbi Fischer 09-23-2024 6:34 PM
--- NOTE | 2024-09-23 18:37 | CT Scan Report ---
EXAMINATION: Chest CT with CLINICAL HISTORY: Trauma PRIORS: None TECHNIQUE: Contiguous axial images were obtained through the chest with the use of intravenous contrast. Sagittal and coronal reformations are supplied. FINDINGS: Median sternotomy wires present. Cardiac device noted within the subcutaneous tissues of the right chest wall with leads terminating in the heart creating significant beam hardening artifact. No sternal, clavicular, scapula or acute displaced rib fracture. Chronic appearing deformities of the left lateral ribs noted. Moderate osseous demineralization is noted. No compression fracture of the thoracic spine. Volume loss and postsurgical change in the left hemithorax with mild pleural thickening and elevation of the left hemidiaphragm. No pulmonary contusion or pneumothorax. No pleural effusion. Heart size is moderately enlarged. Advanced atherosclerotic disease of the aortic arch and coronary arteries noted. No pericardial effusion. No soft tissue focal edema or hematoma in the chest wall. IMPRESSION: 1. No CT evidence of an acute or traumatic abnormality in the chest. Electronically signed by Barbi Fischer 09-23-2024 6:37 PM
--- NOTE | 2024-09-23 19:15 | History & Physical Report ---
Date of Service September 23, 2024 Assessment & Plan (1) Stroke-like symptoms: (2) Ischemic cardiomyopathy with implantable cardioverter-defibrillator (ICD): (3) Heart failure, systolic, with acute decompensation: (4) Paroxysmal A-fib: (5) Left-sided headache: Plan Mark Batista is a 79 year-old male who presents to the ED for concern of stroke like symptoms. Medical history is significant for CAD s/p CABG x3, multiple cardiac stents, paroxysmal atrial fib/flutter, ischemic CMP, chronic systolic CHF, AAA s/p endovascular repair, PVD, CKD3, HTN, dyslipidemia. Stroke Like Symptoms | Left Sided Headache and Blurry Vision | Left Sided Extremity Weakness -CTA head/neck and CT head without acute abnormalities. Moderate stenosis noted at left and right internal carotid arteries -Telestroke discussed case on presentation to ED, was advised that patient was not a candidate for TNKase as he is on Eliquis, however recommended to continue Plavix -MRI Brain ordered, discussed with radiology staff and device is MRI compatible but imaging study cannot be completed until 09/24 a.m. -Concern for stroke given his significant symptoms of left sided limb weakness in addition to left sided headache/visual symptoms -GCA was considered, however with a normal ESR (2) this is lower in the differential. Will repeat ESR in a.m. for confirmation -Admit to PCU, continue neuro checks per protocol, permissive hypertension allowed overnight -Keep NPO, patient fails dysphagia screen as he does display tongue asymmetry. Ordered speech therapy evaluation -PT/OT evaluations ordered -Neurology consulted, appreciate recommendations CAD s/p CABG, Multiple Stents | Chronic Systolic HF -[facility] -Continue Jardiance, Spironolactone, Torsemide, Plavix -Will hold Entresto on admission due to concern for acute stroke -Avoid IV fluids with reduced EF Paroxysmal Atrial Fibrillation -Continue amiodarone, metoprolol -Currently in sinus rhythm -Holding Eliquis per telestroke recommendations CKD Stage III -Cr mildly elevated to 1.57 on admission -Baseline appears to be ~1.3 -Repeat metabolic panel in a.m. Diverticulosis -Severe diverticulosis of descending and sigmoid colon noted incidentally on CT A/P -No evidence of inflammatory change and patient asymptomatic at present GERD- continue pantoprazole Asthma- continue montelukast Mental Health- continue sertraline ESTELLA- CPAP ordered qhs Admit to: PCU VTE Prophylaxis: Contraindicated Diet: NPO Code Status: Full Code History of Present Illness Primary Care Provider: NO PCP Mark Batista is a 79 year-old male who presents to the ED for concern of stroke like symptoms. Medical history is significant for CAD s/p CABG x3, multiple cardiac stents, cardiac arrest with ROSC after receiving bystander CPR and ACLS protocol, PPM placement October 2021, paroxysmal atrial fib/flutter, ischemic CMP, chronic systolic CHF, AAA s/p endovascular repair, PVD, CKD3, HTN, dyslipidemia. Patient reports that he and his were shopping at [employer] around 3pm when he suddenly developed left sided headache and left sided blurry vision, also had left leg weakness. He reports that since his arrival to the ED his headache has improved from 8/10 to 5/10 after receiving IV Tylenol and his blurry vision has improved. Describes the blurry vision in his left eye as like "having a waterfall in the eye", denies black areas in his vision and no curtain going down over his vision. He continues to have left leg weakness and decreased sensation at the left side of his face. Denies difficulty with swallowing, denies changes in his speech. After initial evaluation, patient called to the nurse to report an increase in his headache and blurry vision. At bedside patient reports that the left sided headache never totally resolved but it had temporarily improved with the Tylenol. Patient denies having any recent illnesses or changes to his medications. Denies changes in bowel or bladder habits, no chest pain. States he has been having increased mucous at night when laying flat- notes that he was recently diagnosed with ESTELLA from a home sleep study but has not received a CPAP yet. Patient endorses taking all of his medications as prescribed, last took his Eliquis this morning. Patient initially reported a recent fall, however this was not on the day of presentation. History of fall/hit head in June which lead to overnight admission, reports he was feeling better in the time since this admission. ED Course: -CTA head/neck -CT head, CT A/P, CT chest -CXR -EKG -CBC, CMP, troponin, UA Allergies Allergy/AdvReac Type Severity Reaction Status Date / Time latex Allergy Intermediate Hives Verified 09/23/24 17:33 pollen extracts Allergy Intermediate itchy Verified 09/23/24 17:33 eyes, sneeze erythromycin base AdvReac Severe STOMACH Verified 09/23/24 17:33 PAIN Home Medications Medication Instructions Recorded Confirmed Type clopidogrel 75 mg tablet (Plavix) 75 mg PO QAM 11/21/21 09/23/24 History montelukast 10 mg tablet 10 mg PO QAM 11/21/21 09/23/24 History (Singulair) acetaminophen 500 mg tablet 1,000 mg PO DIRECTED PRN Pain 12/08/21 09/23/24 History (Tylenol Extra Strength) albuterol sulfate 90 mcg/actuation 2 inh inhalation Q4H PRN SHORT OF 12/27/22 09/23/24 History aerosol inhaler BREATH/COUGH/WHEEZE amiodarone 200 mg tablet 200 mg PO QAM 12/27/22 09/23/24 History apixaban 5 mg tablet (Eliquis) 5 mg PO BID 12/27/22 09/23/24 History albuterol sulfate 0.63 mg/3 mL 0.63 mg continuous nebulization Q4 12/31/22 09/23/24 History solution for nebulization PRN Wheezing atorvastatin 80 mg tablet 80 mg PO DAILY 12/31/22 09/23/24 History sertraline 50 mg tablet 50 mg PO QAM 12/31/22 09/23/24 History spironolactone 25 mg tablet 25 mg PO QAM 12/31/22 09/23/24 History vit C 250 mg-vit E 90 mg-zinc 40 1 tab PO AMPM 12/31/22 09/23/24 History mg-copper 1 ng-[id number] capsule (PreserVision AREDS-2) metoprolol succinate 50 mg 50 mg PO QAM #90 tabs 12/13/23 09/23/24 Rx tablet,extended release 24 hr baclofen 10 mg tablet 10 - 20 mg PO HS PRN Muscle Spasm 07/03/24 09/23/24 History buspirone 5 mg tablet 5 mg PO BID PRN anxiety 07/03/24 09/23/24 History empagliflozin 10 mg tablet 10 mg PO DAILY 07/03/24 09/23/24 History (Jardiance) pantoprazole 40 mg tablet,delayed 40 mg PO DAILY 07/03/24 09/23/24 History release sacubitril 24 mg-valsartan 26 mg 1 tab PO BID 07/03/24 09/23/24 History tablet (Entresto) sertraline 100 mg tablet 100 mg PO DAILY 07/03/24 09/23/24 History tadalafil 10 mg tablet 10 mg PO DIRECTED PRN Erectile 07/03/24 09/23/24 History Dysfunction torsemide 20 mg tablet 20 mg PO DAILY 07/03/24 09/23/24 History ascorbate calcium (vitamin C) 500 500 mg PO DAILY 09/23/24 09/23/24 History mg tablet calcium 500 mg (as 2 tab PO DAILY 09/23/24 09/23/24 History carbonate)-vitamin D3 10 mcg (400 unit) tablet (Calcium 500 With D) ferrous sulfate 325 mg (65 mg 325 mg PO Q OTHER DAY 09/23/24 09/23/24 History iron) tablet hydrocodone 5 mg-acetaminophen 325 1 tab PO Q6H PRN Pain, Severe 09/23/24 09/23/24 History mg tablet triamcinolone acetonide 0.1 % 1 applic topical BID PRN SKIN 09/23/24 09/23/24 History topical cream IRRITATIONS Past Med/Surg History Problem List (Updated 09/23/24 @ 21:36 by Lizeth Billingsley DO) Left-sided headache Paroxysmal A-fib Chest wall contusion (Acute) Stroke-like symptoms (Acute) Head injury, closed, with brief LOC (Acute) Fall Ischemic cardiomyopathy with implantable cardioverter-defibrillator (ICD) Heart failure, systolic, with acute decompensation Medical History Empyema lung as a teenager, treated at [facility] Degenerative disc disease Chronic back pain Kidney stones no surgery On anticoagulant therapy Ischemic cardiomyopathy Macular degeneration History of inferior wall myocardial infarction 1993 Ventricular fibrillation cardiac arrest & defibrillator 10/24/21 Cardiac arrest 10/24/2021 -> defibrillator placed --> follows with Dr Bernal Surgical History History of bronchoscopy as a teenager r/t empyema History of cardiac radiofrequency ablation a.fib ~ at [facility] Status post implantation of automatic cardioverter/defibrillator (AICD) placed at [facility] 10/2021 d/t cardiac arrest History of cardiac catheterization x6 History of arthroscopy of shoulder right shoulder History of cataract surgery bilateral S/P AAA (abdominal aortic aneurysm) repair [facility] ~2012. History of heart artery stent x 4 (last stent placed by Dr Cabrera in [facility] ~2014 or earlier) History of coronary artery bypass graft x 3 2007 - Family History Father AAA (abdominal aortic aneurysm) Heart disease Mother Breast cancer Other Hypertension No family history of adverse response to anesthesia Social History Smoking Status: Never smoker Tobacco Type: Smokeless Tobacco (Dip or Chew) Second Hand Exposure: No; Do You Dip or Chew Tobacco: No (but former use (snuff) - quit in 2015); Hx Alcohol Use: Yes Alcohol type: beer Hx Substance Use: No Preferred Language: Danish Communication Ability: Effective Assistant Professor Sculpture Required: No Beliefs That Will Affect Care: None Current Living Situation: Spouse Current Living Situation Comment: apartment, accessible elevators Feels Safe at Home: Yes Safety Concerns: Feels Safe At This Time Assistive Devices: Cane, Glasses and Hearing Aid - Bilateral Review of Systems Review of Systems: As per above Physical Exam Constitutional: well nourished and average body habitus; no acute distress Eyes: PERRL and EOM intact bilaterally; no conjunctival abnormality ENMT: Ears: no external ear abnormality Nose: no external nose abnormality Moist mucous membranes Respiratory: normal respiratory effort, lungs clear to auscultation Cardiovascular: Rate/Rhythm: regular rate and regular rhythm Extremities: no edema Gastrointestinal (Abdomen): Inspection/Auscultation: abdomen normal to inspection; abdomen not distended Percussion/Palpation: abdomen soft; abdomen nontender and no guarding Skin: no rashes, warm and dry Neurologic: Asymmetry of tongue movement. Decreased ability to rotate head from left side and decreased ability to shrug shoulder on left. Left sided facial sensation is decreased. Left leg with decreased strength. Psychiatric: A+Ox3, euthymic affect Results & Data Results & Data Vital Signs (Past 12 Hours) Vital Signs Temp Pulse Pulse Resp BP BP Pulse Ox 09/23/24 18:15 77 19 150/86 H 98 09/23/24 18:03 69 18 140/77 95 09/23/24 17:18 64 09/23/24 16:49 62 18 09/23/24 16:44 36.6 C 66 18 135/84 100 09/23/24 16:42 72 18 150/77 H 99 O2 Del Method 09/23/24 18:15 09/23/24 18:03 09/23/24 17:18 09/23/24 16:49 09/23/24 16:44 Room Air 09/23/24 16:42 Diagnostic Findings Chest X-Ray 09/23/24 16:49 INDICATION: Chest pain. TECHNIQUE: Frontal radiograph of the chest. COMPARISON: Radiograph from 07/03/2024. FINDINGS: Mild cardiomegaly. Right-sided pacemaker again noted. Left-sided pleural parenchymal opacities and pleural effusion/pleural thickening similar to prior. No acute osseous abnormality evident. IMPRESSION: Chronic appearing left-sided findings similar to prior. No acute cardiopulmonary process. Electronically signed by Mahad Manzano 09-23-2024 5:[address] 09/23/24 16:49 EXAMINATION: Head CT without CLINICAL HISTORY: Neurodeficit PRIORS: 07/03/2024 TECHNIQUE: Contiguous axial images were obtained through the head without the use of intravenous contrast. Sagittal and coronal reformations are supplied. FINDINGS: Dental amalgam creates significant beam hardening artifact. Mild parenchymal volume loss noted. Castillo-white differentiation is preserved. No edema or midline shift. No intra-axial or extra-axial hemorrhage. Ventricles are normal in size and configuration. Brainstem and cerebellum have a normal appearance. Calvarium unremarkable. Paranasal sinuses and mastoid air cells are well-pneumatized. Globes are intact. No retrobulbar abnormality. IMPRESSION: No CT evidence of an acute intracranial abnormality. MRI could be considered if appropriate. Findings discussed with Dr. Paulino Phelps in the emergency department at 5:35 PM EST on 09/23/2024. Electronically signed by Barbi Fischer 09-23-2024 5:51 PM Head CTA 09/23/24 16:49 EXAM: CTA head with CLINICAL HISTORY: Neurodeficit TECHNIQUE: Contiguous CTA axial images were obtained through the head after the administration of intravenous contrast. Sagittal and coronal reformations are supplied. PRIORS: None FINDINGS: Excessive beam hardening artifact diminishes image quality. The vertebral arteries form the basilar artery at the skull base. [place] is patent. No thrombus or hemodynamically significant stenosis. No aneurysmal dilatation or sloan aneurysm. Mild atherosclerotic disease of the internal carotid arteries, cavernous portion with no hemodynamically significant stenosis. No enhancing mass in the brain. IMPRESSION: No CTA evidence of an acute vascular abnormality. Findings discussed with Dr. Paulino Phelps at 5:35 PM EST on 09/23/2024 Electronically signed by Barbi Fischer 09-23-2024 5:42 PM Neck CTA 09/23/24 16:49 EXAM: CT angio neck with con CLINICAL HISTORY: Neurodeficit TECHNIQUE: Contiguous CTA axial images were obtained through the neck with the administration of intravenous contrast. Sagittal and coronal reformations are supplied. MIPS are supplied. COMPARISON: None FINDINGS: Significant beam hardening artifact diminishes image quality. A left-sided aortic arch is present. Moderate to advanced atherosclerotic disease of the aortic arch present and takeoff of the great vessels with no hemodynamically significant stenosis at the origin. Venous contamination noted. Right: Moderate atherosclerotic plaque present in the proximal internal carotid artery, involving the short segment with mild stenosis. The right internal carotid artery enters the skull base normally at the petrous portion, allowing for significant beam hardening artifact. LEFT: Mild atherosclerotic plaque of the proximal internal carotid artery with no significant stenosis. Allowing for beam hardening artifact, the internal carotid artery enters the petrous portion of the skull base normally. Short segment of atherosclerotic disease present involving the distal left internal carotid artery with moderate stenosis involving a short segment of approximately 1.2 cm. Vertebral artery visualization is diminished. The right vertebral artery is dominant with no hemodynamically significant stenosis. The left vertebral artery is extremely diminutive throughout its entire course. The distal left vertebral artery is noted joining the right vertebral artery to form the basilar artery. IMPRESSION: 1. No hemodynamically significant stenosis in the internal carotid arteries. 2. Extremely diminutive left vertebral artery which joins to form a right vertebral artery and form the basilar artery. Findings discussed with Dr. Paulino Phelps at 5:35 PM EST on 09/23/2024 Electronically signed by Barbi Fischer 09-23-2024 5:42 PM Abdomen/Pelvis CT 09/23/24 17:13 EXAMINATION: Abdomen and pelvis CT with CLINICAL HISTORY: Trauma PRIORS: 07/03/2024 TECHNIQUE: Contiguous axial images were obtained through the abdomen and pelvis with the use of intravenous contrast. Sagittal and coronal reformations are supplied. FINDINGS: Elevation of the left hemithorax. Advanced atherosclerotic disease of the abdominal aorta. Motion artifact significantly degrades image quality. The liver, portal vein, pancreas, spleen, stomach, adrenals, and kidneys are morphologically unremarkable. No laceration or subcapsular hematoma. Kidneys in early excretory phase. No hemoperitoneum or retroperitoneum. Extremely large amount of formed stool present in the colon. Urinary bladder distends normally. Advanced diverticulosis of the descending and sigmoid colon. Distal aorta and iliac artery vascular stent noted. A large amount of formed stool and gas present throughout the colon. No extraluminal gas or ascites. Small bilateral inguinal hernias. Moderate osseous demineralization with advanced degenerative change throughout the lumbar spine no acute osseous abnormality is identified. No chest wall edema or hematoma. IMPRESSION: 1. No CT evidence of an acute or traumatic abnormality in the abdomen or pelvis. 2. Advanced atherosclerotic disease. 3. Severe diverticulosis of the descending and sigmoid colon with no pericolonic inflammatory change. Electronically signed by Barbi Fischer 09-23-2024 6:[address] 09/23/24 17:13 EXAMINATION: Chest CT with CLINICAL HISTORY: Trauma PRIORS: None TECHNIQUE: Contiguous axial images were obtained through the chest with the use of intravenous contrast. Sagittal and coronal reformations are supplied. FINDINGS: Median sternotomy wires present. Cardiac device noted within the subcutaneous tissues of the right chest wall with leads terminating in the heart creating significant beam hardening artifact. No sternal, clavicular, scapula or acute displaced rib fracture. Chronic appearing deformities of the left lateral ribs noted. Moderate osseous demineralization is noted. No compression fracture of the thoracic spine. Volume loss and postsurgical change in the left hemithorax with mild pleural thickening and elevation of the left hemidiaphragm. No pulmonary contusion or pneumothorax. No pleural effusion. Heart size is moderately enlarged. Advanced atherosclerotic disease of the aortic arch and coronary arteries noted. No pericardial effusion. No soft tissue focal edema or hematoma in the chest wall. IMPRESSION: 1. No CT evidence of an acute or traumatic abnormality in the chest. Electronically signed by Barbi Fischer 09-23-2024 6:37 PM Supervising Physician Co-Signing Physician Notes I personally saw and examined the patient. I independently reviewed the labs, EKG, imaging, problem list, medication list, past medical history and family history. I verified all hart points and agree with resident physician Dr Lizeth Billingsley, DO with the following exceptions and/or additions: 79 year old male presents to the ER with left sided weakness, blurring of left eye, headache. Onset 4pm. Prior TIA but no prior stroke. O/E HS RRR, no murmurs, Chest CTAB, Abdo SNT, numbness on left side of face, difficulty moving tongue to left side, no facial droop, subjective mild blurring of left eye (visual acuity pending), EOMI intact, PERRL, no visual field defect, reduced strength on left shoulder shrug and lateral head movement, left pronator drift with LUE 4/5 strength, LLE 4/5 hip flex, 3/5 ankle dorsiflexion with foot drop A/P Stroke-like symptoms - initially concerning for GCA with jaw claudication, left sided temporal headache and left sided vision changes however negative ESR essentially rules this out but will repeat with AM labs regardless. Otherwise usual stroke workup. Per telestroke recommendations holding Eliquis initially. Brain MRI only able to perform in AM. TTE. Lipid and HbA1C with AM labs. PT/OT speech. Fails dysphagia screen due to tongue asymmetry movement. Will avoid IV fluids due to heart failure. Hold Entresto to allow permissive hypertension. Pending BP measurements overnight may also need to hold diuretics in AM. Resident Activity Tracking Resident Involvement: Resident Care Provided Care Provided: Adult Hospital Medicine
[2024-09-23] MEDS: MoRPHine SULFATE 2 MG/ML CARP IV STA ×2 (20:42→23:02)
[2024-09-23 22:09] LABS: C Reactive Protein < 0.50 mg/dl (0-0.5)
[2024-09-23] MEDS ORDERED: POLYETHYLENE (MIRALAX) 17 GM PACK PO PRN (22:23)
[2024-09-23] MEDS ORDERED: ALUMINUM/MAGNESIUM SUSP 30 ML UDC PO PRN (22:23)
[2024-09-23] MEDS ORDERED: MELATONIN 3 MG TAB PO PRN (22:23)
[2024-09-23] MEDS ORDERED: ONDANSETRON INJ 2 MG/ML 2 ML VIAL IV PRN (22:23)
[2024-09-24] MEDS: ACETAMINOPHEN 325 MG TAB PO PRN (04:25)
[2024-09-24 06:12] LABS: Hematocrit (blood only) 37.8 % (42.0-52.0); Hemoglobin 12.8 g/dl (14.0-18.0); Mean Corpuscular Hemoglobin 29.1 pg (25.0-34.0); Mean Corpuscular Hgb Conc 33.9 g/dL (32.0-36.0); Mean Corpuscular Volume 85.9 fL (80.0-100.0); Mean Platelet Volume 10.7 fL (9.4-12.4); Platelet Count 195 K/uL (130-400); RDW Coefficient of Variation 14.3 % (11.5-14.5); RDW Standard Deviation 45.1 fL (36.4-46.3); White Blood Count 5.56 K/ul (4.8-10.8)
[2024-09-24 06:13] LABS: Basophils # (auto) 0.04 K/uL (0.00-0.20); Basophils % (auto) 0.7 %; Eosinophils # (auto) 0.19 K/uL (0.00-0.50); Eosinophils % (auto) 3.4 %; Immature Granulocytes # (auto) 0.01 K/uL (0.01-0.20); Immature Granulocytes % (auto) 0.2 %; Lymphocytes % (auto) 30.6 %; Monocytes # (auto) 0.61 K/uL (0.11-0.59); Neutrophils # (auto) 3.01 K/uL (1.40-6.50); Neutrophils % (auto) 54.1 %
[2024-09-24] MEDS ORDERED: PHARMACIST DISCHARGE MED REC CONSULT PRN (06:20)
--- NOTE | 2024-09-24 06:32 | Billing Data ---
Date of Service September 23, 2024 Coding Level of Care Code 31516 INT INP/OBS CARE
[2024-09-24 06:38] LABS: Albumin Globulin Ratio 1.6 (0.9-2); Albumin Level 3.4 gm/dl (3.4-5.0); Bilirubin,Total 0.4 mg/dl (0.2-1.0); Calcium 8.5 mg/dl (8.6-10.3); Globulin 2.1 gm/dl (2.5-4.0); Potassium 3.9 mmol/L (3.5-5.1); Total Protein 5.5 gm/dl (6.0-8.3)
[2024-09-24 07:06] LABS: Chol HDL Ratio 2.6 (0-5)
[2024-09-24 07:48] LABS: Estimated Average Glucose 108 mg/dl; Hemoglobin A1C 5.4 % (4.5-5.6)
[2024-09-24] MEDS ORDERED: TORSEMIDE 20 MG TAB PO SCH (09:00)
[2024-09-24] MEDS ORDERED: SPIRONOLACTONE 25 MG TAB PO SCH (09:00)
--- NOTE | 2024-09-24 09:01 | Hospitalist Progress Note ---
Date of Service September 24, 2024 Assessment & Plan (1) Stroke-like symptoms: Plan: -symptoms resolved -f/u Echo -MRI pending -con't asa plavix lipitor -neurology consulted -PT/OT -plan to d/c home once neurology w/u completed (2) Ischemic cardiomyopathy with implantable cardioverter-defibrillator (ICD): (3) Heart failure, systolic, with acute decompensation: Plan: -torsemide, jardiance, metoprolol (4) Paroxysmal A-fib: Plan: -amiodarone, metoprolol, s/p ablation (5) Left-sided headache: Plan Mark Batista is a 79 year-old male who presents to the ED for concern of stroke like symptoms. Medical history is significant for CAD s/p CABG x3, multiple cardiac stents, paroxysmal atrial fib/flutter, ischemic CMP, chronic systolic CHF, AAA s/p endovascular repair, PVD, CKD3, HTN, dyslipidemia. Admission and Anticipated Discharge Date Admission Date: September 23, 2024 Subjective Pt states his symptoms have completely resolved. No visual disturbances, no limb weakness. Review of Systems Review of Systems: CONST: Negative for fever, body aches and chills. HENT: Negative for neck pain/stiffness, headache, congestion, sore throat, swelling. EYES: Negative for discharge/pain or vision changes. RESP: Negative for cough/hemoptysis and shortness of breath. CV: Negative chest pain, difficulty breathing, palpitations. ABD: Negative pain, nausea, vomiting. : Negative increase frequency, dysuria, blood in urine or stool. MUSC: Negative for muscle aches, edema. SKIN: Negative rash, lesions/sores. NEURO: Negative headache, dizziness, weakness. Physical Exam Physical Exam: GENERAL APPEARANCE NAD, activity normal for age, well developed/ well nourished, no cyanosis, pallor, or diaphoresis. EYES lids/conjunctiva normal. EARS/NOSE/THROAT Mucous membranes moist, nares normal, lips/teeth normal uvula midline without oral pharyngeal erythema, exudate or swelling TMs normal bilaterally. No lymphangitis/lymphedema. HEAD/NECK normocephalic atraumatic, no facial trauma, neck is supple. RESPIRATORY respiratory effort normal, speaks in full sentences, no tripod position, no accessory muscle use. Lungs clear to auscultation without rhonchi, wheezes, rales CARDIAC Regular rate and rhythm, no edema. ABDOMINAL Soft, ND/NT. No evidence of fluid wave. No pulsatile masses on exam, rebound tenderness, Hopper sign or pain over Mcburney's point. MUSCLES/EXTREMITIES No abnormal range of motion, no swelling. SKIN Warm, pink and dry. No rashes, dermatoses, petechiae or lesions. NEUROLOGICAL Speech is clear and appropriate. Normal level of consciousness. Gait and coordination are normal. 5/5 strength in all extremities. PSYCH Normal mood and affect. Judgement/competence is appropriate Results & Data Results & Data Vital Signs (Past 12 Hours) Vital Signs Temp Pulse Pulse Pulse Resp BP BP 09/24/24 08:13 36.7 C 63 18 09/24/24 07:16 60 09/24/24 03:21 36.5 C 64 16 09/23/24 22:29 36.5 C 64 16 173/87 H 09/23/24 22:27 60 09/23/24 21:48 61 16 137/72 09/23/24 21:11 60 BP Pulse Ox O2 Del Method 09/24/24 08:13 136/75 95 Room Air 09/24/24 07:16 09/24/24 03:21 120/69 97 Room Air 09/23/24 22:29 100 Room Air 09/23/24 22:27 09/23/24 21:48 97 Room Air 09/23/24 21:11 PG Care Time/CCT Total # of Minutes Spent Total Time Spent with Patient: Total time spent is greater than 50% in coordination of care (as documented) at patient's floor/unit and/or counseling patient: Coding Level of Care Code 94276 SUB INP/OBS CARE 2/35MIN Diagnoses Stroke-like symptoms R29.90 Ischemic cardiomyopathy with implantable cardioverter-defibrillator (ICD) I25.5; Z95.810 Heart failure, systolic, with acute decompensation I50.23 Paroxysmal A-fib I48.0 Left-sided headache R51.9
--- NOTE | 2024-09-24 09:09 | Electrocardiogram Report ---
Test Reason : Blood Pressure : */* mmHG Vent. Rate : 68 BPM Atrial Rate : 68 BPM P-R Int : 230 ms QRS Dur : 168 ms QT Int : 518 ms P-R-T Axes : 40 253 21 degrees QTcB Int : 550 ms Atrial-paced rhythm with prolonged AV conduction Right bundle branch block Abnormal ECG When compared with ECG of 04-Jul-2024 12:33, Electronic atrial pacemaker has replaced Electronic ventricular pacemaker Confirmed by Paulino Gonzalez ([id number]) on 09/24/2024 9:08:42 AM Referred By: REFERRED SELF Confirmed By: Paulino Gonzalez
[2024-09-24] MEDS: ATORVASTATIN 40 MG TAB PO SCH (09:21)
[2024-09-24] MEDS: PANTOprazole 40 MG TAB PO SCH (09:21)
[2024-09-24] MEDS: SERTRALINE HCL 50 MG TABLET PO SCH (09:21)
[2024-09-24] MEDS: CLOPIDOGREL BISULFATE 75 MG TAB PO SCH (09:21)
[2024-09-24] MEDS: AMIODARONE 200 MG TAB PO SCH (09:22)
[2024-09-24] MEDS: FERROUS SULFATE 325 MG TAB PO SCH (09:22)
[2024-09-24] MEDS: METOPROLOL SUCC 50MG EXT REL TAB PO SCH (09:22)
[2024-09-24] MEDS: EMPAGLIFLOZIN 10 MG TAB PO SCH (09:22)
[2024-09-24] MEDS: SERTRALINE HCL 100 MG TABLET PO SCH (09:22)
[2024-09-24] MEDS: MONTELUKAST SODIUM 10 MG TABLET PO SCH (09:22)
--- NOTE | 2024-09-24 09:55 | Neurology Consultation ---
Date of Consultation September 24, 2024 Assessment & Plan (1) Stroke-like symptoms: (2) Acute left hemiparesis: (3) Numbness and tingling of left arm and leg: (4) Left-sided headache: (5) Ischemic cardiomyopathy with implantable cardioverter-defibrillator (ICD): Plan Patient had acute onset of left-sided weakness and numbness September 23 with left- sided headache and some increased blurry vision in the left. I did not find homonymous hemianopia on exam. This is likely a right hemispheric ischemic event (although technically it could still be a prolonged TIA). Complicated migraine cannot be entirely excluded either. His risk factor for stroke including history of hypertension, dyslipidemia, and diabetes. Fortunately, all of these are quite controlled with medication. He quit tobacco use [address] angiography of the head and neck was largely unremarkable as well. Patient has multiple cardiac issues followed closely by cardiology and he had this event despite taking clopidogrel and Eliquis. He has some history of depression and is on very low doses of sertraline and buspirone Recommendations: 1. MRI of the brain without contrast to evaluate for acute stroke 2. Echocardiogram 3. Keep antihypertensives and atorvastatin medication the same. 4. Increase activity as able and obtain Physical and Occupational Therapy consults. 5. Continue clopidogrel 75 mg and Eliquis 5 mg twice daily. Even if he did have a stroke on MRI I do not feel comfortable putting him on dual antiplatelet therapy with the anticoagulant as this would markedly increase bleeding and bruising risk. Brilinta versus clopidogrel is a consideration. Consider a consult with [facility] stroke service for recommendations of treatment in this case Overall, I spent a total of 90 minutes with this case including review of records, review of CT films, direct evaluation of patient at bedside, report generation, and discussion of the case with the patient and RN at bedside and Dr. Mckee, including differential diagnosis and treatment options. History of Present Illness Reason for Consultation: Patient is a 79-year-old, who I was asked to see at the request of Lizeth Billingsley DO, for neurologic consultation regarding probable stroke Requesting Physician: Lizeth Billingsley DO Attending Physician: Gonzalez Mckee MD History of Present Illness This patient has a history of coronary artery disease, ischemic cardiomyopathy, episode of V-fib with implantable cardioversion device and atrial fibrillation. He has been on 75 mg clopidogrel for many years and apixaban 5 mg twice daily for several years. He is followed closely by cardiology. About 3 years ago he had an episode of jumbled speech without actual stroke. He was evaluated at another hospital and I do not have these records. He was told that he had a "TIA". The patient has been stable from a neurologic standpoint. On September 23, he woke feeling well. At 1400 he had his pacemaker interrogated in [place]. Following this he felt a little "weak all over" and possibly lightheaded. He and his went to [facility] and around 1500 he had the onset of again feeling weak and tired all over. Shortly thereafter he had a left frontal headache of a nonspecific nature and then felt that his vision was blurry off to the left. He felt that his left arm and leg was weaker than usual and apparently he looked flushed. He was slightly short of breath and had a little trouble standing. They went directly to [facility] emergency room. They waited for 30 minutes and were not attended to so they came straight to [facility] emergency room. He arrived to the emergency room on September 23 at 1642 with a temperature 36.6, pulse 72 and regular, respiratory rate 18 and comfortable, blood pressure 150/77 and O2 saturation 99%. Emergency room physician wrote in his report that there was a right facial droop and weakness in the left arm and leg. The patient had some numbness and tingling in the left face, arm, and leg as well as weakness in the arm and leg but he did not think his face was weak. He had blurry vision in the left eye. He still had a left frontal headache of a mild nonspecific nature. CBC showed a slightly elevated white count. CHEM profile showed a slightly elevated creatinine. Urinalysis was unremarkable. Chest x-ray showed no acute finding CT scan of the head was unremarkable for acute findings or abnormalities CT angiography of the head and CT angiography of the neck showed a small left vertebral artery. No other vascular stenoses or anomalies were seen. CT scan of the abdomen and pelvis showed severe diverticulosis CT scan of the chest showed no acute findings. Today the patient feels better. He has a slight left frontal headache (better than yesterday) and some numbness and tingling in the left forehead and cheek and left leg. The left arm does not have numbness and tingling. There is leg greater than arm weakness on the left. He has some neck pain but this is chronic. He denies any speech issues and still has visual issues in the left eye. He has known macular degeneration. Today, CBC and CHEM profile were unremarkable. Hemoglobin A1c was 5.4, triglycerides 53 and total cholesterol 109. As an outpatient he takes atorvastatin 80 mg daily. He is on metoprolol Entresto and Jardiance. Patient has a history of depression and is on 50 mg of sertraline in the evening and 5 mg of buspirone. Allergies Allergy/AdvReac Type Severity Reaction Status Date / Time latex Allergy Intermediate Hives Verified 09/23/24 17:33 pollen extracts Allergy Intermediate itchy Verified 09/23/24 17:33 eyes, sneeze erythromycin base AdvReac Severe STOMACH Verified 09/23/24 17:33 PAIN Home Medications Medication Instructions Recorded Confirmed Type clopidogrel 75 mg tablet (Plavix) 75 mg PO QAM 11/21/21 09/23/24 History montelukast 10 mg tablet 10 mg PO QAM 11/21/21 09/23/24 History (Singulair) acetaminophen 500 mg tablet 1,000 mg PO DIRECTED PRN Pain 12/08/21 09/23/24 History (Tylenol Extra Strength) albuterol sulfate 90 mcg/actuation 2 inh inhalation Q4H PRN SHORT OF 12/27/22 09/23/24 History aerosol inhaler BREATH/COUGH/WHEEZE amiodarone 200 mg tablet 200 mg PO QAM 12/27/22 09/23/24 History apixaban 5 mg tablet (Eliquis) 5 mg PO BID 12/27/22 09/23/24 History albuterol sulfate 0.63 mg/3 mL 0.63 mg continuous nebulization Q4 12/31/22 09/23/24 History solution for nebulization PRN Wheezing atorvastatin 80 mg tablet 80 mg PO DAILY 12/31/22 09/23/24 History sertraline 50 mg tablet 50 mg PO QAM 12/31/22 09/23/24 History spironolactone 25 mg tablet 25 mg PO QAM 12/31/22 09/23/24 History vit C 250 mg-vit E 90 mg-zinc 40 1 tab PO AMPM 12/31/22 09/23/24 History mg-copper 1 [id number] capsule (PreserVision AREDS-2) metoprolol succinate 50 mg 50 mg PO QAM #90 tabs 12/13/23 09/23/24 Rx tablet,extended release 24 hr baclofen 10 mg tablet 10 - 20 mg PO HS PRN Muscle Spasm 07/03/24 09/23/24 History buspirone 5 mg tablet 5 mg PO BID PRN anxiety 07/03/24 09/23/24 History empagliflozin 10 mg tablet 10 mg PO DAILY 07/03/24 09/23/24 History (Jardiance) pantoprazole 40 mg tablet,delayed 40 mg PO DAILY 07/03/24 09/23/24 History release sacubitril 24 mg-valsartan 26 mg 1 tab PO BID 07/03/24 09/23/24 History tablet (Entresto) sertraline 100 mg tablet 100 mg PO DAILY 07/03/24 09/23/24 History tadalafil 10 mg tablet 10 mg PO DIRECTED PRN Erectile 07/03/24 09/23/24 History Dysfunction torsemide 20 mg tablet 20 mg PO DAILY 07/03/24 09/23/24 History ascorbate calcium (vitamin C) 500 500 mg PO DAILY 09/23/24 09/23/24 History mg tablet calcium 500 mg (as 2 tab PO DAILY 09/23/24 09/23/24 History carbonate)-vitamin D3 10 mcg (400 unit) tablet (Calcium 500 With D) ferrous sulfate 325 mg (65 mg 325 mg PO Q OTHER DAY 09/23/24 09/23/24 History iron) tablet hydrocodone 5 mg-acetaminophen 325 1 tab PO Q6H PRN Pain, Severe 09/23/24 09/23/24 History mg tablet triamcinolone acetonide 0.1 % 1 applic topical BID PRN SKIN 09/23/24 09/23/24 History topical cream IRRITATIONS Patient History Medical History Empyema lung as a teenager, treated at [facility] Degenerative disc disease Chronic back pain Kidney stones no surgery On anticoagulant therapy Ischemic cardiomyopathy Macular degeneration History of inferior wall myocardial infarction 1993 Ventricular fibrillation cardiac arrest & defibrillator 10/24/21 Cardiac arrest 10/24/2021 -> defibrillator placed --> follows with Dr Bernal Surgical History History of bronchoscopy as a teenager r/t empyema History of cardiac radiofrequency ablation a.fib [facility] Status post implantation of automatic cardioverter/defibrillator (AICD) placed at [facility] 10/2021 d/t cardiac arrest History of cardiac catheterization x6 History of arthroscopy of shoulder right shoulder History of cataract surgery bilateral S/P AAA (abdominal aortic aneurysm) repair [facility]2012. History of heart artery stent x 4 (last stent placed by Dr Cabrera in [facility] ~2014 or earlier) History of coronary artery bypass graft x 3 2007 - Family History (Updated 09/24/24 @ 09:37 by Soren Reddy MD) Father , in mid 70s of an [place] AAA (abdominal aortic aneurysm) Heart disease Myocardial infarction Mother , age 90 with a stroke Breast cancer Stroke Other Hypertension No family history of adverse response to anesthesia Social History (Updated 09/24/24 @ 09:38 by Soren Reddy MD) Smoking Status: Former smoker Tobacco Type: Cigarettes and Smokeless Tobacco (Dip or Chew) Age Started Using Tobacco: 17; Age Quit Using Tobacco: 69; Second Hand Exposure: No; Do You Dip or Chew Tobacco: No (but former use (snuff) - quit in 2015); Hx Alcohol Use: Yes Alcohol type: beer Alcohol Intake Frequency: 2-4 x/Month Hx Substance Use: No Preferred Language: Macedonian Communication Ability: Effective Nursing Manager Required: No Beliefs That Will Affect Care: None Current Living Situation: Spouse Current Living Situation Comment: apartment, accessible elevators current occupational status: retired 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 Feels Safe at Home: Yes Assistive Devices: Cane, Glasses and Hearing Aid - Bilateral Review of Systems Constitutional: no fever, no fatigue and no weakness Eyes: + worsening vision; no diplopia and no e ye pain Ear, Nose, Mouth, Throat: no ear pain, no tinnitus, no hearing loss, no dizziness, no snoring, no hoarseness and no dysphagia Respiratory: no cough and no dyspnea Cardiovascular: no chest pain, no palpitations and no lightheadedness Gastrointestinal: no abdominal pain, no nausea and no vomiting Musculoskeletal: + neck pain; no back pain, no radicular pain, no joint pain and no myalgia Integumentary: no rash and no lesions Neurologic: + gait abnormality, + localized weakness , + numbness and + headache(s); no generalized weakness, no tingling, no tremor(s), no abnormal movements, no abnormal speech, no confusion and no memory loss Psychiatric: + depression; no irritability, no anxiet y, no difficulty concentrating, no confusion and no hallucinations Endocrine: no fatigue and no flushing Hematologic / Lymphatic: no easy bleeding and no easy bruising Allergy / Immunological: no urticaria and no problem reported Exam (Neuro) Physical Exam: The patient is right-handed. The patient is awake, alert, and attentive. Speech is normal without any aphasia or dysarthria. Mentation and thought processes are intact, with full orientation and normal fund of knowledge. Mood and affect are normal and appropriate. Appearance and grooming are normal. Short and long-term memory are intact to conversation. Pupils are 4 mm bilaterally and reactive to light. Extraocular eye muscles are intact without nystagmus. Visual acuity and visual zuleta seem normal grossly to confrontation. There was no visual field deficit. There is some slight nonspecific numbness in the lateral left forehead and left cheek. corneal reflexes are positive bilaterally. Facial strength and symmetry was normal bilaterally. Hearing seems intact grossly to voice and finger rub bilaterally. Palate moves well without asymmetry. There is normal sternocleidomastoid and trapezius strength bilaterally. Tongue is midline with good strength bilaterally. Neck has a full range of motion with some discomfort. There are no cervical bruits bilaterally. There are no cranial or ocular bruits. Heart is without murmur. There is a regular rhythm and rate. Cervical spine is tender to palpation over the midline. Thoracic and lumbar spine are nontender to palpation. Stance sitting up in bed with feet dangling is normal. He needs the assistance of 1 because of his left leg weakness. He is slightly wide-based and cautious because of that leg. With outstretched arms there is no drift. There are no resting, postural, or action tremors. There is no ataxia with finger to nose testing (he has some dysmetria from weakness as opposed to true ataxia). There is decreased facility to rapid alternating movements in the left hand, compared to the right which was normal. No other abnormal involuntary movements are noted. Motor strength is 5/5 diffusely in the right upper extremity including deltoids, biceps, triceps, brachioradialis, wrist flexors and extensors, spot worker, and intrinsic hand muscles. Motor strength is 4/5 diffusely in the left upper extremity both proximally and distally in the same muscles. Motor strength is 5/5 diffusely in the right lower extremity including hip flexors, quadriceps, hamstrings, gastrocnemius, tibialis anterior, tibialis posterior, and Peroneii muscles bilaterally. Motor strength is 4 -/5 diffusely in the left extremity both proximally and distally in the same muscles. The limbs have good tone without rigidity or spasticity, however the left upper extremity has slightly less tone than the left. There is no atrophy noted in the muscles. Muscle bulk is normal, there is no tenderness to palpation, no myotonia to percussion, and no fasciculations seen. Sensory examination reveals some decrease sensation in the left lower extremity distally. The left upper extremity was spared. Reflexes are reflexes were 1/4 in the biceps, triceps, and brachial radialis tendons on the right. These reflexes were 0/4 on the left. The left quadriceps reflex with 2/4 in the right was trace. Achilles reflexes are absent bilaterally. Toes are downgoing with plantar stimulation bilaterally. Peripheral pulses are present and of normal quality distally in all 4 limbs. There is no peripheral edema noted in the limbs. Results & Data Vital Signs (Past 12 Hours) Vital Signs Temp Pulse Pulse Pulse Resp BP BP 09/24/24 08:13 36.7 C 63 18 09/24/24 07:16 60 09/24/24 03:21 36.5 C 64 16 09/23/24 22:29 36.5 C 64 16 173/87 H 09/23/24 22:27 60 09/23/24 21:48 61 16 137/72 BP Pulse Ox O2 Del Method 09/24/24 08:13 136/75 95 Room Air 09/24/24 07:16 09/24/24 03:21 120/69 97 Room Air 09/23/24 22:29 100 Room Air 09/23/24 22:27 09/23/24 21:48 97 Room Air PG Care Time/CCT Total # of Minutes Spent Total Time Spent with Patient: Total time spent is greater than 50% in coordination of care (as documented) at patient's floor/unit and/or counseling patient: Coding Level of Care Code 38073 INT INP/OBS CARE MIN Diagnoses Stroke-like symptoms R29.90 Acute left hemiparesis G81.94 Numbness and tingling of left arm and leg R20.0; R20.2 Left-sided headache R51.9 Ischemic cardiomyopathy with implantable cardioverter-defibrillator (ICD) I25.5; Z95.810 Time Spent (min) 90
--- NOTE | 2024-09-24 11:00 | XCELERA ---
[id number]
--- NOTE | 2024-09-24 11:14 | CT Scan Report ---
CT head/brain wo con CLINICAL HISTORY: 79 years-old Male with TIA follow up. Acute strokelike symptoms TECHNIQUE: Multiple axial CT images of the head were obtained without contrast. A dose lowering tech nique was utilized adhering to the principles of ALARA. CT DOSE: 625.8 mGy.cm COMPARISON: Head CT 09/23/2024 FINDINGS: No acute intracranial hemorrhage, midline shift, intracranial mass, hydrocephalus, territorial ischem ia or abnormal extra-axial collection. Involutional changes with suggestion of mild chronic microvasc ular ischemic disease. Cerebral vascular calcifications. The calvarium is intact. The paranasal sinuses, mastoid air cells, and middle ear cavities are clear . IMPRESSION: No acute intracranial abnormality. ACT 112: Negative or not required by law. The above report was generated using voice recognition software. It may contain grammatical, syntax o r spelling errors. Electronically signed by: Teodoro Joshua M.D. 09/24/2024 11:12 AM
--- NOTE | 2024-09-24 12:04 | Pharmacy Report ---
- Date of Service September 24, 2024 - Pharmacy CVA/TIA Medication Review Medications to Prevent Stroke handout has been added to the patients discharge packet. Antiplatelet(s) * Plavix 75 mg PO daily Cholesterol * High intensity statin: atorvastatin 80 mg daily DVT Prophylaxis * SCD knee Therapeutic Anticoagulation * Patient on Eliquis at home and has a defibrillator in place Type 2 Diabetes * Patient does not have T2DM but is on Jardiance at home for Heart Failure
--- OUTSIDE RECORDS SUMMARY | 2024-09-24 13:58 | External Medical Summary | Summary of Care ---
Author Name Unknown Organization [facility] Address [address] [facility] [place] [address] Phone [phone] Care Team Providers Care Behavior Management Specialist Name Role Phone Doreen Dillon MD Primary Care Pr ovider Reason for Visit * Reason Comments Follow Up * Precert (Within 10 days (routine)) - Authorized Specialty Diagnoses / Procedures Referred By Lb rogers Referred To Contact Ophthalmology Diagnoses Exudative age-related macular degeneration, left eye, with active choroidal neovascularization (HCC) Procedures INECTION,BEVACIZUMAB, 10 MG NH INTRAVITREAL NJX PHARMACOLOGIC AGT SPX Jorge Alberto Ann DO Phone: tel: fax: Referral ID Status Reason Start Date Expiration Date V isits Requested Visits Authorized [id number] Authorized Precert 02/22/2021 05/06/2099 99 [phone] Encounter Details Date Type Department Care Team (Late st Contact Info) Description 08/26/2024 11:15 AM EDT Office Visit Ophthalmology, [facility] [address] [place] [phone] Jorge Alberto Ann DO [address] [place] [phone] 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 (HCC)*; Intermediate stage nonexudative age-related macular degeneration of right eye Allergies Active Allergy Reactions Criticality Noted Date Comments Erythromycin 02/24/2001 stomach pain Latex Hives 02/15/2009 Pollen 04/25/2017 documented as of this encounter (statuses as of 08/26/2024) Medications CALCIUM 1000 + D 1000-800 MG-UNIT PO TABS one pill each day Active FREDY-C PO TABS one pill each day Active Multiple Vitamins-Minerals (PRESERVISION AREDS 2+MULTI VIT) CAPS Take 1 Cap by mouth 2 times a day. Active Acetaminophen 500 MG Oral Tablet (Tylenol) Take 2 Tablets by mouth as needed. 12/09/19 22 Active Triamcinolone Acetonide 0.1 % External Cream (Aristocort)Indicati ons:Dry skin Apply topically to affected area 2 times a day. To affected area. For up to 2 weeks in a row or as needed. 45 g 2 01/06/20 23 Active Spironolactone 25 MG Oral Tablet (Aldactone)Indicatio ns:HFrEF (heart failure with reduced ejection fraction) (HCC),HTN, goal below 140/90 One tablet by mouth daily 90 Tablet 3 05/03/20 23 Active Sertraline HCl 100 MG Oral Tablet (Zoloft) Take 1 Tablet by mouth in the morning. 10/01/19 24 Active Torsemide 20 MG Oral Tablet (Demadex)Indications :HFrEF (heart failure with reduced ejection fraction) (HCC) TAKE 1 TABLET BY MOUTH EVERY DAY IN THE MORNING 90 Tablet 3 10/08/19 24 Active Montelukast Sodium 10 MG Oral Tablet (Singulair)Indicatio ns:Mild persistent asthma without complication Take 1 Tablet by mouth in the morning. 90 Tablet 3 10/29/19 24 Active Albuterol Sulfate HFA 108 (90 [...] THE MORNING 90 Tablet 04/06/20 24 Active Clopidogrel Bisulfate 75 MG Oral [...] hours 10 Tablet 11 04/28/20 24 Active Pantoprazole Sodium 40 MG Oral Tablet Delayed Release (Protonix)Indication s:Other acute gastritis with hemorrhage,UGIB (upper gastrointestinal bleed) Take 1 Tablet by mouth in the morning. 90 Tablet 1 07/08/19 25 Active HYDROcodone-Acetamin ophen 5-325 MG Oral TabletIndications:Fa ll on ice,Chronic left shoulder pain Take 1 Tablet by mouth every 6 hours as needed for Pain, Severe. 30 Tablet 07/29/19 25 Active Ferrous Sulfate 325 (65 Fe) MG Oral Tablet (Feosol) Take 1 Tablet by mouth every other day. 45 Tablet 3 07/30/19 25 Active Jardiance 10 MG Oral Tablet (Empagliflozin)Indic ations:HFrEF (heart failure with reduced ejection fraction) (HCC) TAKE 1 TABLET BY MOUTH EVERY DAY IN THE MORNING 90 Tablet 08/11/19 25 Active Eliquis 5 MG Oral Tablet (Apixaban)Indication s:Paroxysmal A-fib (HCC) TAKE 1 TABLET BY MOUTH IN THE MORNING AND BEFORE BEDTIME 180 Tablet 08/11/19 25 Active busPIRone HCl 5 MG Oral Tablet (Buspar) Take 1 Tablet by mouth 2 times a day as needed (anxiety). 180 Tablet 1 08/23/19 25 Active Nitroglycerin 0.4 MG Sublingual Tablet Sublingual (Nitrostat) Place 1 Tablet (0.4 mg) under the tongue as needed for Pain, Chest. May repeat 3 times. If chest pain continues, call 911. 25 Tablet 11 04/14/20 22 025 Discontin ued(Medic ation List Clean Up) Hospital, Clinic, or Other Facility Administered Medication [...] as of this encounter (statuses as of 08/26/2024) Active Problems Problem Noted Date Diagnosed Date Obstructive sleep apnea of adult 07/09/2024 Macular degeneration 03/19/2024 Peripheral edema 03/19/2024 Diverticulosis [...] dysfuntion 4. Hypertension 5. Hyperlipidemia Dr Portillo [facility] 02/2005 Coronary artery disease invo lving [place] coronary artery of [place] heart without angina pectoris Infrarenal abdominal aortic aneurysm (AAA) witho ut rupture Overview (10/20/2014): 4 cm as of 08/25/12 4.3 cm as of 10/16/14 Hyperplastic colon polyp documented as of this encounter (statuses as of 08/26/2024) Resolved Problems Problem Noted Date Diagnosed Date [...] update of inactive term Other allergic rhinitis 09/04 Overview (02/27/2017): ICD-10 update of inactive term documented as of this encounter (statuses as of 08/26/2024) Immunizations Name Administration Dates Next Due COVID-19 [...] 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 Last Office Visit: Visit date not found (in office), Visit date not found (telemedicine) Patient currently states no change in vision. Are you diabetic? No Do you drive? yes OCT image(s) of both eyes acquired and filed/scanned into chart. Base Eye Exam Visual Acuity (Snellen - Linear) Right Left Dist sc 20/250 20/70 Dist ph sc 20/200 20/50 Correction: Glasses Tonometry (Tonopen, 11:12 AM) Right Left Pressure 16 14 Pupils Pupils Dark Light Shape React APD Right PERRL 5 4 Round Brisk None Left PERRL 5 4 Round Brisk None Visual Rose (Counting fingers) Right Left Full Full Extraocular Movement Right Left Full Full Neuro/Psych Oriented x3: Yes Mood/Affect: Normal Dilation Both eyes: 0.5% Proparacaine @ 11:12 AM Dilation #2 Both eyes: 1.0% Mydriacyl, 2.5% Phenylephrine @ 11:12 AM Dilation #3 Both eyes: 1.0% Mydriacyl, 2.5% Phenylephrine @ 11:14 AM Dilation Comments Patient cautioned that effects of dilation may last 2-7 hours dependant upon individual reaction. It was discussed that driving while dilated is not recommended. EXTERNAL: The ocular adnexae are unremarkable. SLE: Lids/Lashes: wnl OU Conjunctiva/Sclera: quiet OU Cornea: clear OU Anterior Chamber: deep and quiet OU Iris: normal OU; no NVI OU Lens: PCIOL OU Dilated fundus exam OD: vitreous: PVD optic nerve: 0.3, no edema/pallor/NVD macula: large soft drusen and pigmentary changes, no SRF/SRH/CME vessels: wnl midperiphery: wnl periphery: no RT/RD Dilated fundus exam OS: vitreous: +pig and PVD optic nerve: 0.3, no edema/pallor/NVD macula: large soft drusen and pigmentary changes, no SRF/SRH/CME vessels: wnl midperiphery: wnl periphery: +HST 12 o'clock w/ surrounding srfluid--good laser barrier, +HST 6:30 w/ barrier OCT Interpretation: OD: drusen, no CME/SRFluid, resolved draping, PVD -- STABLE OS: drusen, no CME; improved srmounding, +PVD -- improved, prior trace worse A/P: 1. Age-Related Macular Degeneration OU OD: dry -An examination for this condition was completed which is unrelated to the procedure that was performed today. -monitor -recommend AREDS2 MVI as directed and Amsler grid qday OS: -had draping mimicking srfluid on OCT OS in past -early CNV OS 02/22/21 -Avastin (03/05/24, 12/26/23, , 08/02/23, 05/10/23, 02/13/23, 11/28/22, 06/27/22, 04/13/22, 02/01/22, 11/09/21, 08/15/21, 07/05/21, 03/30/21, 02/22/21)--pt noticed significant improvement after injection -10 weeks; worse at 14 weeks -worsening on Avastin; get approval for Eylea -Eylea 06/03/2024 -12 weeks -pt wants to keep 10-12 weeks 2. Posterior Vitreous Detachment OU -onset: 09/25 OD -no RT/RD -advised to return to clinic if he should experience worsening or new floaters, flashes of light, ashadow in the periphery, or decrease in vision. 3. 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 Posterior Vitreous Detachment OS -no RT/RD -advised to return to clinic if he should experience worsening or new floaters, flashes of light, ashadow in the periphery, or decrease in vision. 5. Pseudophakia OU -stable F/u as 10-12 weeks; dilate x 2, OCT OU Jorge Alberto Ann, DO CC: Jovanna Osorio, OD PCP: Randy Bradford DO TIMEOUT PROCEDURE: correct patient identity-YES correct procedure and consent-YES verified side and site-YES correct patient position-YES all necessary equipment/prior studies present-YES reviewed special requirements of this patient-YES PROCEDURE: Intravitreal injection of Eylea (aflibercept) 2mg OS INFORMED CONSENT: Risks, benefits and alternatives have been discussed with the patient. Risks include, but are not limited to: retinal tears, detachments, hemorrhage, glaucoma, infection, cataracts, need for more procedures and the potential risk of arterial thromboembolic events following use of intravitreal VEGF inhibitors defined as nonfatal stroke, nonfatal myocardial infarction or vascular . Patient is aware of these risks and consents to the procedure. DESCRIPTION OF PROCEDURE: The procedure site was confirmed. Topical proparacaine was applied to the surface of the eye after which subconjunctival anesthetic was administered. The area was prepped in the standard aseptic manner with 5% Betadine solution. An eyelid speculum was placed and 2mg (0.05 ml) of Eylea was injected 3.75 mm posterior to the limbus into the midvitreous cavity with a 30 gauge short needle. The eye speculum was removed, Betadine was flushed from the eye and optic nerve perfusion was insured. The patient tolerated the procedure without difficulty and was given followup instructions and instructed to use ophthalmic ointment 3x/day as needed. Jorge Alberto Ann DO, performed the procedure in its entirety. documented in this encounter Nursing Notes * Lara Walker TECH - 08/26/2024 11:40 AM EDT Mark Batista to receive second Eylea 2mg Injection of the Left eye. Correct eye confirmed with patient and marked by Jorge Alberto Ann DO Eylea 2mg lot # [id number] Exp. Date: 10/2025 * Jorge Alberto Sanchez TECH - 08/26/2024 11:06 AM EDT Mark Batista is a 79 year old year old male who presents for AMD OU. Last Office Visit: Visit date not found (in office), Visit date not found (telemedicine) Patient currently states no change in vision. Are you diabetic? No Do you drive? yes OCT image(s) of both eyes acquired and filed/scanned into chart. documented in this encounter Plan of Treatment Upcoming Encounters Date Type Department Care Team (Late st Contact Info) Description 09/23/2024 2:30 PM EDT Cardiac Studies Cardiology [address] [place] [phone] [facility] [address] [place] [address] 09/30/2024 11:00 AM EDT Office Visit Sleep Disorders [facility] [address] [place] [phone] Samantha Wong DO [address] [place] [address] 10/29/2024 12:40 PM EDT Office Visit [address] [place] [phone] Doreen Dillon MD [address] [place] [address] [place] [phone] 11/11/2024 10:45 AM EDT Office Visit Ophthalmology, [facility] [address] [place] [phone] Jorge Alberto Ann DO [address] [place] [address] Nurse Raul Melchor [address] [place] [phone] Photographer Tatyana Melchor [address] [place] [phone] 06/09/2025 8:00 AM EST Office Visit Cardiology, [facility] [address] [place] [phone] Tanya Park PA-C [address] [place] [phone] Scheduled Orders Name Type Priority Associated Diagnoses Orde r Schedule RETINA SCAN DIAGNOSTIC IMAGE, POSTERIOR Procedures Routine 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 (HCC) Ordered: 08/26/2024 Health Maintenance Due Date Last Done Comments Depression Monitoring 1957 Adult Wellness Visit 2013 COVID-19 Vaccine ( season) 2024 01/11/2023, 09/13/2021, 03/09/2021, Additional history exists Albumin/Creatinine Ratio 11/05/2024 024, 09/19/2022, 09/21/2021, Additional history exists GFR 01/28/2025 07/28/2024, 09/2024, 06/21/2023, Additional history exists CKD HGB USE SMARTSET 90821 07/28/202507/28, 07/28/2024, 05/11/2024, Additional history exists CKD PHOS USE SMARTSET 69233 07/28/202507/06, 01/05/2023, 09/19/2022, Additional history exists Colonoscopy 12/25/2025 12/25/2020, 11/2014, [...] this encounter Medical Devices Implanted Type Area Shear Tender Device Identifier Shelf Expiration Date Model / Serial / Lot Lens Intraoc 18.0 - [id number] - [id number] Implanted:Qty: 1 on 07/04/2018 by Conner Davenport MD at OR [facility] Right: Eye BAUSCH 12/04/2022 [id number] / [id number] / [id number] Lens Intraoc 19.0 - [id number] - [id number] Implanted:Qty: 1 on 07/16/2018 by Conner Davenport MD at OR [facility] Left: Eye BAUSCH 10/04/2022 [id number] / [id number] / Suture [place], Biocomposite Corkscrew Ft Implanted:Qty: 1 on 11/17/2020 by Mark Reilly DO at OR [facility] Right: Shoulder [employer] 07/05/2023 [id number] / / [id number] Description:Double Loaded wi th two 1.3 mm Suture tape Biocomposite Swivelock Suture [place] Implanted:Qty: 1 on 11/17/2020 by Mark Reilly DO at OR [facility] Right: Shoulder [employer] 01/04/2022 AR-2324BCT -2 / / [id number] Description:Double Loaded wi th PEEK Eyelet and two #2 TigerTail Sutures Biocomposite Knotless Swivelock [place] Implanted:Qty: 1 on 11/17/2020 by Mark Reilly DO at OR [facility] Right: Shoulder [employer] 07/04/2024 [id number] CTT / / [id number] Description:With White/Black TigerTape Loop and Blue #2 Suture Biocompostie Swivelock Suture [place] Implanted:Qty: 1 on 11/17/2020 by Mark Reilly DO at OR [facility] Right: Shoulder [employer] 05/06/2022 AR-[id number] -2 / / [id number] Description:Double Loaded wi th PEEK Eyelet and two #2 TigerTail Sutures documented as of this encounter Visit Diagnoses Diagnosis 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 (HCC)- Primary Intermediate stage nonexudative age-related macular degeneration of right eye documented in this encounter Administered Medications Active Administered Medications - up to 3 most recent administrations Medication Order MAR Action Action Date Dose Rate Site Aflibercept (Eylea) intraviteal prefilled syringe 2 mg 2 mg, Intravitreal, PRN Other, Starting on Sun06/03/24 at 0938, Until Sun06/03/25 at 0937, For 365 daysIndications: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 (HCC) Given 08/26/2024 11:41 AM EDT 2 mg Eye Left Given 06/03/2024 9:56 AM EST 2 mg Ey e Left ROPivacaine (Naropin) inj 1.5 mg 1.5 mg, Injection, PRN Other, Starting on Sun06/03/24 at 0938, Until Sun06/03/25 at 0937, For 365 daysIndications: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 (HCC) Given 08/26/2024 11:41 AM EDT 1.5 mg Eye Left Given 06/03/2024 9:56 AM EST 1.5 mg Ey e Left documented in this encounter Care Teams Behavior Management Specialist Relationship Specialty Start Date End Date Doreen Dillon MD [address] [place] [address] [place] [phone] PCP - General Family Medicine 04/28/24 documented as of this encounter
--- OUTSIDE RECORDS SUMMARY | 2024-09-24 13:58 | External Medical Summary | Summary of Care ---
Author Name Unknown Organization [facility] Address [address] [place] [address] Phone [phone] Care Team Providers Care Farm Tractor Mechanic Name Role Phone Neeraj Dillon MD Primary Care Pr ovider Reason for Visit * Reason Onset Date Comments Medication Refill 08/20/2024 Encounter Details Date Type Department Care Team (Late st Contact Info) Description 08/20/2024 Refill Family Medicine [address] [phone] Neeraj Dillon MD [address] [place] [phone] Allergies Active Allergy Reactions Criticality Noted Date Comments Erythromycin 02/24/2001 stomach pain Latex Hives 02/15/2009 Pollen 04/25/2017 documented as of this encounter (statuses as of 08/22/2024) Medications CALCIUM 1000 + D 1000-800 MG-UNIT PO TABS one pill each day Active FREDY-C PO TABS one pill each day Active Multiple Vitamins-Minerals (PRESERVISION AREDS 2+MULTI VIT) CAPS Take 1 Cap by mouth 2 times a day. Active Acetaminophen 500 MG Oral Tablet (Tylenol) Take 2 Tablets by mouth as needed. 12/09/19 Active Nitroglycerin 0.4 MG Sublingual Tablet Sublingual [...] ns:HFrEF (heart failure with reduced ejection fraction) ([facility]),HTN, goal below 140/90 One tablet by mouth daily 90 Tablet 3 05/03/20 23 Active Sertraline HCl 100 MG Oral Tablet (Zoloft) Take 1 Tablet by mouth in the morning. 10/01/19 24 Active Torsemide 20 MG Oral Tablet (Demadex)Indications :HFrEF (heart failure with reduced ejection fraction) ([facility]) TAKE 1 TABLET BY MOUTH EVERY DAY [...] (anxiety). 180 Tablet 1 08/23/19 25 Active busPIRone HCl 5 MG Oral Tablet (Buspar) TAKE 1 TABLET BY MOUTH 2 TIMES A DAY NEEDED (ANXIETY). 60 Tablet 1 07/22/19 25 025 Discontin ued(Refil l) Hospital, Clinic, or Other Facility Administered Medication [...] as of this encounter (statuses as of 08/22/2024) Active Problems Problem Noted Date Diagnosed Date [...] dysfuntion 4. Hypertension 5. 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 Authorizing Provider: NEERAJ DILLON * Telephone Encounter - Allyson Atkins RN - 08/20/2024 4:31 PM EDTPending Prescriptions: Disp Refills busPIRone HCl 5 MG Oral Tablet (Buspar) 180 Ta*1 Sig: Take 1 Tablet by mouth 2 times a day as needed (anxiety). * Telephone Encounter - Christy Plaza, ESTELLA - 08/20/2024 3:18 PM EDT Did you pend patient's preferred pharmacy and medication before forwarding?yes Pharmacy: [id number] [id number] [facility] 90 day Pending Prescriptions: Disp Refills busPIRone HCl 5 MG Oral Tablet (Buspar) 60 Tab*1 Sig: Take 1 Tablet by mouth 2 times a day as needed (anxiety). Last Visit: 07/28/2024 (in office), Visit date not found (telemedicine) Next Visit: 10/29/2024 If no future appointments scheduled, and last appointment is greater than a year ago, please schedule patient for a follow-up appointment Last date the medication was ordered: 07.21.24 Is this request for a controlled substance?No Urine Drug Screen:No results found. However, due to the size of the patient record, not all encounters were searched. Please check Results Review for a complete set of results. Patient Phone Numbers Labs: Lab Results Component Value Date/Time CREAT 1.2 07/28/2024 12:17 PM CREAT 1.20 05/11/2024 12:00 AM CREAT 1.4 (H) 06/14/2016 10:49 AM POTASSIUM 5.0 07/28/2024 12:17 PM POTASSIUM 4.0 05/11/2024 12:00 AM POTASSIUM 5.1 06/14/2016 10:49 AM TSH 3.76 07/28/2024 12:17 PM TSH 3.93 03/31/2013 04:26 PM LDL 76 06/21/2023 01:37 PM LDL 80 06/14/2016 10:49 AM LDL 152. (H) 08/15/1996 10:20 AM LDLCALC 90 03/18/2020 03:05 PM ALT 13 07/28/2024 12:17 PM ALT 21 06/14/2016 10:49 AM HGBA1C 4.6 07/28/2024 12:17 PM documented in this encounter Plan of Treatment Upcoming Encounters Date Type Department Care Team (Late st Contact Info) Description 08/26/2024 11:15 AM EDT Office Visit Ophthalmology, [facility] [address] [place] [phone] Jorge Alberto Ann, DO [address] [place] [address] 09/23/2024 2:30 PM EDT Cardiac Studies Cardiology [address] [place] [address] [facility] [address] [place] [address] 09/30/2024 11:00 AM EDT Office Visit Sleep Disorders [facility] [address] [place] [phone] Samantha Wong DO [address] [place] [address] 10/29/2024 12:40 PM EDT Office Visit Family Medicine [address] [place] [phone] Neeraj Dillon MD [address] [place] [address] [place] [phone] 06/09/2025 8:00 AM EST Office Visit Cardiology, [facility] [address] [place] [phone] Tanya Park PA-C [address] [place] [address] Health Maintenance Due Date Last Done Comments Depression Monitoring 1957 Adult Wellness Visit 2013 COVID-19 Vaccine ( season) 2024 01/11/2023, 09/13/2021, 03/09/2021, Additional history exists Albumin/Creatinine Ratio 11/05/2024 024, 09/19/2022, 09/21/2021, Additional history exists GFR 01/28/2025 07/28/2024, 09/2024, 06/21/2023, Additional history exists CKD HGB USE SMARTSET 88670 07/28/202507/28, 07/28/2024, 05/11/2024, Additional history exists CKD PHOS USE SMARTSET 07157 07/28/202507/06, 01/05/2023, 09/19/2022, Additional history exists Colonoscopy [...] this encounter Medical Devices Implanted Type Area Marine Steam Fitter Helper Device Identifier Shelf Expiration Date Model / Serial / Lot Lens Intraoc 18.0 - [id number] - [id number] Implanted:Qty: 1 on 07/04/2018 by Conner Davenport MD at OR [facility] Right: Eye BAUSCH 12/04/2022 [id number] / [id number] / [id number] Lens Intraoc 19.0 - [id number] - [id number] Implanted:Qty: 1 on 07/16/2018 by Conner Davenport MD at OR [facility] Left: Eye BAUSCH 10/04/2022 [id number] / [id number] / Suture [place], Biocomposite Corkscrew Ft Implanted:Qty: 1 on 11/17/2020 by Mark Reilly DO at OR [facility] Right: Shoulder [employer] 07/05/2023 [id number] -[id number] / / [id number] Description:Double Loaded wi th two 1.3 mm Suture tape Biocomposite Swivelock Suture [place] Implanted:Qty: 1 on 11/17/2020 by Mark Reilly DO at OR [facility] Right: Shoulder [employer] 01/04/2022 AR-2324BCT -2 / / [id number] Description:Double Loaded wi th PEEK Eyelet and two #2 TigerTail Sutures Biocomposite Knotless Swivelock [place] Implanted:Qty: 1 on 11/17/2020 by Mark Reilly DO at OR [facility] Right: Shoulder [employer] 07/04/2024 AR-[id number] CTT / / [id number] Description:With White/Black TigerTape Loop and Blue #2 Suture Biocompostie Swivelock Suture [place] Implanted:Qty: 1 on 11/17/2020 by Mark Reilly DO at OR [facility] Right: Shoulder [employer] 05/06/2022 AR-2323BCT -2 / / [id number] Description:Double Loaded wi th PEEK Eyelet and two #2 TigerTail Sutures documented as of this encounter Care Teams Farm Tractor Mechanic Relationship Specialty Start Date End Date Neeraj Dillon MD [address] [place] [address] [place] [phone] PCP - General Family Medicine 04/28/24 documented as of this encounter
--- OUTSIDE RECORDS SUMMARY | 2024-09-24 13:58 | External Medical Summary | Summary of Care ---
Author Name Unknown Organization [facility] Address [address] [place] [address] Phone [phone] Care Team Providers Care Board Hammer Operator Name Role Phone Doreen Dillon MD Primary Care Pr ovider Reason for Visit * Reason Onset Date Comments Test Results 07/29/2024 Appointment 07/29/2024 MRI Encounter Details Date Type Department Care Team ([facility] st Contact Info) Description 07/29/2024 Telephone Family Medicine [address] [phone] Doreen Dillon MD [address] [place] [address] [place] [phone] Test Results; Appointment (MRI ) Allergies Active Allergy Reactions Criticality Noted Date Comments Erythromycin 02/24/2001 stomach pain Latex Hives 02/15/2009 Pollen 04/25/2017 documented as of this encounter (statuses as of 07/31/2024) Medications CALCIUM 1000 + D 1000-800 MG-UNIT [...] ns:HFrEF (heart failure with reduced ejection fraction) ([facility]),HTN, goal below 140/90 One tablet by mouth daily 90 Tablet 3 05/03/20 23 Active Apixaban 5 MG Oral Tablet (Eliquis)Indications :Paroxysmal A-fib ([facility]) Take 1 Tablet by mouth in the morning and 1 Tablet before bedtime. 60 Tablet 11 07/24/19 24 Active Sertraline HCl 100 MG Oral Tablet (Zoloft) Take 1 Tablet by mouth in the morning. 10/01/19 24 Active Torsemide 20 MG Oral Tablet (Demadex)Indications :HFrEF (heart failure with reduced ejection fraction) ([facility]) TAKE 1 TABLET BY MOUTH EVERY DAY [...] morning. 90 Tablet 1 07/08/19 25 Active busPIRone HCl 5 MG Oral Tablet (Buspar) TAKE 1 TABLET BY MOUTH 2 TIMES A DAY NEEDED (ANXIETY). 60 Tablet 1 07/22/19 25 Active HYDROcodone-Acetamin ophen 5-325 MG Oral TabletIndications:Fa ll on ice,Chronic left shoulder pain Take 1 Tablet by mouth every 6 hours as needed for Pain, Severe. 30 Tablet 07/29/19 25 Active Ferrous Sulfate 325 (65 Fe) MG Oral Tablet (Feosol) Take 1 Tablet by mouth every other day. 45 Tablet 3 07/30/19 25 Active Hospital, Clinic, or Other Facility [...] as of this encounter (statuses as of 07/31/2024) Active Problems Problem Noted Date Diagnosed Date [...] dysfuntion 4. Hypertension 5. 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 (AAA) witho ut rupture Overview (10/20/2014): 4 cm as of 08/25/12 4.3 cm as of 10/16/14 Hyperplastic colon polyp documented as of this encounter (statuses as of 07/31/2024) Resolved Problems Problem Noted Date Diagnosed Date [...] as of this encounter (statuses as of 07/31/2024) Immunizations Name Administration Dates Next Due COVID-19 mRNA, LNP-s, No Pre serve, 2-Dose Series (Moderna) 03/09/2021,08/26/2020,07/23/2020 Covid-19, Mrna, Lnp-s, Pf, B ivalent, 30 Mcg, IM, 12 yrs and above ([facility]) 01/11/2023 PPD 01/22/2019,04/03/2001 Pneumococcal Conjugate Vacc, 13 Valent (Prevnar) 12/08/2015 Pneumococcal Conjugate Vacci ne, 7 Valent 01/31/2005 Pneumococcal Polysaccharide PPV23 (Pneumovax) 10/13/2013,08/04/1996 Seasonal Influenza Vac., MDV , IM, 0.5 mL (Fluzone) 02/11/2014,01/31/2013,02/05/2012,02/21,03/03/2010,03/03/2009,02/19/2008 ,03/05/2007,03/17/2002,02/27/2001 Seasonal Influenza, High Dos e, Trivalent, PF, [...] 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 I checked today, auth pending still. * Telephone Encounter - Yazmin Rojas CMA - 07/29/2024 4:50 PM EDT Called cad advised pt of message below states understanding and agreeable to MRI. Please assist pt in scheduling * Telephone Encounter - Doreen Dillon MD - 07/29/2024 3:41 PM EDT Reviewed labs and xrays. He was mildly anemic and the iron panel was a little low, so I would recommend starting an iron supplement to help. Can take 325 mg every other day. Take with orange juice to help with absorption. The xray was negative as well, we'll see if we are able to get the MRI to get more information. documented in this encounter Plan of Treatment Upcoming Encounters Date Type Department Care Team (Late st Contact Info) Description 08/26/2024 11:15 AM EDT Office Visit Ophthalmology, [facility] [address] [place] [phone] Jorge Alberto Ann DO [address] [place] [address] 09/23/2024 2:30 PM EDT Cardiac Studies Cardiology [address] [place] [address] [place], [facility] [address] [place] [address] 10/29/2024 12:40 PM EDT Office Visit Family Medicine [address] [place] [phone] Doreen Dillon MD [address] [place] [address] [place] [phone] Health Maintenance Due Date Last Done Comments Adult Wellness Visit 2013 Depression Monitoring 09/20/2023 09/19/2022 COVID-19 Vaccine ( season) 2024 01/11/2023, 09/13/2021, 03/09/2021, Additional history exists Albumin/Creatinine Ratio 11/05/2024 024, 09/19/2022, 09/21/2021, Additional history exists GFR 01/28/2025 07/28/2024, 09/2024, 06/21/2023, Additional history exists CKD HGB USE SMARTSET 05460 07/28/202507/28, 07/28/2024, 05/11/2024, Additional history exists CKD PHOS USE SMARTSET 60130 07/28/2025/2 08/2024, 01/05/2023, 09/19/2022, Additional history exists Colonoscopy 12/25/2025 [...] this encounter Medical Devices Implanted Type Area Sheep Farm Manager Device Identifier Shelf Expiration Date Model / Serial / Lot Lens Intraoc 18.0 - [id number] - [id number] Implanted:Qty: 1 on 07/04/2018 by Conner Davenport MD at OR [facility] Right: Eye [employer] 12/04/2022 [id number] / [id number] / [id number] Lens Intraoc 19.0 - [id number] - [id number] Implanted:Qty: 1 on 07/16/2018 by Conner Davenport MD at OR [facility] Left: Eye [employer]OM[employer] 10/04/2022 [id number] / [id number] / Suture Galt, Biocomposite Corkscrew Ft Implanted:Qty: 1 on 11/17/2020 by Mark Reilly DO at OR [facility] Right: Shoulder [employer] 07/05/2023 [id number] / / [id number] Description:Double Loaded wi th two 1.3 mm Suture tape Biocomposite Swivelock Suture Galt Implanted:Qty: 1 on 11/17/2020 by Mark Reilly DO at OR [facility] Right: Shoulder [employer] 01/04/2022 [id number] -2 / / [id number] Description:Double Loaded wi th PEEK Eyelet and two #2 TigerTail Sutures Biocomposite Knotless Swivelock Galt Implanted:Qty: 1 on 11/17/2020 by Mark Reilly DO at OR [facility] Right: Shoulder [employer] 07/04/2024 [id number] CTT / / [id number] Description:With White/Black TigerTape Loop and Blue #2 Suture Biocompostie Swivelock Suture Galt Implanted:Qty: 1 on 11/17/2020 by Mark Reilly DO at OR [facility] Right: Shoulder [employer] 05/06/2022 AR-[id number] -2 / / [id number] Description:Double Loaded wi th PEEK Eyelet and two #2 TigerTail Sutures documented as of this encounter Care Teams Board Hammer Operator Relationship Specialty Start Date End Date Doreen Dillon MD [address] [place] [address] [place] [phone] PCP - General Family Medicine 04/28/24 documented as of this encounter
--- OUTSIDE RECORDS SUMMARY | 2024-09-24 13:59 | External Medical Summary ---
Author Name Unknown Address Unknown Organization K01:[facility] [place] [address] [place] [address] Laboratory Report Ordering Provider Test Date Status LORENA MAYNARD 07/28/2024 12:17:06 Final Observation Date Value Abnormality Reference (Units ) Status MYCODE SPECIMEN-SST 07/28/2024 12:17:06 Freezing of extracted DNA, whole blood and/or serum. Final Performing Location [facility] - [address] [place] [address]
--- OUTSIDE RECORDS SUMMARY | 2024-09-24 13:59 | External Medical Summary | Summary of Care ---
Author Name Unknown Organization [facility] Address [address] [place] [address] Phone [phone] Care Team Providers Care Munitions Worker Name Role Phone Doreen Dillon MD Primary Care Pr ovider Reason for Referral * Precert (Within 10 days (routine)) - Pending Review Specialty Diagnoses / Procedures Referred By Lb t Referred To Contact Radiology Diagnoses Fall on ice Chronic left shoulder pain Procedures MRI SHOULDER LEFT WO CONTRAST Doreen Dillon MD [address] [place] [address] [place] [phone] Phone: tel: fax: Referral ID Status Reason Start Date Expiration Date Visits Requested Visits Authorized [id number] Pending Review Precert 07/28/2024 01/24/2025 999 999 * Medication Prior Authorization - Pending Review Specialty Diagnoses / Procedures Referred By Lb rogers Referred To Contact Diagnoses Fall on ice Chronic left shoulder pain Doreen Dillon MD [address] [place] [address] [place] [phone] Phone: tel: fax: Referral ID Status Reason Start Date Expiration Date V isits Requested Visits Authorized [id number] Pending Review 999 999 Reason for Visit * Reason Comments Follow Up Encounter Details Date Type Department Care Team (Latest Contact Info) Description 07/28/2024 11:20 AM EDT Office Visit Family Medicine [address] [place], [place] [phone] Doreen Dillon MD [address] [place] [address] [place] [phone] Posttraumatic pain*; Moderate obstructive sleep apnea; Fall on ice; Chronic left shoulder pain; Loss of weight; Cervical myelopathy (HCC) Allergies Active Allergy Reactions Criticality Noted Date Comments Erythromycin 02/24/2001 stomach pain Latex Hives 02/15/2009 Pollen 04/25/2017 documented as of this encounter (statuses as of 07/28/2024) Medications CALCIUM 1000 + D 1000-800 MG-UNIT PO TABS one pill each day Active FREDY-C PO TABS one pill each day Active Multiple Vitamins-Minerals (PRESERVISION AREDS 2+MULTI VIT) CAPS Take 1 Cap by mouth 2 times a day. Active Acetaminophen 500 MG Oral Tablet (Tylenol) Take 2 Tablets by mouth as needed. 022 Active Nitroglycerin 0.4 MG Sublingual Tablet Sublingual (Nitrostat) Place 1 Tablet (0.4 mg) under the tongue as needed for Pain, Chest. May repeat 3 times. If chest pain continues, call 911. 25 Tablet 11 022 Active Triamcinolone Acetonide 0.1 % External Cream (Aristocort)Indicat ions:Dry skin Apply topically to affected area 2 times a day. To affected area. For up to 2 weeks in a row or as needed. 45 g 2 023 Active Spironolactone 25 MG Oral Tablet (Aldactone)Indicati ons:HFrEF (heart failure with reduced ejection fraction) ([facility]),HTN, goal below 140/90 One tablet by mouth daily 90 Tablet 3 023 Active Apixaban 5 MG Oral Tablet (Eliquis)Indication s:Paroxysmal A-fib ([facility]) Take 1 Tablet by mouth in the morning and 1 Tablet before bedtime. 60 Tablet 11 024 Active Sertraline HCl 100 MG Oral Tablet (Zoloft) Take 1 Tablet by mouth in the morning. 024 Active Torsemide 20 MG Oral Tablet (Demadex)Indication s:HFrEF (heart failure with reduced ejection fraction) (HCC) TAKE 1 TABLET BY MOUTH EVERY DAY IN THE MORNING 90 Tablet 3 024 Active Montelukast Sodium 10 MG Oral Tablet (Singulair)Indicati ons:Mild persistent asthma without complication Take 1 Tablet by mouth in the morning. 90 Tablet 3 024 Active Albuterol Sulfate HFA 108 (90 Base) MCG/ACT Inhalation Aerosol SolutionIndications :Mild persistent asthma, unspecified whether complicated Inhale 2 Puffs by mouth every 4 hours as needed for Cough, Shortness of Breath or Wheezing. 18 g 5 024 Active Baclofen 10 MG Oral Tablet (Lioresal) TAKE 1 OR 2 TABS BY MOUTH A HALF HOUR BEFORE BED NEEDED FOR LOWER BACK PAIN/MUSCLE SPASMS 024 Active Sertraline HCl 50 MG Oral Tablet (Zoloft)Indications :Malaise and fatigue Take 1 Tablet by mouth in the morning. 90 Tablet 1 024 Active Entresto 24-26 MG Oral Tablet (sacubitril-valsart an 24-26 mg per tab) TAKE 1 TABLET BY MOUTH IN THE MORNING AND BEFORE BEDTIME 180 Tablet 3 024 Active Amiodarone HCl 200 MG Oral Tablet (Cordarone)Indicati ons:Paroxysmal A-fib (HCC),Ventricular tachycardia (HCC) TAKE 1 TABLET BY MOUTH EVERY DAY IN THE MORNING 90 Tablet 3 024 Active Metoprolol Succinate ER 50 MG Oral Tablet Extended Release 24 Hour (toPROL XL) Take 1 Tablet by mouth in the morning. 90 Tablet 1 024 Active Atorvastatin Calcium 80 MG Oral Tablet (Lipitor) TAKE 1 TABLET BY MOUTH EVERY DAY IN THE MORNING 90 Tablet 024 Active Jardiance 10 MG Oral Tablet (Empagliflozin)Michelle cations:HFrEF (heart failure with reduced ejection fraction) (HCC) TAKE 1 TABLET BY MOUTH EVERY DAY IN THE MORNING 90 Tablet 024 Active Clopidogrel Bisulfate 75 MG Oral Tablet (pLAVix) Take 1 Tablet by mouth in the morning. 90 Tablet 2 024 Active Albuterol Sulfate 0.63 MG/3ML Inhalation Nebulization Solution (Accuneb)Indication s:Mild persistent asthma with exacerbation Inhale 1 Vial via nebulizer every 4 hours as needed for Wheezing. 90 mL 5 024 Active Tadalafil 10 MG Oral Tablet (Cialis) Take 1 Tablet by mouth daily as needed for Erectile Dysfunction. prior to intercourse, no more than 1 dose in 24 hours 10 Tablet 11 024 Active Pantoprazole Sodium 40 MG Oral Tablet Delayed Release (Protonix)Indicatio ns:Other acute gastritis with hemorrhage,UGIB (upper gastrointestinal bleed) Take 1 Tablet by mouth in the morning. 90 Tablet 1 025 Active busPIRone HCl 5 MG Oral Tablet (Buspar) TAKE 1 TABLET BY MOUTH 2 TIMES A DAY NEEDED (ANXIETY). 60 Tablet 1 025 Active HYDROcodone-Acetami nophen 5-325 MG Oral TabletIndications:F all on ice,Chronic left shoulder pain Take 1 Tablet by mouth every 6 hours as needed for Pain, Severe. 30 Tablet 025 Active Industry-3 Fatty Acids 1000 MG Oral Capsule (OMEGA-3) Take 1 Capsule by mouth in the morning. 022 2024 Discontinued Gabapentin 300 MG Oral Capsule (Neurontin)Indicati ons:only takes at bedtime Take 1 Capsule by mouth at bedtime. 90 Capsule 1 024 2024 Discontinued LORazepam 0.5 MG Oral Tablet (Ativan)Indications :Current moderate episode of major depressive disorder without prior episode (HCC) Take 1 Tablet by mouth at bedtime as needed for Anxiety or Sleep. 30 Tablet 024 2024 Discontinued Gabapentin 100 MG Oral Capsule (Neurontin)Indicati ons:Degenerative disc disease, cervical,Chronic left-sided low back pain without sciatica Take 1 Capsule by mouth at bedtime. 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[place] coronary artery of [place] heart without angina pectoris Infrarenal abdominal aortic aneurysm (AAA) witho ut rupture Overview (10/20/2014): 4 cm as of 08/25/12 4.3 cm as of 10/16/14 Hyperplastic colon polyp documented as of this encounter (statuses as of 07/28/2024) Resolved Problems Problem Noted Date Diagnosed Date [...] as of this encounter (statuses as of 07/28/2024) Immunizations Name Administration Dates Next Due COVID-19 mRNA, LNP-s, No Pre serve, 2-Dose Series (Moderna) 03/09/2021,08/26/2020,07/23/2020 Covid-19, Mrna, Lnp-s, Pf, B ivalent, 30 Mcg, IM, 12 yrs and above ([employer]) 01/11/2023 PPD 01/22/2019 Pneumococcal Conjugate Vacc, 13 [...] 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 Not on file Not on file [employer] Not on file Not on file Not on file documented as of this encounter Last Filed Vital Signs Vital Sign Reading Time Taken Comments Blood Pressure 110/74 07/28/2024 11:09 AM EDT Pulse 74 07/28/2024 11:09 AM EDT Temperature 35.7 °C (96.2 °F) 07/28/2024 11:09 AM E DT Respiratory Rate - - Oxygen Saturation 96% 07/28/2024 11:09 AM EDT Inhaled Oxygen Concentration - - Weight 75.8 kg (167 lb 3.2 oz) 07/28/2024 11:09 AM EDT Height 165.1 cm (5' 5") 07/28/2024 11:09 AM EDT Body Mass Index 27.82 07/28/2024 11:09 AM EDT documented in this encounter Progress Notes * Raiza Lee, Doreen Sargent MD - 07/28/2024 11:30 AM EDT Images from the original note were not included. History of Present Illness Bhavin Batista is a 79 year old male that presents for Follow Up History of Present Illness The patient, with a history of cardiac stents, presents approximately one month after a fall on ice. Admitted to [facility] 07/03 to 07/04. He reports hitting his head and experiencing severe hip pain at the time of the fall. He was observed overnight in the hospital due to concerns of a potentialhead bleed, but no such issue was found. The patient's hip pain has since resolved. Currently, the patient is experiencing severe pain in his left shoulder, which was not examined or imaged at the time of the fall. The pain is so severe that it prevents him from sleeping and he is unable to lift his arm above his head. The patient reports that the shoulder pain is similar to what he experienced in his other shoulder before it required surgical intervention. In addition to the shoulder pain, the patient reports unexplained weight loss over the past month. He also reports sleep disturbances, specifically waking up gasping for breath. He has been recommended a CPAP machine by a sleep clinic but has not yet started using one. Has MRI compatible stents, and pacer Dx with sleep apnea, wakes gasping all the time Physical Exam BP 110/74 | Pulse 74 | Temp 96.2 °F (35.7 °C) (Infrared ) | Ht 5' 5" (1.651 m) | Wt 167 lb 3.2 oz(75.8 kg) | SpO2 96% | BMI 27.82 kg/m² | BSA 1.86 m² Physical Exam Vitals and nursing note reviewed. Constitutional: General: He is not in acute distress. HENT: Head: Normocephalic and atraumatic. Mouth/Throat: Mouth: Mucous membranes are moist. Eyes: Extraocular Movements: Extraocular movements intact. Neck: Thyroid: No thyromegaly. Cardiovascular: Rate and Rhythm: Normal rate and regular rhythm. Pulmonary: Breath sounds: Normal breath sounds. No wheezing or rhonchi. Abdominal: General: Bowel sounds are normal. There is no distension. Palpations: Abdomen is soft. Tenderness: There is no abdominal tenderness. Musculoskeletal: General: Normal range of motion. Cervical back: Normal range of motion and neck supple. Right lower leg: No edema. Left lower leg: No edema. Comments: L shoulder, unable to abduct > 90 degree, extend greater than 80 degrees; pain with external rotation Skin: General: Skin is warm and dry. Findings: No lesion or rash. Neurological: General: No focal deficit present. Mental Status: He is alert and oriented to person, place, and time. Psychiatric: Mood and Affect: Mood normal. Behavior: Behavior normal. Reviewed ct chest, head, c spine; elbow xray from hospital Assessment and Plan Assessment & Plan Left shoulder post-traumatic pain He experiences post-traumatic left shoulder pain with limited range of motion and sleep disruption,possibly due to a soft tissue injury. An x-ray is needed to rule out a fracture before considering an MRI. Order a left shoulder x-ray. If the x-ray is unremarkable, proceed with an MRI. Prescribe 30tablets of hydrocodone for acute pain management, with a maximum of six tablets per day alongside Tylenol. Provide a one-time sedative for the MRI if necessary. Chronic kidney disease, stage 3b Stage 3b CKD limits pain medication options, necessitating the avoidance of NSAIDs to prevent further kidney damage. Avoid NSAIDs for pain management. Sleep apnea Symptoms indicate sleep apnea, and he is now reconsidering CPAP therapy due to worsening symptoms after previously declining it. Order a CPAP machine through a durable medical equipment provider and coordinate with the sleep clinic for CPAP settings and follow-up. Weight loss He has experienced unexplained weight loss from 184 lbs to 161 lbs in the last year despite a good appetite, requiring further investigation. Order lab work to assess liver function, kidney function,blood sugar levels, and blood counts. Posttraumatic pain Given short course of hydrocodone after discussion of pros/cons. Limit tylenol usage to < 6 tabsdaily combined. Use only for severe pain, and intention is to not refill the script. Moderate obstructive sleep apnea - CONT AIRWAY PRESSURE DEVICE - TUBING FOR LARGE CPAP FACE MASK - FILTERS, DISPOSABLE FOR CPAP - FILTERS, NON DISPOSABLE FOR CPAP - HUMIDIFIER, HEATED FOR CPAP - WATER CHAMBER FOR HUMIDIFIER, REPLACE, CPAP Fall on ice - XR SHOULDER, 2 OR MORE VIEWS - HYDROcodone-Acetaminophen 5-325 MG Oral Tablet; Take 1 Tablet by mouth every 6 hours as needed for Pain, Severe. - MRI SHOULDER LEFT WO CONTRAST; Future Chronic left shoulder pain - XR SHOULDER, 2 OR MORE VIEWS - HYDROcodone-Acetaminophen 5-325 MG Oral Tablet; Take 1 Tablet by mouth every 6 hours as needed for Pain, Severe. - MRI SHOULDER LEFT WO CONTRAST; Future Loss of weight - COMPREHENSIVE METABOLIC PANEL; Future - HEMOGLOBIN A1C; Future - TSH WITH FREE T4 IF INDICATED; Future - CBC WITH WBC DIFFERENTIAL; Future - MAGNESIUM; Future - PHOSPHORUS; Future Cervical myelopathy (HCC) Chronic in nature, symptoms are stable. Needs benzo if MRI Wrap-Up Follow Up: Return in about 3 months (around 10/28/2024) for Return with Physician. | For: Return with Physician Time: I spent a total of 30-39 minutes (exact time 30 mins) on the date of service in preparation, delivery, and documentation of the care provided to Mark Batista excluding any time spent in the performance of separately billed services. Text in this note was generated using an ambient documentation service. I discussed the use of a device to record and summarize our discussion today. All persons present during the encounter consented to its use. documented in this encounter Nursing Notes * Yazmin Rojas CMA - 07/28/2024 11:10 AM EDT 3 month f/u Pt reports left shoulder bothering him since fall 3-4 weeks ago, fell and slipped on Ice was kept over night at [facility] for observation as pt hit head during fall, they also thought pt may havebroke left hip. documented in this encounter Plan of Treatment Upcoming Encounters Date Type Department Care Team (Late st Contact Info) Description 08/26/2024 11:15 AM EDT Office Visit Ophthalmology, [facility] [address] [facility] [place] [address] [address] Alberto Ann, [address] [place] [address] 09/23/2024 2:30 PM EDT Cardiac Studies Cardiology [address] [place] [address] [facility] [address] [place] [address] 10/29/2024 12:40 PM EDT Office Visit Family Medicine [address] [place] [phone] Doreen Dillon MD [address] [place] [address] [place] [phone] Pending Results Name Type Priority Associated Diagnoses Date/Time XR SHOULDER, 2 OR MORE VIEWS Medical Imaging Routine Fall on ice Chronic left shoulder pain 07/28/2024 12:30 PM EDT COMPREHENSIVE METABOLIC PANEL Lab Routine Loss of weight 07/28/2024 12:17 PM EDT HEMOGLOBIN A1C Lab Routine Loss of weight 07/28/2024 12:17 PM EDT TSH WITH FREE T4 IF INDICATED Lab Routine Loss of weight 07/28/2024 12:17 PM EDT CBC WITH WBC DIFFERENTIAL Lab Routine Loss of weight 07/28/2024 12:17 PM EDT MAGNESIUM Lab Routine Loss of weight 07/28/2024 12:17 PM EDT PHOSPHORUS Lab Routine Loss of weight 07/28/2024 12:17 PM EDT Scheduled Orders Name Type Priority Associated Diagnoses Orde r Schedule MRI SHOULDER LEFT WO CONTRAST Medical Imaging Routine Fall on ice Chronic left shoulder pain Expected: 08/11/2024, Expires: 08/28/2025 COMPREHENSIVE METABOLIC PANEL Lab Routine Loss of weight Expected: 07/28/2024 (Approximate), Expires: 08/28/2025 HEMOGLOBIN A1C Lab Routine Loss of weight Expected: 07/28/2024 (Approximate), Expires: 07/28/2025 TSH WITH FREE T4 IF INDICATED Lab Routine Loss of weight Expected: 07/28/2024 (Approximate), Expires: 07/28/2025 CBC WITH WBC DIFFERENTIAL Lab Routine Loss of weight Expected: 07/28/2024 (Approximate), Expires: 07/28/2025 MAGNESIUM Lab Routine Loss of weight Expected: 07/28/2024 (Approximate), Expires: 07/28/2025 PHOSPHORUS Lab Routine Loss of weight Expected: 07/28/2024 (Approximate), Expires: 07/28/2025 Health Maintenance Due Date Last Done Comments Adult Wellness Visit 2013 Depression Monitoring 09/20/2023 09/19/2022 CKD PHOS USE SMARTSET 75400 01/06/2024 09/0 05/2022, 09/19/2022, 09/21/2021, Additional history exists COVID-19 Vaccine (2023- season) 2024 01/11/2023, 09/13/2021, 03/09/2021, Additional history exists Albumin/Creatinine Ratio 11/05/2024 024, 09/19/2022, 09/21/2021, Additional history exists GFR 11/08/2024 05/11/2024, 06/07, 05/10/2023, Additional history exists CKD HGB USE SMARTSET 53089 05/11/202505/11, 06/21/2023, 01/19/2023, Additional history exists Colonoscopy [...] this encounter Medical Devices Implanted Type Area Gameroom Technician Device Identifier Shelf Expiration Date Model / Serial / Lot Lens Intraoc 18.0 - [id number] - [id number] Implanted:Qty: 1 on 07/04/2018 by Conner Davenport MD at OR [facility] Right: Eye [employer]OM[employer] 12/04/2022 [id number] / [id number] / [id number] Lens Intraoc 19.0 - [id number] - [id number] Implanted:Qty: 1 on 07/16/2018 by Conner Davenport MD at OR [facility] Left: Eye [employer]OMB 10/04/2022 [id number] / [id number] / Suture [place], Biocomposite Corkscrew Ft Implanted:Qty: 1 on 11/17/2020 by Mark Reilly DO at OR [facility] Right: Shoulder [employer] 07/05/2023 [id number] / / [id number] Description:Double Loaded wi th two 1.3 mm Suture tape Biocomposite Swivelock Suture [place] Implanted:Qty: 1 on 11/17/2020 by Mark Reilly DO at OR [facility] Right: Shoulder [employer] 01/04/2022 [id number] -[id number] / / [id number] Description:Double Loaded wi th PEEK Eyelet and two #2 TigerTail Sutures Biocomposite Knotless Swivelock [place] Implanted:Qty: 1 on 11/17/2020 by Mark Reilly DO at OR [facility] Right: Shoulder [employer] 07/04/2024 [id number] [id number] / / [id number] Description:With White/Black TigerTape Loop and Blue #2 Suture Biocompostie Swivelock Suture [place] Implanted:Qty: 1 on 11/17/2020 by Mark Reilly DO at OR [facility] Right: Shoulder [employer] 05/06/2022 [id number] -2 / / [id number] Description:Double Loaded wi th PEEK Eyelet and two #2 TigerTail Sutures documented as of this encounter Visit Diagnoses Diagnosis Posttraumatic pain- Primary Moderate obstructive sleep apnea Obstructive sleep apnea (adult) (pediatric) Fall on ice Chronic left shoulder pain Pain in joint, shoulder region Loss of weight Cervical myelopathy (HCC) Cervical spondylosis with myelopathy documented in this encounter Care Teams Munitions Worker Relationship Specialty Start Date End Date Doreen Dillon MD [address] [place] [address] [place] [phone] PCP - General Family Medicine 04/28/24 documented as of this encounter
--- OUTSIDE RECORDS SUMMARY | 2024-09-24 13:59 | External Medical Summary ---
Author Name Unknown Address Unknown Organization K01:[facility] [address] [place] [id number] Laboratory Report Ordering Provider Test Date Status NEERAJYANNICKPARADISE FRANCOSHELLY 07/28/2024 12:17:06 Final Observation Date Value Abnormality Reference (Units ) Status Magnesium 07/28/2024 12:17:06 2.2 1.5-2.6 (m g/dL) Final Performing Location [facility] [address] [place] [id number]
--- OUTSIDE RECORDS SUMMARY | 2024-09-24 13:59 | External Medical Summary | Summary of Care ---
Author Name Unknown Organization [facility] Address [address] [facility] [place] [address] Phone [phone] Care Team Providers Care Sales Attendant Building Materials Name Role Phone Doreen Dillon MD Primary Care Pr ovider Reason for Visit * Reason Onset Date Comments Encounter Created in Error 07/28/2024 Encounter Details Date Type Department Care Team (Late st Contact Info) Description 07/28/2024 Orders Only Sleep Disorders Ctr [facility] [address] [place] [address] Elinor Zuleta CRNP [address] [place] [address] Encounter created in error Allergies Active Allergy Reactions Criticality Noted Date [...] ns:HFrEF (heart failure with reduced ejection fraction) ([facility]),HTN, goal below 140/90 One tablet by mouth daily 90 Tablet 3 05/03/20 23 Active Apixaban 5 MG Oral Tablet (Eliquis)Indications :Paroxysmal A-fib ([facility]) Take 1 Tablet by mouth in the morning and 1 Tablet before bedtime. 60 Tablet 11 07/24/19 24 Active Sertraline HCl 100 MG Oral Tablet (Zoloft) Take 1 Tablet by mouth in the morning. 10/01/19 24 Active Torsemide 20 MG Oral Tablet (Demadex)Indications :HFrEF (heart failure with reduced ejection fraction) ([facility]) TAKE 1 TABLET BY MOUTH [...] Pain, Severe. 30 Tablet 07/29/19 25 Active Hospital, Clinic, or Other Facility [...] dysfuntion 4. Hypertension 5. 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 07/28/2024, 2:24 PM, YENY Reveles documented in this encounter Plan of Treatment Upcoming Encounters Date Type Department Care Team (Late st Contact Info) Description 08/26/2024 11:15 AM EDT Office Visit Ophthalmology, [facility] [address] [place] [address] Jorge Alberto Ann DO [address] [place] [address] 09/23/2024 2:30 PM EDT Cardiac Studies Cardiology [address] [place] [address] [facility] [address] [place] [address] 10/29/2024 12:40 PM EDT Office Visit Family Medicine [address] [place] [address] Doreen Dillon MD [address] [place] [address] [place] [phone] Health Maintenance Due Date Last Done Comments Adult Wellness Visit 2013 Depression Monitoring 09/20/2023 09/19/2022 CKD PHOS USE SMARTSET 42494 01/06/202405/2022, 09/19/2022, 09/21/2021, Additional history exists COVID-19 Vaccine ( season) 2024 01/11/2023, 09/13/2021, 03/09/2021, Additional history exists Albumin/Creatinine Ratio 11/05/2024 024, 09/19/2022, 09/21/2021, Additional history exists GFR 11/08/2024 05/11/2024, 06/07, 05/10/2023, Additional history exists CKD HGB USE SMARTSET 11149 05/11/202507/28, 07/28/2024, 05/11/2024, Additional history exists Colonoscopy 12/25/2025 12/25/2020, 11/2014, [...] this encounter Medical Devices Implanted Type Area Speech Writer Device Identifier Shelf Expiration Date Model / Serial / Lot Lens Intraoc 18.0 - [id number] - [id number] Implanted:Qty: 1 on 07/04/2018 by Conner Davenport MD at OR [facility] Right: Eye BAUSCH & LOMB 12/04/2022 [id number] / [id number] / [id number] Lens Intraoc 19.0 - [id number] - [id number] Implanted:Qty: 1 on 07/16/2018 by Conner Davenport MD at OR [facility] Left: Eye BAUSCH & LOMB 10/04/2022 [id number] / [id number] / Suture [place], Biocomposite Corkscrew Ft Implanted:Qty: 1 on 11/17/2020 by Mark Reilly DO at OR [facility] Right: Shoulder [employer] 07/05/2023 [id number] / / [id number] Description:Double Loaded wi th two 1.3 mm Suture tape Biocomposite Swivelock Suture [place] Implanted:Qty: 1 on 11/17/2020 by Mark Reilly DO at OR [facility] Right: Shoulder [employer] 01/04/2022 AR-2324BCT -2 / / [id number] Description:Double Loaded wi th PEEK Eyelet and two #2 TigerTail Sutures Biocomposite Knotless Swivelock [place] Implanted:Qty: 1 on 11/17/2020 by Mark Reilly DO at OR [facility] Right: Shoulder [employer] 07/04/2024 AR-2324KBC CTT / / [id number] Description:With White/Black TigerTape Loop and Blue #2 Suture Biocompostie Swivelock Suture [place] Implanted:Qty: 1 on 11/17/2020 by Mark Reilly DO at OR [facility] Right: Shoulder [employer] 05/06/2022 AR-2323BCT -2 / / [id number] Description:Double Loaded wi th PEEK Eyelet and two #2 TigerTail Sutures documented as of this encounter Visit Diagnoses Diagnosis Encounter Created In Error- Primary documented in this encounter Care Teams Sales Attendant Building Materials Relationship Specialty Start Date End Date Doreen Dillon MD [address] [place] [address] [place] [phone] PCP - General Family Medicine 04/28/24 documented as of this encounter
--- OUTSIDE RECORDS SUMMARY | 2024-09-24 13:59 | External Medical Summary ---
Author Name Unknown Address Unknown Organization K01:[facility] [place] - [address] [place] [address] Laboratory Report Ordering Provider Test Date Status LORENA MAYNARD 07/28/2024 12:17:06 Final Observation Date Value Abnormality Reference (Units ) Status MYCODE SPECIMEN-SST 07/28/2024 12:17:06 Freezing of extracted DNA, whole blood and/or serum. Final Performing Location LABORATORY C - [address] [place] [address]
--- OUTSIDE RECORDS SUMMARY | 2024-09-24 13:59 | External Medical Summary ---
Author Name Unknown Address Unknown Organization K01:[facility] [place] [address] [facility] [place] [address] Laboratory Report Ordering Provider Test Date Status FELISA PICKARD 07/28/2024 12:17:06 Final Observation Date Value Abnormality Reference (Units ) Status BUN 07/28/2024 12:17:06 19 6-20 (mg/dL) Final Creatinine 07/28/2024 12:17:06 1.2 0.6-1.2 (mg/dL) Final Glomerular filtration rate/1.73 sq M.predicted [Volume Rate/Area] in Serum, Plasma or Blood by Creatinine-based formula (CKD-EPI) 07/28/2024 12:17:06 62 >=60 (mL/min) Final eGFR is calculated based on the CKD-EPI 2020 equation. Sodium 07/28/2024 12:17:06 139 135-146 (m mol/L) Final Potassium 07/28/2024 12:17:06 5.0 3.5-5.1 (m mol/L) Final Cl 07/28/2024 12:17:06 104 98-107 (mm ol/L) Final CO2 07/28/2024 12:17:06 24 22-32 (mmo l/L) Final Anion gap 07/28/2024 12:17:06 11 7-15 (mmol /L) Final Glucose 07/28/2024 12:17:06 79 70-120 (mg /dL) Final Albumin 07/28/2024 12:17:06 3.8 3.8-5.0 (g /dL) Final AST (Aspartate aminotransferase) 07/28/2024 12:17:06 21 10-50 (U/L) Fin al Alk Phos 07/28/2024 12:17:06 81 35-130 (U/ L) Final Bilirubin, Total 07/28/2024 12:17:06 0.6 <=1 .2 (mg/dL) Final Calcium 07/28/2024 12:17:06 9.3 8.4-10.2 ( mg/dL) Final Protein 07/28/2024 12:17:06 5.8 Below low normal 6.0 -8.3 (g/dL) Final ALT (Alanine aminotransferase) 07/28/2024 12:17:06 13 10-50 (U/L) Richy barnard Performing Location [facility] [address] [facility] [address]
--- OUTSIDE RECORDS SUMMARY | 2024-09-24 13:59 | External Medical Summary | Summary of Care ---
Author Name Unknown Organization [facility] Address [address] [place] [facility] [place] [address] Phone [phone] Care Team Providers Care Pulmonary Physician Name Role Phone Doreen Dillon MD Primary Care Pr ovider Reason for Visit * Reason Onset Date Comments Review Sleep Study 07/23/2024 +ESTELLA Encounter Details Date Type Department Care Team (Late st Contact Info) Description 07/23/2024 Telephone Sleep Disorders Ctr [facility] [address] [place] [address] Elinor Zuleta CRNP [address] [place] [address] Review Sleep Study (+ESTELLA) Allergies Active Allergy Reactions Criticality Noted Date Comments Erythromycin 02/24/2001 stomach pain Latex Hives 02/15/2009 Pollen 04/25/2017 documented as of this encounter (statuses as of 07/29/2024) Medications CALCIUM 1000 + D 1000-800 MG-UNIT [...] ons:HFrEF (heart failure with reduced ejection fraction) ([facility]),HTN, goal below 140/90 One tablet by mouth daily 90 Tablet 3 023 Active Apixaban 5 MG Oral Tablet (Eliquis)Indication s:Paroxysmal A-fib ([facility]) Take 1 Tablet by mouth in the morning and 1 Tablet before bedtime. 60 Tablet 11 024 Active Sertraline HCl 100 MG Oral Tablet (Zoloft) Take 1 Tablet by mouth in the morning. 024 Active Torsemide 20 MG Oral Tablet (Demadex)Indication s:HFrEF (heart failure with reduced ejection fraction) ([facility]) TAKE 1 TABLET BY MOUTH EVERY DAY [...] NEEDED (ANXIETY). 60 Tablet 1 025 Active Woodland-3 Fatty Acids 1000 MG Oral Capsule (OMEGA-3) [...] as of this encounter (statuses as of 07/29/2024) Active Problems Problem Noted Date Diagnosed Date [...] dysfuntion 4. Hypertension 5. 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 * Telephone Encounter - Elinor Zuleta CRNP - 07/25/2024 4:12 PM EDT Please offer a return visit to discuss treatment options further. He can see any provider. * Telephone Encounter - Natalee Langston LPN - 07/25/2024 9:23 AM EDT I relayed Elinor's message to the pt, but he declines the option of CPAP, saying "I know I can't use that thing!" I explained that he has increased cardiovascular risk if he has untreated ESTELLA, and hesaid he is aware, but is not interested in using PAP. * Telephone Encounter - Elinor Zuleta CRNP - 07/23/2024 5:35 PM EDT Review of home sleep testing shows moderate obstructive sleep apnea. He has significant cardiac history. AutoCPAP recommended with return clinic visit once on treatment for 21-90 days. Please see if he is agreeable. If he is, he should work with the supply company regarding mask fitting. Use of CPAP would be encouraged during all sleep opportunities. He does have to use CPAP regularly in order for insurance to cover it. Please let me know if agreeable so order can be placed. documented in this encounter Plan of Treatment Upcoming Encounters Date Type Department Care Team (Late st Contact Info) Description 08/26/2024 11:15 AM EDT Office Visit Ophthalmology, [facility] [address] [place] [address] Jorge Alberto Ann DO [address] [place] [address] 09/23/2024 2:30 PM EDT Cardiac Studies Cardiology [address] [place] [address] [facility] [address] [place] [address] 10/29/2024 12:40 PM EDT Office Visit Family Medicine [address] [place] [phone] Doreen Dillon MD [address] [place] [address] [place] [phone] Health Maintenance Due Date Last Done Comments Adult Wellness Visit 2013 Depression Monitoring 09/20/2023 09/19/2022 COVID-19 Vaccine ( season) 2024 01/11/2023, 09/13/2021, 03/09/2021, Additional history exists Albumin/Creatinine Ratio 11/05/2024 024, 09/19/2022, 09/21/2021, Additional history exists GFR 01/28/2025 07/28/2024, 09/2024, 06/21/2023, Additional history exists CKD HGB USE SMARTSET 04841 07/28/202507/28, 07/28/2024, 05/11/2024, Additional history exists CKD PHOS USE SMARTSET 55840 07/28/202507/06, 01/05/2023, 09/19/2022, Additional history exists Colonoscopy [...] this encounter Medical Devices Implanted Type Area Paraprofessional Aide Teacher Device Identifier Shelf Expiration Date Model / Serial / Lot Lens Intraoc 18.0 - [id number] - [id number] Implanted:Qty: 1 on 07/04/2018 by Conner Davenport MD at OR [facility] Right: Eye BAUSCH & LOMB 12/04/2022 [id number] / [id number] / [id number] Lens Intraoc 19.0 - [id number] - [id number] Implanted:Qty: 1 on 07/16/2018 by Conner Davenport MD at OR [facility] Left: Eye BAUSCH & LOMB 10/04/2022 [id number] / [id number] / Suture [place], Biocomposite Corkscrew Ft Implanted:Qty: 1 on 11/17/2020 by Mark Reilly DO at OR [facility] Right: Shoulder [employer] 07/05/2023 AR-1927BCT -475 / / [id number] Description:Double Loaded wi th two 1.3 mm Suture tape Biocomposite Swivelock Suture [place] Implanted:Qty: 1 on 11/17/2020 by Mark Reilly DO at OR [facility] Right: Shoulder [employer] 01/04/2022 AR-2324BCT -2 / / [id number] Description:Double Loaded wi th PEEK Eyelet and two #2 TigerTail Sutures Biocomposite Knotless Swivelock [place] Implanted:Qty: 1 on 11/17/2020 by Mark Reilly DO at OR [facility] Right: Shoulder [employer] 07/04/2024 [id number]-2324KBC CTT / / [id number] Description:With White/Black TigerTape Loop and Blue #2 Suture Biocompostie Swivelock Suture [place] Implanted:Qty: 1 on 11/17/2020 by Mark Reilly DO at OR [facility] Right: Shoulder [employer] 05/06/2022 AR-2323BCT -2 / / [id number] Description:Double Loaded wi th PEEK Eyelet and two #2 TigerTail Sutures documented as of this encounter Care Teams Pulmonary Physician Relationship Specialty Start Date End Date Doreen Dillon MD [address] [place] [address] [place] [phone] PCP - General Family Medicine 04/28/24 documented as of this encounter
--- OUTSIDE RECORDS SUMMARY | 2024-09-24 13:59 | External Medical Summary | Summary of Care ---
Author Name Unknown Organization [facility] Address [address] [place] [address] Phone [phone] Care Team Providers Care Motor Vehicle Salesperson Name Role Phone Doreen Dillon MD Primary Care Pr ovider Reason for Visit * Reason Onset Date Comments Test Results 07/29/2024 Appointment 07/29/2024 MRI Encounter Details Date Type Department Care Team ([facility] st Contact Info) Description 07/29/2024 Telephone Family Medicine [address] [phone] Doreen Dillon MD [address] [place] [address] [place] [address] Test Results; Appointment (MRI ) [...] (heart failure with reduced ejection fraction) ([facility]),HTN, goal below 140/90 One tablet by mouth daily 90 Tablet 3 05/03/20 23 Active Apixaban 5 MG Oral Tablet (Eliquis)Indications :Paroxysmal A-fib ([facility]) Take 1 Tablet by mouth in the morning and 1 Tablet before bedtime. 60 Tablet 11 07/24/19 24 Active Sertraline HCl 100 MG Oral Tablet (Zoloft) Take 1 Tablet by mouth in the morning. 10/01/19 24 Active Torsemide 20 MG Oral Tablet (Demadex)Indications :HFrEF (heart failure with reduced ejection fraction) ([facility]) TAKE 1 TABLET BY MOUTH EVERY [...] dysfuntion 4. Hypertension 5. 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 I [...] 08/26/2024 11:15 AM EDT Office Visit [facility] [address] [place] [phone] Jorge Alberto Ann DO [address] [place] [address] 09/23/2024 2:30 PM EDT Cardiac Studies Cardiology [address] [place] [address] [place] [address] [place] [address] 10/29/2024 12:40 PM EDT Office Visit Family Medicine [address] [place] [phone] Doreen Dillon MD [address] [place] [address] [place] [phone] Health Maintenance Due Date Last Done Comments Adult Wellness Visit 2013 Depression Monitoring 09/20/2023 09/19/2022 COVID-19 Vaccine ( season) 2024 01/11/2023, 09/13/2021, 03/09/2021, Additional history exists Albumin/Creatinine Ratio 11/05/2024 024, 09/19/2022, 09/21/2021, Additional history exists GFR 01/28/2025 07/28/2024, 09/2024, 06/21/2023, Additional history exists CKD HGB USE SMARTSET 73305 07/28/202507/28, 07/28/2024, 05/11/2024, Additional history exists CKD PHOS USE SMARTSET 33968 07/28/2025/2 08/2024, 01/05/2023, 09/19/2022, Additional history exists [...] this encounter Medical Devices Implanted Type Area Pca Assisted Living Device Identifier Shelf Expiration Date Model / Serial / Lot Lens Intraoc 18.0 - [id number] - [id number] Implanted:Qty: 1 on 07/04/2018 by Conner Davenport MD at OR [facility] Right: Eye BAUSCH & LOMB 12/04/2022 [id number] / [id number] / [id number] Lens Intraoc 19.0 - [id number] - [id number] Implanted:Qty: 1 on 07/16/2018 by Conner Davenport MD at OR [facility] Left: Eye BAUSCH & LOMB 10/04/2022 [id number] / [id number] / Suture [place], Biocomposite Corkscrew Ft Implanted:Qty: 1 on 11/17/2020 by Mark Reilly DO at OR [facility] Right: Shoulder [employer] 07/05/2023 [id number] -475 / / [id number] Description:Double Loaded wi th two 1.3 mm Suture tape Biocomposite Swivelock Suture [place] Implanted:Qty: 1 on 11/17/2020 by Mark Reilly DO at OR [facility] Right: Shoulder [employer] 01/04/2022 AR-2324BCT -2 / / [id number] Description:Double Loaded wi th PEEK Eyelet and two #2 TigerTail Sutures Biocomposite Knotless Swivelock [place] Implanted:Qty: 1 on 11/17/2020 by Mark Reilly DO at OR [facility] Right: Shoulder [employer] 07/04/2024 AR-2324KBC CTT / / [id number] Description:With White/Black TigerTape Loop and Blue #2 Suture Biocompostie Swivelock Suture [place] Implanted:Qty: 1 on 11/17/2020 by Mark Reilly DO at OR [facility] Right: Shoulder [employer] 05/06/2022 AR-2323BCT -2 / / [id number] Description:Double Loaded wi th PEEK Eyelet and two #2 TigerTail Sutures documented as of this encounter Care Teams Motor Vehicle Salesperson Relationship Specialty Start Date End Date Doreen Dillon MD [address] [place] [address] [place] [phone] PCP - General Family Medicine 04/28/24 documented as of this encounter
--- OUTSIDE RECORDS SUMMARY | 2024-09-24 13:59 | External Medical Summary | Summary of Care ---
Author Name Unknown Organization [facility] Address [address] [place] [address] Phone [phone] Care Team Providers Care Pier Hand Helper Name Role Phone Doreen Dillon MD Primary Care Pr ovider Reason for Visit * Reason Onset Date Comments Appointment 07/28/2024 [facility] Encounter Details Date Type Department Care Team (Late st Contact Info) Description 07/28/2024 Telephone Family Medicine [address] [phone] Doreen Dillon MD [address] [place], [place] [address] [phone] Appointment ([facility] ) Allergies Active Allergy Reactions Criticality Noted [...] MG Oral Tablet (Eliquis)Indications :Paroxysmal A-fib ([facility]) [...] dysfuntion 4. Hypertension 5. 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 Pt has a pacermaker. Willget scheduled once auth is received. documented in this encounter Plan of Treatment Upcoming Encounters Date Type Department Care Team (Late st Contact Info) Description 08/26/2024 11:15 AM EDT Office Visit Ophthalmology, [facility] [address] [facility] [place] [address] Jorge Alberto Ann DO [address] [place] [address] 09/23/2024 2:30 PM EDT Cardiac Studies Cardiology [address] [place] [address] [facility] [address] [facility] [place] [address] 10/29/2024 12:40 PM EDT Office Visit Family Medicine [address] [place] [phone] Doreen Dillon MD [address] [place] [address] [place] [phone] Health Maintenance Due Date Last Done Comments Adult Wellness Visit 2013 Depression Monitoring 09/20/2023 09/19/2022 CKD PHOS USE SMARTSET 54807 01/06/202405/2022, 09/19/2022, 09/21/2021, Additional history exists COVID-19 Vaccine ( season) 2024 01/11/2023, 09/13/2021, 03/09/2021, Additional history exists Albumin/Creatinine Ratio 11/05/2024 024, 09/19/2022, 09/21/2021, Additional history exists GFR 11/08/2024 05/11/2024, 06/07, 05/10/2023, Additional history exists CKD HGB USE SMARTSET 77549 05/11/202505/11, 06/21/2023, 01/19/2023, Additional history exists Colonoscopy [...] this encounter Medical Devices Implanted Type Area Photoengraving Photographer Device Identifier Shelf Expiration Date Model / Serial / Lot Lens Intraoc 18.0 - [id number] - [id number] Implanted:Qty: 1 on 07/04/2018 by Conner Davenport MD at OR [facility] Right: Eye BAUSCH & LOMB 12/04/2022 [id number] / [id number] / [id number] Lens Intraoc 19.0 - [id number] - [id number] Implanted:Qty: 1 on 07/16/2018 by Conner Davenport MD at OR [facility] Left: Eye BAUSCH & LOMB 10/04/2022 [id number] / [id number] / Suture [place], Biocomposite Corkscrew Ft Implanted:Qty: 1 on 11/17/2020 by Mark Reilly DO at OR [facility] Right: Shoulder [employer] 07/05/2023 AR-1927BCT -475 / / [id number] Description:Double Loaded wi th two 1.3 mm Suture tape Biocomposite Swivelock Suture [place] Implanted:Qty: 1 on 11/17/2020 by Mark Reilly DO at OR [facility] Right: Shoulder [employer] 01/04/2022 AR-2324BCT -2 / / [id number] Description:Double Loaded wi th PEEK Eyelet and two #2 TigerTail Sutures Biocomposite Knotless Swivelock [place] Implanted:Qty: 1 on 11/17/2020 by Mark Reilly DO at OR [facility] Right: Shoulder [employer] 07/04/2024 AR-2324KBC CTT / / [id number] Description:With White/Black TigerTape Loop and Blue #2 Suture Biocompostie Swivelock Suture [place] Implanted:Qty: 1 on 11/17/2020 by Mark Reilly DO at OR [facility] Right: Shoulder [employer] 05/06/2022 AR-2323BCT -2 / / [id number] Description:Double Loaded wi th PEEK Eyelet and two #2 TigerTail Sutures documented as of this encounter Care Teams Pier Hand Helper Relationship Specialty Start Date End Date Doreen Dillon MD [address] [place] [address] [place] [phone] PCP - General Family Medicine 04/28/24 documented as of this encounter
--- OUTSIDE RECORDS SUMMARY | 2024-09-24 13:59 | External Medical Summary | Summary of Care ---
Author Name Unknown Organization [facility] Address [address] [place] [address] Phone [phone] Care Team Providers Care Telephone Clerk Name Role Phone Doreen Dillon MD Primary Care Pr ovider Reason for Visit * Reason Comments Outpatient Testing Encounter Details Date Type Department Care Team (Late st Contact Info) Description 07/28/2024 12:20 PM EDT Laboratory Laboratory [address] [place] [phone] [facility] [address] [place] [address] [employer] Other*[id number]; Loss of weight Allergies Active Allergy Reactions Criticality Noted Date [...] 5 MG Oral Tablet (Eliquis)Indications :Paroxysmal A-fib (HCC) Take 1 Tablet by mouth in the [...] dysfuntion 4. Hypertension 5. 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 Not on file Not on file documented as of this encounter Plan of Treatment Upcoming Encounters Date Type Department Care Team (Late st Contact Info) Description 08/26/2024 11:15 AM EDT Office Visit Ophthalmology, [facility] [address] [place] [address] Jorge Alberto Ann DO [address] [place] [address] 09/23/2024 2:30 PM EDT Cardiac Studies Cardiology [address] [place] [address] [place] [address] [place] [address] 10/29/2024 12:40 PM EDT Office Visit Family Medicine [address] [place] [phone] Doreen Dillon MD [address] [place] [address] [place] [phone] Pending Results Name Type Priority Associated Diagnoses Date /Time MYCODE SUBSEQUENT ADULT Lab Routine [employer] Other*[id number] 07/28/2024 12:17 PM EDT COMPREHENSIVE METABOLIC PANEL Lab Routine [...] Loss of weight 07/28/2024 12:17 PM EDT MYCODE SST1 Lab Routine [employer] Other*[id number] 07/28/2024 12:17 PM EDT MYCODE SST2 Lab Routine [employer] Other*[id number] 07/28/2024 12:17 PM EDT CBC Lab Routine Loss of weight 07/28/2024 12:17 PM EDT DIFFERENTIAL, AUTOMATED Lab Routine Loss of weight 07/28/2024 12:17 PM EDT Health Maintenance Due Date Last Done Comments Adult Wellness Visit 2013 Depression Monitoring 09/20/2023 09/19/2022 CKD PHOS USE SMARTSET 93249 01/06/2024 0905/2022, 09/19/2022, 09/21/2021, Additional history exists COVID-19 Vaccine ( season) 2024 01/11/2023, 09/13/2021, 03/09/2021, Additional history exists Albumin/Creatinine Ratio 11/05/2024 0702/2 024, 09/19/2022, 09/21/2021, Additional history exists GFR 11/08/2024 05/11/2024, 0209/2023, 05/10/2023, Additional history exists CKD HGB USE SMARTSET 62000 05/11/202505/11, 06/21/2023, 01/19/2023, Additional history exists Colonoscopy 12/25/2025 12/25/2020, 1211/2014, 02/20/2013, Additional history exists DTap/Tdap Vaccines (2 [...] this encounter Medical Devices Implanted Type Area Probation Counselor Device Identifier Shelf Expiration Date Model / Serial / Lot Lens Intraoc 18.0 - [id number] - [id number] Implanted:Qty: 1 on 07/04/2018 by Conner Davenport MD at OR [facility] Right: Eye BAUSCH & LOMB 12/04/2022 [id number] / [id number] / [id number] Lens Intraoc 19.0 - [id number] - [id number] Implanted:Qty: 1 on 07/16/2018 by Conner Davenport MD at OR [facility] Left: Eye BAUSCH & LOMB 10/04/2022 [id number] / [id number] / Suture [place], Biocomposite Corkscrew Ft Implanted:Qty: 1 on 11/17/2020 by Mark Reilly DO at OR [facility] Right: Shoulder [employer] 07/05/2023 [id number] -[id number] / / [id number] Description:Double Loaded wi th two 1.3 mm Suture tape Biocomposite Swivelock Suture [place] Implanted:Qty: 1 on 11/17/2020 by Mark Reilly DO at OR [facility] Right: Shoulder [employer] 01/04/2022 AR-2324BCT -2 / / [id number] Description:Double Loaded wi th PEEK Eyelet and two #2 TigerTail Sutures Biocomposite Knotless Swivelock [place] Implanted:Qty: 1 on 11/17/2020 by Mark Reilly DO at OR [facility] Right: Shoulder [employer] 07/04/2024 AR-2324KBC CTT / / [id number] Description:With White/Black TigerTape Loop and Blue #2 Suture Biocompostie Swivelock Suture [place] Implanted:Qty: 1 on 11/17/2020 by Mark Reilly DO at OR [facility] Right: Shoulder [employer] 05/06/2022 AR-2323BCT -2 / / [id number] Description:Double Loaded wi th PEEK Eyelet and two #2 TigerTail Sutures documented as of this encounter Visit Diagnoses Diagnosis [employer] Other*[id number] Loss of weight documented in this encounter Care Teams Telephone Clerk Relationship Specialty Start Date End Date Doreen Dillon MD [address] [place] [address] [place] [phone] PCP - General Family Medicine 04/28/24 documented as of this encounter
--- OUTSIDE RECORDS SUMMARY | 2024-09-24 13:59 | External Medical Summary ---
Author Name Unknown Address Unknown Organization K01:LABORATORY [facility] [place] - [address] [place] [address] Laboratory Report Ordering Provider Test Date Status FELISA PICKARD SEIFERT 07/28/2024 12:17:06 Final Observation Date Value Abnormality Reference (Units ) Status Iron 07/28/2024 12:17:06 49 45-176 (ug/dL) Final Iron-binding capacity 07/28/2024 12:17:06 244 Below low normal 250-425 (ug/dL) Final Transferrin Sat % 07/28/2024 12:17:06 20 15-55 (%) Final Performing Location LABORATORY [facility] [place] - [address] [place] [address]
--- OUTSIDE RECORDS SUMMARY | 2024-09-24 13:59 | External Medical Summary ---
Author Name Unknown Address Unknown Organization K01:[place] [facility] [place] [address] [place] [address] Laboratory Report Ordering Provider Test Date Status NEERAJFELISA SHELLY 07/28/2024 12:17:06 Final Observation Date Value Abnormality Reference (Units ) Status HbA1C 07/28/2024 12:17:06 4.6 4.0-5.6 (% ) Final The use of HbA1c to monitor glycemic status is based on normal hemoglobin and HbA composition. This test should not be used in patients with abnormal hemoglobin that affects the half life of the red blood cell or the in vivo glycation rates. Glucose, estimated average 07/28/2024 12:17:06 85 <126 (mg/dL) Final Performing Location [facility] [facility] [place] [address] [place] [address]
--- OUTSIDE RECORDS SUMMARY | 2024-09-24 13:59 | External Medical Summary | Summary of Care ---
Author Name Unknown Organization [facility] Address [address] [place] [address] Phone [phone] Care Team Providers Care Ortho/Prosthetic Aide Name Role Phone Doreen Dillon MD Primary Care Pr ovider Encounter Details Date Type Department Care Team (Late st Contact Info) Description 07/28/[address] [phone] Doreen Dillon MD [address] [place], [place] [address] [phone] Allergies Active Allergy Reactions Criticality Noted [...] dysfuntion 4. Hypertension 5. 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 Looks like PCP placed. Orders. * Telephone Encounter - Yazmin Rojas CMA - 07/28/2024 1:40 PM EDT Pt was seen in office today changes his mind and wants CPAP supplies. Please assist documented in this encounter Plan of Treatment Upcoming Encounters Date Type Department Care Team (Late st Contact Info) Description 08/26/2024 11:15 AM EDT Office Visit Ophthalmology, [facility] [address] [place] [address] Jorge Alberto Ann, [address] [place] [address] 09/23/2024 2:30 PM EDT Cardiac Studies Cardiology [address] [place] [address] [place] [facility] [address] [place] [address] 10/29/2024 12:40 PM EDT Office Visit Family Medicine [address] [place] [phone] Doreen Dillon MD [address] [place] [address] [place] [phone] Health Maintenance Due Date Last Done Comments Adult Wellness Visit 2013 Depression Monitoring 09/20/2023 09/19/2022 CKD PHOS USE SMARTSET 88081 01/06/202405/2022, 09/19/2022, 09/21/2021, Additional history exists COVID-19 Vaccine ( season) 2024 01/11/2023, 09/13/2021, 03/09/2021, Additional history exists Albumin/Creatinine Ratio 11/05/2024 024, 09/19/2022, 09/21/2021, Additional history exists GFR 11/08/2024 05/11/2024, 06/07, 05/10/2023, Additional history exists CKD HGB USE SMARTSET 47979 05/11/202507/28, 07/28/2024, 05/11/2024, Additional history exists Colonoscopy [...] this encounter Medical Devices Implanted Type Area Cylinder Machine Operator Device Identifier Shelf Expiration Date Model / Serial / Lot Lens Intraoc 18.0 - [id number] - [id number] Implanted:Qty: 1 on 07/04/2018 by Conner Davenport MD at OR [facility] Right: Eye BAUSCH & LOMB 12/04/2022 [id number] / [id number] / [id number] Lens Intraoc 19.0 - [id number] - [id number] Implanted:Qty: 1 on 07/16/2018 by Conner Davenport MD at OR [facility] Left: Eye BAUSCH & LOMB 10/04/2022 [id number] / [id number] / Suture [place], Biocomposite Corkscrew Ft Implanted:Qty: 1 on 11/17/2020 by Mark Reilly DO at OR [facility] Right: Shoulder [employer] 07/05/2023 [id number] -475 / / [id number] Description:Double Loaded wi th two 1.3 mm Suture tape Biocomposite Swivelock Suture [place] Implanted:Qty: 1 on 11/17/2020 by Mark Reilly DO at OR [facility] Right: Shoulder [employer] 01/04/2022 AR-2324BCT -2 / / [id number] Description:Double Loaded wi th PEEK Eyelet and two #2 TigerTail Sutures Biocomposite Knotless Swivelock [place] Implanted:Qty: 1 on 11/17/2020 by Mark Reilly DO at OR [facility] Right: Shoulder [employer] 07/04/2024 AR-2324KBC CTT / / [id number] Description:With White/Black TigerTape Loop and Blue #2 Suture Biocompostie Swivelock Suture [place] Implanted:Qty: 1 on 11/17/2020 by Mark Reilly DO at OR [facility] Right: Shoulder [employer] 05/06/2022 AR-2323BCT -2 / / [id number] Description:Double Loaded wi th PEEK Eyelet and two #2 TigerTail Sutures documented as of this encounter Care Teams Ortho/Prosthetic Aide Relationship Specialty Start Date End Date Doreen Dillon MD [address] [place] [address] [place] [phone] PCP - General Family Medicine 04/28/24 documented as of this encounter
--- OUTSIDE RECORDS SUMMARY | 2024-09-24 13:59 | External Medical Summary ---
Author Name Unknown Address Unknown Organization K01:LAB[facility]ATORY [facility] [place] [address] [place] [address] Laboratory Report Ordering Provider Test Date Status FELISA PICKARD SEIFERT 07/28/2024 12:17:06 Final Observation Date Value Abnormality Reference (Units ) Status TSH 07/28/2024 12:17:06 3.76 0.27-4.20 (uIU/mL) Final Performing Location [facility]ATORY [facility] [place] - [address] [place] [address]
--- OUTSIDE RECORDS SUMMARY | 2024-09-24 13:59 | External Medical Summary ---
Author Name Unknown Address Unknown Organization K01:[facility]ATORY [facility] [place] - [address] [facility] [address] Laboratory Report Ordering Provider Test Date Status FELISA PICKARD 07/28/2024 12:17:06 Final Observation Date Value Abnormality Reference (Units ) Status WBC, Total 07/28/2024 12:17:06 7.58 4.00-10.80 (K/uL) Final RBC 07/28/2024 12:17:06 4.31 4.50-5.25 (M/uL) Final Hemoglobin 07/28/2024 12:17:06 12.8 Below low normal 14.0-16.8 (g/dL) Final HCT 07/28/2024 12:17:06 40.5 40.0-48.4 (%) Final MCV 07/28/2024 12:17:06 94.0 82.0-99.5 (fL) Final MCH 07/28/2024 12:17:06 29.7 27.0-34.0 (pg) Final MCHC 07/28/2024 12:17:06 31.6 32.0-36.0 (g/dL) Final RDW 07/28/2024 12:17:06 16.4 11.5-15.5 (%) Final Platelets 07/28/2024 12:17:06 276 140-400 (K/uL) Final MPV 07/28/2024 12:17:06 10.5 6.6-11.1 (fL) Final Nucleated erythrocytes/100 leukocytes [Ratio] in Blood by Automated count 07/28/2024 12:17:06 0 <=0 (/100 WBCs) Final Performing Location LAB[facility]ORY [facility] [place] - [address] [place] [address]
--- OUTSIDE RECORDS SUMMARY | 2024-09-24 14:00 | External Medical Summary | Summary of Care ---
Author Name Unknown Organization [facility] Address [address] [place] [address] Phone [phone] Care Team Providers Care Health Plan Specialist Name Role Phone Doreen Dillon MD Primary Care Pr ovider Reason for Visit * Reason Onset Date Comments Sleep Apnea Device 07/09/2024 Encounter Details Date Type Department Care Team (Late st Contact Info) Description 07/09/2024 Telephone Sleep Lab, [facility] [address] [place], [place] [phone] Brooklynn Baptiste MD [address] [employer], [place] [phone] Sleep Apnea Device Allergies Active Allergy Reactions Criticality Noted Date Comments Erythromycin 02/24/2001 stomach pain Latex Hives 02/15/2009 Pollen 04/25/2017 documented as of this encounter (statuses as of 07/17/2024) Medications CALCIUM 1000 + D 1000-800 MG-UNIT PO TABS one pill each day Active FREDY-C PO TABS one pill each day Active Multiple Vitamins-Minerals (PRESERVISION AREDS 2+MULTI VIT) CAPS Take 1 Cap by mouth 2 times a day. Active [place]-3 Fatty Acids 1000 MG Oral Capsule (OMEGA-3) Take 1 Capsule by mouth in the morning. 11/22/19 Active Acetaminophen 500 MG Oral Tablet (Tylenol) [...] ns:HFrEF (heart failure with reduced ejection fraction) ([facility]),HTN, goal below 140/90 One tablet by mouth daily 90 Tablet 3 05/03/20 23 Active Apixaban 5 MG Oral Tablet (Eliquis)Indications :Paroxysmal A-fib ([facility]) Take 1 Tablet by mouth in the [...] :HFrEF (heart failure with reduced ejection fraction) ([facility]) TAKE 1 TABLET BY MOUTH EVERY DAY IN THE MORNING 90 Tablet 3 10/08/19 24 Active Montelukast Sodium 10 MG Oral Tablet (Singulair)Indicatio ns:Mild persistent asthma without complication Take 1 Tablet by mouth in the morning. 90 Tablet 3 10/29/19 24 Active LORazepam 0.5 MG Oral Tablet (Ativan)Indications: Current moderate episode of major depressive disorder without prior episode ([facility]) Take 1 Tablet by mouth at bedtime [...] as needed (anxiety). 60 Tablet 1 05/19/19 Active Pantoprazole Sodium 40 MG Oral Tablet Delayed Release (Protonix)Indication s:Other acute gastritis with hemorrhage,UGIB (upper gastrointestinal bleed) Take 1 Tablet by mouth in the morning. 90 Tablet 1 07/08/19 Active Hospital, Clinic, or Other Facility Administered [...] as of this encounter (statuses as of 07/17/2024) Active Problems Problem Noted Date Diagnosed Date [...] dysfuntion 4. Hypertension 5. 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 Physician notified that the OCST study is ready for review and interpretation. L out 8:51pm L on 5:33am ISHA 13.9 - 4% 21.6 - 3% Low sat 82% HST ordered by YENY Gibson. Routed to Dr. Baptiste in [place]. ESS: PFlow was lost at 5:33 am and study was ended. However, patient wore the device longer. Desaturations were noted but unable to score respiratory events without a PFlow tracing. documented in this encounter Plan of Treatment Upcoming Encounters Date Type Department Care Team (Late st Contact Info) Description 07/21/2024 4:00 PM EDT Office Visit Family Medicine [address] [place] [phone] Doreen Dillon MD [address] [place] [address] [place] [phone] 07/28/2024 11:20 AM EDT Office Visit Family [address] [place] [phone] Doreen Dillon MD [address] [place] [address] [place] [phone] 08/26/2024 11:15 AM EDT Office Visit Ophthalmology, [facility] [address] [place] [address] Jorge Alberto Ann, DO [address] [place] [address] 09/23/2024 2:30 PM EDT Cardiac Studies Cardiology [address] [place] [address] [facility] [address] [place] [address] Health Maintenance Due Date Last Done Comments Adult Wellness Visit 2013 Depression Monitoring 09/20/2023 09/19/2022 CKD PHOS USE SMARTSET 41851 01/06/2024 09/0 05/2022, 09/19/2022, 09/21/2021, Additional history exists COVID-19 Vaccine ( season) 2024 01/11/2023, 09/13/2021, 03/09/2021, Additional history exists Albumin/Creatinine Ratio 11/05/2024 024, 09/19/2022, 09/21/2021, Additional history exists GFR 11/08/2024 05/11/2024, 06/07, 05/10/2023, Additional history exists CKD HGB USE SMARTSET 56761 05/11/202505/11, 06/21/2023, 01/19/2023, Additional history exists Colonoscopy [...] this encounter Medical Devices Implanted Type Area Clean Out Driller Device Identifier Shelf Expiration Date Model / Serial / Lot Lens Intraoc 18.0 - [id number] - [id number] Implanted:Qty: 1 on 07/04/2018 by Conner Davenport MD at OR [facility] Right: Eye BAUSCH & LOMB 12/04/2022 [id number] / [id number] / [id number] Lens Intraoc 19.0 - [id number] - [id number] Implanted:Qty: 1 on 07/16/2018 by Conner Davenport MD at OR [facility] Left: Eye BAUSCH & LOMB 10/04/2022 [id number] / [id number] / Suture [place], Biocomposite Corkscrew Ft Implanted:Qty: 1 on 11/17/2020 by Mark Reilly DO at OR [facility] Right: Shoulder [employer] 07/05/2023 [id number] -475 / / [id number] Description:Double Loaded wi th two 1.3 mm Suture tape Biocomposite Swivelock Suture [place] Implanted:Qty: 1 on 11/17/2020 by Mark Reilly DO at OR [facility] Right: Shoulder [employer] 01/04/2022 AR-2324BCT -2 / / [id number] Description:Double Loaded wi th PEEK Eyelet and two #2 TigerTail Sutures Biocomposite Knotless Swivelock [place] Implanted:Qty: 1 on 11/17/2020 by Mark Reilly DO at OR [facility] Right: Shoulder [employer] 07/04/2024 AR-2324KBC CTT / / [id number] Description:With White/Black TigerTape Loop and Blue #2 Suture Biocompostie Swivelock Suture [place] Implanted:Qty: 1 on 11/17/2020 by Mark Reilly DO at OR [facility] Right: Shoulder [employer] 05/06/2022 AR-2323BCT -2 / / [id number] Description:Double Loaded wi th PEEK Eyelet and two #2 TigerTail Sutures documented as of this encounter Care Teams Health Plan Specialist Relationship Specialty Start Date End Date Doreen Dillon MD [address] [place] [address] [place] [phone] PCP - General Family Medicine 04/28/24 documented as of this encounter
--- OUTSIDE RECORDS SUMMARY | 2024-09-24 14:00 | External Medical Summary ---
Author Name Unknown Address Unknown Organization K01:LABORATORY [facility] - [address] [place] [address] Laboratory Report Ordering Provider Test Date Status NEERAJYANNICKPARADISE SHELLY 07/28/2024 12:17:06 Final Observation Date Value Abnormality Reference (Units ) Status Phosphate 07/28/2024 12:17:06 3.2 2.5-4.8 (m g/dL) Final Performing Location LABORATORY [facility] - [address] [place] [address]
--- OUTSIDE RECORDS SUMMARY | 2024-09-24 14:00 | External Medical Summary | Summary of Care ---
Author Name Unknown Organization [facility] Address [address] [facility] [place] [address] Phone [phone] Care Team Providers Care Swing Tender Name Role Phone Doreen Dillon MD Primary Care Pr ovider Reason for Visit * Reason Onset Date Comments FYI 07/15/2024 PACER CHECK Encounter Details Date Type Department Care Team (Late st Contact Info) Description 07/15/2024 Telephone Cardiology [address] [place] [phone] Darius Dalal PA-C [address] [place] [address] FY (PACER CHECK) Allergies Active Allergy Reactions Criticality Noted Date Comments Erythromycin 02/24/2001 stomach pain Latex Hives 02/15/2009 Pollen 04/25/2017 documented as of this encounter (statuses as of 07/15/2024) Medications CALCIUM 1000 + D 1000-800 MG-UNIT PO TABS one pill each day Active FREDY-C PO TABS one pill each day Active Multiple Vitamins-Minerals (PRESERVISION AREDS 2+MULTI VIT) CAPS Take 1 Cap by mouth 2 times a day. Active [place]-3 Fatty Acids 1000 MG Oral Capsule (OMEGA-3) [...] ns:HFrEF (heart failure with reduced ejection fraction) ([facility]),HTN, goal below 140/90 One tablet by mouth daily 90 Tablet 3 05/03/20 23 Active Apixaban 5 MG Oral Tablet (Eliquis)Indications :Paroxysmal A-fib ([facility]) Take 1 Tablet by mouth in [...] :HFrEF (heart failure with reduced ejection fraction) ([facility]) TAKE 1 TABLET BY MOUTH EVERY DAY IN THE MORNING 90 Tablet 3 10/08/19 24 Active Montelukast Sodium 10 MG Oral Tablet (Singulair)Indicatio ns:Mild persistent asthma without complication Take 1 Tablet by mouth in the morning. 90 Tablet 3 10/29/19 24 Active LORazepam 0.5 MG Oral Tablet (Ativan)Indications: Current moderate episode of major depressive disorder without prior episode ([facility]) Take 1 Tablet by mouth at [...] as of this encounter (statuses as of 07/15/2024) Active Problems Problem Noted Date Diagnosed Date [...] dysfuntion 4. Hypertension 5. 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 * Telephone Encounter - Dagoberto Victor OSA - 07/15/2024 2:26 PM EDT Ok, so keep him scheduled for in clinic? * Telephone Encounter - Dagoberto Victor OSA - 07/15/2024 11:50 AM EDT This pt was also on my list to call for a Pacer check appt. I did schedule him for September. He stated he always has the remote checks too. Please confirm if pt needs the in clinic appt. Thank you. documented in this encounter Plan of Treatment Upcoming Encounters Date Type Department Care Team (Late st Contact Info) Description 07/21/2024 4:00 PM EDT Office Visit Family [address] [place] [phone] Doreen Dillon MD [address] [place] [address] [place] [phone] 07/28/2024 11:20 AM EDT Office Visit Family Medicine [address] [phone] Doreen Dillon MD [address] [place] [address] [place] [phone] 08/26/2024 11:15 AM EDT Office Visit Ophthalmology, [facility] [address] [place] [address] Jorge Alberto Ann, DO [address] [place] [address] 09/23/2024 2:30 PM EDT Cardiac Studies Cardiology [address] [place] [address] [facility] [address] [place] [address] Health Maintenance Due Date Last Done Comments Adult Wellness Visit 2013 Depression Monitoring 09/20/2023 09/19/2022 CKD PHOS USE SMARTSET 39732 01/06/2024 09/0 05/2022, 09/19/2022, 09/21/2021, Additional history exists COVID-19 Vaccine ( season) 2024 01/11/2023, 09/13/2021, 03/09/2021, Additional history exists Albumin/Creatinine Ratio 11/05/2024 024, 09/19/2022, 09/21/2021, Additional history exists GFR 11/08/2024 05/11/2024, 06/07, 05/10/2023, Additional history exists CKD HGB USE SMARTSET 87128 05/11/202505/11, 06/21/2023, 01/19/2023, Additional history exists Colonoscopy [...] this encounter Medical Devices Implanted Type Area Reconciliation Accountant Device Identifier Shelf Expiration Date Model / Serial / Lot Lens Intraoc 18.0 - [id number] - [id number] Implanted:Qty: 1 on 07/04/2018 by Conner Davenport MD at OR [facility] Right: Eye BAUSCH & LOMB 12/04/2022 [id number] / [id number] / [id number] Lens Intraoc 19.0 - [id number] - [id number] Implanted:Qty: 1 on 07/16/2018 by Conner Davenport MD at OR [facility] Left: Eye BAUSCH & LOMB 10/04/2022 [id number] / [id number] / Suture Dumas, Biocomposite Corkscrew Ft Implanted:Qty: 1 on 11/17/2020 by Mark Reilly DO at OR [facility] Right: Shoulder [employer] 07/05/2023 [id number] -475 / / [id number] Description:Double Loaded wi th two 1.3 mm Suture tape Biocomposite Swivelock Suture Dumas Implanted:Qty: 1 on 11/17/2020 by Mark Reilly DO at OR [facility] Right: Shoulder [employer] 01/04/2022 AR-2324BCT -2 / / [id number] Description:Double Loaded wi th PEEK Eyelet and two #2 TigerTail Sutures Biocomposite Knotless Swivelock Dumas Implanted:Qty: 1 on 11/17/2020 by Mark Reilly DO at OR [facility] Right: Shoulder [employer] 07/04/2024 AR-2324KBC CTT / / [id number] Description:With White/Black TigerTape Loop and Blue #2 Suture Biocompostie Swivelock Suture Dumas Implanted:Qty: 1 on 11/17/2020 by Mark Reilly DO at OR [facility] Right: Shoulder [employer] 05/06/2022 AR-2323BCT -2 / / [id number] Description:Double Loaded wi th PEEK Eyelet and two #2 TigerTail Sutures documented as of this encounter Care Teams Swing Tender Relationship Specialty Start Date End Date Doreen Dillon MD [address] [place] [address] [place] [phone] PCP - General Family Medicine 04/28/24 documented as of this encounter
--- OUTSIDE RECORDS SUMMARY | 2024-09-24 14:00 | External Medical Summary | Summary of Care ---
Author Name Unknown Organization [facility] Address [address] [place] [address] Phone [phone] Care Team Providers Care Safe And Vault Service Mechanic Name Role Phone Doreen Dillon MD Primary Care Pr ovider Encounter Details Date Type Department Care Team (Late st Contact Info) Description 07/21/2024 Orders Only Outcomes Research Department [address] [place] [address] Lara Duffy CHRA [employer] Other*[id number] Allergies Active Allergy Reactions Criticality Noted Date Comments Erythromycin 02/24/2001 stomach pain Latex Hives 02/15/2009 Pollen 04/25/2017 documented as of this encounter (statuses as of 07/21/2024) Medications CALCIUM 1000 + D 1000-800 MG-UNIT PO TABS one pill each day Active FREDY-C PO TABS one pill each day Active Multiple Vitamins-Minerals (PRESERVISION AREDS 2+MULTI VIT) CAPS Take 1 Cap by mouth 2 times a day. Active [place]-3 Fatty Acids 1000 MG Oral Capsule (OMEGA-3) [...] ns:HFrEF (heart failure with reduced ejection fraction) ([facility]),HTN, goal below 140/90 One tablet by mouth daily 90 Tablet 3 05/03/20 23 Active Apixaban 5 MG Oral Tablet (Eliquis)Indications :Paroxysmal A-fib ([facility]) Take 1 Tablet by mouth in the [...] :HFrEF (heart failure with reduced ejection fraction) ([facility]) TAKE 1 TABLET BY MOUTH EVERY DAY IN THE MORNING 90 Tablet 3 10/08/19 24 Active Montelukast Sodium 10 MG Oral Tablet (Singulair)Indicatio ns:Mild persistent asthma without complication Take 1 Tablet by mouth in the morning. 90 Tablet 3 10/29/19 24 Active LORazepam 0.5 MG Oral Tablet (Ativan)Indications: Current moderate episode of major depressive disorder without prior episode ([facility]) Take 1 Tablet by mouth at bedtime [...] (anxiety). 60 Tablet 1 05/19/19 25 Active Pantoprazole Sodium 40 MG Oral Tablet Delayed Release (Protonix)Indication s:Other acute gastritis with hemorrhage,UGIB (upper gastrointestinal bleed) Take 1 Tablet by mouth in the morning. 90 Tablet 1 07/08/19 25 Active Hospital, Clinic, or Other Facility [...] as of this encounter (statuses as of 07/21/2024) Active Problems Problem Noted Date Diagnosed Date [...] 3. LV dysfuntion 4. Hypertension 5. Hyperlipidemia [facility] 02/2005 Coronary artery disease invo lving [place] coronary artery of [place] heart without angina pectoris Infrarenal abdominal aortic aneurysm (AAA) witho ut rupture Overview (10/20/2014): 4 cm as of 08/25/12 4.3 cm as of 10/16/14 Hyperplastic colon polyp documented as of this encounter (statuses as of 07/21/2024) Resolved Problems Problem Noted Date Diagnosed Date [...] as of this encounter (statuses as of 07/21/2024) Immunizations Name Administration Dates Next Due COVID-19 mRNA, LNP-s, No Pre serve, 2-Dose Series (Moderna) 03/09/2021,08/26/2020,07/23/2020 Covid-19, Mrna, Lnp-s, Pf, B ivalent, 30 Mcg, IM, 12 yrs and above ([employer]) 01/11/2023 PPD 01/22/2019 Pneumococcal Conjugate Vacc, 13 [...] 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 Not on file Not on file documented as of this encounter Plan of Treatment Upcoming Encounters Date Type Department Care Team (Late st Contact Info) Description 07/21/2024 4:00 PM EDT Office Visit Family Medicine [address] [phone] Doreen Dillon MD [address] [place] [address] [place] [phone] 07/28/2024 11:20 AM EDT Office Visit Family Medicine [address] [place] [address] Doreen Dillon MD [address] [place] [address] [place] [phone] 08/26/2024 11:15 AM EDT Office Visit Ophthalmology, [address] [place] [address] Jorge Alberto Ann DO [address] [place] [address] 09/23/2024 2:30 PM EDT Cardiac Studies Cardiology [address] [place] [address] [facility] [address] [place] [address] Scheduled Orders Name Type Priority Associated Diagnoses Orde r Schedule MYCODE SUBSEQUENT ADULT Lab Routine MyCode Research Other*[id number] Every 6 Months for 2 Occurrences starting 07/21/2024 until 08/10/2025 Health Maintenance Due Date Last Done Comments Adult Wellness Visit 2013 Depression Monitoring 09/20/2023 09/19/2022 CKD PHOS USE SMARTSET 25570 01/06/2024 09/0 05/2022, 09/19/2022, 09/21/2021, Additional history exists COVID-19 Vaccine ( season) 2024 01/11/2023, 09/13/2021, 03/09/2021, Additional history exists Albumin/Creatinine Ratio 11/05/2024 024, 09/19/2022, 09/21/2021, Additional history exists GFR 11/08/2024 05/11/2024, 0209/2023, 05/10/2023, Additional history exists CKD HGB USE SMARTSET 32408 05/11/202505/11, 06/21/2023, 01/19/2023, Additional history exists Colonoscopy [...] this encounter Medical Devices Implanted Type Area Actuarial Science Professor Device Identifier Shelf Expiration Date Model / Serial / Lot Lens Intraoc 18.0 - [id number] - [id number] Implanted:Qty: 1 on 07/04/2018 by Conner Davenport MD at OR [facility] Right: Eye BAUSCH & LOMB 12/04/2022 [id number] / [id number] / [id number] Lens Intraoc 19.0 - [id number] - [id number] Implanted:Qty: 1 on 07/16/2018 by Conner Davenport MD at OR [facility] Left: Eye BAUSCH & LOMB 10/04/2022 [id number] / [id number] / Suture Felch, Biocomposite Corkscrew Ft Implanted:Qty: 1 on 11/17/2020 by Mark Reilly DO at OR [facility] Right: Shoulder [employer] 07/05/2023 AR-1927BCT -475 / / [id number] Description:Double Loaded wi th two 1.3 mm Suture tape Biocomposite Swivelock Suture Felch Implanted:Qty: 1 on 11/17/2020 by Mark Reilly DO at OR [facility] Right: Shoulder [employer] 01/04/2022 AR-2324BCT -2 / / [id number] Description:Double Loaded wi th PEEK Eyelet and two #2 TigerTail Sutures Biocomposite Knotless Swivelock Felch Implanted:Qty: 1 on 11/17/2020 by Mark Reilly DO at OR [facility] Right: Shoulder [employer] 07/04/2024 AR-2324KBC CTT / / [id number] Description:With White/Black TigerTape Loop and Blue #2 Suture Biocompostie Swivelock Suture Felch Implanted:Qty: 1 on 11/17/2020 by Mark Reilly DO at OR [facility] Right: Shoulder [employer] 05/06/2022 AR-2323BCT -2 / / [id number] Description:Double Loaded wi th PEEK Eyelet and two #2 TigerTail Sutures documented as of this encounter Visit Diagnoses Diagnosis MyCode Research Other*[id number] documented in this encounter Care Teams Safe And Vault Service Mechanic Relationship Specialty Start Date End Date Doreen Dillon MD [address] [place] [address] [place] [phone] PCP - General Family Medicine 04/28/24 documented as of this encounter
--- OUTSIDE RECORDS SUMMARY | 2024-09-24 14:00 | External Medical Summary | Summary of Care ---
Author Name Unknown Organization [facility] Address [address] [place] [place] [place] [address] Phone [phone] Care Team Providers Care Boat Painter Name Role Phone Neeraj Dillon MD Primary Care Pr ovider Reason for Visit * Reason Comments eRx-Medication Refill Encounter Details Date Type Department Care Team (Late st Contact Info) Description 07/20/2024 Refill Family Medicine [address] [phone] Neeraj Dillon MD [address] [place] [address] [place] [phone] Allergies Active Allergy Reactions Criticality Noted Date Comments Erythromycin 02/24/2001 stomach pain Latex Hives 02/15/2009 Pollen 04/25/2017 documented as of this encounter (statuses as of 07/22/2024) Medications CALCIUM 1000 + D 1000-800 MG-UNIT PO TABS one pill each day Active FREDY-C PO TABS one pill each day Active Multiple Vitamins-Minerals (PRESERVISION AREDS 2+MULTI VIT) CAPS Take 1 Cap by mouth 2 times a day. Active [place]-3 Fatty Acids 1000 MG Oral Capsule (OMEGA-3) Take 1 Capsule by mouth in the morning. Active Acetaminophen 500 MG Oral Tablet (Tylenol) [...] ons:HFrEF (heart failure with reduced ejection fraction) ([facility]),HTN, goal below 140/90 One tablet by mouth daily 90 Tablet 3 023 Active Apixaban 5 MG Oral Tablet (Eliquis)Indication s:Paroxysmal A-fib ([facility]) Take 1 Tablet by mouth in the morning and 1 Tablet before bedtime. 60 Tablet 11 024 Active Gabapentin 300 MG Oral Capsule (Neurontin)Indicati ons:only takes at bedtime Take 1 Capsule by mouth at bedtime. 90 Capsule 1 024 Active Sertraline HCl 100 MG Oral Tablet (Zoloft) Take 1 Tablet by mouth in the morning. 024 Active Torsemide 20 MG Oral Tablet (Demadex)Indication s:HFrEF (heart failure with reduced ejection fraction) ([facility]) TAKE 1 TABLET BY MOUTH EVERY DAY IN THE MORNING 90 Tablet 3 024 Active Montelukast Sodium 10 MG Oral Tablet (Singulair)Indicati ons:Mild persistent asthma without complication Take 1 Tablet by mouth in the morning. 90 Tablet 3 024 Active LORazepam 0.5 MG Oral Tablet (Ativan)Indications :Current moderate episode of major depressive disorder without prior episode ([facility]) Take 1 Tablet by mouth at bedtime as needed for Anxiety or Sleep. 30 Tablet 024 Active Gabapentin 100 MG Oral Capsule (Neurontin)Indicati ons:Degenerative disc disease, cervical,Chronic left-sided low back pain without sciatica Take 1 Capsule by mouth at bedtime. 90 Capsule 1 024 Active Albuterol Sulfate HFA 108 (90 [...] 24 hours 10 Tablet 11 024 Active Doxycycline Hyclate 100 MG Oral Capsule TAKE 1 CAPSULE BY MOUTH TWICE A DAY FOR 10 DAYS 025 Active Pantoprazole Sodium 40 MG Oral Tablet Delayed Release (Protonix)Indicatio ns:Other acute gastritis with hemorrhage,UGIB (upper gastrointestinal bleed) Take 1 Tablet by mouth in the morning. 90 Tablet 1 025 Active busPIRone HCl 5 MG Oral Tablet (Buspar) TAKE 1 TABLET BY MOUTH 2 TIMES A DAY NEEDED (ANXIETY). 60 Tablet 1 025 Active busPIRone HCl 5 MG Oral Tablet (Buspar) Take 1 Tablet by mouth 2 times a day as needed (anxiety). 60 Tablet 1 025 2024 Discontinued Hospital, Clinic, or Other [...] as of this encounter (statuses as of 07/22/2024) Active Problems Problem Noted Date Diagnosed Date [...] LV dysfuntion 4. Hypertension 5. 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 Authorizing Provider: NEERAJ DILLON * Telephone Encounter - Sunshine Fountain [facility] - 07/21/2024 3:53 PM EDT Pending Prescriptions: Disp Refills busPIRone HCl 5 MG Oral Tablet [Pharmacy M*60 Tab*1 Sig: Take 1 Tablet by mouth 2 times a day as needed (anxiety). * Telephone Encounter - Sunshine Fountain [facility] - 07/21/2024 3:53 PM EDT [facility] is currently not authorized to approve refills for the pended medication(s) per refill protocol. Please approve if appropriate. Thank you, Sunshine Fountain, PharmD Clinical Pharmacist Centralized Clinical Pharmacy Services ([facility]) 07/21/24 3:53 PM [phone] documented in this encounter Plan of Treatment Upcoming Encounters Date Type Department Care Team (Late st Contact Info) Description 07/28/2024 11:20 AM EDT Office Visit Family Medicine [address] [place] [phone] Neeraj Dillon MD [address] [place] [address] [place] [phone] 08/26/2024 11:15 AM EDT Office Visit Ophthalmology, [address] [place] [address] Jorge Alberto Ann DO [address] [place] [address] 09/23/2024 2:30 PM EDT Cardiac Studies Cardiology [address] [place] [address] [place] [address] [place] [address] Health Maintenance Due Date Last Done Comments Adult Wellness Visit 2013 Depression Monitoring 09/20/2023 09/19/2022 CKD PHOS USE SMARTSET 10537 01/06/2024 0905/2022, 09/19/2022, 09/21/2021, Additional history exists COVID-19 Vaccine ( season) 2024 01/11/2023, 09/13/2021, 03/09/2021, Additional history exists Albumin/Creatinine Ratio 11/05/2024 024, 09/19/2022, 09/21/2021, Additional history exists GFR 11/08/2024 05/11/2024, 06/07, 05/10/2023, Additional history exists CKD HGB USE SMARTSET 23730 05/11/202505/11, 06/21/2023, 01/19/2023, Additional history exists Colonoscopy [...] this encounter Medical Devices Implanted Type Area Senior Reservations Agent Device Identifier Shelf Expiration Date Model / Serial / Lot Lens Intraoc 18.0 - [id number] - [id number] Implanted:Qty: 1 on 07/04/2018 by Connre Davenport MD at OR [facility] Right: Eye BAUSCH [employer] LOMB 12/04/2022 [id number] / [id number] / [id number] Lens Intraoc 19.0 - [id number] - [id number] Implanted:Qty: 1 on 07/16/2018 by Conner Davenport MD at OR [facility] Left: Eye BAUSCH & LOMB 10/04/2022 [id number] / [id number] / Suture [place], Biocomposite Corkscrew Ft Implanted:Qty: 1 on 11/17/2020 by Mark Reilly DO at OR [facility] Right: Shoulder [employer] 07/05/2023 AR-1927BCT -475 / / [id number] Description:Double Loaded wi th two 1.3 mm Suture tape Biocomposite Swivelock Suture [place] Implanted:Qty: 1 on 11/17/2020 by Mark Reilly DO at OR [facility] Right: Shoulder [employer] 01/04/2022 AR-2324BCT -2 / / [id number] Description:Double Loaded wi th PEEK Eyelet and two #2 TigerTail Sutures Biocomposite Knotless Swivelock [place] Implanted:Qty: 1 on 11/17/2020 by Mark Reilly DO at OR [facility] Right: Shoulder [employer] 07/04/2024 AR-2324KBC CTT / / [id number] Description:With White/Black TigerTape Loop and Blue #2 Suture Biocompostie Swivelock Suture [place] Implanted:Qty: 1 on 11/17/2020 by Mark Reilly DO at OR [facility] Right: Shoulder [employer] 05/06/2022 AR-2323BCT -2 / / [id number] Description:Double Loaded wi th PEEK Eyelet and two #2 TigerTail Sutures documented as of this encounter Care Teams Boat Painter Relationship Specialty Start Date End Date Neeraj Dillon MD [address] [place] [address] [place] [phone] PCP - General Family Medicine 04/28/24 documented as of this encounter
--- OUTSIDE RECORDS SUMMARY | 2024-09-24 14:00 | External Medical Summary ---
Author Name Unknown Address Unknown Organization K01:[facility] [place] [address] [facility] [place] [address] Laboratory Report Ordering Provider Test Date Status FELISA PICKARD 07/28/2024 12:17:06 Final Observation Date Value Abnormality Reference (Units ) Status SYNC LEUKOCYTES IN BLOOD BY AUTOMATED COUNT 07/28/2024 12:17:06 7.58 4.00-10.80 (K/uL) Final Segs 07/28/2024 12:17:06 59.6 40.0-75.0 (%) Final Lymphs % 07/28/2024 12:17:06 24.3 18.0-42.0 (%) Final Monos 07/28/2024 12:17:06 10.0 1.0-11.0 (%) Final Eosinophils 07/28/2024 12:17:06 5.1 0.0-6.0 (%) Final Basos 07/28/2024 12:17:06 0.7 0.0-2.0 (%) Final Immature Granulocyte, Percent 07/28/2024 12:17:06 0.3 0.0-2.0 (%) Final Absolute Segs 07/28/2024 12:17:06 4.52 1.80-7.70 (K/uL) Final Lymphs, absolute 07/28/2024 12:17:06 1.84 1.00-4.80 (K/ul) Final Monos, Abs 07/28/2024 12:17:06 0.76 0.00-1.10 (K/uL) Final Eos, Abs 07/28/2024 12:17:06 0.39 0.00-0.70 (K/uL) Final Basos, Abs 07/28/2024 12:17:06 0.05 0.00-0.20 (K/uL) Final Immature Granulocytes, Number 07/28/2024 12:17:06 0.02 0.00-0.20 (K/uL) Final Performing Location [facility] [place] [address] [facility] [id number]
--- OUTSIDE RECORDS SUMMARY | 2024-09-24 14:00 | External Medical Summary | Summary of Care ---
Author Name Unknown Organization [facility] Address [address] [place] [address] Phone [phone] Care Team Providers Care Outside Sales Consultant Name Role Phone Doreen Dillon MD Primary Care Pr ovider Encounter Details Date Type Department Care Team (Late st Contact Info) Description 07/18/2024 Orders Only Family Medicine [address] [address] Doreen Dillon MD [address] [place] [address] [place] [address] Allergies Active Allergy Reactions Criticality Noted Date Comments Erythromycin 02/24/2001 stomach pain Latex Hives 02/15/2009 Pollen 04/25/2017 documented as of this encounter (statuses as of 07/18/2024) Medications CALCIUM 1000 + D 1000-800 MG-UNIT PO TABS one pill each day Active FREDY-C PO TABS one pill each day Active Multiple Vitamins-Minerals (PRESERVISION AREDS 2+MULTI VIT) CAPS Take 1 Cap by mouth 2 times a day. Active [place]-3 Fatty Acids 1000 MG Oral Capsule (OMEGA-3) [...] failure with reduced ejection fraction) ([facility]),HTN, goal below 140/90 One tablet by mouth daily 90 Tablet 3 05/03/20 23 Active Apixaban 5 MG Oral Tablet (Eliquis)Indications :Paroxysmal A-fib ([facility]) Take 1 Tablet by mouth in [...] failure with reduced ejection fraction) ([facility]) TAKE 1 TABLET BY MOUTH EVERY DAY IN THE MORNING 90 Tablet 3 10/08/19 24 Active Montelukast Sodium 10 MG Oral Tablet (Singulair)Indicatio ns:Mild persistent asthma without complication Take 1 Tablet by mouth in the morning. 90 Tablet 3 10/29/19 24 Active LORazepam 0.5 MG Oral Tablet (Ativan)Indications: Current moderate episode of major depressive disorder without prior episode ([facility]) Take 1 Tablet by mouth at [...] as of this encounter (statuses as of 07/18/2024) Active Problems Problem Noted Date Diagnosed Date [...] dysfuntion 4. Hypertension 5. 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 Not on file Not on file documented as of this encounter Plan of Treatment Upcoming Encounters Date Type Department Care Team (Late st Contact Info) Description 07/21/2024 4:00 PM EDT Office Visit [address] [phone] Doreen Dillon MD [address] [place] [address] [place] 07/28/2024 11:20 AM EDT Office Visit [address] [place] [phone] Doreen Dillon MD [address] [place] [address] [place] 08/26/2024 11:15 AM EDT Office Visit Ophthalmology, [facility] [address] [place] [address] Jorge Alberto Ann DO [address] [place] [phone] 09/23/2024 2:30 PM EDT Cardiac Studies Cardiology [address] [place] [address] [place] [address] [place] [address] Health Maintenance Due Date Last Done Comments Adult Wellness Visit 2013 Depression Monitoring 09/20/2023 09/19/2022 CKD PHOS USE SMARTSET 04931 01/06/2024 0905/2022, 09/19/2022, 09/21/2021, Additional history exists COVID-19 Vaccine ( season) 2024 01/11/2023, 09/13/2021, 03/09/2021, Additional history exists Albumin/Creatinine Ratio 11/05/2024 024, 09/19/2022, 09/21/2021, Additional history exists GFR 11/08/2024 05/11/2024, 06/07, 05/10/2023, Additional history exists CKD HGB USE SMARTSET 44975 05/11/202505/11, 06/21/2023, 01/19/2023, Additional history exists Colonoscopy [...] this encounter Medical Devices Implanted Type Area Production Wood Craftsman Device Identifier Shelf Expiration Date Model / Serial / Lot Lens Intraoc 18.0 - [id number] - [id number] Implanted:Qty: 1 on 07/04/2018 by Conner Davenport MD at OR [facility] Right: Eye [employer] 12/04/2022 [id number] / [id number] / [id number] Lens Intraoc 19.0 - [id number] - [id number] Implanted:Qty: 1 on 07/16/2018 by Conner Davenport MD at OR [facility] Left: Eye [employer] 10/04/2022 [id number] / [id number] / Suture [place], Biocomposite Corkscrew Ft Implanted:Qty: 1 on 11/17/2020 by Mark Reilly DO at OR [facility] Right: Shoulder [employer] 07/05/2023 [id number] / / [id number] Description:Double Loaded wi th two 1.3 mm Suture tape Biocomposite Swivelock Suture [place] Implanted:Qty: 1 on 11/17/2020 by Mark Reilly DO at OR [facility] Right: Shoulder [employer] 01/04/2022 AR-2324BCT -2 / / [id number] Description:Double Loaded wi th PEEK Eyelet and two #2 TigerTail Sutures Biocomposite Knotless Swivelock [place] Implanted:Qty: 1 on 11/17/2020 by Mark Reilly DO at OR [facility] Right: Shoulder [employer] 07/04/2024 [id number] CTT / / [id number] Description:With White/Black TigerTape Loop and Blue #2 Suture Biocompostie Swivelock Suture [place] Implanted:Qty: 1 on 11/17/2020 by Mark Reilly DO at OR [facility] Right: Shoulder [employer] 05/06/2022 AR-2323BCT -2 / / [id number] Description:Double Loaded wi th PEEK Eyelet and two #2 TigerTail Sutures documented as of this encounter Procedures Procedure Name Priority Date/Time Associated Diagnosis Comments CT CHEST W CONTRAST Routine 07/03/2024 documented in this encounter Results * CT CHEST W CONTRAST (07/03/2024) Anatomical Region Laterality Modality Chest, Body, Cardio Other 07/03/2024 Lev Jackson MD RAD CT Final Result documented in this encounter Care Teams Outside Sales Consultant Relationship Specialty Start Date End Date Doreen Dillon MD [address] [place] [address] [place] [phone] PCP - General Family Medicine 04/28/24 documented as of this encounter
--- OUTSIDE RECORDS SUMMARY | 2024-09-24 14:00 | External Medical Summary | Summary of Care ---
Author Name Unknown Organization [facility] Address [address] [place] [address] Phone [phone] Care Team Providers Care Staff Technologist Name Role Phone Doreen Dillon MD Primary Care Pr ovider Encounter Details Date Type Department Care Team (Late st Contact Info) Description 07/03/2024 Result Scan Unspecified Department <No scans attached> Allergies Active Allergy Reactions Criticality Noted Date [...] by mouth 2 times a day. Active [place]-3 Fatty Acids 1000 MG Oral Capsule (OMEGA-3) Take 1 Capsule by mouth in the morning. 2 Active Acetaminophen 500 MG Oral Tablet (Tylenol) Take 2 Tablets by mouth as needed. 2 Active Nitroglycerin 0.4 MG Sublingual Tablet Sublingual (Nitrostat) Place 1 Tablet (0.4 mg) under the tongue as needed for Pain, Chest. May repeat 3 times. If chest pain continues, call 911. 25 Tablet 11 2 Active Triamcinolone Acetonide 0.1 % External Cream (Aristocort)Indic ations:Dry skin Apply topically to affected area 2 times a day. To affected area. For up to 2 weeks in a row or as needed. 45 g 2 3 Active Spironolactone 25 MG Oral Tablet (Aldactone)Indica tions:HFrEF (heart failure with reduced ejection fraction) (HCC),HTN, goal below 140/90 One tablet by mouth daily 90 Tablet 3 3 Active Apixaban 5 MG Oral Tablet (Eliquis)Indicati ons:Paroxysmal A-fib ([facility]) Take 1 Tablet by mouth in the morning and 1 Tablet before bedtime. 60 Tablet 11 4 Active Gabapentin 300 MG Oral Capsule (Neurontin)Indica tions:only takes at bedtime Take 1 Capsule by mouth at bedtime. 90 Capsule 1 4 Active Sertraline HCl 100 MG Oral Tablet (Zoloft) Take 1 Tablet by mouth in the morning. 4 Active Torsemide 20 MG Oral Tablet (Demadex)Indicati ons:HFrEF (heart failure with reduced ejection fraction) ([facility]) TAKE 1 TABLET BY MOUTH EVERY DAY IN THE MORNING 90 Tablet 3 4 Active Montelukast Sodium 10 MG Oral Tablet (Singulair)Indica tions:Mild persistent asthma without complication Take 1 Tablet by mouth in the morning. 90 Tablet 3 4 Active LORazepam 0.5 MG Oral Tablet (Ativan)Indicatio ns:Current moderate episode of major depressive disorder without prior episode ([facility]) Take 1 Tablet by mouth at bedtime as needed for Anxiety or Sleep. 30 Tablet 4 Active Gabapentin 100 MG Oral Capsule (Neurontin)Indica tions:Degenerativ e disc disease, cervical,Chronic left-sided low back pain without sciatica Take 1 Capsule by mouth at bedtime. 90 Capsule 1 4 Active Albuterol Sulfate HFA 108 (90 Base) MCG/ACT Inhalation Aerosol SolutionIndicatio ns:Mild persistent asthma, unspecified whether complicated Inhale 2 Puffs by mouth every 4 hours as needed for Cough, Shortness of Breath or Wheezing. 18 g 5 4 Active Baclofen 10 MG Oral Tablet (Lioresal) TAKE 1 OR 2 TABS BY MOUTH A HALF HOUR BEFORE BED NEEDED FOR LOWER BACK PAIN/MUSCLE SPASMS 4 Active Sertraline HCl 50 MG Oral Tablet (Zoloft)Indicatio ns:Malaise and fatigue Take 1 Tablet by mouth in the morning. 90 Tablet 1 4 Active Entresto 24-26 MG Oral Tablet (sacubitril-valsa rtan 24-26 mg per tab) TAKE 1 TABLET BY MOUTH IN THE MORNING AND BEFORE BEDTIME 180 Tablet 3 4 Active Amiodarone HCl 200 MG Oral Tablet (Cordarone)Indica tions:Paroxysmal A-fib (HCC),Ventricular tachycardia (HCC) TAKE 1 TABLET BY MOUTH EVERY DAY IN THE MORNING 90 Tablet 3 4 Active Metoprolol Succinate ER 50 MG Oral Tablet Extended Release 24 Hour (toPROL XL) Take 1 Tablet by mouth in the morning. 90 Tablet 1 4 Active Atorvastatin Calcium 80 MG Oral Tablet (Lipitor) TAKE 1 TABLET BY MOUTH EVERY DAY IN THE MORNING 90 Tablet 4 Active Jardiance 10 MG Oral Tablet (Empagliflozin)In dications:HFrEF (heart failure with reduced ejection fraction) (HCC) TAKE 1 TABLET BY MOUTH EVERY DAY IN THE MORNING 90 Tablet 4 Active Clopidogrel Bisulfate 75 MG Oral Tablet (pLAVix) Take 1 Tablet by mouth in the morning. 90 Tablet 2 4 Active Albuterol Sulfate 0.63 MG/3ML Inhalation Nebulization Solution (Accuneb)Indicati ons:Mild persistent asthma with exacerbation Inhale 1 Vial via nebulizer every 4 hours as needed for Wheezing. 90 mL 5 4 Active Tadalafil 10 MG Oral Tablet (Cialis) Take 1 Tablet by mouth daily as needed for Erectile Dysfunction. prior to intercourse, no more than 1 dose in 24 hours 10 Tablet 11 4 Active Doxycycline Hyclate 100 MG Oral Capsule TAKE 1 CAPSULE BY MOUTH TWICE A DAY FOR 10 DAYS 5 Active busPIRone HCl 5 MG Oral Tablet (Buspar) Take 1 Tablet by mouth 2 times a day as needed (anxiety). 60 Tablet 1 5 Active Hospital, Clinic, or Other Facility Administered [...] dysfuntion 4. Hypertension 5. 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 Not on file Not on file Not on file [employer] Not on file Not on file Not on file documented as of this encounter Plan of Treatment Upcoming Encounters Date Type Department Care Team (Late st Contact Info) Description 07/21/2024 4:00 PM EDT Office Visit Family Medicine [address] [phone] Doreen Dillon MD [address] [place] [address] [place] [phone] 07/28/2024 11:20 AM EDT Office Visit Family [address] [place] [phone] Doreen Dillon MD [address] [place] [address] [place] [phone] 08/26/2024 11:15 AM EDT Office Visit Ophthalmology, [facility] [address] [place] [address] Jorge Alberto Ann DO [address] [place] [address] 09/23/2024 2:30 PM EDT Cardiac Studies Cardiology [address] [place] [address] [facility] [address] [place] [address] Health Maintenance Due Date Last Done Comments Adult Wellness Visit 2013 Depression Monitoring 09/20/2023 09/19/2022 CKD PHOS USE SMARTSET 32183 01/06/2024 090 05/2022, 09/19/2022, 09/21/2021, Additional history exists COVID-19 Vaccine ( season) 2024 01/11/2023, 09/13/2021, 03/09/2021, Additional history exists Albumin/Creatinine Ratio 11/05/2024 024, 09/19/2022, 09/21/2021, Additional history exists GFR 11/08/2024 05/11/2024, 06/07, 05/10/2023, Additional history exists CKD HGB USE SMARTSET 52790 05/11/202505/11, 06/21/2023, 01/19/2023, Additional history exists Colonoscopy [...] this encounter Medical Devices Implanted Type Area Police Detective Device Identifier Shelf Expiration Date Model / Serial / Lot Lens Intraoc 18.0 - [id number] - [id number] Implanted:Qty: 1 on 07/04/2018 by Conner Davenport MD at OR [facility] Right: Eye [employer] 12/04/2022 [id number] / [id number] / [id number] Lens Intraoc 19.0 - [id number] - [id number] Implanted:Qty: 1 on 07/16/2018 by Conner Davenport MD at OR [facility] Left: Eye [employer] 10/04/2022 [id number] / [id number] / Suture [place], Biocomposite Corkscrew Ft Implanted:Qty: 1 on 11/17/2020 by Mark Reilly DO at OR [facility] Right: Shoulder [employer] 07/05/2023 AR-1927BCT -475 / / [id number] Description:Double Loaded wi th two 1.3 mm Suture tape Biocomposite Swivelock Suture [place] Implanted:Qty: 1 on 11/17/2020 by Mark Reilly DO at OR [facility] Right: Shoulder [employer] 01/04/2022 AR-2324BCT -2 / / [id number] Description:Double Loaded wi th PEEK Eyelet and two #2 TigerTail Sutures Biocomposite Knotless Swivelock [place] Implanted:Qty: 1 on 11/17/2020 by Mark Reilly DO at OR [facility] Right: Shoulder [employer] 07/04/2024 AR-2324KBC CTT / / [id number] Description:With White/Black TigerTape Loop and Blue #2 Suture Biocompostie Swivelock Suture [place] Implanted:Qty: 1 on 11/17/2020 by Mark Reilly DO at OR [facility] Right: Shoulder [employer] 05/06/2022 AR-2323BCT -2 / / [id number] Description:Double Loaded wi th PEEK Eyelet and two #2 TigerTail Sutures documented as of this encounter Procedures Procedure Name Priority Date/Time Associated Diagnosis Comments RADIOLOGY SCANNED RESULT 07/03/2024 RADIOLOGY SCANNED RESULT 07/03/2024 RADIOLOGY SCANNED RESULT 07/03/2024 RADIOLOGY SCANNED RESULT 07/03/2024 documented in this encounter Results * RADIOLOGY SCANNED RESULT (07/03/2024) 07/03/2024 us No Physician Data Unknown DIAGNOSTIC RADIOLOGY S ERVICES Final Result * RADIOLOGY SCANNED RESULT (07/03/2024) 07/03/2024 us No Physician Data Unknown DIAGNOSTIC RADIOLOGY S ERVICES Final Result * RADIOLOGY SCANNED RESULT (07/03/2024) 07/03/2024 us No Physician Data Unknown DIAGNOSTIC RADIOLOGY S ERVICES Final Result * RADIOLOGY SCANNED RESULT (07/03/2024) 07/03/2024 us No Physician Data Unknown DIAGNOSTIC RADIOLOGY S ERVICES Final Result documented in this encounter Care Teams Staff Technologist Relationship Specialty Start Date End Date Doreen Dillon MD [address] [place] [address] [place] [phone] PCP - General Family Medicine 04/28/24 documented as of this encounter
--- OUTSIDE RECORDS SUMMARY | 2024-09-24 14:01 | External Medical Summary | Summary of Care ---
Author Name Unknown Organization [facility] Address [address] [place] [address] Phone [phone] Care Team Providers Care Consumer Affairs Manager Name Role Phone Doreen Dillon MD Primary Care Pr ovider Reason for Visit * Reason Comments Sleep Problems * Precert (Diagnostic Medical) (Within 10 days (routine)) - Authorized Specialty Diagnoses / Procedures Referred By Contac t Referred To Contact Sleep Disorders Diagnoses At risk for central sleep apnea Sleep related choking sensation Insomnia, unspecified type Non-restorative sleep Fatigue, unspecified type Sleep apnea, unspecified type Procedures SLEEP TEST W/ TYPE 3 PORTABLE MONITOR, 4 CHANNEL; AT HOME Elinor Zuleta CRNP [address] [place] [address] Phone: tel: fax: Referral ID Status Reason Start Date Expiration Date V isits Requested Visits Authorized [id number] Authorized 06/27/2024 12/24/2024 [id number] Encounter Details Date Type Department Care Team (Latest Contact Info) Description 07/07/2024 1:00 PM EST [facility] Tatyana Mcghee [address] [place] [phone] [place], Sleep [facility] Home Study Tatyana [address] [place] [phone] Sleep apnea, unspecified type* Allergies Active Allergy Reactions Criticality Noted Date Comments Erythromycin 02/24/2001 stomach pain Latex Hives 02/15/2009 Pollen 04/25/2017 documented as of this encounter (statuses as of 07/09/2024) Medications CALCIUM 1000 + D 1000-800 MG-UNIT PO TABS one pill each day Active FREDY-C PO TABS one pill each day Active Multiple Vitamins-Minerals (PRESERVISION AREDS 2+MULTI VIT) CAPS Take 1 Cap by mouth 2 times a day. Active [place]-3 Fatty Acids 1000 MG Oral Capsule (OMEGA-3) [...] ns:HFrEF (heart failure with reduced ejection fraction) ([facility]),HTN, goal below 140/90 One tablet by mouth daily 90 Tablet 3 05/03/20 23 Active Apixaban 5 MG Oral Tablet (Eliquis)Indications :Paroxysmal A-fib ([facility]) Take 1 Tablet by mouth [...] :HFrEF (heart failure with reduced ejection fraction) ([facility]) TAKE 1 TABLET BY MOUTH [...] as of this encounter (statuses as of 07/09/2024) Active Problems Problem Noted Date Diagnosed Date [...] Hospital 02/2005 Coronary artery disease invo [place]ving [place] coronary artery of [place] heart without angina pectoris Infrarenal abdominal aortic aneurysm (AAA) witho ut rupture Overview (10/20/2014): 4 cm as of 08/25/12 4.3 cm as of 10/16/14 Hyperplastic colon polyp documented as of this encounter (statuses as of 07/09/2024) Resolved Problems Problem Noted Date Diagnosed Date [...] as of this encounter (statuses as of 07/09/2024) Immunizations Name Administration Dates Next Due COVID-19 [...] 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 Study Date: 07/07/2024 Patient Name: Mark Batista Recording Device: Hollie Garcia Sex: M : 1945 Acq ID: [id number] Age: 79 years Location: [facility] Times and Durations Lights off clock time: 8:51:56 PM Total Recording Time (TRT): 673.8 minutes Lights on clock time: 5:33:56 AM Time In Bed (TIB): 522.0 minutes Summary ISHA 21.6 OAI 2.4 AYAAN 0.0 Lowest Desat 82 ISHA is the number of apneas and hypopneas per hour. OAI is the number of obstructive apneas per hour. AYAAN is the number of central apneas per hour. Lowest Desat is the lowest blood oxygen level that lasted at least 2 seconds. RESPIRATORY EVENTS Index (#/hour) Total # of Events Mean duration (sec) Max duration (sec) # of Events by Position Supine Prone Left Right Up Central Apneas 0.0 0 0.0 0.0 0 0 0 0 Obstructive Apneas 2.4 21 13.2 21.0 21 0 0 0 Mixed Apneas 0.0 0 0.0 0.0 0 0 0 0 Hypopneas 19.1 (3%) 165 (3%) 15.7 32.0 156 9 0 0 11.5 (4%) 99 (4%) Apneas + Hypopneas 21.6 (3%) 186 (3%) 15.4 32.0 177 9 0 0 13.9 (4%) 120 (4%) Total 21.6 (3%) 186 (3%) 15.4 32.0 177 9 0 0 13.9 (4%) 120(4%) Time in Position 503.3 13.7 0.3 4.7 AHI in Position 21.1 39.4 0.0 0.0 Oximetry Summary Dur. (min) % TIB <90 % 15.2 2.9 <85 % 0.1 0.0 <80 % 0.0 0.0 <70 % 0.0 0.0 Total Dur (min) < 89 2.6 min Average (%) 93 Total # of Desats 198 Desat Index (#/hour) 24.5 Desat Max (%) 13 Desat Max dur (sec) 56.0 Lowest SpO2 % during sleep 82 Duration of Min SpO2 (sec) 6 Heart Rate Stats Mean HR during sleep 60.9 (BPM) Highest HR during recording 86 (BPM) Technical Considerations: Following the clinical guidelines for the use of unattended portable monitors in the diagnosis of obstructive sleep apnea in adult patients published by the Portable Monitoring Task Force of the [place] [employer] published in the Journal of Clinical Sleep Medicine in 2007, this study was recorded using a Type 3 device ([employer]). Breathing effort, airflow, oxygen saturations, pulse, body position and patient events were monitored. Raw data was scored by a registered applied technologist and reviewed by a sleep physician. The sleep stage and event scoring was based on the AASM Manual for the Scoring of Sleep and Associated Events 2007 edition. Apneas are defined as a drop in the peak thermal sensor excursion by > 90% of baseline for at least 10 seconds. Hypopneas were scored using the 4% oxygen desaturation rule (4A-Medicare) and a decrease in the nasal pressure excursions by > 30% of baseline for at least 10 seconds. An apnea hypopnea index (AHI) > 15 events per hour is considered diagnostic of obstructive sleep apnea in association with a high clinical pre-test clinical probability. An AHI < 15 events an hour with a high clinical probability is considered inconclusive and requires further testing with an in laboratory polysomnography. Please note that portable monitoring is inadequate to diagnose central sleep apnea because we are unable to differentiate physiologic post-arousal events from a pathological form of central apnea; this is because electroencephalogram is not used in this type of study. Clinical Considerations: This is a 79-year-old year old gentleman with a high clinical suspicion for obstructive sleep apnea. Comorbidities that may limit the accuracy of the study were ruled out. These comorbidities includebut are not completely limited to morbid obesity, narcotic analgesic use, cardiac disease, pulmonary pathology, neuromuscular disease, Raynaud's and neurological abnormalities. This test is not indicated for commercial drivers, pilots, locomotive engineers or others requiring Department of Transportation, Federal Aviation Administration or Department of Defense because tampering with the study fuad major concern. IMPRESSION: 1-The diagnosis of at least moderate sleep apnea is supported based on the reported Apnea-Hypopnea Index (AHI=21.6). 2- Oxygen saturation was < 90% for more than 5 minutes. Minimum oxygen saturation was 82, and mean oxygen saturation was below listed norms, which suggests hypoxemia. RECOMMENDATION: 1. Auto-PAP vs CPAP titration study. 2. Avoid driving, operating heavy machinery or engaging in activities that may require full alertness if feeling sleepy, drowsy or otherwise impaired. 3. Weight loss is recommended if sleep apnea occurs in the context of obesity. Thank you for the courtesy of this referral, Brooklynn Baptiste MD AIDEN Certified Internal/Sleep Medicine documented in this encounter Plan of Treatment Upcoming Encounters Date Type Department Care Team (Late st Contact Info) Description 07/09/2024 2:00 PM EST Office Visit [address] [phone] Doreen Dillon MD [address] [place] [address] [place] [phone] 07/28/2024 11:20 AM EDT Office Visit [address] [phone] Doreen Dillon MD [address] [place] [address] [place] [phone] 08/26/2024 11:15 AM EDT Office Visit Ophthalmology, [facility] [address] [place] [address] Jorge Alberto Ann DO [address] [place] [phone] Scheduled Orders Name Type Priority Associated Diagnoses [...] Monitoring 09/20/2023 09/19/2022 CKD PHOS USE SMARTSET 47184 01/06/2024 090 05/2022, 09/19/2022, 09/21/2021, Additional history exists COVID-19 Vaccine ( season) 2024 01/11/2023, 09/13/2021, 03/09/2021, Additional history exists Albumin/Creatinine Ratio 11/05/2024 024, 09/19/2022, 09/21/2021, Additional history exists GFR 11/08/2024 05/11/2024, 06/07, 05/10/2023, Additional history exists CKD HGB USE SMARTSET 28067 05/11/202505/11, 06/21/2023, 01/19/2023, Additional history exists Colonoscopy [...] this encounter Medical Devices Implanted Type Area Malt House Kiln Operator Device Identifier Shelf Expiration Date Model / Serial / Lot Lens Intraoc 18.0 - [id number] - [id number] Implanted:Qty: 1 on 07/04/2018 by Conner Davenport MD at OR [facility] Right: Eye [employer] 12/04/2022 [id number] / [id number] / [id number] Lens Intraoc 19.0 - [id number] - [id number] Implanted:Qty: 1 on 07/16/2018 by Conner Davenport MD at OR [facility] Left: Eye [employer]CH [employer]OMB 10/04/2022 [id number] / [id number] / Suture [place], Biocomposite Corkscrew Ft Implanted:Qty: 1 on 11/17/2020 by Mark Reilly DO at OR [facility] Right: Shoulder [employer] 07/05/2023 [id number] -[facility] / / [id number] Description:Double Loaded wi th two 1.3 mm Suture tape Biocomposite Swivelock Suture [place] Implanted:Qty: 1 on 11/17/2020 by Mark Reilly DO at OR [facility] Right: Shoulder [employer] 01/04/2022 AR-2324BCT -2 / / [id number] Description:Double Loaded wi th PEEK Eyelet and two #2 TigerTail Sutures Biocomposite Knotless Swivelock [place] Implanted:Qty: 1 on 11/17/2020 by Mark Reilly DO at OR [facility] Right: Shoulder [employer] 07/04/2024 AR-2324KBC CTT / / [id number] Description:With White/Black TigerTape Loop and Blue #2 Suture Biocompostie Swivelock Suture [place] Implanted:Qty: 1 on 11/17/2020 by Mark Reilly DO at OR [facility] Right: Shoulder [employer] 05/06/2022 AR-2323BCT -2 / / [id number] Description:Double Loaded wi th PEEK Eyelet and two #2 TigerTail Sutures documented as of this encounter Visit Diagnoses Diagnosis Sleep apnea, unspecified type- Primary documented in this encounter Care Teams Consumer Affairs Manager Relationship Specialty Start Date End Date Doreen Dillon MD [address] [place] [address] [place] [phone] PCP - General Family Medicine 04/28/24 documented as of this encounter
--- OUTSIDE RECORDS SUMMARY | 2024-09-24 14:01 | External Medical Summary | Summary of Care ---
Author Name Unknown Organization [facility] Address [address] [place] [address] Phone [phone] Care Team Providers Care Finishing Machine Operator Automatic Name Role Phone Doreen Dillon MD Primary Care Pr ovider Reason for Visit * Reason Onset Date Comments Hospital Follow-Up 07/07/[address] [facility] x 2 Encounter Details Date Type Department Care Team (Late st Contact Info) Description 07/07/2024 Telephone Family Medicine [address] [phone] Doreen Dillon MD [address] [place] [address] [place] [phone] Hospital Follow-Up (Cristela for [facility] x 2) Allergies Active Allergy Reactions Criticality Noted Date Comments Erythromycin 02/24/2001 stomach pain Latex Hives 02/15/2009 Pollen 04/25/2017 documented as of this encounter (statuses as of 07/08/2024) Medications CALCIUM 1000 + D 1000-800 MG-UNIT PO TABS one pill each day Active FREDY-C PO TABS one pill each day Active Multiple Vitamins-Minerals (PRESERVISION AREDS 2+MULTI VIT) CAPS Take 1 Cap by mouth 2 times a day. Active [place]-3 Fatty Acids 1000 MG Oral Capsule (OMEGA-3) [...] 5 MG Oral Tablet (Eliquis)Indicati ons:Paroxysmal A-fib (HCC) Take 1 Tablet by mouth [...] failure with reduced ejection fraction) ([facility]) TAKE 1 TABLET BY MOUTH EVERY DAY IN THE MORNING 90 Tablet 3 4 Active Montelukast Sodium 10 MG Oral Tablet (Singulair)Indica tions:Mild persistent asthma without complication Take 1 Tablet by mouth in the morning. 90 Tablet 3 4 Active LORazepam 0.5 MG Oral Tablet (Ativan)Indicatio ns:Current moderate episode of major depressive disorder without prior episode ([facility]) Take 1 Tablet by mouth [...] MOUTH TWICE A DAY FOR 10 DAYS 01/05/202 5 Active busPIRone HCl 5 MG Oral Tablet (Buspar) Take 1 Tablet by mouth 2 times a day as needed (anxiety). 60 Tablet 1 Active Hospital, Clinic, or Other Facility Administered [...] as of this encounter (statuses as of 07/08/2024) Active Problems Problem Noted Date Diagnosed Date [...] Center 02/2005 Coronary artery disease invo lving [place] coronary artery of [place] heart without angina pectoris Infrarenal abdominal aortic aneurysm (AAA) witho ut rupture Overview (10/20/2014): 4 cm as of 08/25/12 4.3 cm as of 10/16/14 Hyperplastic colon polyp documented as of this encounter (statuses as of 07/08/2024) Resolved Problems Problem Noted Date Diagnosed Date [...] as of this encounter (statuses as of 07/08/2024) Immunizations Name Administration Dates Next Due COVID-19 [...] 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 Eastman at 2pm. * Telephone Encounter - Yessica Santos RN - 07/07/2024 3:50 PM EST Transitions of Care Note Reason for Referral:Recent Admission Phone visit for follow up: cristela Admitted to: [facility], Date: 07.03.24 Discharged to: home, Date: 07.04.23 Diagnosis driving hospitalization: (1) Fall: (2) Head injury, closed, with brief LOC: (3) Ischemic cardiomyopathy with implantable cardioverter-defibrillator (ICD): (4) CKD (chronic kidney disease), stage III: (5) Mild intermittent asthma: (6) HTN (hypertension): (7) Dyslipidemia: (8) Coronary artery disease: (9) On anticoagulant therapy: Restart blood thinner on 07/05. Attempted Phone Call First Attempt Call Outcome Left Voicemail/Message Yessica Santos RN documented in this encounter Plan of Treatment Upcoming Encounters Date Type Department Care Team (Late st Contact Info) Description 07/09/2024 2:00 PM EST Office Visit [address] [phone] Doreen Dillon MD [address] [place] [address] [place] [phone] 07/28/2024 11:20 AM EDT Office Visit Family [address] [place] [address] Doreen Dillon MD [address] [place] [address] [place] [phone] 08/26/2024 11:15 AM EDT Office Visit Ophthalmology, [facility] [address] [place] [address] Jorge Alberto Ann DO [address] [place] [phone] Health Maintenance Due Date Last Done Comments Adult Wellness Visit 2013 Depression Monitoring 09/20/2023 09/19/2022 CKD PHOS USE SMARTSET 57648 01/06/2024 09/0 05/2022, 09/19/2022, 09/21/2021, Additional history exists COVID-19 Vaccine ( season) 2024 01/11/2023, 09/13/2021, 03/09/2021, Additional history exists Albumin/Creatinine Ratio 11/05/2024 024, 09/19/2022, 09/21/2021, Additional history exists GFR 11/08/2024 05/11/2024, 06/07, 05/10/2023, Additional history exists CKD HGB USE SMARTSET 32009 05/11/202505/11, 06/21/2023, 01/19/2023, Additional history exists Colonoscopy [...] this encounter Medical Devices Implanted Type Area Social Services Manager Device Identifier Shelf Expiration Date Model / Serial / Lot Lens Intraoc 18.0 - [id number] - [id number] Implanted:Qty: 1 on 07/04/2018 by Conner Davenport MD at OR [facility] Right: Eye [employer]OM[employer] 12/04/2022 [id number] / [id number] / [id number] Lens Intraoc 19.0 - [id number] - [id number] Implanted:Qty: 1 on 07/16/2018 by Conner Davenport MD at OR [facility] Left: Eye [employer]CH [employer]OMB 10/04/2022 [id number] / [id number] / Suture Ensign, Biocomposite Corkscrew Ft Implanted:Qty: 1 on 11/17/2020 by Mark Reilly DO at OR [facility] Right: Shoulder [employer] 07/05/2023 AR-1927BCT -475 / / [id number] Description:Double Loaded wi th two 1.3 mm Suture tape Biocomposite Swivelock Suture Ensign Implanted:Qty: 1 on 11/17/2020 by Mark Reilly DO at OR [facility] Right: Shoulder [employer] 01/04/2022 AR-2324BCT -2 / / [id number] Description:Double Loaded wi th PEEK Eyelet and two #2 TigerTail Sutures Biocomposite Knotless Swivelock Ensign Implanted:Qty: 1 on 11/17/2020 by Mark Reilly DO at OR [facility] Right: Shoulder [employer] 07/04/2024 AR-2324KBC CTT / / [id number] Description:With White/Black TigerTape Loop and Blue #2 Suture Biocompostie Swivelock Suture Ensign Implanted:Qty: 1 on 11/17/2020 by Mark Reilly DO at OR [facility] Right: Shoulder [employer] 05/06/2022 AR-2323BCT -2 / / [id number] Description:Double Loaded wi th PEEK Eyelet and two #2 TigerTail Sutures documented as of this encounter Care Teams Finishing Machine Operator Automatic Relationship Specialty Start Date End Date Doreen Dillon MD [address] [place] [address] [place] [phone] PCP - General Family Medicine 04/28/24 documented as of this encounter
--- OUTSIDE RECORDS SUMMARY | 2024-09-24 14:01 | External Medical Summary | Summary of Care ---
Author Name Unknown Organization [facility] Address [address] [facility] [address] Phone [phone] Care Team Providers Care Commercial Credit Portfolio Manager Name Role Phone Neeraj Dillon MD Primary Care Pr ovider Reason for Visit * Reason Onset Date Comments Medication Refill 07/07/2024 Encounter Details Date Type Department Care Team (Late st Contact Info) Description 07/07/2024 Refill Family Medicine [address] [phone] [address] [place] [address] Other acute gastritis with hemorrhage; UGIB (upper gastrointestinal bleed) Allergies Active Allergy Reactions Criticality Noted Date [...] by mouth 2 times a day. Active [place]-3 Fatty Acids 1000 MG Oral Capsule (OMEGA-3) [...] 5 MG Oral Tablet (Eliquis)Indications :Paroxysmal A-fib ([facility]) Take 1 Tablet by mouth in [...] :HFrEF (heart failure with reduced ejection fraction) ([facility]) TAKE 1 TABLET BY MOUTH EVERY DAY IN THE MORNING 90 Tablet 3 10/08/19 24 Active Montelukast Sodium 10 MG Oral Tablet (Singulair)Indicatio ns:Mild persistent asthma without complication Take 1 Tablet by mouth in the morning. 90 Tablet 3 10/29/19 24 Active LORazepam 0.5 MG Oral Tablet (Ativan)Indications: Current moderate episode of major depressive disorder without prior episode ([facility]) Take 1 Tablet by mouth at [...] morning. 90 Tablet 1 07/08/19 25 Active Pantoprazole Sodium 40 MG Oral Tablet Delayed Release (Protonix)Indication s:Other acute gastritis with hemorrhage,UGIB (upper gastrointestinal bleed) Take 1 Tablet by mouth in the morning. 90 Tablet 1 04/04/20 24 025 Discontin ued(Refil l) Hospital, Clinic, or [...] dysfuntion 4. Hypertension 5. 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 Authorizing Provider: NEERAJ DILLON * Telephone Encounter - Allyson Atkins RN - 07/07/2024 4:35 PM ESTPending Prescriptions: Disp Refills Pantoprazole Sodium 40 MG Oral Tablet Magdalena*90 Tab*1 Sig: Take 1 Tablet by mouth in the morning. * Telephone Encounter - Shayna Cash OSA - 07/07/2024 4:18 PM EST Did you pend patient's preferred pharmacy and medication before forwarding?yes Pharmacy: [id number] [id number] [facility] Pending Prescriptions: Disp Refills Pantoprazole Sodium 40 MG Oral Tablet Del*90 Tab*1 Sig: Take 1 Tablet by mouth in the morning. Last Visit: 05/19/2024 (in office), Visit date not found (telemedicine) Next Visit: 07/09/2024 If no future appointments scheduled, and last appointment is greater than a year ago, please schedule patient for a follow-up appointment Last date the medication was ordered: 04/04/2024 Is this request for a controlled substance?No Urine Drug Screen:No results found for this or any previous visit. Patient Phone Numbers Labs: Lab Results Component Value Date/Time CREAT 1.20 05/11/2024 12:00 AM CREAT 1.4 (H) 06/14/2016 10:49 AM POTASSIUM 4.0 05/11/2024 12:00 AM POTASSIUM 5.1 06/14/2016 10:49 AM TSH 4.01 03/24/2024 09:56 AM TSH 3.93 03/31/2013 04:26 PM LDL 76 06/21/2023 01:37 PM LDL 80 06/14/2016 10:49 AM LDL 152. (H) 08/15/1996 10:20 AM LDLCALC 90 03/18/2020 03:05 PM ALT 17 03/24/2024 09:56 AM ALT 21 06/14/2016 10:49 AM HGBA1C 5.3 04/11/2024 11:29 AM documented in this encounter Plan of Treatment Upcoming Encounters Date Type Department Care Team (Late st Contact Info) Description 07/09/2024 2:00 PM EST Office Visit [address] [place] [address] Neeraj Dillon MD [address] [place] [address] [place] [phone] 07/28/2024 11:20 AM EDT Office [place] [address] [place] [address] Neeraj Dillon MD [address] [place] [address] [place] [phone] 08/26/2024 11:15 AM EDT Office Visit Ophthalmology, [facility] [address] [place] [address] Jorge Alberto Ann, [address] [place] [address] Health Maintenance Due Date Last Done Comments Adult Wellness Visit 2013 Depression Monitoring 09/20/2023 09/19/2022 CKD PHOS USE SMARTSET 74586 01/06/2024 09/0 05/2022, 09/19/2022, 09/21/2021, Additional history exists COVID-19 Vaccine ( season) 2024 01/11/2023, 09/13/2021, 03/09/2021, Additional history exists Albumin/Creatinine Ratio 11/05/2024 024, 09/19/2022, 09/21/2021, Additional history exists GFR 11/08/2024 05/11/2024, 06/07, 05/10/2023, Additional history exists CKD HGB USE SMARTSET 68865 05/11/202505/11, 06/21/2023, 01/19/2023, Additional history exists Colonoscopy [...] this encounter Medical Devices Implanted Type Area Hot Blast Worker Device Identifier Shelf Expiration Date Model / Serial / Lot Lens Intraoc 18.0 - [id number] - [id number] Implanted:Qty: 1 on 07/04/2018 by Conner Davenport MD at OR [facility] Right: Eye [employer]OM[employer] 12/04/2022 [id number] / [id number] / [id number] Lens Intraoc 19.0 - [id number] - [id number] Implanted:Qty: 1 on 07/16/2018 by Conner Davenport MD at [facility] Left: Eye BAUSCH & LOMB 10/04/2022 [id number] / [id number] / Suture [place], Biocomposite Corkscrew Ft Implanted:Qty: 1 on 11/17/2020 by Mark Reilly DO at OR [facility] Right: Shoulder [employer] 07/05/2023 [id number] -[id number] / / [id number] Description:Double Loaded wi th two 1.3 mm Suture tape Biocomposite Swivelock Suture [place] Implanted:Qty: 1 on 11/17/2020 by Mark Reilly DO at OR [facility] Right: Shoulder [employer] 01/04/2022 AR-2324BCT -2 / / [id number] Description:Double Loaded wi th PEEK Eyelet and two #2 TigerTail Sutures Biocomposite Knotless Swivelock [place] Implanted:Qty: 1 on 11/17/2020 by Mark Reilly DO at OR [facility] Right: Shoulder [employer] 07/04/2024 AR-2324KBC CTT / / [id number] Description:With White/Black TigerTape Loop and Blue #2 Suture Biocompostie Swivelock Suture [place] Implanted:Qty: 1 on 11/17/2020 by Mark Reilly DO at OR [facility] Right: Shoulder [employer] 05/06/2022 AR-2323BCT -2 / / [id number] Description:Double Loaded wi th PEEK Eyelet and two #2 TigerTail Sutures documented as of this encounter Visit Diagnoses Diagnosis Other acute gastritis with hemorrhage UGIB (upper gastrointestinal bleed) Hemorrhage of gastrointestinal tract, unspecified documented in this encounter Care Teams Commercial Credit Portfolio Manager Relationship Specialty Start Date End Date Neeraj Dillon MD [address] [place] [address] [place] [phone] PCP - General Family Medicine 04/28/24 documented as of this encounter
--- OUTSIDE RECORDS SUMMARY | 2024-09-24 15:05 | External Medical Summary | Summary of Care ---
Author Name Unknown Organization [facility] Address [address] [facility] [place] [address] Phone [phone] Care Team Providers Care Revenue Research Analyst Name Role Phone Doreen Dillon MD Primary Care Pr ovider Reason for Visit * Reason Comments Defibrillator Clinic Encounter Details Date Type Department Care Team (Latest Contact Info) Description 09/23/2024 2:30 PM EDT Cardiac Studies Cardiology [address] [place] [address] [place] [address] [address] Presence of implantable cardioverter-defibrill ator (ICD)*; Ischemic cardiomyopathy Allergies Active Allergy Reactions Criticality Noted Date Comments Erythromycin 02/24/2001 stomach pain Latex Hives 02/15/2009 Pollen 04/25/2017 documented as of this encounter (statuses as of 09/23/2024) Medications CALCIUM 1000 + D 1000-800 MG-UNIT [...] :HFrEF (heart failure with reduced ejection fraction) ([facility]) TAKE 1 TABLET BY MOUTH [...] (anxiety). 180 Tablet 1 08/23/19 25 Active Hospital, Clinic, or Other Facility [...] as of this encounter (statuses as of 09/23/2024) Active Problems Problem Noted Date Diagnosed Date [...] dysfuntion 4. Hypertension 5. Hyperlipidemia Dr Portillo [facility] 02/2005 Coronary artery disease invo lving [place] coronary artery of [place] heart without angina pectoris Infrarenal abdominal aortic aneurysm (AAA) witho ut rupture Overview (10/20/2014): 4 cm as of 08/25/12 4.3 cm as of 10/16/14 Hyperplastic colon polyp documented as of this encounter (statuses as of 09/23/2024) Resolved Problems Problem Noted Date Diagnosed Date [...] as of this encounter (statuses as of 09/23/2024) Immunizations Immunization Administration Dates Next Due COVID-19 mRNA, LNP-s, No Pre serve, 2-Dose Series (Moderna) 03/09/2021,08/26/2020,07/23/2020 Covid-19, Mrna, Lnp-s, Pf, B ivalent, 30 Mcg, IM, 12 yrs and above (Pfizer) 01/11/2023 PPD 01/22/2019,04/03/2001 Pneumococcal Conjugate Vacc, 13 [...] 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 Right pectoral device pocket is healthy without erythema, swelling, pain, or drainage. Providers see scanned report in Media tab labeled MURJ. Lauri Mulligan RN documented in this encounter Plan of Treatment Upcoming Encounters Date Type Department Care Team (Late st Contact Info) Description 09/30/2024 11:00 AM EDT Office Visit Sleep Disorders Ctr [facility] [address] [place] [phone] Samantha Wong DO [address] [place] [address] 10/29/2024 12:40 PM EDT Office Visit [facility] Medicine [address] [place] [address] Doreen Dillon MD [address] [place] [address] [place] [phone] 11/11/2024 10:45 AM EDT Office Visit Ophthalmology, [facility] [address] [place] [phone] Jorge Alberto Ann DO [address] [place] [address] Nurse Raul Melchor [address] [place] [address] Photographer Tatyana Melchor [address] [place] [address] 06/09/2025 8:00 AM EST Office Visit Cardiology, [facility] [address] [place] [phone] Tanya Park PA-C [address] [place] [address] 10/20/2025 9:00 AM EDT Cardiac Studies Cardiology [address] [place] [address] [facility] [address] [place] [address] Health Maintenance Due Date Last Done Comments Depression Monitoring 1957 Adult Wellness Visit 2013 COVID-19 Vaccine ( season) 2024 01/11/2023, 09/13/2021, 03/09/2021, Additional history exists Albumin/Creatinine Ratio 11/05/20242 024, 09/19/2022, 09/21/2021, Additional history exists GFR 01/28/2025 07/28/2024, 0 09/2024, 06/21/2023, Additional history exists CKD HGB USE SMARTSET 00048 07/28/202507/28, 05/11/2024, 06/21/2023, Additional history exists CKD PHOS USE SMARTSET 44826 07/28/20252 08/2024, 01/05/2023, 09/19/2022, Additional history exists Colonoscopy 12/25/2025 12/25/2020, 11/2014, 02/20/2013, Additional history exists DTap/Tdap Vaccines (2 - Td or Tdap) 03/24/2033 03/24/2023, 09/05/2007 Pneumococcal Vaccine: 50+ Years Completed 12/08/2015, 10/13/2013, 08/04/1996 Zoster Vaccines Completed 07/26/2018, 04/02/2018 RETIRED - COLONOSCOPY-EVERY 5 YRS AGES 18-100 Discontinued 12/25/2020, 04/12/2015, 02/20/2013, Additional history exists Influenza Vaccine (FLU shot) Completed 01/10/2024, 01/05/2023, 03/04/2022, Additional history exists EKG Completed 05/19/2024, 09/2024, 01/19/2023, Additional history exists HPV (Gardasil) Vaccine Aged [...] this encounter Medical Devices Implanted Type Area Early Interventionist Device Identifier Shelf Expiration Date Model / Serial / Lot Lens Intraoc 18.0 - [id number] - [id number] Implanted:Qty: 1 on 07/04/2018 by Conner Davenport MD at OR [facility] Right: Eye BAUSCH 12/04/2022 [id number] / [id number] / [id number] Lens Intraoc 19.0 - [id number] - [id number] Implanted:Qty: 1 on 07/16/2018 by Conner Davenport MD at OR [facility] Left: Eye BAUSCH 10/04/2022 [id number] / [id number] / Suture [place], Biocomposite Corkscrew Ft Implanted:Qty: 1 on 11/17/2020 by Mark Reilly DO at OR [facility] Right: Shoulder [employer] 07/05/2023 AR-1927BCT -475 / / [id number] Description:Double Loaded wi th two 1.3 mm Suture tape Biocomposite Swivelock Suture [place] Implanted:Qty: 1 on 11/17/2020 by aMrk Reilly DO at OR [facility] Right: Shoulder [employer] 01/04/2022 AR-2324BCT -2 / / [id number] Description:Double Loaded wi th PEEK Eyelet and two #2 TigerTail Sutures Biocomposite Knotless Swivelock [place] Implanted:Qty: 1 on 11/17/2020 by Mark Reilly DO at OR [facility] Right: Shoulder [employer] 07/04/2024 AR-2324KBC CTT / / [id number] Description:With White/Black TigerTape Loop and Blue #2 Suture Biocompostie Swivelock Suture [place] Implanted:Qty: 1 on 11/17/2020 by Mark Reilly DO at OR [facility] Right: Shoulder [employer] 05/06/2022 AR-2323BCT -2 / / [id number] Description:Double Loaded wi th PEEK Eyelet and two #2 TigerTail Sutures documented as of this encounter Visit Diagnoses Diagnosis Presence of implantable cardioverter-defibrillator (ICD)- Primary Ischemic cardiomyopathy Other specified forms of chronic ischemic heart disease documented in this encounter Care Teams Revenue Research Analyst Relationship Specialty Start Date End Date Doreen Dillon MD [address] [place] [address] [place] [phone] PCP - General Family Medicine 04/28/24 documented as of this encounter
--- OUTSIDE RECORDS SUMMARY | 2024-09-24 15:05 | External Medical Summary | Summary of Care ---
Author Name Unknown Organization [facility] Address [address] [facility] [place] [address] Phone [phone] Care Team Providers Care Veneer Grader Name Role Phone Doreen Dillon MD Primary Care Pr ovider Reason for Visit * Reason Comments Defibrillator Clinic Encounter Details Date Type Department Care Team (Latest Contact Info) Description 09/23/2024 2:30 PM EDT Cardiac Studies Cardiology [address] [place] [address] [place] [address] [address] Presence of implantable cardioverter-defibrill ator (ICD)*; Ischemic [...] :HFrEF (heart failure with reduced ejection fraction) ([facility]) TAKE 1 TABLET BY MOUTH EVERY DAY [...] Hypertension 5. 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 [address] [place] [phone] Jorge Alberto Ann DO [address] [place] [address] Nurse Raul Melchor [address] [place] [address] Photographer Tatyana Melchor [address] [place] [address] 06/09/2025 8:00 AM EST Office Visit Cardiology, [facility] [address] [place] [phone] Tanya Park PA-C [address] [place] [address] 10/20/2025 9:00 AM EDT Cardiac Studies Cardiology [address] [place] [address] [facility] [address] [place] [address] Health Maintenance Due Date Last Done Comments Depression Monitoring 1957 Adult Wellness Visit 2013 COVID-19 Vaccine ( season) 2024 01/11/2023, 09/13/2021, 03/09/2021, Additional history exists Albumin/Creatinine Ratio 11/05/20242 024, 09/19/2022, 09/21/2021, Additional history exists GFR 01/28/2025 07/28/2024, 0 09/2024, 06/21/2023, Additional history exists CKD HGB USE SMARTSET 22900 07/28/202507/28, 05/11/2024, 06/21/2023, Additional history exists CKD PHOS USE SMARTSET 75704 07/28/20252 08/2024, 01/05/2023, 09/19/2022, Additional history exists [...] this encounter Medical Devices Implanted Type Area Chief Financial Officer Device Identifier Shelf Expiration Date Model / Serial / Lot Lens Intraoc 18.0 - [id number] - [id number] Implanted:Qty: 1 on 07/04/2018 by Conner Davenport MD at OR [facility] Right: Eye BAUSCH 12/04/2022 [id number] / [id number] / [id number] Lens Intraoc 19.0 - [id number] - [id number] Implanted:Qty: 1 on 07/16/2018 by Conner Davenport MD at OR [facility] Left: Eye BAUSCH 10/04/2022 [id number] / [id number] / Suture [place], Biocomposite Corkscrew Ft Implanted:Qty: 1 on 11/17/2020 by Mark Reilly DO at OR [facility] Right: Shoulder [employer] 07/05/2023 AR-1927BCT -475 / / [id number] Description:Double Loaded wi th two 1.3 mm Suture tape Biocomposite Swivelock Suture [place] Implanted:Qty: 1 on 11/17/2020 by Mark Reilly DO at OR [facility] Right: Shoulder [employer] 01/04/2022 AR-2324BCT -2 / / [id number] Description:Double Loaded wi th PEEK Eyelet and two #2 TigerTail Sutures Biocomposite Knotless Swivelock [place] Implanted:Qty: 1 on 11/17/2020 by Mark Reilly DO at OR [facility] Right: Shoulder [employer] 07/04/2024 AR-2324KBC CTT / / [id number] Description:With White/Black TigerTape Loop and Blue #2 Suture Biocompostie Swivelock Suture [place] Implanted:Qty: 1 on 11/17/2020 by Mark Reilly DO at OR [facility] Right: Shoulder [employer] 05/06/2022 AR-2323BCT -2 / / [id number] Description:Double Loaded wi th PEEK Eyelet and two #2 TigerTail Sutures documented as of this encounter Visit Diagnoses Diagnosis Presence of implantable cardioverter-defibrillator (ICD)- Primary Ischemic cardiomyopathy Other specified forms of chronic ischemic heart disease documented in this encounter Care Teams Veneer Grader Relationship Specialty Start Date End Date Doreen Dillon MD [address] [place] [address] [place] [phone] PCP - General Family Medicine 04/28/24 documented as of this encounter
--- NOTE | 2024-09-24 17:07 | Discharge Summary ---
Discharge Summary Date of Service September 24, 2024 Principal Dx & Hospital Course #1 = Principal Diagnosis (1) Stroke-like symptoms: -symptoms resolved -f/u Echo -MRI pending -con't asa plavix lipitor -neurology consulted -PT/OT -plan to d/c home once neurology w/u completed -repeat CT head negative -neurology consult appreciated (2) Ischemic cardiomyopathy with implantable cardioverter-defibrillator (ICD): (3) Heart failure, systolic, with acute decompensation: -torsemide, jardiance, metoprolol (4) Paroxysmal A-fib: -amiodarone, metoprolol, s/p ablation (5) Left-sided headache: Plan Mark Batista is a 79 year-old male who presents to the ED for concern of stroke like symptoms. Medical history is significant for CAD s/p CABG x3, multiple cardiac stents, paroxysmal atrial fib/flutter, ischemic CMP, chronic systolic CHF, AAA s/p endovascular repair, PVD, CKD3, HTN, dyslipidemia. Admission HPI Per Admitting Provider Mark Batista is a 79 year-old male who presents to the ED for concern of stroke like symptoms. Medical history is significant for CAD s/p CABG x3, multiple cardiac stents, cardiac arrest with ROSC after receiving bystander CPR and ACLS protocol, PPM placement October 2021, paroxysmal atrial fib/flutter, ischemic CMP, chronic systolic CHF, AAA s/p endovascular repair, PVD, CKD3, HTN, dyslipidemia. Patient reports that he and his were shopping at [employer] around 3pm when he suddenly developed left sided headache and left sided blurry vision, also had left leg weakness. He reports that since his arrival to the ED his headache has improved from 8/10 to 5/10 after receiving IV Tylenol and his blurry vision has improved. Describes the blurry vision in his left eye as like "having a waterfall in the eye", denies black areas in his vision and no curtain going down over his vision. He continues to have left leg weakness and decreased sensation at the left side of his face. Denies difficulty with swallowing, denies changes in his speech. After initial evaluation, patient called to the nurse to report an increase in his headache and blurry vision. At bedside patient reports that the left sided headache never totally resolved but it had temporarily improved with the Tylenol. Patient denies having any recent illnesses or changes to his medications. Denies changes in bowel or bladder habits, no chest pain. States he has been having increased mucous at night when laying flat- notes that he was recently alexander gnosed with ESTELLA from a home sleep study but has not received a CPAP yet. Patient endorses taking all of his medications as prescribed, last took his Eliquis this morning. Patient initially reported a recent fall, however this was not on the day of presentation. History of fall/hit head in June which lead to overnight admission, reports he was feeling better in the time since this admission. ED Course: -CTA head/neck -CT head, CT A/P, CT chest -CXR -EKG -CBC, CMP, troponin, UA Discharge Exam GENERAL APPEARANCE NAD, activity normal for age, well developed/ well nourished, no cyanosis, pallor, or diaphoresis. EYES lids/conjunctiva normal. EARS/NOSE/THROAT Mucous membranes moist, nares normal, lips/teeth normal uvula midline without oral pharyngeal erythema, exudate or swelling TMs normal bilaterally. No lymphangitis/lymphedema. HEAD/NECK normocephalic atraumatic, no facial trauma, neck is supple. RESPIRATORY respiratory effort normal, speaks in full sentences, no tripod position, no accessory muscle use. Lungs clear to auscultation without rhonchi, wheezes, rales CARDIAC Regular rate and rhythm, no edema. ABDOMINAL Soft, ND/NT. No evidence of fluid wave. No pulsatile masses on exam, rebound tenderness, Hopper sign or pain over Mcburney's point. MUSCLES/EXTREMITIES No abnormal range of motion, no swelling. SKIN Warm, pink and dry. No rashes, dermatoses, petechiae or lesions. NEUROLOGICAL Speech is clear and appropriate. Normal level of consciousness. Gait and coordination are normal. 5/5 strength in all extremities. PSYCH Normal mood and affect. Judgement/competence is appropriate Discharge Plan Discharge Items Patient Disposition: Home - Self-Care Reason For Visit: STROKE SYMPTOMS Discharge Diagnosis: TIA Condition on Discharge: Fair Activity: Resume your previous activity Non-emergency contact: Primary Care Provider Call non-emergency contact if: you have any medication questions Follow-up/Referrals: PCP,NO [Physician] - Diet: Regular Addtl Attending Provider Instructions: Follow up with PMD in 2 weeks Pending Studies at Discharge: No Stand-Alone Forms: [facility], Smoking Cessation, Medications to Prevent Stroke Medications and DC Order Prescriptions: Continued metoprolol succinate 50 mg tablet extended release 24 hr 50 mg PO QAM Qty: 90 3RF clopidogrel [Plavix] 75 mg tablet 75 mg PO QAM montelukast [Singulair] 10 mg tablet 10 mg PO QAM amiodarone 200 mg Tablet 200 mg PO QAM Eliquis 5 mg Tablet 5 mg PO BID albuterol sulfate 90 mcg/actuation Hfa Aerosol Inhaler 2 inh INHALATION Q4H PRN (Reason: SHORT OF BREATH/COUGH/WHEEZE) spironolactone 25 mg tablet 25 mg PO QAM atorvastatin 80 mg tablet 80 mg PO DAILY PreserVision AREDS-2 250-90-40-1 mg Capsule 1 tab PO AMPM albuterol sulfate 0.63 mg/3 mL solution for nebulization 0.63 mg continuous nebulization Q4 PRN (Reason: Wheezing) sertraline 50 mg tablet 50 mg PO QAM Rx Instructions: TOTAL DOSE 150 MG--TAKES WITH 100 MG TAB. acetaminophen [Tylenol Extra Strength] 500 mg Tablet 1,000 mg PO DIRECTED PRN (Reason: Pain) hydrocodone-acetaminophen 5-325 mg tablet 1 tab PO Q6H PRN (Reason: Pain, Severe) triamcinolone acetonide 0.1 % Cream 1 applic TOPICAL BID PRN (Reason: SKIN IRRITATIONS) ferrous sulfate 325 mg (65 mg iron) Tablet 325 mg PO Q OTHER DAY ascorbate calcium (vitamin C) 500 mg Tablet 500 mg PO DAILY calcium carbonate-vitamin D3 [Calcium 500 With D] 500 mg-10 mcg (400 unit) Tablet 2 tab PO DAILY buspirone 5 mg tablet 5 mg PO BID PRN (Reason: anxiety ) tadalafil 10 mg tablet 10 mg PO DIRECTED PRN (Reason: Erectile Dysfunction) torsemide 20 mg tablet 20 mg PO DAILY sertraline 100 mg tablet 100 mg PO DAILY Rx Instructions: TOTAL DOSE 150 MG--TAKES WITH 50 MG TAB. baclofen 10 mg tablet 10 - 20 mg PO HS PRN (Reason: Muscle Spasm) Jardiance 10 mg tablet 10 mg PO DAILY Entresto 24-26 mg tablet 1 tab PO BID pantoprazole 40 mg tablet,delayed release (DR/EC) 40 mg PO DAILY Discharge Orders: Discharge Order (Routine); Ordered 09/24/24 Ordered By: Gonzalez Mckee Admission Data Admit Date/Time: 09/23/24 20:16 Attending Provider: Gonzalez Mckee Admit Provider: Lizeth Billingsley Primary Care Provider: Doreen Richardson Other Providers: Celia Brown; Soren Reddy; Sal,Jackson [facility] Hospital Stay Data Consultations 09/23/24 18:47 ED Decision to Admit Stat 09/23/24 22:23 Consult Neurology Routine Diagnostic Imagining Performed 09/23/24 16:49 CT angio head w con Stat CT angio neck with con Stat CT head/brain wo con Stat 09/23/24 17:13 CT abd pelvis IV con only Stat CT chest diagnostic w con Stat 09/24/24 10:01 CT head/brain wo con Routine Pending Results Patient Have Any Pending Studies at Discharge: No Discharge Instructions Given to Patient (Per Discharging Provider) Follow up with PMD in 2 weeks Total Time Total Time Spent Total Time Spent (In Minutes): 50 Coding Level of Care Code 64196 INP/OBS DISCH >30 MIN Diagnoses Stroke-like symptoms R29.90 Ischemic cardiomyopathy with implantable cardioverter-defibrillator (ICD) I25.5; Z95.810 Heart failure, systolic, with acute decompensation I50.23 Paroxysmal A-fib I48.0 Left-sided headache R51.9
[2024-09-24] MEDS: STROKE PATIENT DISCHARGE STA (18:17)
[2024-09-25 06:15] LABS: Basophils # (auto) 0.04 K/uL (0.00-0.20); Basophils % (auto) 0.6 %; Eosinophils # (auto) 0.33 K/uL (0.00-0.50); Eosinophils % (auto) 4.8 %; Hematocrit (blood only) 38.9 % (42.0-52.0); Hemoglobin 13.2 g/dl (14.0-18.0); Immature Granulocytes # (auto) 0.02 K/uL (0.01-0.20); Immature Granulocytes % (auto) 0.3 %; Lymphocytes # (auto) 1.73 K/uL (1.20-3.40); Lymphocytes % (auto) 25.3 %; Mean Corpuscular Hemoglobin 29.1 pg (25.0-34.0); Mean Corpuscular Hgb Conc 33.9 g/dL (32.0-36.0); Mean Corpuscular Volume 85.9 fL (80.0-100.0); Mean Platelet Volume 10.9 fL (9.4-12.4); Monocytes # (auto) 0.75 K/uL (0.11-0.59); Neutrophils # (auto) 3.97 K/uL (1.40-6.50); Platelet Count 203 K/uL (130-400); RDW Coefficient of Variation 14.1 % (11.5-14.5); RDW Standard Deviation 44.3 fL (36.4-46.3); Red Blood Count 4.53 M/uL (4.70-6.10); White Blood Count 6.84 K/ul (4.8-10.8)
[2024-09-25 06:32] LABS: Albumin Globulin Ratio 1.5 (0.9-2); Albumin Level 3.4 gm/dl (3.4-5.0); BUN Creatinine Ratio 13.2 (10-20); Bilirubin,Total 0.4 mg/dl (0.2-1.0); Calcium 8.4 mg/dl (8.6-10.3); Creatinine Clr Calc Pharmacy 46.1 ml/min; Globulin 2.2 gm/dl (2.5-4.0); Potassium 4.1 mmol/L (3.5-5.1); Total Protein 5.6 gm/dl (6.0-8.3)
[2024-09-25 07:23] VITALS: BP 136/76; PULSE 60; RESP 18; TEMP 97.9; O2SAT 97
[2024-09-25] MEDS ORDERED: STROKE PATIENT DISCHARGE STA (09:06)
--- NOTE | 2024-09-25 09:06 | Hospitalist Progress Note ---
Date of Service September 25, 2024 Assessment & Plan (1) Stroke-like symptoms: Plan: -symptoms resolved -f/u Echo -MRI pending -con't asa plavix lipitor -neurology consulted -PT/OT -plan to d/c home today 09/25 -neurology consult appreciated (2) Ischemic cardiomyopathy with implantable cardioverter-defibrillator (ICD): (3) Heart failure, systolic, with acute decompensation: Plan: -torsemide, jardiance, metoprolol (4) Paroxysmal A-fib: Plan: -amiodarone, metoprolol, s/p ablation (5) Left-sided headache: Plan Mark Batista is a 79 year-old male who presents to the ED for concern of stroke like symptoms. Medical history is significant for CAD s/p CABG x3, multiple card iac stents, paroxysmal atrial fib/flutter, ischemic CMP, chronic systolic CHF, AAA s/p endovascular repair, PVD, CKD3, HTN, dyslipidemia. Admission and Anticipated Discharge Date Admission Date: September 23, 2024 Subjective Pt states his symptoms have completely resolved. No visual disturbances, no limb weakness. Review of Systems Review of Systems: CONST: Negative for fever, body aches and chills. HENT: Negative for neck pain/stiffness, headache, congestion, sore throat, swelling. EYES: Negative for discharge/pain or vision changes. RESP: Negative for cough/hemoptysis and shortness of breath. CV: Negative chest pain, difficulty breathing, palpitations. ABD: Negative pain, nausea, vomiting. : Negative increase frequency, dysuria, blood in urine or stool. MUSC: Negative for muscle aches, edema. SKIN: Negative rash, lesions/sores. NEURO: Negative headache, dizziness, weakness. Physical Exam Physical Exam: GENERAL APPEARANCE NAD, activity normal for age, well developed/ well nourished, no cyanosis, pallor, or diaphoresis. EYES lids/conjunctiva normal. EARS/NOSE/THROAT Mucous membranes moist, nares normal, lips/teeth normal uvula midline without oral pharyngeal erythema, exudate or swelling TMs normal bilaterally. No lymphangitis/lymphedema. HEAD/NECK normocephalic atraumatic, no facial trauma, neck is supple. RESPIRATORY respiratory effort normal, speaks in full sentences, no tripod position, no accessory muscle use. Lungs clear to auscultation without rhonchi, wheezes, rales CARDIAC Regular rate and rhythm, no edema. ABDOMINAL Soft, ND/NT. No evidence of fluid wave. No pulsatile masses on exam, rebound tenderness, Hopper sign or pain over Mcburney's point. MUSCLES/EXTREMITIES No abnormal range of motion, no swelling. SKIN Warm, pink and dry. No rashes, dermatoses, petechiae or lesions. NEUROLOGICAL Speech is clear and appropriate. Normal level of consciousness. Gait and coordination are normal. 5/5 strength in all extremities. PSYCH Normal mood and affect. Judgement/competence is appropriate Results & Data Results & Data Vital Signs (Past 12 Hours) Vital Signs Temp Pulse Pulse Resp BP BP Pulse Ox 09/25/24 07:22 36.6 C 60 18 136/76 97 09/25/24 07:09 62 09/25/24 03:12 36.5 C 61 16 131/77 95 09/24/24 22:59 36.4 C L 58 L 16 130/76 93 09/24/24 22:01 60 O2 Del Method 09/25/24 07:22 Room Air 09/25/24 07:09 09/25/24 03:12 Room Air 09/24/24 22:59 Room Air 09/24/24 22:01 PG Care Time/CCT Total # of Minutes Spent Total Time Spent with Patient: Total time spent is greater than 50% in coordination of care (as documented) at patient's floor/unit and/or counseling patient: Coding Level of Care Code 60569 SUB INP/OBS CARE 2/35MIN Diagnoses Stroke-like symptoms R29.90 Ischemic cardiomyopathy with implantable cardioverter-defibrillator (ICD) I25.5; Z95.810 Heart failure, systolic, with acute decompensation I50.23 Paroxysmal A-fib I48.0 Left-sided headache R51.9
--- NOTE | 2024-09-25 09:51 | Neurology Progress Note ---
Date of Service September 25, 2024 Assessment & Plan (1) Stroke-like symptoms: (2) Acute left hemiparesis: (3) Numbness and tingling of left arm and leg: (4) Left-sided headache: (5) Ischemic cardiomyopathy with implantable cardioverter-defibrillator (ICD): Plan Patient had acute onset of left-sided weakness and numbness September 23 with left- sided headache and some increased blurry vision in the left. I did not find homonymous hemianopia on exam. This is likely a right hemispheric ischemic event (although technically it could still be a prolonged TIA). Complicated migraine cannot be entirely excluded either. His risk factor for stroke including history of hypertension, dyslipidemia, and diabetes. Fortunately, all of these are quite controlled with medication. He quit tobacco use [address] angiography of the head and neck was largely unremarkable as well. Patient has multiple cardiac issues followed closely by cardiology and he had this event despite taking clopidogrel and Eliquis. He has some history of depression and is on very low doses of sertraline and buspirone Today the patient is back to baseline with no weakness, numbness, headache, or other issues. Apparently an MRI of the brain could not be obtained due to his ICD. Repeat CT scan of the head was unremarkable. Recommendations: 1. Keep antihypertensives and atorvastatin medication the same. 2. Increase activity as able and obtain Physical and Occupational Therapy consults. 3. Continue clopidogrel 75 mg and Eliquis 5 mg twice daily. Even if he did have a stroke on MRI I do not feel comfortable putting him on dual antiplatelet therapy with the anticoagulant as this would markedly increase bleeding and bruising risk. Brilinta versus clopidogrel is a consideration. Consider an outpatient consult with [place] stroke service for recommendations of treatment in this case Overall, I spent a total of 35 minutes with this case including review of records, review of CT films, direct evaluation of patient at bedside, report generation, and discussion of the case with the patient and RN at bedside and Dr. Mckee, including differential diagnosis and treatment options. Admission and Anticipated Discharge Date Admission Date: September 23, 2024 Subjective Patient feels back to baseline today and has no weakness or numbness in his arms or legs and no headache. Repeat CT scan of the head September 24 showed no obvious stroke. Blood pressure is 136/76 and he is afebrile. Nursing reports no new issues. Echocardiogram showed improvement in his left ventricular function as compared to his last study in June 2024. There is no [id number] shunt and no obvious source of emboli. He does have wall movement issues noted. Results & Data Vital Signs (Past 12 Hours) Vital Signs Temp Pulse Pulse Resp BP BP Pulse Ox 09/25/24 07:22 36.6 C 60 18 136/76 97 09/25/24 07:09 62 09/25/24 03:12 36.5 C 61 16 131/77 95 09/24/24 22:59 36.4 C L 58 L 16 130/76 93 09/24/24 22:01 60 O2 Del Method 09/25/24 07:22 Room Air 09/25/24 07:09 09/25/24 03:12 Room Air 09/24/24 22:59 Room Air 09/24/24 22:01 Exam (Neuro) Physical Exam: The patient is awake, alert, and attentive, with normal speech and communication. Mood is normal and affect is appropriate. The patient is fully oriented and has intact long and short term memory. Extraocular eye muscles are intact without nystagmus. Facial strength and symmetry is normal bilaterally. Tongue is midline with normal strength bilaterally. Stance is normal sitting up in chair Coordination of the arms is normal, without tremor or ataxia bilaterally. Motor strength is 5/5 in all major muscle groups of the arms and legs bilaterally, both proximally and distally. Muscle tone is normal in the limbs, without rigidity or spasticity. PG Care Time/CCT Total # of Minutes Spent Total Time Spent with Patient: Total time spent is greater than 50% in coordination of care (as documented) at patient's floor/unit and/or counseling patient: Coding Level of Care Code 02011 SUB INP/OBS CARE 2/35MIN Diagnoses Stroke-like symptoms R29.90 Acute left hemiparesis G81.94 Numbness and tingling of left arm and leg R20.0; R20.2 Left-sided headache R51.9 Ischemic cardiomyopathy with implantable cardioverter-defibrillator (ICD) I25.5; Z95.810 Time Spent (min) 35
== END 2024-09-25 10:35 | disposition home health service (06) | DRG 69 ==
LOC: ED 16:41 → SUATTDRO 20:00 → 2E 20:00